=== PATIENT | male | born 1935 | race Two or more races ===

== ENCOUNTER 2020-05-21 21:19 | Inpatient (IN) | payer OTHER, MEDICAID ==
[~2020-05-21] VITALS: Ht 170.2 cm; Wt 63.9 kg
[2020-05-21 21:20] VITALS: BP 128/84
--- NOTE | 2020-05-21 21:20 | NUR ---
ED Nurse Note: pt BIBA from home per EMS report pt had a mechanical fall without loss of conciousness. Pt has hematoma on forehead. Pt is hard of hearing. Pt denies dizziness, blurry vision, n/v/d. AAOx2, breathing even and unlabored. Vital signs stable.
[2020-05-21] MEDS ORDERED: Bacitracin Oint UD TOPIC ONE (21:45)
[2020-05-21] MEDS ORDERED: Acetaminophen 500mg (ES) tab ORAL ONE (21:45)
--- NOTE | 2020-05-21 21:51 | NUR ---
ED Nurse Note: blood collected and sent to lab
--- NOTE | 2020-05-21 22:02 | NUR ---
ED Nurse Note: pt went down to CT via gurney in stable condition accompanied by CT staff.
[2020-05-21 22:15] VITALS: BP 112/69
--- NOTE | 2020-05-21 22:17 | NUR ---
ED Nurse Note: pt back from CT in stable condition.
--- NOTE | 2020-05-21 22:28 | Diagnostic Imaging Report ---
EXAM: CT Head Without Intravenous Contrast CLINICAL HISTORY: TRAUMA TECHNIQUE: Axial computed tomography images of the head/brain without intravenous contrast. CTDI is 53.4 mGy and DLP is 940.3 mGy-cm. One or more of the following dose reduction techniques were used: automated exposure control, adjustment of the mA and/or kV according to patient size, use of iterative reconstruction technique. COMPARISON: No relevant prior studies available. FINDINGS: Brain: No hemorrhage, edema or evidence of mass-effect. 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 Ventricles: Unremarkable. No ventriculomegaly. Bones/joints: Unremarkable. No acute fracture. Soft tissues: Left frontal scalp hematoma/contusion (7: 6). Sinuses: Unremarkable as visualized. Mastoid air cells: No mastoid effusion. IMPRESSION: 1. No acute intracranial traumatic process. 2. No acute calvarial fractures. 3. Left frontal scalp hematoma/contusion. 4. Mild encephalomalacia identified in the left basal ganglia suggestive of a prior infarct/insult.
[2020-05-21 22:30] LABS: INR 1.1 (0.9-1.1)
--- NOTE | 2020-05-21 22:34 | Diagnostic Imaging Report ---
INDICATION: Trauma COMPARISON: Unavailable. Findings/impression: Limited portable upright view of the chest demonstrates airspace consolidation within the left mid lung ( arrow). 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 No pleural effusions or clinically significant pneumothorax. No displaced fractures. Bilateral shoulder degenerative changes.
[2020-05-21 22:35] LABS: ANION GAP 8 mmol/L (5-15); BLOOD UREA NITROGEN 44 mg/dL (7-18); CARBON DIOXIDE 25 MMOL/L (21-32); CHLORIDE 103 MMOL/L (98-107); CREATININE 2.2 MG/DL (0.55-1.30); POTASSIUM 4.6 MMOL/L (3.5-5.1); SODIUM 136 MMOL/L (136-145)
--- NOTE | 2020-05-21 22:41 | NUR ---
ED Nurse Note: urine sent to lab
[2020-05-21 22:43] LABS: HEMATOCRIT 32.7 % (42.0-52.0); HEMOGLOBIN 11.5 G/DL (14.2-18.0); MEAN CORPUSCULAR VOLUME 92 FL (80-99); PLATELET COUNT 168 K/UL (150-450); RED BLOOD COUNT 3.57 M/UL (4.70-6.10); RED CELL DISTRIBUTION WIDTH 16.2 % (11.6-14.8); WHITE BLOOD COUNT 4.2 K/UL (4.8-10.8)
--- NOTE | 2020-05-21 22:46 | Emergency Room Report ---
History of Present Illness General Chief Complaint: Head Injury Source: Patient, EMS (Geoffrey Clement MD) Present Illness HPI Patient brought to the emergency department post mechanical fall. The patient has hematoma and abrasion to the left forehead. He is unable to answer whether he lost consciousness. It is reported that this was a mechanical fall although the circumstances around this event are unclear. Patient not answer questions asked most of the time. He does agree at times that he has pain in his forehead. He does agree that he does have a rash. According to paramedics they were told that he has psoriasis. The patient claims he is run out of medication for the rash. His history came from concerned people who know the patient. Apparently he lives by himself. (Geoffrey Clement MD) Allergies: Coded Allergies: No Known Allergies (Unverified , 05/21/20) COVID-19 Screening Contact w/high risk pt: No Experienced COVID-19 symptoms?: No COVID-19 Testing performed LNA: No (Geoffrey Clement MD) Patient History Limited by: medical condition Past Medical History: see triage record Social History Narrative lives by himself Reviewed Nursing Documentation: PMH: Agreed; PSxH: Agreed (Geoffrey Clement MD) Nursing Documentation-PMH Past Medical History: No History, Except For History Of Psychiatric Problem: Yes - dementia (Geoffrey Clement MD) Review of Systems All Other Systems: limited (Geoffrey Clement MD) Physical Exam Vital Signs Date Time Temp Pulse Resp B/P (MAP) Pulse Ox O2 Delivery O2 Flow Rate FiO2 05/21/20 21:20 98.2 88 17 130/80 (97) 98 Room Air Sp02 EP Interpretation: reviewed, normal General Appearance: well appearing, no apparent distress, GCS 15 Head: normocephalic, other - hematoma abrasion L forehead Eyes: bilateral eye normal inspection, bilateral eye PERRL, bilateral eye EOMI ENT: moist mucus membranes Neck: full range of motion, supple Respiratory: chest non-tender, lungs clear, normal breath sounds Cardiovascular #1: regular rate, rhythm, no edema Cardiovascular #2: 2+ radial (R) Gastrointestinal: normal inspection, normal bowel sounds, non tender, no mass, non-distended Musculoskeletal: back normal, normal range of motion Neurologic: alert, motor strength/tone normal, oriented - X1, sensory intact, cerebellar normal, speech normal Psychiatric: mood/affect normal - not answering most questions Skin: warm/dry, abrasion - L forehead, other - maculopapular rash yolk and upper extremities (Geoffrey Clement MD) Medical Decision Making Diagnostic Impression: Primary Impression: Altered level of consciousness Additional Impressions: Head injury Qualified Codes: S09.90XA - Unspecified injury of head, initial encounter Encephalopathy Renal insufficiency Pneumonia Qualified Codes: J18.9 - Pneumonia, unspecified organism Pneumonia due to COVID-19 virus Abnormal EKG Maculopapular rash ER Course Patient presents post head injury with inability to answer most questions. Differential includes concussion, abrasion, brain bleed, electrolyte imbalance, underlying developmental delay or psychological disability amongst others. Evaluation with EKG, CT of the head, chest x-ray and labs. Patient placed on a bus driver/monitor for the possibility of syncope. IV hydration begun. Complex patient as he is unable to give history. Patient administered tetanus. Local wound care also begun. CT head with's scalp hematoma. Encephalomalacia no lesion. CXR with L infiltrate. Antibiotics ordered. 2249 EKG right bundle branch block with the T wave inversions V2 through V4. Labs with renal insufficiency. Because of the possible infiltrate on the left chest x-ray blood cultures and antibiotics begun. The patient has an oxygen saturation of 100% and there is no leukocytosis. Covid test returns positive. Rocephin and azithromycin begun. Dexamethasone not given as patient saturation is 100%. The delirium may be related to COVID-19. Patient mentation unchanged. Mostly cooperative. Patient admitted to the hospital. Laboratory Tests Test 05/21/20 21:51 05/21/20 22:37 White Blood Count 4.2 K/UL (4.8-10.8) L Red Blood Count 3.57 M/UL (4.70-6.10) L Hemoglobin 11.5 G/DL (14.2-18.0) L Hematocrit 32.7 % (42.0-52.0) L Mean Corpuscular Volume 92 FL (80-99) Mean Corpuscular Hemoglobin 32.2 PG (27.0-31.0) H Mean Corpuscular Hemoglobin Concent 35.2 G/DL (32.0-36.0) Red Cell Distribution Width 16.2 % (11.6-14.8) H Platelet Count 168 K/UL (150-450) Mean Platelet Volume 10.5 FL (6.5-10.1) H Neutrophils (%) (Auto) % (45.0-75.0) Lymphocytes (%) (Auto) % (20.0-45.0) Monocytes (%) (Auto) % (1.0-10.0) Eosinophils (%) (Auto) % (0.0-3.0) Basophils (%) (Auto) % (0.0-2.0) Differential Total Cells Counted 100 Neutrophils % (Manual) 54 % (45-75) Lymphocytes % (Manual) 29 % (20-45) Monocytes % (Manual) 10 % (1-10) Eosinophils % (Manual) 4 % (0-3) H Basophils % (Manual) 1 % (0-2) Myelocytes % 1 % (0-0) H Band Neutrophils 1 % (0-8) Platelet Estimate Adequate Platelet Morphology Normal Erythrocyte Sedimentation Rate 87 MM/HR (0-20) H Prothrombin Time 12.5 SEC (9.30-11.50) H Prothrombin Time INR 1.1 (0.9-1.1) Activated Partial Thromboplast Time 33 SEC (23-33) Sodium Level 136 MMOL/L (136-145) Potassium Level 4.6 MMOL/L (3.5-5.1) Chloride Level 103 MMOL/L (98-107) Carbon Dioxide Level 25 MMOL/L (21-32) Anion Gap 8 mmol/L (5-15) Blood Urea Nitrogen 44 mg/dL (7-18) H Creatinine 2.2 MG/DL (0.55-1.30) H Estimated Glomerular Filtration Rate 28.8 mL/min (>60) Glucose Level 121 MG/DL (74-106) H Calcium Level 8.0 MG/DL (8.5-10.1) L Magnesium Level 1.7 MG/DL (1.8-2.4) L Total Bilirubin 0.5 MG/DL (0.2-1.0) Aspartate Amino Transferase (AST) 37 U/L (15-37) Alanine Aminotransferase (ALT) 29 U/L (12-78) Alkaline Phosphatase 69 U/L (46-116) Total Creatine Kinase 205 U/L (26-308) Troponin I 0.021 ng/mL (0.000-0.056) C-Reactive Protein, Quantitative 8.4 mg/dL (0.00-0.90) H Total Protein 7.3 G/DL (6.4-8.2) Albumin 3.2 G/DL (3.4-5.0) L Globulin 4.1 g/dL Albumin/Globulin Ratio 0.8 (1.0-2.7) L Thyroid Stimulating Hormone (TSH) 0.939 uiU/mL (0.358-3.740) Urine Color Pale yellow Urine Appearance Clear Urine pH 5 (4.5-8.0) Urine Specific [place] 1.015 (1.005-1.035) Urine Protein 3+ (NEGATIVE) H Urine Glucose (UA) Negative (NEGATIVE) Urine Ketones Negative (NEGATIVE) Urine Blood Negative (NEGATIVE) Urine Nitrite Negative (NEGATIVE) Urine Bilirubin Negative (NEGATIVE) Urine Urobilinogen Normal MG/DL (0.0-1.0) Urine Leukocyte Esterase Negative (NEGATIVE) Urine RBC 0-2 /HPF (0 - 0) H Urine WBC 0-2 /HPF (0 - 0) Urine Squamous Epithelial Cells None /LPF (NONE/OCC) Urine Bacteria Few /HPF (NONE) Urine Granular Casts 0-2 /LPF (NONE) H Urine White Blood Cell Casts 0-2 /LPF (NONE) H Urine Opiates Screen Negative (NEGATIVE) Urine Barbiturates Screen Negative (NEGATIVE) Phencyclidine (PCP) Screen Negative (NEGATIVE) Urine Amphetamines Screen Negative (NEGATIVE) Urine Benzodiazepines Screen Negative (NEGATIVE) Urine Cocaine Screen Negative (NEGATIVE) Urine Marijuana (THC) Screen Negative (NEGATIVE) Microbiology Date/Time Source Procedure Growth Status 05/21/20 22:50 Nasopharynx SARS-CoV-2 RdRp Gene Assay - Final Complete (Geoffrey Clement MD) ER Course This patient was seen by his doctors. Initially he presents with altered mental status and head injury. CT head was negative. Chest x-ray showed a left retrocardiac infiltrate. His EKG was abnormal. Troponin was intermediate. A Covid test was sent and that was positive. Patient was given antibiotics. I gave him aspirin. Oxygenation is 100%. I contacted Dr. Waldrop for admission. (Stas Lion MD) EKG Diagnostic Results Rate: normal Rhythm: NSR ST Segments: other - ST inversions V2-4, RBBB (Geoffrey Clement MD) Rhythm Strip Diag. Results Rhythm: NSR, no PVC's, no ectopy (Geoffrey Clement MD) Chest X-Ray Diagnostic Results Chest X-Ray Diagnostic Results : Chest X-Ray Ordered: Yes # of Views/Limited/Complete: 1 View Indication: Other EP Interpretation: Yes Interpretation: no effusion, no pneumothorax, other - L infiltrate Impression: Other (Geoffrey Clement MD) CT/MRI/US Diagnostic Results CT/MRI/US Diagnostic Results : Imaging Test Ordered: head Impression hematoma forehead, encephalomalacia (Geoffrey Clement MD) Last Vital Signs Date Time Temp Pulse Resp B/P (MAP) Pulse Ox O2 Delivery O2 Flow Rate FiO2 05/22/20 00:14 98.2 76 18 89/67 100 Room Air Status: improved (Geoffrey Clement MD) Status: improved (Stas Lion MD) Disposition: ADMITTED INPATIENT Condition: Serious Scripts No Active Prescriptions or Reported Meds Referrals: NOT CHOSEN IPA/,REFERRING (PCP) Geoffrey Clement MD May 21, 2020 22:46 Stas Lion MD May 22, 2020 00:35
[2020-05-21 22:47] LABS: ALANINE AMINOTRANSFERASE 29 U/L (12-78); ALBUMIN 3.2 G/DL (3.4-5.0); ALBUMIN/GLOBULIN RATIO 0.8 (1.0-2.7); ALKALINE PHOSPHATASE 69 U/L (46-116); ASPARTATE AMINO TRANSFERASE 37 U/L (15-37); BILIRUBIN,TOTAL 0.5 MG/DL (0.2-1.0); CREATINE KINASE 205 U/L (26-308)
--- NOTE | 2020-05-21 22:52 | NUR ---
ED Nurse Note: COVID swab sent to lab
[2020-05-21 22:57] LABS: APPEARANCE,URINE CLEAR; BILIRUBIN, URINE NEGATIVE (NEGATIVE); COLOR,URINE PALE YELLOW; GLUCOSE, URINE (UA) NEGATIVE (NEGATIVE); KETONES,URINE NEGATIVE (NEGATIVE); LEUKOCYTE ESTERASE ,URINE NEGATIVE (NEGATIVE); NITRITE,URINE NEGATIVE (NEGATIVE); PH,URINE 5 (4.5-8.0); PROTEIN,URINE 3+ (NEGATIVE); UROBILINOGEN,URINE NORMAL MG/DL (0.0-1.0)
[2020-05-21] MEDS ORDERED: cefTRIAXone 1 GM in NS 55 ML IVPB ONE (23:00)
[2020-05-21] MEDS ORDERED: Azithromycin 500 MG in NS 275 ML IV ONE (23:00)
[2020-05-21] MEDS ORDERED: Aspirin Baby 81mg ORAL ONE (23:30)
--- NOTE | 2020-05-21 23:46 | NUR ---
ED Nurse Note: pt placed in Rm 07. Pt's SBP 88, EDMD aware.
[2020-05-22] VITALS (22 sets, daily range): BP systolic 89–142; BP diastolic 46–71
--- NOTE | 2020-05-22 02:05 | NUR ---
ED Nurse Note: pt laying in bed with eyes closed, opens eyes when touched. Pt is AA, SBP now 90s.
--- NOTE | 2020-05-22 03:23 | NUR ---
ED Nurse Note: pt awake able to verbalize needs, able to void in urinal independently. Warm blankets provided. SBP 90s-100s, on RA sating 100%.
--- NOTE | 2020-05-22 03:27 | NUR ---
Samaria harris in EDM - 05/22/20 at 0327 by OSKAR ED Nurse Note: veterinary technician assistant at bedside performing KUB
--- NOTE | 2020-05-22 04:00 | NUR ---
ED Nurse Note: Report given to MARTHA Herzog in tele.
--- NOTE | 2020-05-22 04:15 | NUR ---
TRANSFER TO FLOOR: Patient transferred to tele via gurney accompanied by temporary staff accountant, per EDMD ok to transfer. Report given to MARTHA Herzog. Belongings and admission packet given to tele staff.
--- NOTE | 2020-05-22 04:49 | NUR ---
NURSE NOTES: Patient received from Zahida THOMAS. Patient in stable condition. A&O x 1-2. No c/o pain and no s/s of distress. Patient is a poor historian, unable to take history from patient. No contact numbers for family. Primary MD contacted for Admission orders, awaiting callback. Patient saturating well on room air. Vital signs WNL upon arrival. satellite project site monitor and gown placed to patient. IV site patent and intact on Left fA 18 and right AC 20G running NS @ NS @100mls.hr. Bed in lowest position and locked. Call light and bedside table within reach. Will continue plan of care.
--- NOTE | 2020-05-22 04:49 | NUR ---
NURSE NOTES: Noted patient admitted wt Left forehead abrasion, covered with optifoam. Addendum: 05/22/20 at 0741 by Rosenda Melchor RN Wrong user
--- NOTE | 2020-05-22 06:58 | NUR ---
NURSE NOTES: Patient found kneeling by the bed bleeding on the lips by AM charge nurse. Patient confused at baseline A&O x2 Neuro assessment done and attended by nurses on the floor. Bed alarm was on, bed in lowest position and locked. Patient wearing yellow gown and socks. No change in mental status. Injuries were noted on the lip, right elbow. delivery room supervisor and MD notified and added Dr. Ramirez for consult for Head CT order. INFANT NANNY fall was called for patient. Patient stable at this moment. Vital signs WNL. Vital signs Q15 started. Will continue to monitor.
--- NOTE | 2020-05-22 06:58 | NUR ---
NURSE HAND-OFF REPORT: Important Events on Shift:[Admission, Patient fell] Patient Status: [Stable] Diet: [NPO] Pending Orders: [] Pending Results/Labs:[] Pending MD notification:[] Latest Vital Signs: Temperature 98.9 , Pulse 83 , B/P 108 /62 , Respiratory Rate 18 , O2 SAT 100 , Room Air, O2 Flow Rate . Vital Sign Comment: [] EKG Rhythm: Sinus Rhythm Rhythm change?: MD Notified?: - MD Response: Latest Stewart Fall Score: 85 Fall Risk: High Risk Safety Measures: Call light Within Reach, Bed Alarm Zone 1, Side Rails Side Rails x2, Bed position Low and Locked. Fall Precautions: Yellow Socks Yellow Gown Door Sign Patient Fall Education Report given to [Cecily RN].
--- NOTE | 2020-05-22 07:10 | NUR ---
NURSE NOTES: The patient was seen sitting on the right side of the bed with a towel over upper lip due to bleeding after being seen on the floor and the bed alarm was going off. The patient reported pain to his left side of forehead, the doctor was alerted and an order for CT of the head with no contrast was ordered. The patient is Portuguese speaking and was responding appropriately being alert to self and location but was hard of hearing. The patients upper lip had stopped bleeding at the time. The patient was wearing a yellow gown with the bed in the lowest position, the bed alarm was set to zone 1, the side rails were up x2 and the call light was within reach. Upon assessment the patient also had an abrasion to the right elbow and was not bleeding. His vital signs were all within normal limits. The patient then asked if he could be assisted to the commode and was assisted by two nurses. He was then cleaned, his gown and linen were changed as well. He was then assisted back in bed in semifowlers position with no acute signs of distress. Neuro checks were started per protocol.
--- NOTE | 2020-05-22 10:31 | NUR ---
NURSE NOTES: Called CT for stat order. Supervisor [employer] said, "Patient is COVID and we have some patients in the ER we have to do first". When asked for ETA ear mold laboratory technician said " we will be right there".
--- NOTE | 2020-05-22 12:07 | Diagnostic Imaging Report ---
EXAM: US Retroperitoneal Complete, Renal CLINICAL HISTORY: RENAL-A TECHNIQUE: Real-time complete ultrasound of the retroperitoneum with image documentation. COMPARISON: None FINDINGS: Right kidney: Right kidney measures 10.7 cm in length. No hydronephrosis or stone. Left kidney: Left kidney measures 11.0 cm in length. No hydronephrosis or stone. Bladder: Bladder is distended but otherwise grossly unremarkable. IMPRESSION: No hydronephrosis or stone.
--- NOTE | 2020-05-22 12:18 | Diagnostic Imaging Report ---
EXAM: CT Head Without Intravenous Contrast CLINICAL HISTORY: FALL TECHNIQUE: Axial computed tomography images of the head/brain without intravenous contrast. CTDI is 53.4 mGy and DLP is 1072.2 mGy-cm. One or more of the following dose reduction techniques were used: automated exposure control, adjustment of the mA and/or kV according to patient size, use of iterative reconstruction technique. COMPARISON: CT head on 05/21/2020 FINDINGS: Brain: No acute infarct or hemorrhage identified. No extra-axial fluid collection. No mass effect or midline shift. Stable areas of hypoattenuation in the supratentorial white matter likely represent chronic small vessel ischemic changes. Stable punctate calcification along the left frontal lobe. Ventricles and sulci: Prominence of the ventricles and sulci is likely secondary to cerebral volume loss. Bones: Age-indeterminate fractures of the nasal bone partially visualized. Subcutaneous tissues: Left frontal soft tissue swelling. Sinuses: Mild mucosal thickening in the ethmoid air cells. Mastoid air cells: Normal. Orbits: Grossly unremarkable. Other: Atherosclerotic calcifications in the intracranial vasculature. IMPRESSION: 1. No acute intracranial abnormality. 2. Left frontal soft tissue swelling. Age-indeterminate nasal bone fractures partially visualized. 3. Stable mild chronic small vessel ischemic changes and cerebral volume loss.
[2020-05-22 12:25] LABS: BASOPHILS % (AUTO) 0.8 % (0.0-2.0); EOSINOPHILS % (AUTO) 0.1 % (0.0-3.0); HEMATOCRIT 32.8 % (42.0-52.0); HEMOGLOBIN 11.2 G/DL (14.2-18.0); LYMPHOCYTES % (AUTO) 22.7 % (20.0-45.0); MEAN CORPUSCULAR VOLUME 94 FL (80-99); MONOCYTES % (AUTO) 17.6 % (1.0-10.0); NEUTROPHILS % (AUTO) 58.8 % (45.0-75.0); PLATELET COUNT 139 K/UL (150-450); RED BLOOD COUNT 3.51 M/UL (4.70-6.10); WHITE BLOOD COUNT 4.6 K/UL (4.8-10.8)
--- NOTE | 2020-05-22 12:28 | NUR ---
NURSE NOTES: Patient reports a phone number of [phone]. Patient informed of incomplete number but cannot remember full number. Patient wants RN to inform his daughter Kana of him being admitted. Patient is hard of hearing. Unable to make a phone call to relatives. Patient does not provide any other phone numbers.
--- NOTE | 2020-05-22 12:49 | NUR ---
NURSE NOTES: Bilateral soft wrist Restraint order placed by Dr. Huynh for patients safety. The patients restraint interventions have been initiated per protocol.
[2020-05-22 12:51] LABS: ALANINE AMINOTRANSFERASE 28 U/L (12-78); ALBUMIN/GLOBULIN RATIO 0.7 (1.0-2.7); ALKALINE PHOSPHATASE 57 U/L (46-116); ANION GAP 11 mmol/L (5-15); ASPARTATE AMINO TRANSFERASE 40 U/L (15-37); BILIRUBIN,TOTAL 0.4 MG/DL (0.2-1.0); BLOOD UREA NITROGEN 31 mg/dL (7-18); CALCIUM 7.3 MG/DL (8.5-10.1); CARBON DIOXIDE 21 MMOL/L (21-32); CHLORIDE 109 MMOL/L (98-107); CHOLESTEROL 114 MG/DL (< 200); CREATININE 1.5 MG/DL (0.55-1.30); FERRITIN 358 NG/ML (8-388); GAMMA GLUTAMYL TRANSPEPTIDASE 42 U/L (5-85); HDL CHOLESTEROL 35 MG/DL (40-60); PHOSPHORUS 3.1 MG/DL (2.5-4.9); POTASSIUM 4.5 MMOL/L (3.5-5.1); SODIUM 141 MMOL/L (136-145); TRIGLYCERIDES 87 MG/DL (30-150)
--- NOTE | 2020-05-22 13:16 | Consultation ---
Consult Note Consult Note I am asked to evaluate the patient at the request of Dr. Barraza for renal failure and fluid and electrolyte management Patient brought to the emergency department post mechanical fall. The patient has hematoma and abrasion to the left forehead. He is unable to answer whether he lost consciousness. It is reported that this was a mechanical fall although the circumstances around this event are unclear. Patient not answer questions asked most of the time. He does agree at times that he has pain in his forehead. He does agree that he does have a rash. According to paramedics they were told that he has psoriasis. The patient claims he is run out of medication for the rash. His history came from concerned people who know the patient. Apparently he lives by himself. Allergies: No Known Allergies (Unverified , 05/21/20) COVID-19 Screening Contact w/high risk pt: No Experienced COVID-19 symptoms?: No COVID-19 Testing performed PIPE LAYER HELPER: No Limited by: medical condition Past Medical History: see triage record Social History Narrative lives by himself Past Medical History: No History, Except For History Of Psychiatric Problem: Yes - dementia Vital Signs Date Time Temp Pulse Resp B/P (MAP) Pulse Ox O2 Delivery O2 Flow Rate FiO2 05/21/20 21:20 98.2 88 17 130/80 (97) 98 Room Air PHYSICAL EXAMINATION: VITAL SIGNS: Show blood pressure 140/67, pulse 76, respirations 18, temperature 98.3. HEAD AND NECK: Showed no JVD. LUNGS: Clear. CARDIOVASCULAR: Shows regular S1 and S2 with no gallop or murmur. ABDOMEN: Soft. EXTREMITIES: No pitting edema. LABORATORY DATA: Labs show white count of 4.3, hemoglobin 11.2, hematocrit 32.8, and platelets 139. Sodium 141, potassium 4.5, BUN of 31, creatinine 1.5, glucose of 91. Initial BUN was 44 and creatinine of 2.2. First troponin is negative. Urine tox is negative. INR is 1.1. EKG showed sinus rhythm with complete right bundle-branch block and lateral T-wave inversion. . Assessment/Plan Impression: Acute renal failure Possible underlying chronic kidney disease Dehydration Electrolyte imbalance Toxic metabolic encephalopathy Pneumonia due to COVID-19 virus Mild anemia Plan: Slow hydrate Antibiotics, avoid nephrotoxic's Monitor renal parameters electrolytes Keep the blood pressure blood sugar in check Patient full code Jerome Delaney MD 12, 2020 13:16
[2020-05-22 13:45] LABS: % IRON SATURATION 7 % (15-50); IRON 16 ug/dL (50-175); TOTAL IRON BINDING CAPACITY 235 ug/dL (250-450)
--- NOTE | 2020-05-22 14:19 | NUR ---
NURSE NOTES: Sheree called the unit and provided the daugher's number . Daughter (Kana) contacted and informed of situation and fall today.
[2020-05-22] MEDS: D5 1/2NS 1,000 ML IV SCH (14:24)
--- NOTE | 2020-05-22 15:21 | NUR ---
CASE MANAGEMENT:REVIEW BIBA FROM HOME CC: S/P MECHANICAL FALL W/HEAD INJURY SI:COVID PNA. ENCEPHALOPATHY 98.2 94 18 89/67 100% ON RA BUN+44 CR+2.2 MAG-1.7 IS: TYLENOL PO 1L NS BOLUS BACITRACIN BENNIE CT HEAD CXR : TO TELEMETRY DCP: FROM HOME
--- NOTE | 2020-05-22 15:43 | Cardiac Electrophysiology PN ---
Subjective Subjective [id number] Objective Last 24 Hour Vital Signs Date Time Temp Pulse Resp B/P (MAP) Pulse Ox O2 Delivery O2 Flow Rate FiO2 05/22/20 13:58 98.6 100 05/22/20 12:58 98.0 100 05/22/20 12:00 76 05/22/20 12:00 99.0 83 19 140/67 (91) 97 05/22/20 11:58 96.9 100 05/22/20 10:58 97.8 100 05/22/20 09:58 97.2 100 05/22/20 09:00 Room Air 05/22/20 08:58 98.0 100 05/22/20 08:28 98.0 100 05/22/20 08:00 65 05/22/20 08:00 96.6 61 18 120/62 (81) 100 05/22/20 07:58 98.0 100 05/22/20 07:43 97.6 100 05/22/20 07:28 98.2 100 05/22/20 07:13 98.0 100 05/22/20 07:10 Room Air 05/22/20 06:58 98.3 100 05/22/20 04:49 Room Air 05/22/20 04:15 98.9 83 18 108/62 100 Room Air 05/22/20 03:13 98.2 73 18 110/71 100 Room Air 05/22/20 02:36 98.2 72 18 96/66 100 Room Air 05/22/20 02:05 98.2 76 18 98/68 100 Room Air 05/22/20 00:14 98.2 76 18 89/67 100 Room Air 05/21/20 22:25 98.2 05/21/20 22:15 98.3 71 18 112/69 100 Room Air 05/21/20 21:20 98.2 94 18 128/84 100 Room Air 05/21/20 21:20 98.2 88 17 130/80 (97) 98 Room Air Intake and Output 05/21/20 05/22/20 19:00 07:00 Intake Total 1655 ml Balance 1655 ml Intake IV Total 1655 ml # Voids 2 Laboratory Tests Test 05/21/20 21:51 05/21/20 22:37 05/22/20 12:05 White Blood Count 4.2 K/UL (4.8-10.8) L 4.6 K/UL (4.8-10.8) L Red Blood Count 3.57 M/UL (4.70-6.10) L 3.51 M/UL (4.70-6.10) L Hemoglobin 11.5 G/DL (14.2-18.0) L 11.2 G/DL (14.2-18.0) L Hematocrit 32.7 % (42.0-52.0) L 32.8 % (42.0-52.0) L Mean Corpuscular Volume 92 FL (80-99) 94 FL (80-99) Mean Corpuscular Hemoglobin 32.2 PG (27.0-31.0) H 32.0 PG (27.0-31.0) H Mean Corpuscular Hemoglobin Concent 35.2 G/DL (32.0-36.0) 34.2 G/DL (32.0-36.0) Red Cell Distribution Width 16.2 % (11.6-14.8) H 16.0 % (11.6-14.8) H Platelet Count 168 K/UL (150-450) 139 K/UL (150-450) L Mean Platelet Volume 10.5 FL (6.5-10.1) H 9.9 FL (6.5-10.1) Neutrophils (%) (Auto) % (45.0-75.0) 58.8 % (45.0-75.0) Lymphocytes (%) (Auto) % (20.0-45.0) 22.7 % (20.0-45.0) Monocytes (%) (Auto) % (1.0-10.0) 17.6 % (1.0-10.0) H Eosinophils (%) (Auto) % (0.0-3.0) 0.1 % (0.0-3.0) Basophils (%) (Auto) % (0.0-2.0) 0.8 % (0.0-2.0) Differential Total Cells Counted 100 Neutrophils % (Manual) 54 % (45-75) Lymphocytes % (Manual) 29 % (20-45) Monocytes % (Manual) 10 % (1-10) Eosinophils % (Manual) 4 % (0-3) H Basophils % (Manual) 1 % (0-2) Myelocytes % 1 % (0-0) H Band Neutrophils 1 % (0-8) Platelet Estimate Adequate Platelet Morphology Normal Erythrocyte Sedimentation Rate 87 MM/HR (0-20) H Prothrombin Time 12.5 SEC (9.30-11.50) H Prothromb Time International Ratio 1.1 (0.9-1.1) Activated Partial Thromboplast Time 33 SEC (23-33) Sodium Level 136 MMOL/L (136-145) 141 MMOL/L (136-145) Potassium Level 4.6 MMOL/L (3.5-5.1) 4.5 MMOL/L (3.5-5.1) Chloride Level 103 MMOL/L (98-107) 109 MMOL/L (98-107) H Carbon Dioxide Level 25 MMOL/L (21-32) 21 MMOL/L (21-32) Anion Gap 8 mmol/L (5-15) 11 mmol/L (5-15) Blood Urea Nitrogen 44 mg/dL (7-18) H 31 mg/dL (7-18) H Creatinine 2.2 MG/DL (0.55-1.30) H 1.5 MG/DL (0.55-1.30) H Estimat Glomerular Filtration Rate 28.8 mL/min (>60) 44.8 mL/min (>60) Glucose Level 121 MG/DL (74-106) H 91 MG/DL (74-106) Calcium Level 8.0 MG/DL (8.5-10.1) L 7.3 MG/DL (8.5-10.1) L Magnesium Level 1.7 MG/DL (1.8-2.4) L 1.7 MG/DL (1.8-2.4) L Total Bilirubin 0.5 MG/DL (0.2-1.0) 0.4 MG/DL (0.2-1.0) Aspartate Amino Transf (AST/SGOT) 37 U/L (15-37) 40 U/L (15-37) H Alanine Aminotransferase (ALT/SGPT) 29 U/L (12-78) 28 U/L (12-78) Alkaline Phosphatase 69 U/L (46-116) 57 U/L (46-116) Total Creatine Kinase 205 U/L (26-308) Troponin I 0.021 ng/mL (0.000-0.056) C-Reactive Protein, Quantitative 8.4 mg/dL (0.00-0.90) H 8.7 mg/dL (0.00-0.90) H Total Protein 7.3 G/DL (6.4-8.2) 7.2 G/DL (6.4-8.2) Albumin 3.2 G/DL (3.4-5.0) L 3.0 G/DL (3.4-5.0) L Globulin 4.1 g/dL 4.2 g/dL Albumin/Globulin Ratio 0.8 (1.0-2.7) L 0.7 (1.0-2.7) L Thyroid Stimulating Hormone (TSH) 0.939 uiU/mL (0.358-3.740) Urine Color Pale yellow Urine Appearance Clear Urine pH 5 (4.5-8.0) Urine Specific [place] 1.015 (1.005-1.035) Urine Protein 3+ (NEGATIVE) H Urine Glucose (UA) Negative (NEGATIVE) Urine Ketones Negative (NEGATIVE) Urine Blood Negative (NEGATIVE) Urine Nitrite Negative (NEGATIVE) Urine Bilirubin Negative (NEGATIVE) Urine Urobilinogen Normal MG/DL (0.0-1.0) Urine Leukocyte Esterase Negative (NEGATIVE) Urine RBC 0-2 /HPF (0 - 0) H Urine WBC 0-2 /HPF (0 - 0) Urine Squamous Epithelial Cells None /LPF (NONE/OCC) Urine Bacteria Few /HPF (NONE) Urine Granular Casts 0-2 /LPF (NONE) H Urine White Blood Cell Casts 0-2 /LPF (NONE) H Urine Opiates Screen Negative (NEGATIVE) Urine Barbiturates Screen Negative (NEGATIVE) Phencyclidine (PCP) Screen Negative (NEGATIVE) Urine Amphetamines Screen Negative (NEGATIVE) Urine Benzodiazepines Screen Negative (NEGATIVE) Urine Cocaine Screen Negative (NEGATIVE) Urine Marijuana (THC) Screen Negative (NEGATIVE) Hemoglobin A1c 6.8 % (4.3-6.0) H Uric Acid 4.7 MG/DL (2.6-7.2) Phosphorus Level 3.1 MG/DL (2.5-4.9) Iron Level 16 ug/dL (50-175) L Total Iron Binding Capacity 235 ug/dL (250-450) L Percent Iron Saturation 7 % (15-50) L Unsaturated Iron Binding 219 ug/dL (112-346) Ferritin 358 NG/ML (8-388) Gamma Glutamyl Transpeptidase 42 U/L (5-85) Pro-B-Type Natriuretic Peptide 3761 pg/mL (0-125) H Triglycerides Level 87 MG/DL (30-150) Cholesterol Level 114 MG/DL (< 200) LDL Cholesterol 63 mg/dL (<100) HDL Cholesterol 35 MG/DL (40-60) L Cholesterol/HDL Ratio 3.3 (3.3-4.4) Vitamin B12 Level > 2000 PG/ML (193-986) H Folate 17.8 NG/ML (8.6-58.9) Microbiology Date/Time Source Procedure Growth Status 05/21/20 22:50 Nasopharynx SARS-CoV-2 RdRp Gene Assay - Final Complete Rick Basilio MD May 22, 2020 15:43
[2020-05-22] MEDS ORDERED: Varibar Thin Liquid powder 148gm MC PRN (15:45)
[2020-05-22] MEDS ORDERED: Varibar Nectar 240ml MC PRN (15:45)
[2020-05-22] MEDS ORDERED: Varibar Pudding 230ml MC PRN (15:45)
[2020-05-22] MEDS ORDERED: Varibar Honey 250ml MC PRN (15:45)
--- NOTE | 2020-05-22 17:14 | NUR ---
PT Note PT filiberto completed, treatment initiated. Patient has muscle weakness with c/o chills, limiting his mobility and activity tolerance. Patient needs physical therapy to increase his muscle strength and balance to improve his functional mobility and gait. Addendum: 05/22/20 at 1715 by ASHLEY MCFADDEN PT Amended: Links added.
--- NOTE | 2020-05-22 19:00 | Consultation ---
DATE OF CONSULTATION: 05/22/2020 CARDIOLOGY CONSULTATION CONSULTING PHYSICIAN: Rick Basilio MD REFERRING PHYSICIAN: Yvette Waldrop MD REASON FOR CONSULTATION: Syncope. Patient also had abnormal electrocardiogram with lateral T-wave inversion and right bundle-branch block. HISTORY OF PRESENT ILLNESS: Patient is an 84-year-old gentleman who presented to the emergency room after a mechanical fall resulting in hematoma and abrasion of the left forehead. Patient is not sure whether he lost consciousness or not. Patient underwent a CT of the brain that showed no evidence of intracranial bleed. The EKG however showed sinus rhythm with complete right bundle-branch block and inferolateral ischemia. At the time of my evaluation, patient is NPO awaiting swallow evaluation. Denies any chest pain. REVIEW OF SYSTEMS: Negative other than what is mentioned in the history of present illness. PAST MEDICAL HISTORY: As mentioned above. FAMILY HISTORY: Noncontributory. SOCIAL HISTORY: He lives at home. Does not smoke or drink alcohol. PHYSICAL EXAMINATION: VITAL SIGNS: Show blood pressure 140/67, pulse 76, respirations 18, temperature 98.3. HEAD AND NECK: Showed no JVD. LUNGS: Clear. CARDIOVASCULAR: Shows regular S1 and S2 with no gallop or murmur. ABDOMEN: Soft. EXTREMITIES: No pitting edema. LABORATORY DATA: Labs show white count of 4.3, hemoglobin 11.2, hematocrit 32.8, and platelets 139. Sodium 141, potassium 4.5, BUN of 31, creatinine 1.5, glucose of 91. Initial BUN was 44 and creatinine of 2.2. First troponin is negative. Urine tox is negative. INR is 1.1. EKG showed sinus rhythm with complete right bundle-branch block and lateral T-wave inversion. ASSESSMENT AND PLAN: 1. Syncope. Etiology is not clear at this time. The first troponin is negative. We will completely rule out [facility] protocol. We will get an echocardiogram and carotid duplex and check orthostatic vital signs. He might have been dehydrated in view of BUN and creatinine that is improving. 2. Complete right bundle-branch block and lateral T-wave inversion. We will completely rule out [facility] protocol. 3. Dysphagia. Swallow evaluation is pending. Thank very much for allowing me to participate in the care of this patient. Please do not hesitate to contact me for any questions regarding my evaluation. Rick Basilio M.D. DR: GUILLE JOB#: [id number] CC:
--- NOTE | 2020-05-22 19:28 | NUR ---
NURSE HAND-OFF REPORT: Important Events on Shift:[Post Fall prior to shift, sodium random Urine] Patient Status: [Stable, aaox2] Diet: [NPO] Pending Orders: [N/A] Pending Results/Labs:[N/A] Pending MD notification:[N/A] Latest Vital Signs: Temperature 98.6 , Pulse 108 , B/P 142 /71 , Respiratory Rate 20 , O2 SAT 94 , Room Air, O2 Flow Rate . Vital Sign Comment: [] EKG Rhythm: ST with BBB Rhythm change?: N MD Notified?: - MD Response: Latest Stewart Fall Score: 85 Fall Risk: High Risk Safety Measures: Call light Within Reach, Bed Alarm Zone 2, Side Rails Side Rails x2, Bed position Low and Locked. Fall Precautions: Yellow Socks Yellow Gown Patient Fall Education Report given to [MARTHA Delcid].
--- NOTE | 2020-05-22 19:30 | NUR ---
NURSE NOTES: RECEIVED REPORT FROM KARTHIKEYANRN/ PT IN BED ALERT/ORIENTED X2. BILATERAL SOFT WRIST RESTRAINT APPLIED. NO SKIN BREAK DOWN NOTED, BILATERAL PULSES PALPABLE. RIGHT AC INFUSING D5 1/2NS AT 75CC/HR. BED IN LOW POSITION & LOCKED. SIDE RAILS UP X3. CALL LIGHT WITH IN REACH. BED ALARM ON.
[2020-05-22] MEDS: Pantoprazole Inj IVP SCH (20:59)
--- NOTE | 2020-05-22 22:00 | Consultation ---
DATE OF CONSULTATION: 05/22/2020 PULMONARY CONSULTATION HISTORY OF PRESENT ILLNESS: This is an 84-year-old male, who apparently had a mechanical fall. The patient reports he has got shortness of breath. He was feeling better in the emergency room and admitted to the hospital. The patient reports a history of underlying dementia and no other history is available at this point in time. The patient was noted to be saturating normally on room air and a x-ray of chest was also obtained, which showed evidence of previous sternotomy and CABG, otherwise there was no significant pathology noted. The patient admitted to the hospital for evaluation. He has been seen by Cardiology and Nephrology. The patient was also tested for COVID-19 and his rapid antigen came back positive. Currently, the patient as discussed above saturating well on room air. PAST HISTORY: Dementia. REVIEW OF SYSTEMS: Unreliable. PAST SURGICAL HISTORY: Not known. CODE STATUS: Full. SOCIAL HISTORY: Not known. PHYSICAL EXAMINATION: GENERAL: Reveals an 84-year-old male. VITAL SIGNS: Blood pressure is 130/60, heart rate 104, respirations 20, he is afebrile, O2 saturation 100% on room air. HEENT: Unremarkable. CHEST: Exam shows clear breath sounds bilaterally. ABDOMEN: Soft. EXTREMITIES: There is no edema nonfocal. X-ray chest discussed above. IMPRESSION: 1. Pneumonia. 2. Anemia. 3. Renal insufficiency. 4. Elevated inflammatory markers with high CRP. 5. Hypokalemia. 6. Mild protein-calorie malnutrition. DISCUSSION: Admit to the hospital. Agree with current medications and care. The patient will benefit from hydration as he appears to be dehydrated. Currently, he is asymptomatic from a pulmonary standpoint. Therefore, we will hold off on any specific therapy for COVID such as steroids, or remdesivir. We will follow carefully. Wound care to be instituted. We will follow up here. Ector Howe M.D. DR: DANIELA JOB#: [id number] CC:
--- NOTE | 2020-05-22 22:30 | History and Physical Report ---
DATE OF ADMISSION: 05/21/2020 HISTORY OF PRESENT ILLNESS: The patient basically come in status post mechanical fall. The patient had a hematoma and abrasion to the forehead. The patient was not able to give details of the history of the fall. He does complain of some headache. Denies nausea, vomiting, or diarrhea. Denies shortness of breath. Denies cough. PAST MEDICAL HISTORY: Organic brain syndrome. PAST SURGICAL HISTORY: None. ALLERGIES: No known allergies. MEDICATIONS: . FAMILY HISTORY: Noncontributory. SOCIAL HISTORY: Denies history of smoking. Denies alcohol or illicit drugs. REVIEW OF SYSTEMS: HEENT: He does have headache. RESPIRATORY: Denies shortness of breath. Denies cough. CARDIOVASCULAR: Denies chest pain. . CENTRAL NERVOUS SYSTEM: Denies change in speech pattern. Agitated. PHYSICAL EXAMINATION: VITAL SIGNS: Temperature is 98, pulse is 75, blood pressure 138/64. HEENT: PERRLA. NECK: Supple. No lymphadenopathy. CHEST: Clear to auscultation. CARDIOVASCULAR: Regular rate and rhythm. No murmurs or extra sounds. GASTROINTESTINAL: Soft, nontender, and nondistended. No organomegaly. EXTREMITIES: No edema. He is able to move his extremities. Has generalized weakness. Reflexes on both sides. LABORATORY DATA: WBC of 4.3, hemoglobin of 11.5, platelets 168,000. Sodium 136, potassium 4.6, glucose of 121. The patient is admitted for COVID-positive pneumonia as well as acute renal failure. BUN of 44, creatinine of 2.2. PLAN: The patient is dehydrated, is going to need IV fluids. The patient is also agitated, impulsive. I have consulted Dr. Huynh as well as Dr. Delaney, Dr. Ector Howe, Dr. Mahin Leyva, Dr. Ramirez, and Dr. Basilio for the altered mental status as well as for the treatment of the renal failure and dehydration as well as for treatment of COVID-positive pneumonia. Antibiotics per Dr. Mahin Leyva. We will follow the patient closely. Yvette Waldrop M.D. DR: TOY JOB#: [id number] CC:
[2020-05-23] VITALS (12 sets, daily range): BP systolic 110–142; BP diastolic 34–91
[2020-05-23] MEDS: D5 1/2NS 1,000 ML IV SCH ×2 (02:28→15:48)
--- NOTE | 2020-05-23 06:00 | NUR ---
NURSE NOTES: DR. SANDOVAL MADE AWARE ON A.FIB WITH RVR WAITING CALL BACK.
--- NOTE | 2020-05-23 07:19 | NUR ---
NURSE NOTES: Received report from Leia Lopez RN. Patient sleeping, on room air, respirations at 16 breaths per minuted, bed in lowest position, call light within reach, wheels locked, bilateral soft wrist restraints in place, side rails up x 4, in no apparent distress, Afib with RVR left on voicemail of Dr. Rick Basilio by Leia Lopez RN, Magnesium=1.7 Dr. Jerome Delaney.
--- NOTE | 2020-05-23 07:47 | NUR ---
NURSE HAND-OFF REPORT: Important Events on Shift:[PT HAD EPISODE OF A.FIB WITH RVR DR. SANDOVAL MADE AWARE] Patient Status: [STABLE] Diet: [NPO] Pending Orders: [] Pending Results/Labs:[] Pending MD notification:[] Latest Vital Signs: Temperature 98.2 , Pulse 103 , B/P 111 /60 , Respiratory Rate 20 , O2 SAT 95 , Room Air, O2 Flow Rate . Vital Sign Comment: [] EKG Rhythm: A.FIB WITH BBB Rhythm change?: Y Notified?: Y -DR. LORI MONSIVAIS Response: Latest Stewart Fall Score: 85 Fall Risk: High Risk Safety Measures: Call light Within Reach, Bed Alarm Zone 2, Side Rails Side Rails x2, Bed position Low and Locked. Fall Precautions: Yellow Socks Yellow Gown Patient Fall Education Report given to [MARTHA GUILLEN].
[2020-05-23] MEDS: Pantoprazole Inj IVP SCH ×2 (08:31→22:00)
--- NOTE | 2020-05-23 08:54 | Consultation ---
History of Present Illness General Date patient seen: May 23, 2020 Time patient seen: 08:30 Chief Complaint: Head Injury Referring physician: Dr. Waldrop Reason for Consultation: Fall Present Illness HPI This is an 84-year-old male, who apparently had a mechanical fall prior to admission, he was found by his neighbors. He is primarily [place] speaking and communicating in [place]. He is a poor historian. He is slighlty confused according to the gabonese speaking RN. He is on Covid isolation in restraints. Upon work up CXR showed evidence of previous sternotomy and CABG, otherwise unremarkable. Upon further imaging CT Head on 05/21 was obtained and revealed No acute intracranial traumatic process. No acute calvarial fractures. Left frontal scalp hematoma/contusion. 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 We do not know the nature of the fall and if he lost consciousness prior or after. We were conssulted for fall. He is currently seen in covid isolation room, on wrist restraints. Allergies: Coded Allergies: No Known Allergies (Unverified , 05/21/20) Medication History No Active Prescriptions or Reported Meds Medications Narrative Reviewed Patient History Limited by: language barrier, medical condition History Provided By: Medical Record Healthcare decision maker Resuscitation status Advanced Directive on File Review of Systems Constitutional: Reports: see HPI Eye: Reports: no symptoms ENT: Reports: other ROS Narrative limited unable to assess Physical Exam General Appearance: alert, agitated Lines, tubes and drains: peripheral HEENT: normocephalic, other Neck: non-tender Respiratory/Chest: lungs clear, no respiratory distress, no accessory muscle use Cardiovascular/Chest: normal peripheral pulses Abdomen: normal bowel sounds Extremities: other Skin Exam: warm/dry Neurologic: alert, other Musculoskeletal: other Physical Exam Narrative He is on restraints, moving all extremities, unable to assess gait, no speech difficulty. Complete neuro exam limited no focal deficits. Has dry blood on lips and a bruise on forehead Last 24 Hour Vital Signs Date Time Temp Pulse Resp B/P (MAP) Pulse Ox O2 Delivery O2 Flow Rate FiO2 05/23/20 05:38 98.2 95 05/23/20 04:00 103 05/23/20 04:00 98.2 96 20 110/60 (77) 94 05/23/20 01:38 98.8 95 05/23/20 00:00 96 05/23/20 00:00 98.8 98 20 114/59 (77) 95 05/22/20 21:38 98.0 95 05/22/20 21:00 Room Air 05/22/20 20:00 94 05/22/20 20:00 98.5 88 20 125/60 (81) 96 05/22/20 17:58 98.6 94 05/22/20 16:00 98.0 75 20 138/65 (89) 100 05/22/20 16:00 108 05/22/20 13:58 98.6 100 05/22/20 12:58 98.0 100 05/22/20 12:00 76 05/22/20 12:00 99.0 83 19 140/67 (91) 97 05/22/20 11:58 96.9 100 05/22/20 10:58 97.8 100 05/22/20 09:58 97.2 100 05/22/20 09:00 Room Air 05/22/20 08:58 98.0 100 Intake and Output 05/22/20 05/23/20 19:00 07:00 Intake Total 300 ml Output Total 1000 ml Balance 300 ml -1000 ml Intake IV Total 300 ml Output Urine Total 1000 ml # Voids 2 Laboratory Tests Test 05/22/20 12:05 05/22/20 16:20 White Blood Count 4.6 K/UL (4.8-10.8) L Red Blood Count 3.51 M/UL (4.70-6.10) L Hemoglobin 11.2 G/DL (14.2-18.0) L Hematocrit 32.8 % (42.0-52.0) L Mean Corpuscular Volume 94 FL (80-99) Mean Corpuscular Hemoglobin 32.0 PG (27.0-31.0) H Mean Corpuscular Hemoglobin Concent 34.2 G/DL (32.0-36.0) Red Cell Distribution Width 16.0 % (11.6-14.8) H Platelet Count 139 K/UL (150-450) L Mean Platelet Volume 9.9 FL (6.5-10.1) Neutrophils (%) (Auto) 58.8 % (45.0-75.0) Lymphocytes (%) (Auto) 22.7 % (20.0-45.0) Monocytes (%) (Auto) 17.6 % (1.0-10.0) H Eosinophils (%) (Auto) 0.1 % (0.0-3.0) Basophils (%) (Auto) 0.8 % (0.0-2.0) Sodium Level 141 MMOL/L (136-145) Potassium Level 4.5 MMOL/L (3.5-5.1) Chloride Level 109 MMOL/L (98-107) H Carbon Dioxide Level 21 MMOL/L (21-32) Anion Gap 11 mmol/L (5-15) Blood Urea Nitrogen 31 mg/dL (7-18) H Creatinine 1.5 MG/DL (0.55-1.30) H Estimat Glomerular Filtration Rate 44.8 mL/min (>60) Glucose Level 91 MG/DL (74-106) Hemoglobin A1c 6.8 % (4.3-6.0) H Uric Acid 4.7 MG/DL (2.6-7.2) Calcium Level 7.3 MG/DL (8.5-10.1) L Phosphorus Level 3.1 MG/DL (2.5-4.9) Magnesium Level 1.7 MG/DL (1.8-2.4) L Iron Level 16 ug/dL (50-175) L Total Iron Binding Capacity 235 ug/dL (250-450) L Percent Iron Saturation 7 % (15-50) L Unsaturated Iron Binding 219 ug/dL (112-346) Ferritin 358 NG/ML (8-388) Total Bilirubin 0.4 MG/DL (0.2-1.0) Gamma Glutamyl Transpeptidase 42 U/L (5-85) Aspartate Amino Transf (AST/SGOT) 40 U/L (15-37) H Alanine Aminotransferase (ALT/SGPT) 28 U/L (12-78) Alkaline Phosphatase 57 U/L (46-116) C-Reactive Protein, Quantitative 8.7 mg/dL (0.00-0.90) H Pro-B-Type Natriuretic Peptide 3761 pg/mL (0-125) H Total Protein 7.2 G/DL (6.4-8.2) Albumin 3.0 G/DL (3.4-5.0) L Globulin 4.2 g/dL Albumin/Globulin Ratio 0.7 (1.0-2.7) L Triglycerides Level 87 MG/DL (30-150) Cholesterol Level 114 MG/DL (< 200) LDL Cholesterol 63 mg/dL (<100) HDL Cholesterol 35 MG/DL (40-60) L Cholesterol/HDL Ratio 3.3 (3.3-4.4) Vitamin B12 Level > 2000 PG/ML (193-986) H Folate 17.8 NG/ML (8.6-58.9) Urine Random Sodium 124 mmol/L (20-110) H Height (Feet): 5 Height (Inches): 7.00 Weight (Pounds): 159 Medications Current Medications Medications (Trade) Dose Ordered Sig/Celia Route PRN Reason Start Time Stop Time Status Last Admin Dose Admin Acetaminophen (Tylenol) 650 mg Q4HR PRN ORAL TEMP>100.5 05/22/20 00:45 Barium Sulfate (Varibar Honey) 250 ml NOW PRN MC RAD 05/22/20 15:45 05/25/20 15:39 Barium Sulfate (Varibar [place]) 240 ml NOW PRN MC RAD 05/22/20 15:45 05/25/20 15:39 Barium Sulfate (Varibar Pudding) 230 ml NOW PRN MC RAD 05/22/20 15:45 05/25/20 15:39 Barium Sulfate (Varibar Thin Liquid powder) 148 gm NOW PRN MC RAD 05/22/20 15:45 05/25/20 15:39 Dextrose/Sodium Chloride 1,000 ml @ 75 mls/hr [id number] IV 05/22/20 13:30 06/21/20 13:29 05/23/20 02:28 Haloperidol Lactate (Haldol) 5 mg Q6H PRN IM Agitation 05/22/20 13:15 07/06/20 13:14 Pantoprazole (Protonix) 40 mg EVERY 12 HOURS IVP 05/22/20 21:00 06/21/20 20:59 05/23/20 08:31 Assessment/Plan Status Narrative 1. Falls --> unknown etiology --> CT Head completed once prior to admission and second CT head done yesterday after patient fell in the room attempting to get up oob per RN --> S/p nasal fracture second: CT findings revealed Left frontal soft tissue swelling. Age-indeterminate nasal bone fractures partially visualized.Stable mild chronic small vessel ischemic changes and cerebral volume loss. --> Recommend MRI Brain once he is stable and out of covid isolation. --> obtain more information from family regarding fall. 2. Encephalopathy --> No focal findings on limited neuro exam, i.e cva 3. Covid 19 Disease --> on isolation on oxygen not hypoxic --> continue supportive treatment 4. Atrial Fibrillation --> cards on board Thank You for allowing us to participate in the care of the patient. The time of the note phil not necessarily reflect the time the patient was seen and evaluated Sonam Redman NP May 23, 2020 08:54
[2020-05-23 09:44] LABS: BASOPHILS % (AUTO) 0.3 % (0.0-2.0); EOSINOPHILS % (AUTO) 0.1 % (0.0-3.0); HEMATOCRIT 32.6 % (42.0-52.0); HEMOGLOBIN 11.3 G/DL (14.2-18.0); LYMPHOCYTES % (AUTO) 20.3 % (20.0-45.0); MEAN CORPUSCULAR VOLUME 93 FL (80-99); MONOCYTES % (AUTO) 18.7 % (1.0-10.0); NEUTROPHILS % (AUTO) 60.6 % (45.0-75.0); PLATELET COUNT 131 K/UL (150-450); RED BLOOD COUNT 3.52 M/UL (4.70-6.10); RED CELL DISTRIBUTION WIDTH 15.1 % (11.6-14.8); WHITE BLOOD COUNT 5.4 K/UL (4.8-10.8)
[2020-05-23 09:57] LABS: ALBUMIN 2.8 G/DL (3.4-5.0); ALBUMIN/GLOBULIN RATIO 0.8 (1.0-2.7); BILIRUBIN,TOTAL 0.5 MG/DL (0.2-1.0); CALCIUM 7.4 MG/DL (8.5-10.1); CREATININE 1.4 MG/DL (0.55-1.30); PHOSPHORUS 2.9 MG/DL (2.5-4.9); POTASSIUM 3.9 MMOL/L (3.5-5.1)
--- NOTE | 2020-05-23 14:53 | NUR ---
CASE MANAGEMENT:REVIEW 05/23/20 SI: COVID PNA. ENCEPHALOPATHY 96.6 HR 58 THEN 117 20 142/91 95% ON RA H/H-11.3/32.6 BUN+21 CR+1.4 CA-7.4 MAG-1.5 TROPONIN(+)0.266 IS: IV MAG SULFATE Q1HRS X4 BAGS IV PROTONIX Q12 IVF@75/HR : TELEMETRY STATUS DCP: FROM HOME PLAN: 2DECHO PT EVAL
--- NOTE | 2020-05-23 15:08 | Pulmonology Progress Note ---
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 Constitutional: Reports: no symptoms HEENT: Repors: no symptoms Respiratory: Reports: no symptoms Cardiovascular: Reports: no symptoms Gastrointestinal/Abdominal: Reports: no symptoms Allergies: Coded Allergies: No Known Allergies (Unverified , 05/21/20) Objective Last 24 Hour Vital Signs Date Time Temp Pulse Resp B/P (MAP) Pulse Ox O2 Delivery O2 Flow Rate FiO2 05/23/20 12:00 106 05/23/20 09:38 98.3 95 05/23/20 09:00 Room Air 05/23/20 08:00 117 05/23/20 08:00 96.6 58 20 142/91 (108) 95 05/23/20 05:38 98.2 95 05/23/20 04:00 103 05/23/20 04:00 98.2 96 20 110/60 (77) 94 05/23/20 01:38 98.8 95 05/23/20 00:00 96 05/23/20 00:00 98.8 98 20 114/59 (77) 95 05/22/20 21:38 98.0 95 05/22/20 21:00 Room Air 05/22/20 20:00 94 05/22/20 20:00 98.5 88 20 125/60 (81) 96 05/22/20 17:58 98.6 94 05/22/20 16:00 98.0 75 20 138/65 (89) 100 05/22/20 16:00 108 Intake and Output 05/22/20 05/23/20 19:00 07:00 Intake Total 300 ml Output Total 1000 ml Balance 300 ml -1000 ml Intake IV Total 300 ml Output Urine Total 1000 ml # Voids 2 Objective 05/23/2020 Frisian speaking pt, A&O x2, saturating well on RA General Appearance: WD/WN, no acute distress HEENT: normocephalic, atraumatic Respiratory: chest wall non-tender, lungs clear Cardiovascular: normal rate, regular rhythm Abdomen: other - obese Extremities: no edema Skin: other - 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 Musculoskeletal: other - left hip tenderness to palpation, no contusion, no crepitus noted Microbiology Date/Time Source Procedure Growth Status 05/21/20 22:50 Nasopharynx SARS-CoV-2 RdRp Gene Assay - Final Complete Laboratory Tests 05/22/20 16:20: Urine Random Sodium 124H 05/23/20 08:05: White Blood Count 5.4, Red Blood Count 3.52L, Hemoglobin 11.3L, Hematocrit 32.6L , Mean Corpuscular Volume 93, Mean Corpuscular Hemoglobin 32.1H, Mean Co rpuscular Hemoglobin Concent 34.6, Red Cell Distribution Width 15.1H, Platelet Count 131L, Mean Platelet Volume 10.2H, Neutrophils (%) (Auto) 60.6, Lymphocytes (%) (Auto) 20.3, Monocytes (%) (Auto) 18.7H, Eosinophils (%) (Auto) 0.1, Basophils (%) (Auto) 0.3, Sodium Level 142, Potassium Level 3.9, Chloride Level 107, Carbon Dioxide Level 21, Anion Gap 14, Blood Urea Nitrogen 21H, Creatinine 1.4H, Estimat Glomerular Filtration Rate 48.5, Glucose Level 119H, Uric Acid 5.2, Calcium Level 7.4L, Phosphorus Level 2.9, Magnesium Level 1.5L, Total Bilirubin 0.5, Aspartate Amino Transf (AST/SGOT) 50H, Alanine Aminotransferase (ALT/SGPT) 30, Alkaline Phosphatase 53, Troponin I 0.266H, C-Reactive Protein, Quantitative 16.0H, Pro-B-Type Natriuretic Peptide [Pending], Total Protein 6.2L , Albumin 2.8L, Globulin 3.4, Albumin/Globulin Ratio 0.8L Current Medications Medications (Trade) Dose Ordered Sig/Celia Route PRN Reason Start Time Stop Time Status Last Admin Dose Admin Acetaminophen (Tylenol) 650 mg Q4HR PRN ORAL TEMP>100.5 05/22/20 00:45 Barium Sulfate (Varibar Honey) 250 ml NOW PRN MC RAD 05/22/20 15:45 05/25/20 15:39 Barium Sulfate (Varibar [place]) 240 ml NOW PRN MC RAD 05/22/20 15:45 05/25/20 15:39 Barium Sulfate (Varibar Pudding) 230 ml NOW PRN MC RAD 05/22/20 15:45 05/25/20 15:39 Barium Sulfate (Varibar Thin Liquid powder) 148 gm NOW PRN MC RAD 05/22/20 15:45 05/25/20 15:39 Dextrose/Sodium Chloride 1,000 ml @ 75 mls/hr [id number] IV 05/22/20 13:30 06/21/20 13:29 05/23/20 02:28 Haloperidol Lactate (Haldol) 5 mg Q6H PRN IM Agitation 05/22/20 13:15 07/06/20 13:14 Magnesium Sulfate 100 ml @ 100 mls/hr Q1H IVPB 05/23/20 15:00 05/23/20 18:59 05/23/20 14:32 Pantoprazole (Protonix) 40 mg EVERY 12 HOURS IVP 05/22/20 21:00 06/21/20 20:59 05/23/20 08:31 Assessment/Plan Assessment/Plan 1. Pneumonia. 2. Anemia. 3. Renal insufficiency. - Hydration 4. Elevated inflammatory markers with high CRP. 5. Hypokalemia. 6. Mild protein-calorie malnutrition. 7. COVID-19 - hold off on any specific therapy for COVID such as steroids, or remdesivir given his normoxemic status 8. Wound care instituted 9. Left hip pain s/p fall - Tenderness to palpation and limited range of motion s/p fall x3 without signs of contusion or crepitus - L hip XR ordered We will follow up carefully The care for this patient was discussed with my supervising physician Time spent for this case was approximately 31 minutes The patient was seen and examined at bedside and all new and available data was reviewed in the patients chart. I agree with the above findings, impression, and plan. (Patient was seen earlier today. Signature timestamp does not reflect patient encounter time) Otoniel Campbell MD May 23, 2020 15:08 Ector Howe MD May 23, 2020 17:03
--- NOTE | 2020-05-23 15:24 | Cardiac Electrophysiology PN ---
Assessment/Plan Assessment/Plan 1. Syncope. Etiology is not clear at this time. The first troponin is negative but second one mildly elevated that could be due to renal failure ECho is pending. He might have been dehydrated in view of BUN and creatinine that is improving. 2. Atrial fib with RVR. Not eating and no NGT. Swallow eval is pending. Start Lopressor 5 mg iv q 6 hrs and Eliquis 2.5 bid 3. Complete right bundle-branch block and lateral T-wave inversion. 4. Covid PNA 5. Dysphagia. Swallow evaluation is pending. 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 Subjective Subjective In atrial fib with RVR 130s in Covid isolation Objective Last 24 Hour Vital Signs Date Time Temp Pulse Resp B/P (MAP) Pulse Ox O2 Delivery O2 Flow Rate FiO2 05/23/20 12:00 106 05/23/20 09:38 98.3 95 05/23/20 09:00 Room Air 05/23/20 08:00 117 05/23/20 08:00 96.6 58 20 142/91 (108) 95 05/23/20 05:38 98.2 95 05/23/20 04:00 103 05/23/20 04:00 98.2 96 20 110/60 (77) 94 05/23/20 01:38 98.8 95 05/23/20 00:00 96 05/23/20 00:00 98.8 98 20 114/59 (77) 95 05/22/20 21:38 98.0 95 05/22/20 21:00 Room Air 05/22/20 20:00 94 05/22/20 20:00 98.5 88 20 125/60 (81) 96 05/22/20 17:58 98.6 94 05/22/20 16:00 98.0 75 20 138/65 (89) 100 05/22/20 16:00 108 Intake and Output 05/22/20 05/23/20 19:00 07:00 Intake Total 300 ml Output Total 1000 ml Balance 300 ml -1000 ml Intake IV Total 300 ml Output Urine Total 1000 ml # Voids 2 Laboratory Tests Test 05/22/20 16:20 05/23/20 08:05 Urine Random Sodium 124 mmol/L (20-110) H White Blood Count 5.4 K/UL (4.8-10.8) Red Blood Count 3.52 M/UL (4.70-6.10) L Hemoglobin 11.3 G/DL (14.2-18.0) L Hematocrit 32.6 % (42.0-52.0) L Mean Corpuscular Volume 93 FL (80-99) Mean Corpuscular Hemoglobin 32.1 PG (27.0-31.0) H Mean Corpuscular Hemoglobin Concent 34.6 G/DL (32.0-36.0) Red Cell Distribution Width 15.1 % (11.6-14.8) H Platelet Count 131 K/UL (150-450) L Mean Platelet Volume 10.2 FL (6.5-10.1) H Neutrophils (%) (Auto) 60.6 % (45.0-75.0) Lymphocytes (%) (Auto) 20.3 % (20.0-45.0) Monocytes (%) (Auto) 18.7 % (1.0-10.0) H Eosinophils (%) (Auto) 0.1 % (0.0-3.0) Basophils (%) (Auto) 0.3 % (0.0-2.0) Sodium Level 142 MMOL/L (136-145) Potassium Level 3.9 MMOL/L (3.5-5.1) Chloride Level 107 MMOL/L (98-107) Carbon Dioxide Level 21 MMOL/L (21-32) Anion Gap 14 mmol/L (5-15) Blood Urea Nitrogen 21 mg/dL (7-18) H Creatinine 1.4 MG/DL (0.55-1.30) H Estimat Glomerular Filtration Rate 48.5 mL/min (>60) Glucose Level 119 MG/DL (74-106) H Uric Acid 5.2 MG/DL (2.6-7.2) Calcium Level 7.4 MG/DL (8.5-10.1) L Phosphorus Level 2.9 MG/DL (2.5-4.9) Magnesium Level 1.5 MG/DL (1.8-2.4) L Total Bilirubin 0.5 MG/DL (0.2-1.0) Aspartate Amino Transf (AST/SGOT) 50 U/L (15-37) H Alanine Aminotransferase (ALT/SGPT) 30 U/L (12-78) Alkaline Phosphatase 53 U/L (46-116) Troponin I 0.266 ng/mL (0.000-0.056) C-Reactive Protein, Quantitative 16.0 mg/dL (0.00-0.90) H Pro-B-Type Natriuretic Peptide Pending Total Protein 6.2 G/DL (6.4-8.2) L Albumin 2.8 G/DL (3.4-5.0) L Globulin 3.4 g/dL Albumin/Globulin Ratio 0.8 (1.0-2.7) L Microbiology Date/Time Source Procedure Growth Status 05/21/20 22:50 Nasopharynx SARS-CoV-2 RdRp Gene Assay - Final Complete Objective HEAD AND NECK: No JVD. LUNGS: Clear. CARDIOVASCULAR: Shows regular S1 and S2 with no gallop or murmur. ABDOMEN: Soft. EXTREMITIES: No pitting edema. Rick Basilio MD May 23, 2020 15:23
[2020-05-23] MEDS: Metoprolol Tartrate 5 MG in D5W 55 ML IVPB SCH (15:54)
[2020-05-23] MEDS: Eliquis 5mg tablet ORAL SCH (17:16)
--- NOTE | 2020-05-23 18:17 | Nephrology Progress Note ---
Assessment/Plan Problem List: (1) Renal failure (ARF), acute on chronic (2) Dehydration (3) Pneumonia due to COVID-19 virus Assessment Acute renal failure Possible underlying chronic kidney disease Dehydration Electrolyte imbalance Toxic metabolic encephalopathy Pneumonia due to COVID-19 virus Mild anemia Plan Slow hydrate Magnesium sulfate IV supplement today Antibiotics, avoid nephrotoxic's Monitor renal parameters electrolytes Keep the blood pressure blood sugar in check Patient full code Subjective ROS Limited/Unobtainable: Yes Objective Objective Last 24 Hour Vital Signs Date Time Temp Pulse Resp B/P (MAP) Pulse Ox O2 Delivery O2 Flow Rate FiO2 05/23/20 16:00 98.2 124 20 120/62 (81) 96 05/23/20 15:54 143 133/67 05/23/20 12:00 97.9 118 22 118/62 (80) 94 05/23/20 12:00 106 05/23/20 09:38 98.3 95 05/23/20 09:00 Room Air 05/23/20 08:00 117 05/23/20 08:00 96.6 58 20 142/91 (108) 95 05/23/20 05:38 98.2 95 05/23/20 04:00 103 05/23/20 04:00 98.2 96 20 110/60 (77) 94 05/23/20 01:38 98.8 95 05/23/20 00:00 96 05/23/20 00:00 98.8 98 20 114/59 (77) 95 05/22/20 21:38 98.0 95 05/22/20 21:00 Room Air 05/22/20 20:00 94 05/22/20 20:00 98.5 88 20 125/60 (81) 96 Intake and Output 05/22/20 05/23/20 19:00 07:00 Intake Total 300 ml Output Total 1000 ml Balance 300 ml -1000 ml Intake IV Total 300 ml Output Urine Total 1000 ml # Voids 2 Current Medications Medications (Trade) Dose Ordered Sig/Celia Route PRN Reason Start Time Stop Time Status Last Admin Dose Admin Acetaminophen (Tylenol) 650 mg Q4HR PRN ORAL TEMP>100.5 05/22/20 00:45 Apixaban (Eliquis) 5 mg BID ORAL 05/23/20 18:00 08/21/20 17:59 05/23/20 17:16 Barium Sulfate (Varibar Honey) 250 ml NOW PRN MC RAD 05/22/20 15:45 05/25/20 15:39 Barium Sulfate (Varibar [place]) 240 ml NOW PRN MC RAD 05/22/20 15:45 05/25/20 15:39 Barium Sulfate (Varibar Pudding) 230 ml NOW PRN MC RAD 05/22/20 15:45 05/25/20 15:39 Barium Sulfate (Varibar Thin Liquid powder) 148 gm NOW PRN MC RAD 05/22/20 15:45 05/25/20 15:39 Dextrose/Sodium Chloride 1,000 ml @ 75 mls/hr [id number] IV 05/22/20 13:30 06/21/20 13:29 05/23/20 15:48 Haloperidol Lactate (Haldol) 5 mg Q6H PRN IM Agitation 05/22/20 13:15 07/06/20 13:14 Magnesium Sulfate 100 ml @ 100 mls/hr Q1H IVPB 05/23/20 15:00 05/23/20 18:59 05/23/20 17:16 Metoprolol Tartrate 5 mg/ Dextrose 60 ml @ 130 mls/hr Q6HR IVPB 05/23/20 15:40 06/22/20 15:39 05/23/20 15:54 Pantoprazole (Protonix) 40 mg EVERY 12 HOURS IVP 05/22/20 21:00 06/21/20 20:59 05/23/20 08:31 Laboratory Tests 05/23/20 08:05: White Blood Count 5.4, Red Blood Count 3.52L, Hemoglobin 11.3L, Hematocrit 32.6L , Mean Corpuscular Volume 93, Mean Corpuscular Hemoglobin 32.1H, Mean Corpuscular Hemoglobin Concent 34.6, Red Cell Distribution Width 15.1H, Platelet Count 131L, Mean Platelet Volume 10.2H, Neutrophils (%) (Auto) 60.6, Lymphocytes (%) (Auto) 20.3, Monocytes (%) (Auto) 18.7H, Eosinophils (%) (Auto) 0.1, Basophils (%) (Auto) 0.3, Sodium Level 142, Potassium Level 3.9, Chloride Level 107, Carbon Dioxide Level 21, Anion Gap 14, Blood Urea Nitrogen 21H, Creatinine 1.4H, Estimat Glomerular Filtration Rate 48.5, Glucose Level 119H, Uric Acid 5.2, Calcium Level 7.4L, Phosphorus Level 2.9, Magnesium Level 1.5L, Total Bilirubin 0.5, Aspartate Amino Transf (AST/SGOT) 50H, Alanine Aminotransferase (ALT/SGPT) 30, Alkaline Phosphatase 53, Troponin I 0.266H, C-Reactive Protein, Quantitative 16.0H, Pro-B-Type Natriuretic Peptide [Pending], Total Protein 6.2L , Albumin 2.8L, Globulin 3.4, Albumin/Globulin Ratio 0.8L Height (Feet): 5 Height (Inches): 7.00 Weight (Pounds): 159 Jerome Delaney MD May 23, 2020 18:17
--- NOTE | 2020-05-23 19:15 | NUR ---
NURSE NOTES: Report received from MARTHA Ortez. Patient is awake on bed, restless and very resistant to care. Bilateral soft wrist restraints are on, assessment will be done every 2 hours. On NPO and on room air. IV site is on right AC g-20 running D5 1/2 NS @ 75 cc/hour that is patent and intact. Safety measures are in place, bed in lowest and locked position, side rails up x 2, call light button and bedside table within reach, will continue plan of care.
--- NOTE | 2020-05-23 19:59 | NUR ---
NURSE HAND-OFF REPORT: Important Events on Shift: Patient is on restraints and managed to get out of restraints twice. Heart rate went to 153, Dr. Rick Basilio ordered metoprolol IV. Magnesium replacement IV. Patient has gone from alert and orientX0 to alert to name, place. Patient Status: Patient is disoriented. Diet: NPO Pending Orders: EKG 05/24/20 0400 Pending Results/Labs:05/24/20 labs, CBC, CMP, CRP, Mg., Phos. Pending MD notification: N/A Latest Vital Signs: Temperature 97.5 , Pulse 109 , B/P 123 /69 , Respiratory Rate 20 , O2 SAT 95 , Room Air, O2 Flow Rate . Vital Sign Comment: Pulse increased to 153, Dr. Rick Bsailio notified, ordered metoprolol IV. EKG Rhythm: A.FIB WITH BBB Rhythm change?: N Notified?: Y -DR. LORI MONSIVAIS Response: Ordered metoprolol IV Latest Stewart Fall Score: 85 Fall Risk: High Risk Safety Measures: Call light Within Reach, Bed Alarm Zone 2, Side Rails Side Rails x2, Bed position Low and Locked. Fall Precautions: Yellow Socks Yellow Gown Patient Fall Education Report given to Paloma Cooper RN.
--- NOTE | 2020-05-23 22:12 | General Progress Note ---
Subjective ROS Limited/Unobtainable: Yes Allergies: Coded Allergies: No Known Allergies (Unverified , 05/21/20) Objective Last 24 Hour Vital Signs Date Time Temp Pulse Resp B/P (MAP) Pulse Ox O2 Delivery O2 Flow Rate FiO2 05/23/20 17:00 97.5 95 05/23/20 16:00 109 05/23/20 16:00 98.2 124 20 120/62 (81) 96 05/23/20 15:54 143 133/67 05/23/20 13:00 96.8 94 05/23/20 12:00 97.9 118 22 118/62 (80) 94 05/23/20 12:00 106 05/23/20 09:38 98.3 95 05/23/20 09:00 Room Air 05/23/20 08:00 117 05/23/20 08:00 96.6 58 20 142/91 (108) 95 05/23/20 05:38 98.2 95 05/23/20 04:00 103 05/23/20 04:00 98.2 96 20 110/60 (77) 94 05/23/20 01:38 98.8 95 05/23/20 00:00 96 05/23/20 00:00 98.8 98 20 114/59 (77) 95 Intake and Output 05/22/20 05/23/20 19:00 07:00 Intake Total 300 ml 75 ml Output Total 1000 ml Balance 300 ml -925 ml Intake IV Total 300 ml 75 ml Output Urine Total 1000 ml # Voids 2 Laboratory Tests 05/23/20 08:05: White Blood Count 5.4, Red Blood Count 3.52L, Hemoglobin 11.3L, Hematocrit 32.6L , Mean Corpuscular Volume 93, Mean Corpuscular Hemoglobin 32.1H, Mean Corpuscular Hemoglobin Concent 34.6, Red Cell Distribution Width 15.1H, Platelet Count 131L, Mean Platelet Volume 10.2H, Neutrophils (%) (Auto) 60.6, Lymphocytes (%) (Auto) 20.3, Monocytes (%) (Auto) 18.7H, Eosinophils (%) (Auto) 0.1, Basophils (%) (Auto) 0.3, Sodium Level 142, Potassium Level 3.9, Chloride Level 107, Carbon Dioxide Level 21, Anion Gap 14, Blood Urea Nitrogen 21H, Creatinine 1.4H, Estimat Glomerular Filtration Rate 48.5, Glucose Level 119H, Uric Acid 5.2, Calcium Level 7.4L, Phosphorus Level 2.9, Magnesium Level 1.5L, Total Bilirubin 0.5, Aspartate Amino Transf (AST/SGOT) 50H, Alanine Aminotransferase (ALT/SGPT) 30, Alkaline Phosphatase 53, Troponin I 0.266H, C-Reactive Protein, Quantitative 16.0H, Pro-B-Type Natriuretic Peptide 5085.0H, Total Protein 6.2L, Albumin 2.8L, Globulin 3.4, Albumin/Globulin Ratio 0.8L Height (Feet): 5 Height (Inches): 7.00 Weight (Pounds): 159 Assessment/Plan Problem List: (1) Renal insufficiency ICD Codes: N28.9 - Disorder of kidney and ureter, unspecified SNOMED: 109903118, 837594349 (2) Encephalopathy ICD Codes: G93.40 - Encephalopathy, unspecified SNOMED: 00575569, 084318659 (3) Head injury ICD Codes: S09.90XA - Unspecified injury of head, initial encounter SNOMED: 09339514, 215906209 Qualifiers: Qualified Codes: S09.90XA - Unspecified injury of head, initial encounter (4) Pneumonia ICD Codes: J18.9 - Pneumonia, unspecified organism SNOMED: 786393040 Qualifiers: Qualified Codes: J18.9 - Pneumonia, unspecified organism (5) Abnormal EKG ICD Codes: R94.31 - Abnormal electrocardiogram [ECG] [EKG]; J12.89 - Other viral pneumonia SNOMED: 727422115 (6) Altered level of consciousness ICD Codes: R40.4 - Transient alteration of awareness SNOMED: 5182259 (7) Dehydration ICD Codes: E86.0 - Dehydration SNOMED: 03084907 (8) Pneumonia due to COVID-19 virus ICD Codes: U07.1 - COVID-19; J12.89 - Other viral pneumonia SNOMED: 944928409944755065 (9) Renal failure (ARF), acute on chronic ICD Codes: N17.9 - Acute kidney failure, unspecified; N18.9 - Chronic kidney disease, unspecified SNOMED: 581924928 Status: progressing Assessment/Plan: s/p trauma dehydration covid positive pna prn supportive rx ams afebrile Yvette Waldrop MD May 23, 2020 22:12
[2020-05-24] VITALS (7 sets, daily range): BP systolic 119–138; BP diastolic 70–82
[2020-05-24] MEDS: Metoprolol Tartrate 5 MG in D5W 55 ML IVPB SCH ×2 (00:03→05:32)
[2020-05-24] MEDS: D5 1/2NS 1,000 ML IV SCH ×2 (05:24→18:20)
--- NOTE | 2020-05-24 07:15 | NUR ---
NURSE NOTES: Received patient report from MARTHA Dow. Patient is in bed at this time, awake and restless.Bilateral soft wrist restraints are on, assessment will be done every 2 hours. On NPO and on room air. IV site is on right AC g-20 running D5 1/2 NS @ 75 cc/hour that is patent and intact. Safety measures are in place, bed in lowest and locked position, side rails up x 2, call light button and bedside table within reach, will continue plan of care.
--- NOTE | 2020-05-24 07:27 | NUR ---
NURSE HAND-OFF REPORT: Important Events on Shift: Patient has been resting well the whole shift, no SOB nor chest pain reported. Patient Status: Patient is asleep in stable condition. Plan of care endorsed. Diet: NPO Pending Orders: Xray of the left hip Pending Results/Labs:AM lab result Pending MD notification:none Latest Vital Signs: Temperature 98.6 , Pulse 100 , B/P 115 /67 , Respiratory Rate 18 , O2 SAT 93 , Room Air, O2 Flow Rate . Vital Sign Comment: stable EKG Rhythm: Atrial Fibrillation Rhythm change?: N MD Notified?: Guera GAMBLE MD Response: Latest Stewart Fall Score: 70 Fall Risk: High Risk Safety Measures: Call light Within Reach, Bed Alarm Zone 2, Side Rails Side Rails x2, Bed position Low and Locked. Fall Precautions: Yellow Socks Yellow Gown Door Sign Patient Fall Education Report given to MARTHA Alonso.
[2020-05-24 08:35] LABS: BASOPHILS % (AUTO) 0.8 % (0.0-2.0); HEMOGLOBIN 13.2 G/DL (14.2-18.0); LYMPHOCYTES % (AUTO) 13.4 % (20.0-45.0); MEAN CORPUSCULAR VOLUME 93 FL (80-99); NEUTROPHILS % (AUTO) 67.8 % (45.0-75.0); PLATELET COUNT 133 K/UL (150-450); RED BLOOD COUNT 4.09 M/UL (4.70-6.10); RED CELL DISTRIBUTION WIDTH 14.5 % (11.6-14.8); WHITE BLOOD COUNT 6.2 K/UL (4.8-10.8)
[2020-05-24] MEDS: Eliquis 5mg tablet ORAL SCH (08:40)
[2020-05-24] MEDS: Pantoprazole Inj IVP SCH ×2 (08:40→20:21)
[2020-05-24 08:54] LABS: ALBUMIN 2.8 G/DL (3.4-5.0); ALBUMIN/GLOBULIN RATIO 0.6 (1.0-2.7); BILIRUBIN,TOTAL 0.7 MG/DL (0.2-1.0); CREATININE 1.6 MG/DL (0.55-1.30); PHOSPHORUS 1.7 MG/DL (2.5-4.9); POTASSIUM 3.6 MMOL/L (3.5-5.1)
--- NOTE | 2020-05-24 09:07 | NUR ---
Social Work This Sw received a consult to locate family, no contacts presented upon admission. This SW observed patient who is currently confused, has restraints and positive for Covid. Patient is from home, while currently requires total care, non-ambulatory with P.T. This SW contacted missing persons who explain there have not been any reports filed. Pending possible family to call in with nursing (nursing to request contact numbers, as able). Pending progress; patient appears to require SNF placement at discharge.
[2020-05-24] MEDS: D5W IVPB SCH ×2 (12:00→18:20)
[2020-05-24] MEDS: METOPROLOL TARTRATE IVPB SCH ×2 (12:00→18:20)
--- NOTE | 2020-05-24 12:19 | Cardiac Electrophysiology PN ---
Assessment/Plan Assessment/Plan 1. Syncope. Etiology is not clear at this time. The first troponin is negative but second one mildly elevated that could be due to renal failure ECho EF 60%. He might have been dehydrated in view of BUN and creatinine that is improving. 2. Atrial fib with RVR. Not eating and no NGT. Swallow eval is pending. Increase Lopressor to 7.5 mg iv q 6 hrs and Eliquis 2.5 bid 3. Troponin elevation. Levels are low and coming down. Already on Lopressor 4. Complete right bundle-branch block and lateral T-wave inversion. 5. Covid PNA 6. Dysphagia. Swallow evaluation is pending. YASMIN RN Subjective Subjective In atrial fib with RVR up to 150s in Covid isolation despite Lopressor 5 mg iv q 6 hrs Objective Last 24 Hour Vital Signs Date Time Temp Pulse Resp B/P (MAP) Pulse Ox O2 Delivery O2 Flow Rate FiO2 05/24/20 09:00 Room Air 05/24/20 08:00 104 05/24/20 08:00 100.2 93 18 125/77 (93) 93 05/24/20 05:32 100 115/67 05/24/20 04:00 98.6 86 18 119/75 (90) 93 05/24/20 04:00 100 05/24/20 00:03 130 115/67 05/24/20 00:00 99 05/24/20 00:00 98.5 98 18 126/82 (97) 93 05/23/20 21:00 Room Air 05/23/20 20:00 98.6 122 23 115/67 (83) 97 05/23/20 20:00 130 05/23/20 17:00 97.5 95 05/23/20 16:00 109 05/23/20 16:00 98.2 124 20 120/62 (81) 96 05/23/20 15:54 143 133/67 05/23/20 13:00 96.8 94 Intake and Output 05/23/20 05/24/20 19:00 07:00 Intake Total 1016.25 ml Output Total 550 ml Balance 466.25 ml Intake IV Total 1016.25 ml Output Urine Total 550 ml # Voids 2 Laboratory Tests Test 05/24/20 07:43 White Blood Count 6.2 K/UL (4.8-10.8) Red Blood Count 4.09 M/UL (4.70-6.10) L Hemoglobin 13.2 G/DL (14.2-18.0) L Hematocrit 38.0 % (42.0-52.0) L Mean Corpuscular Volume 93 FL (80-99) Mean Corpuscular Hemoglobin 32.1 PG (27.0-31.0) H Mean Corpuscular Hemoglobin Concent 34.7 G/DL (32.0-36.0) Red Cell Distribution Width 14.5 % (11.6-14.8) Platelet Count 133 K/UL (150-450) L Mean Platelet Volume 9.5 FL (6.5-10.1) Neutrophils (%) (Auto) 67.8 % (45.0-75.0) Lymphocytes (%) (Auto) 13.4 % (20.0-45.0) L Monocytes (%) (Auto) 18.0 % (1.0-10.0) H Eosinophils (%) (Auto) 0.0 % (0.0-3.0) Basophils (%) (Auto) 0.8 % (0.0-2.0) Sodium Level 137 MMOL/L (136-145) Potassium Level 3.6 MMOL/L (3.5-5.1) Chloride Level 104 MMOL/L (98-107) Carbon Dioxide Level 24 MMOL/L (21-32) Anion Gap 9 mmol/L (5-15) Blood Urea Nitrogen 17 mg/dL (7-18) Creatinine 1.6 MG/DL (0.55-1.30) H Estimat Glomerular Filtration Rate 41.6 mL/min (>60) Glucose Level 180 MG/DL (74-106) H Calcium Level 8.0 MG/DL (8.5-10.1) L Phosphorus Level 1.7 MG/DL (2.5-4.9) L Magnesium Level 2.4 MG/DL (1.8-2.4) Total Bilirubin 0.7 MG/DL (0.2-1.0) Aspartate Amino Transf (AST/SGOT) 67 U/L (15-37) H Alanine Aminotransferase (ALT/SGPT) 32 U/L (12-78) Alkaline Phosphatase 59 U/L (46-116) Troponin I 0.144 ng/mL (0.000-0.056) C-Reactive Protein, Quantitative 37.7 mg/dL (0.00-0.90) H Total Protein 7.5 G/DL (6.4-8.2) Albumin 2.8 G/DL (3.4-5.0) L Globulin 4.7 g/dL Albumin/Globulin Ratio 0.6 (1.0-2.7) L Microbiology Date/Time Source Procedure Growth Status 05/21/20 22:50 Nasopharynx SARS-CoV-2 RdRp Gene Assay - Final Complete Objective HEAD AND NECK: No JVD. LUNGS: Clear. CARDIOVASCULAR: Shows regular S1 and S2 with no gallop or murmur. ABDOMEN: Soft. EXTREMITIES: No pitting edema. Rick Basilio MD May 24, 2020 12:19
--- NOTE | 2020-05-24 13:18 | General Progress Note ---
Subjective Date patient seen: May 24, 2020 Time patient seen: 13:17 ROS Limited/Unobtainable: Yes Allergies: Coded Allergies: No Known Allergies (Unverified , 05/21/20) Subjective pt remains unchanged cassy THOMAS Objective Last 24 Hour Vital Signs Date Time Temp Pulse Resp B/P (MAP) Pulse Ox O2 Delivery O2 Flow Rate FiO2 05/24/20 12:00 100.0 83 20 120/74 (89) 98 05/24/20 12:00 83 120/74 05/24/20 09:00 Room Air 05/24/20 08:00 104 05/24/20 08:00 100.2 93 18 125/77 (93) 93 05/24/20 05:32 100 115/67 05/24/20 04:00 98.6 86 18 119/75 (90) 93 05/24/20 04:00 100 05/24/20 00:03 130 115/67 05/24/20 00:00 99 05/24/20 00:00 98.5 98 18 126/82 (97) 93 05/23/20 21:00 Room Air 05/23/20 20:00 98.6 122 23 115/67 (83) 97 05/23/20 20:00 130 05/23/20 17:00 97.5 95 05/23/20 16:00 109 05/23/20 16:00 98.2 124 20 120/62 (81) 96 05/23/20 15:54 143 133/67 Intake and Output 05/23/20 05/24/20 19:00 07:00 Intake Total 1016.25 ml Output Total 550 ml Balance 466.25 ml Intake IV Total 1016.25 ml Output Urine Total 550 ml # Voids 2 Laboratory Tests 05/24/20 07:43: White Blood Count 6.2, Red Blood Count 4.09L, Hemoglobin 13.2L, Hematocrit 38.0L , Mean Corpuscular Volume 93, Mean Corpuscular Hemoglobin 32.1H, Mean Corpuscular Hemoglobin Concent 34.7, Red Cell Distribution Width 14.5, Platelet Count 133L, Mean Platelet Volume 9.5, Neutrophils (%) (Auto) 67.8, Lymphocytes (%) (Auto) 13.4L, Monocytes (%) (Auto) 18.0H, Eosinophils (%) (Auto) 0.0, Basophils (%) (Auto) 0.8, Sodium Level 137, Potassium Level 3.6, Chloride Level 104, Carbon Dioxide Level 24, Anion Gap 9, Blood Urea Nitrogen 17, Creatinine 1.6H, Estimat Glomerular Filtration Rate 41.6, Glucose Level 180H, Calcium Level 8.0L, Phosphorus Level 1.7L, Magnesium Level 2.4, Total Bilirubin 0.7, Aspartate Amino Transf (AST/SGOT) 67H, Alanine Aminotransferase (ALT/SGPT) 32, Alkaline Phosphatase 59, Troponin I 0.144H, C-Reactive Protein, Quantitative 37.7H, Total Protein 7.5, Albumin 2.8L, Globulin 4.7, Albumin/Globulin Ratio 0.6L Height (Feet): 5 Height (Inches): 7.00 Weight (Pounds): 159 Objective Physical Exam unable to assess pateint he is not cooperative and on restraints. Assessment/Plan Status: progressing Assessment/Plan: 1. Falls --> unknown etiology --> CT Head completed once prior to admission and second CT head done yesterday after patient fell in the room attempting to get up oob per RN --> S/p nasal fracture second: CT findings revealed Left frontal soft tissue swelling. Age-indeterminate nasal bone fractures partially visualized.Stable mild chronic small vessel ischemic changes and cerebral volume loss. --> Recommend MRI Brain once he is stable and out of covid isolation. --> obtain more information from family regarding fall. 2. Encephalopathy --> No focal findings on limited neuro exam, i.e cva 3. Covid 19 Disease --> on isolation on oxygen not hypoxic --> continue supportive treatment 4. Atrial Fibrillation --> cards on board Thank You for allowing us to participate in the care of the patient. The time of the note phil not necessarily reflect the time the patient was seen and evaluated Sonam Redman NP May 24, 2020 13:18
--- NOTE | 2020-05-24 13:39 | Diagnostic Imaging Report ---
Indication: Left hip pain Technique: 2 views of the left hip Comparison: none Findings: There is degenerative proliferative change and a slight degree of joint space narrowing of the left hip joint. No acute fracture. No dislocations. There are also degenerative proliferative changes of the anterior iliac spines No definite acute bony trauma Note, however, that in elderly osteoporotic patients, nondisplaced hip and pelvic fractures can easily be occult. Consider cross-sectional imaging for further evaluation if there is high clinical suspicion Impression: Degenerative changes
--- NOTE | 2020-05-24 13:42 | Pulmonology Progress Note ---
Subjective ROS Limited/Unobtainable: Yes Interval Events: no change d/w RN Constitutional: Reports: no symptoms HEENT: Repors: no symptoms Respiratory: Reports: no symptoms Cardiovascular: Reports: no symptoms Gastrointestinal/Abdominal: Reports: no symptoms Allergies: Coded Allergies: No Known Allergies (Unverified , 05/21/20) Objective Last 24 Hour Vital Signs Date Time Temp Pulse Resp B/P (MAP) Pulse Ox O2 Delivery O2 Flow Rate FiO2 05/24/20 12:00 100.0 83 20 120/74 (89) 98 05/24/20 12:00 83 120/74 05/24/20 09:00 Room Air 05/24/20 08:00 104 05/24/20 08:00 100.2 93 18 125/77 (93) 93 05/24/20 05:32 100 115/67 05/24/20 04:00 98.6 86 18 119/75 (90) 93 05/24/20 04:00 100 05/24/20 00:03 130 115/67 05/24/20 00:00 99 05/24/20 00:00 98.5 98 18 126/82 (97) 93 05/23/20 21:00 Room Air 05/23/20 20:00 98.6 122 23 115/67 (83) 97 05/23/20 20:00 130 05/23/20 17:00 97.5 95 05/23/20 16:00 109 05/23/20 16:00 98.2 124 20 120/62 (81) 96 05/23/20 15:54 143 133/67 Intake and Output 05/23/20 05/24/20 19:00 07:00 Intake Total 1016.25 ml Output Total 550 ml Balance 466.25 ml Intake IV Total 1016.25 ml Output Urine Total 550 ml # Voids 2 Objective 05/24/2020 currently on 2 lpm NC saturating well 05/23/2020 Kiswahili speaking pt, A&O x2, saturating well on RA General Appearance: WD/WN, no acute distress HEENT: normocephalic, atraumatic Respiratory: chest wall non-tender, lungs clear Cardiovascular: normal rate, regular rhythm Abdomen: other - obese Extremities: no edema Skin: other - 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 Musculoskeletal: other - left hip tenderness to palpation, no contusion, no crepitus noted Microbiology Date/Time Source Procedure Growth Status 05/21/20 22:50 Nasopharynx SARS-CoV-2 RdRp Gene Assay - Final Complete Laboratory Tests 05/24/20 07:43: White Blood Count 6.2, Red Blood Count 4.09L, Hemoglobin 13.2L, Hematocrit 38.0L , Mean Corpuscular Volume 93, Mean Corpuscular Hemoglobin 32.1H, Mean Corpuscular Hemoglobin Concent 34.7, Red Cell Distribution Width 14.5, Platelet Count 133L, Mean Platelet Volume 9.5, Neutrophils (%) (Auto) 67.8, Lymphocytes (%) (Auto) 13.4L, Monocytes (%) (Auto) 18.0H, Eosinophils (%) (Auto) 0.0, Basophils (%) (Auto) 0.8, Sodium Level 137, Potassium Level 3.6, Chloride Level 104, Carbon Dioxide Level 24, Anion Gap 9, Blood Urea Nitrogen 17, Creatinine 1.6H, Estimat Glomerular Filtration Rate 41.6, Glucose Level 180H, Calcium Level 8.0L, Phosphorus Level 1.7L, Magnesium Level 2.4, Total Bilirubin 0.7, Aspartate Amino Transf (AST/SGOT) 67H, Alanine Aminotransferase (ALT/SGPT) 32, Alkaline Phosphatase 59, Troponin I 0.144H, C-Reactive Protein, Quantitative 37.7H, Total Protein 7.5, Albumin 2.8L, Globulin 4.7, Albumin/Globulin Ratio 0.6L Current Medications Medications (Trade) Dose Ordered Sig/Celia Route PRN Reason Start Time Stop Time Status Last Admin Dose Admin Acetaminophen (Tylenol) 650 mg Q4HR PRN ORAL TEMP>100.5 05/22/20 00:45 Apixaban (Eliquis) 5 mg BID ORAL 05/23/20 18:00 08/21/20 17:59 05/24/20 08:40 Barium Sulfate (Varibar Honey) 250 ml NOW PRN MC RAD 05/22/20 15:45 05/25/20 15:39 Barium Sulfate (Varibar [place]) 240 ml NOW PRN MC RAD 05/22/20 15:45 05/25/20 15:39 Barium Sulfate (Varibar Pudding) 230 ml NOW PRN MC RAD 05/22/20 15:45 05/25/20 15:39 Barium Sulfate (Varibar Thin Liquid powder) 148 gm NOW PRN MC RAD 05/22/20 15:45 05/25/20 15:39 Dextrose/Sodium Chloride 1,000 ml @ 75 mls/hr [id number] IV 05/22/20 13:30 06/21/20 13:29 05/24/20 05:24 Haloperidol Lactate (Haldol) 5 mg Q6H PRN IM Agitation 05/22/20 13:15 07/06/20 13:14 Metoprolol Tartrate 7.5 mg/ Dextrose 62.5 ml @ 130 mls/hr Q6HR IVPB 05/24/20 12:00 06/23/20 11:59 05/24/20 12:00 Pantoprazole (Protonix) 40 mg EVERY 12 HOURS IVP 05/22/20 21:00 06/21/20 20:59 05/24/20 08:40 Assessment/Plan Assessment/Plan 1. Pneumonia. 2. Anemia. 3. Renal insufficiency. - Hydration 4. Elevated inflammatory markers with high CRP. 5. Hypokalemia. 6. Mild protein-calorie malnutrition. 7. COVID-19 - hold off on any specific therapy for COVID such as steroids, or remdesivir given his normoxemic status 8. Wound care instituted 9. Left hip pain s/p fall - Tenderness to palpation and limited range of motion s/p fall x3 without signs of contusion or crepitus - L hip XRay - no fractures noted 10. s/p fall We will follow up carefully The care for this patient was discussed with my supervising physician Time spent for this case was approximately 31 minutes The patient was seen and examined at bedside and all new and available data was reviewed in the patients chart. I agree with the above findings, impression, and plan. (Patient was seen earlier today. Signature timestamp does not reflect patient encounter time) Otoniel Campbell MD May 24, 2020 13:42 Ector Howe MD May 24, 2020 16:46
--- NOTE | 2020-05-24 15:10 | NUR ---
CASE MANAGEMENT:REVIEW 05/24/20 SI: COVID PNA. ENCEPHALOPATHY 100.2 104 18 125/77 93% ON RA TROPONIN(+)0.144 IS: ELIQUIS PO BID IV METOPROLOL Q6HRS IV PROTONIX Q12 IVF@75/HR : TELEMETRY STATUS DCP: FROM HOME
--- NOTE | 2020-05-24 15:20 | NUR ---
Social Work [facility] caregiver, Alon ([phone]) contacted nursing to see how patient is doing. This SW contacted the caregiver, who explains patient lives alone, was not confused and was ambulatory with cane or walker. Patient was going to the store and was very active prior to his recent fall. Patient's [facility] caregiver comes to the home to assist as needed 2-3 hours per day. Caregiver explains patient is hard of hearing, but was not confused prior. Patient has four steps to get into his home. Patient has a daughter, Rita ([phone]) who is the primary decision maker. This SW left a message with daughter (awaiting call back at this time). Caregiver explains his sister recently and has been grieving this. Psychiatry to follow.
--- NOTE | 2020-05-24 17:14 | Nephrology Progress Note ---
Assessment/Plan Problem List: (1) Renal failure (ARF), acute on chronic (2) Dehydration (3) Pneumonia due to COVID-19 virus Assessment Acute renal failure Possible underlying chronic kidney disease Dehydration Electrolyte imbalance Toxic metabolic encephalopathy Pneumonia due to COVID-19 virus Mild anemia Plan May 24: Labs reviewed. Serum creatinine 1.6. Phosphorus low, IV K-Phos ordered. Continue to monitor renal parameters. Continue per current management. Slow hydrate Magnesium sulfate IV supplement today Antibiotics, avoid nephrotoxic's Monitor renal parameters electrolytes Keep the blood pressure blood sugar in check Patient full code Subjective ROS Limited/Unobtainable: No Constitutional: Reports: malaise Objective Objective Last 24 Hour Vital Signs Date Time Temp Pulse Resp B/P (MAP) Pulse Ox O2 Delivery O2 Flow Rate FiO2 05/24/20 16:00 107 05/24/20 16:00 100.1 91 20 122/73 (89) 93 05/24/20 12:00 100.0 83 20 120/74 (89) 98 05/24/20 12:00 97 05/24/20 12:00 83 120/74 05/24/20 09:00 Room Air 05/24/20 08:00 104 05/24/20 08:00 100.2 93 18 125/77 (93) 93 05/24/20 05:32 100 115/67 05/24/20 04:00 98.6 86 18 119/75 (90) 93 05/24/20 04:00 100 05/24/20 00:03 130 115/67 05/24/20 00:00 99 05/24/20 00:00 98.5 98 18 126/82 (97) 93 05/23/20 21:00 Room Air 05/23/20 20:00 98.6 122 23 115/67 (83) 97 05/23/20 20:00 130 Intake and Output 05/23/20 05/24/20 19:00 07:00 Intake Total 1016.25 ml Output Total 550 ml Balance 466.25 ml Intake IV Total 1016.25 ml Output Urine Total 550 ml # Voids 2 Current Medications Medications (Trade) Dose Ordered Sig/Celia Route PRN Reason Start Time Stop Time Status Last Admin Dose Admin Acetaminophen (Tylenol) 650 mg Q4HR PRN ORAL TEMP>100.5 05/22/20 00:45 Apixaban (Eliquis) 2.5 mg BID ORAL 05/24/20 18:00 08/22/20 17:59 Barium Sulfate (Varibar Honey) 250 ml NOW PRN MC RAD 05/22/20 15:45 05/25/20 15:39 Barium Sulfate (Varibar [place]) 240 ml NOW PRN MC RAD 05/22/20 15:45 05/25/20 15:39 Barium Sulfate (Varibar Pudding) 230 ml NOW PRN MC RAD 05/22/20 15:45 05/25/20 15:39 Barium Sulfate (Varibar Thin Liquid powder) 148 gm NOW PRN MC RAD 05/22/20 15:45 05/25/20 15:39 Dextrose/Sodium Chloride 1,000 ml @ 75 mls/hr [id number] IV 05/22/20 13:30 06/21/20 13:29 05/24/20 05:24 Haloperidol Lactate (Haldol) 5 mg Q6H PRN IM Agitation 05/22/20 13:15 07/06/20 13:14 Metoprolol Tartrate 7.5 mg/ Dextrose 62.5 ml @ 130 mls/hr Q6HR IVPB 05/24/20 12:00 06/23/20 11:59 05/24/20 12:00 Pantoprazole (Protonix) 40 mg EVERY 12 HOURS IVP 05/22/20 21:00 06/21/20 20:59 05/24/20 08:40 Laboratory Tests 05/24/20 07:43: White Blood Count 6.2, Red Blood Count 4.09L, Hemoglobin 13.2L, Hematocrit 38.0L , Mean Corpuscular Volume 93, Mean Corpuscular Hemoglobin 32.1H, Mean Corpuscular Hemoglobin Concent 34.7, Red Cell Distribution Width 14.5, Platelet Count 133L, Mean Platelet Volume 9.5, Neutrophils (%) (Auto) 67.8, Lymphocytes (%) (Auto) 13.4L, Monocytes (%) (Auto) 18.0H, Eosinophils (%) (Auto) 0.0, Basophils (%) (Auto) 0.8, Sodium Level 137, Potassium Level 3.6, Chloride Level 104, Carbon Dioxide Level 24, Anion Gap 9, Blood Urea Nitrogen 17, Creatinine 1.6H, Estimat Glomerular Filtration Rate 41.6, Glucose Level 180H, Calcium Level 8.0L, Phosphorus Level 1.7L, Magnesium Level 2.4, Total Bilirubin 0.7, Aspartate Amino Transf (AST/SGOT) 67H, Alanine Aminotransferase (ALT/SGPT) 32, Alkaline Phosphatase 59, Troponin I 0.144H, C-Reactive Protein, Quantitative 37.7H, Total Protein 7.5, Albumin 2.8L, Globulin 4.7, Albumin/Globulin Ratio 0.6L Height (Feet): 5 Height (Inches): 7.00 Weight (Pounds): 159 General Appearance: no apparent distress Cardiovascular: tachycardia Respiratory/Chest: decreased breath sounds Abdomen: distended Jerome Delaney MD May 24, 2020 17:14
[2020-05-24] MEDS: Eliquis 2.5mg tablet ORAL SCH (18:20)
--- NOTE | 2020-05-24 19:05 | NUR ---
NURSE HAND-OFF REPORT: Important Events on Shift:NA Patient Status: Stable, risk for fall Diet: NPO Pending Orders: Na Pending Results/Labs:NA Pending MD notification:NA Latest Vital Signs: Temperature 100.1 , Pulse 107 , B/P 122 /73 , Respiratory Rate 20 , O2 SAT 93 , Room Air, O2 Flow Rate . Vital Sign Comment: Stable EKG Rhythm: Afib/Aflutter Rhythm change?: N MD Notified?: Guera SANDOVAL MD Response: Latest Stewart Fall Score: 70 Fall Risk: High Risk Safety Measures: Call light Within Reach, Bed Alarm Zone 2, Side Rails Side Rails x2, Bed position Low and Locked. Fall Precautions: Yellow Socks Yellow Gown Door Sign Patient Fall Education Report given to MARTHA Pelletier.
--- NOTE | 2020-05-24 19:25 | NUR ---
NURSE NOTES: Patient received from MARTHA Mon. Patient seen asleep and resting in bed with bilateral soft wrist restraints for safety. Skin, sensation, and ROM wnl. On room air, saturating well. IV site on RAC#20g, running D5 1/2 NS at 75ml/hr. IV site flushed and asymptomatic. Noted to have abrasions on forehead, upper lip, and right elbow. Not in acute distress. Call light placed within reach. Bed in lowest position, brakes engaged and bed alarm on. Bed rails raised x3. Will continue to monitor.
--- NOTE | 2020-05-24 19:55 | NUR ---
Speech pathology Note (Bedside Dysphagia Evaluation) Brief Note: Mr. Yanez is an 84 year old male s.p mechanical fall admitted on 05/21/2020. The CT head was negative acute intracranial bleed, CXR is negative for acute findings, positive for sternotomy and CABG, COVID 19 rapid was positive. He admitted for COVID isolation. Remarkable (current labs): Creatine 1.6 from 2.2, Findings: Mr Yanez is alert but impulsive. He asked for water. His speech is clear and voice is intact. Given him apple sauce and 120cc water via straw, he tolerated without s.s of aspiration. Interpretation: 1. Functional swallow Plan: 1. Pureed and thin liquid Fawn Jiang
--- NOTE | 2020-05-24 19:57 | Psychiatric Progress Note ---
Psychiatry Progress Note Psychiatry Progress Note Medications Current Medications Medications (Trade) Dose Ordered Sig/Celia Route PRN Reason Start Time Stop Time Status Last Admin Dose Admin Acetaminophen (Tylenol) 650 mg Q4HR PRN ORAL TEMP>100.5 05/22/20 00:45 Apixaban (Eliquis) 2.5 mg BID ORAL 05/24/20 18:00 08/22/20 17:59 05/24/20 18:20 Barium Sulfate (Varibar Honey) 250 ml NOW PRN MC RAD 05/22/20 15:45 05/25/20 15:39 Barium Sulfate (Varibar [place]) 240 ml NOW PRN MC RAD 05/22/20 15:45 05/25/20 15:39 Barium Sulfate (Varibar Pudding) 230 ml NOW PRN MC RAD 05/22/20 15:45 05/25/20 15:39 Barium Sulfate (Varibar Thin Liquid powder) 148 gm NOW PRN MC RAD 05/22/20 15:45 05/25/20 15:39 Dextrose/Sodium Chloride 1,000 ml @ 75 mls/hr [id number] IV 05/22/20 13:30 06/21/20 13:29 05/24/20 18:20 Haloperidol Lactate (Haldol) 5 mg Q6H PRN IM Agitation 05/22/20 13:15 07/06/20 13:14 Metoprolol Tartrate 7.5 mg/ Dextrose 62.5 ml @ 130 mls/hr Q6HR IVPB 05/24/20 12:00 06/23/20 11:59 05/24/20 18:20 Pantoprazole (Protonix) 40 mg EVERY 12 HOURS IVP 05/22/20 21:00 06/21/20 20:59 05/24/20 08:40 Potassium Phosphate 20 mm/ Sodium Chloride 281.6667 ml @ 46.944 m... ONCE IV 05/24/20 20:00 05/25/20 02:00 Neurological/Psychiatric: Reports: anxiety Allergies: Coded Allergies: No Known Allergies (Unverified , 05/21/20) Objective Data Height (Feet): 5 Height (Inches): 7.00 Weight (Pounds): 159 General Appearance: no apparent distress, confused, agitated Additional Comments: waxing and waning consciousness. Mood is anxious. Affect is blunted, congruent with mood. Thought process is concrete. Thought content, no suicidal or homicidal ideation. Cognition is impaired. Insight and judgment impaired. Assessment/Plan Status: progressing Assessment/Plan: ASSESSMENT: [place] I Acute metabolic encephalopathy. Dementia. [place] II Deferred. [place] III Renal insufficiency and head injury. [place] IV Low. [place] V 20. PLAN: 1. We will start the patient on Haldol IM p.r.n. 2. Restraints. 3. Discussed with the nurse. Francheska Huynh MD May 24, 2020 19:57
[2020-05-24] MEDS ORDERED: Potassium Phosphate 20 MM in NS 275 ML IV SCH (20:00)
--- NOTE | 2020-05-24 20:07 | NUR ---
NURSE NOTES: Patient noted to be in rapid aifb, HR 180s-190s. Dr. saenz aware. Awaiting new orders. Strips in chart.
--- NOTE | 2020-05-24 20:59 | General Progress Note ---
Subjective ROS Limited/Unobtainable: Yes Allergies: Coded Allergies: No Known Allergies (Unverified , 05/21/20) Objective Last 24 Hour Vital Signs Date Time Temp Pulse Resp B/P (MAP) Pulse Ox O2 Delivery O2 Flow Rate FiO2 05/24/20 18:20 107 122/73 05/24/20 16:00 107 05/24/20 16:00 100.1 91 20 122/73 (89) 93 05/24/20 12:00 100.0 83 20 120/74 (89) 98 05/24/20 12:00 97 05/24/20 12:00 83 120/74 05/24/20 09:00 Room Air 05/24/20 08:00 104 05/24/20 08:00 100.2 93 18 125/77 (93) 93 05/24/20 05:32 100 115/67 05/24/20 04:00 98.6 86 18 119/75 (90) 93 05/24/20 04:00 100 05/24/20 00:03 130 115/67 05/24/20 00:00 99 05/24/20 00:00 98.5 98 18 126/82 (97) 93 05/23/20 21:00 Room Air Intake and Output 05/23/20 05/24/20 19:00 07:00 Intake Total 1016.25 ml Output Total 550 ml Balance 466.25 ml Intake IV Total 1016.25 ml Output Urine Total 550 ml # Voids 2 Laboratory Tests 05/24/20 07:43: White Blood Count 6.2, Red Blood Count 4.09L, Hemoglobin 13.2L, Hematocrit 38.0L , Mean Corpuscular Volume 93, Mean Corpuscular Hemoglobin 32.1H, Mean Corpuscular Hemoglobin Concent 34.7, Red Cell Distribution Width 14.5, Platelet Count 133L, Mean Platelet Volume 9.5, Neutrophils (%) (Auto) 67.8, Lymphocytes (%) (Auto) 13.4L, Monocytes (%) (Auto) 18.0H, Eosinophils (%) (Auto) 0.0, Basophils (%) (Auto) 0.8, Sodium Level 137, Potassium Level 3.6, Chloride Level 104, Carbon Dioxide Level 24, Anion Gap 9, Blood Urea Nitrogen 17, Creatinine 1.6H, Estimat Glomerular Filtration Rate 41.6, Glucose Level 180H, Calcium Level 8.0L, Phosphorus Level 1.7L, Magnesium Level 2.4, Total Bilirubin 0.7, Aspartate Amino Transf (AST/SGOT) 67H, Alanine Aminotransferase (ALT/SGPT) 32, Alkaline Phosphatase 59, Troponin I 0.144H, C-Reactive Protein, Quantitative 37.7H, Total Protein 7.5, Albumin 2.8L, Globulin 4.7, Albumin/Globulin Ratio 0.6L Height (Feet): 5 Height (Inches): 7.00 Weight (Pounds): 159 Assessment/Plan Problem List: (1) Renal insufficiency ICD Codes: N28.9 - Disorder of kidney and ureter, unspecified SNOMED: 099893312, 323471357 (2) Encephalopathy ICD Codes: G93.40 - Encephalopathy, unspecified SNOMED: 53124893, 696458054 (3) Head injury ICD Codes: S09.90XA - Unspecified injury of head, initial encounter SNOMED: 25959789, 917228621 Qualifiers: Qualified Codes: S09.90XA - Unspecified injury of head, initial encounter (4) Pneumonia ICD Codes: J18.9 - Pneumonia, unspecified organism SNOMED: 173222084 Qualifiers: Qualified Codes: J18.9 - Pneumonia, unspecified organism (5) Abnormal EKG ICD Codes: R94.31 - Abnormal electrocardiogram [ECG] [EKG]; J12.89 - Other v iral pneumonia SNOMED: 330922442 (6) Altered level of consciousness ICD Codes: R40.4 - Transient alteration of awareness SNOMED: 3847133 (7) Dehydration ICD Codes: E86.0 - Dehydration SNOMED: 21124902 (8) Pneumonia due to COVID-19 virus ICD Codes: U07.1 - COVID-19; J12.89 - Other viral pneumonia SNOMED: 329939420271925253 (9) Renal failure (ARF), acute on chronic ICD Codes: N17.9 - Acute kidney failure, unspecified; N18.9 - Chronic kidney disease, unspecified SNOMED: 715434120 Status: progressing Assessment/Plan: s/p trauma covid positive pna confused reviewed chart and labs Yvette Waldrop MD May 24, 2020 20:59
--- NOTE | 2020-05-24 21:31 | NUR ---
NURSE NOTES: Patient in rapid afib again. 190s - 200s. Dr. saenz aware. Ordered for patient to be transferred to ICU. New IV site on left FA #22g, running potassium phosphate at a prescribed rate. Still on bilateral soft wrist restraints for safety. Bed alarm on. Bed rails raised x3. Call light placed within reach. Will continue to monitor.
--- NOTE | 2020-05-24 22:04 | NUR ---
NURSE NOTES: Sent stat ECG strip to Dr. Basilio. aware that pt still awaiting bed in ICU. Called and followed up with welding equipment repairer supervisor, said bed is being prepared.
--- NOTE | 2020-05-24 23:00 | NUR ---
NURSE NOTES: reveived from telemetry due to afib with rvr, in no acute distress, on ra with o2 sat 92%, placed on [id number], vehicle monitor technician shows afib with hr 120's to 140's/min bp 122/72, confused and agitated at this time, tries to get out of bed and pulling iv tubings, on soft wrist restraints, condom cath applied, with generalized skin dry skin rashes, abrasion to forehead, upper lip, right elbow,high fall risk,all precautions observed
--- NOTE | 2020-05-24 23:05 | NUR ---
TRANSFER TO FLOOR: Patient transferred to ICU, per Praful.
[2020-05-24] MEDS ORDERED: dilTIAZem HCl 125mg/25ml Inj IVPB ONE (23:20)
[2020-05-24] MEDS: dilTIAZem Premix 125mg/125ml 125 ML IVPB SCH (23:40)
--- NOTE | 2020-05-24 23:40 | NUR ---
NURSE NOTES: started on cardizem drip at 10mg/hr
--- NOTE | 2020-05-24 23:41 | NUR ---
NURSE NOTES: temp 101.2, tylenol 650mg po given with a sip of water,tolerated well
--- NOTE | 2020-05-24 23:45 | Consultation ---
DATE OF CONSULTATION: 05/24/2020 CONSULTING PHYSICIAN: Francheska Huynh MD HISTORY OF PRESENT ILLNESS: This is an 84-year-old male with a history of dementia and history of schizophrenia who has been admitted to the hospital due to altered mental status. The patient is having some agitation and is confused. He is status post mechanical fall and has hematoma and abrasion on his forehead. The patient was placed on restraints as to pull out lines. PAST PSYCHIATRIC HISTORY: Significant for dementia and agitation. PAST MEDICAL HISTORY: As above. ALLERGIES: No known drug allergies. SUBSTANCE ABUSE HISTORY: No known history of illicit drug use or alcohol. MENTAL STATUS EXAMINATION: The patient is having waxing and waning consciousness. Mood is anxious. Affect is blunted, congruent with mood. Thought process is concrete. Thought content, no suicidal or homicidal ideation. Cognition is impaired. Insight and judgment impaired. ASSESSMENT: [place] I Acute metabolic encephalopathy. Dementia. [place] II Deferred. [place] III Renal insufficiency and head injury. [place] IV Low. [place] V 20. PLAN: 1. We will start the patient on Haldol IM p.r.n. 2. Restraints. 3. Discussed with the nurse. Francheska Huynh M.D. DR: BUD JOB#: [id number] CC:
[2020-05-25] VITALS (47 sets, daily range): BP systolic 76–155; BP diastolic 48–97
[2020-05-25] MEDS: D5W IVPB SCH ×2
[2020-05-25] MEDS: METOPROLOL TARTRATE IVPB SCH ×2
--- NOTE | 2020-05-25 00:30 | NUR ---
NURSE NOTES: temp cely to 100.6 at this time
--- NOTE | 2020-05-25 02:00 | NUR ---
NURSE NOTES: environmental monitoring specialist remain afib with bbb, now controlled rate less than 100
--- NOTE | 2020-05-25 04:00 | NUR ---
NURSE NOTES: in no respiratory distress, o2 sat 94-96% on [id number], with occ nonproductive coughing
[2020-05-25 04:57] LABS: BASOPHILS % (AUTO) 0.4 % (0.0-2.0); HEMOGLOBIN 11.1 G/DL (14.2-18.0); LYMPHOCYTES % (AUTO) 9.3 % (20.0-45.0); MEAN CORPUSCULAR VOLUME 93 FL (80-99); NEUTROPHILS % (AUTO) 78.3 % (45.0-75.0); PLATELET COUNT 111 K/UL (150-450); RED BLOOD COUNT 3.43 M/UL (4.70-6.10); RED CELL DISTRIBUTION WIDTH 14.2 % (11.6-14.8); WHITE BLOOD COUNT 7.5 K/UL (4.8-10.8)
[2020-05-25 05:56] LABS: ALBUMIN 2.3 G/DL (3.4-5.0); ALBUMIN/GLOBULIN RATIO 0.6 (1.0-2.7); BILIRUBIN,TOTAL 0.7 MG/DL (0.2-1.0); CALCIUM 7.3 MG/DL (8.5-10.1); CREATININE 1.7 MG/DL (0.55-1.30); PHOSPHORUS 4.5 MG/DL (2.5-4.9); POTASSIUM 3.8 MMOL/L (3.5-5.1)
--- NOTE | 2020-05-25 06:36 | NUR ---
NURSE NOTES: no urine output all noc with the condom catheter, paulino cath #16 inserted with 450ml marcel urine
--- NOTE | 2020-05-25 07:55 | NUR ---
NURSE HAND-OFF REPORT: sabina morel Latest Vital Signs: Temperature 99.9 , Pulse 79 , B/P 106 /66 , Respiratory Rate 20 , O2 SAT 94 , Nasal Cannula, O2 Flow Rate 2.0 . Vital Sign Comment: EKG Rhythm: Atrial Fibrillation Rhythm change?: N MD Notified?: Y samuel saenz MD Response: Latest Stewart Fall Score: 70 Fall Risk: High Risk Safety Measures: Call light Within Reach, Bed Alarm Zone 2, Side Rails Side Rails x2, Bed position Low and Locked. Fall Precautions: Yellow Socks Yellow Gown Door Sign Patient Fall Education Report given to .
[2020-05-25] MEDS: D5 1/2NS 1,000 ML IV SCH ×2 (08:00→21:08)
[2020-05-25] MEDS: Eliquis 2.5mg tablet ORAL SCH ×2 (09:00→19:30)
[2020-05-25] MEDS: Pantoprazole Inj IVP SCH ×2 (09:00→20:04)
--- NOTE | 2020-05-25 09:00 | NUR ---
AWAKE/CONFUSED CONT,CARDIZEM DRIP @10MG/HR A/FIB, [id number]
--- NOTE | 2020-05-25 10:11 | NUR ---
PT,SEEN BY PRISCILLA BUCIO NO NEW ORDERS
--- NOTE | 2020-05-25 10:55 | Nephrology Progress Note ---
Assessment/Plan Problem List: (1) Renal failure (ARF), acute on chronic (2) Dehydration (3) Pneumonia due to COVID-19 virus Assessment Acute renal failure Possible underlying chronic kidney disease Dehydration Electrolyte imbalance Toxic metabolic encephalopathy Pneumonia due to COVID-19 virus Mild anemia Plan May 25: Patient now in ICU on Cardizem drip. Serum creatinine 1.7. Rest of the electrolytes within normal limit. Continue per cardiology. Continue to monitor renal parameters and electrolytes. May 24: Labs reviewed. Serum creatinine 1.6. Phosphorus low, IV K-Phos ordered. Continue to monitor renal parameters. Continue per current management. Slow hydrate Magnesium sulfate IV supplement today Antibiotics, avoid nephrotoxic's Monitor renal parameters electrolytes Keep the blood pressure blood sugar in check Patient full code Subjective ROS Limited/Unobtainable: No Constitutional: Reports: malaise, weakness Objective Objective Last 24 Hour Vital Signs Date Time Temp Pulse Resp B/P (MAP) Pulse Ox O2 Delivery O2 Flow Rate FiO2 05/25/20 10:30 91 121/65 (83) 87 05/25/20 10:00 88 24 114/61 (78) 94 05/25/20 09:30 91 16 118/61 (80) 94 05/25/20 09:00 88 22 131/70 (90) 93 05/25/20 08:30 99 24 137/69 (91) 93 05/25/20 08:00 Nasal Cannula 2.0 05/25/20 08:00 91 22 106/66 (79) 92 05/25/20 08:00 80 05/25/20 07:30 98 25 116/85 (95) 94 05/25/20 07:00 79 20 106/66 (79) 94 05/25/20 06:30 75 20 111/58 (75) 94 05/25/20 06:00 85 20 94/60 (71) 94 05/25/20 05:30 88 20 97/57 (70) 94 05/25/20 05:00 80 20 91/54 (66) 95 05/25/20 04:30 99 20 98/54 (69) 95 05/25/20 04:03 Nasal Cannula 2.0 05/25/20 04:02 90 05/25/20 04:00 99.9 99 20 91/48 (62) 96 05/25/20 03:30 103 22 86/57 (67) 94 05/25/20 03:00 85 20 83/53 (63) 96 05/25/20 02:30 100 20 91/50 (64) 96 05/25/20 02:00 88 20 84/50 (61) 95 05/25/20 01:30 95 18 86/54 (65) 96 05/25/20 01:00 115 18 92/57 (69) 96 05/25/20 00:30 100.6 100 20 98/50 (66) 96 05/25/20 00:00 100 111/61 05/25/20 00:00 127 20 111/61 (78) 98 05/24/20 23:15 145 05/24/20 23:15 Nasal Cannula 2.0 05/24/20 23:10 101.2 145 22 122/72 (89) 92 05/24/20 21:00 Room Air 05/24/20 20:00 99.7 115 20 138/70 (92) 94 05/24/20 20:00 96 05/24/20 18:20 107 122/73 05/24/20 16:00 107 05/24/20 16:00 100.1 91 20 122/73 (89) 93 05/24/20 12:00 100.0 83 20 120/74 (89) 98 05/24/20 12:00 97 05/24/20 12:00 83 120/74 Intake and Output 05/24/20 05/25/20 19:00 07:00 Intake Total 707.76 ml Output Total 530 ml Balance 177.76 ml Intake IV Total 707.76 ml Output Urine Total 530 ml # Voids 2 # Bowel Movements 1 Current Medications Medications (Trade) Dose Ordered Sig/Celia Route PRN Reason Start Time Stop Time Status Last Admin Dose Admin Apixaban (Eliquis) 2.5 mg BID ORAL 05/24/20 18:00 08/22/20 17:59 05/25/20 09:00 Barium Sulfate (Varibar Honey) 250 ml NOW PRN MC RAD 05/22/20 15:45 05/25/20 15:39 Barium Sulfate (Varibar [place]) 240 ml NOW PRN MC RAD 05/22/20 15:45 05/25/20 15:39 Barium Sulfate (Varibar Pudding) 230 ml NOW PRN MC RAD 05/22/20 15:45 05/25/20 15:39 Barium Sulfate (Varibar Thin Liquid powder) 148 gm NOW PRN MC RAD 05/22/20 15:45 05/25/20 15:39 Dextrose/Sodium Chloride 1,000 ml @ 75 mls/hr [id number] IV 05/22/20 13:30 06/21/20 13:29 05/25/20 08:00 Diltiazem HCl 125 ml @ 10 mls/hr Q24H IVPB 05/24/20 23:00 05/25/20 22:59 05/24/20 23:40 Haloperidol Lactate (Haldol) 5 mg Q6H PRN IM Agitation 05/22/20 13:15 07/06/20 13:14 Metoprolol Tartrate 7.5 mg/ Dextrose 62.5 ml @ 130 mls/hr Q6HR IVPB 05/25/20 12:00 06/24/20 11:59 Pantoprazole (Protonix) 40 mg EVERY 12 HOURS IVP 05/22/20 21:00 06/21/20 20:59 05/25/20 09:00 Laboratory Tests 05/25/20 04:07: White Blood Count 7.5, Red Blood Count 3.43L, Hemoglobin 11.1L, Hematocrit 32.0L , Mean Corpuscular Volume 93, Mean Corpuscular Hemoglobin 32.4H, Mean Corpuscular Hemoglobin Concent 34.7, Red Cell Distribution Width 14.2, Platelet Count 111L, Mean Platelet Volume 10.8H, Neutrophils (%) (Auto) 78.3H, Lymphocytes (%) (Auto) 9.3L, Monocytes (%) (Auto) 12.0H, Eosinophils (%) (Auto) 0.0, Basophils (%) (Auto) 0.4, Sodium Level 140, Potassium Level 3.8, Chloride Level 106, Carbon Dioxide Level 21, Anion Gap 13, Blood Urea Nitrogen 20H, Creatinine 1.7H, Estimat Glomerular Filtration Rate 38.8, Glucose Level 137H, Calcium Level 7.3L, Phosphorus Level 4.5, Magnesium Level 1.8, Total Bilirubin 0.7, Aspartate Amino Transf (AST/SGOT) 66H, Alanine Aminotransferase (ALT/SGPT) 33, Alkaline Phosphatase 52, C-Reactive Protein, Quantitative 21.2H, Total Protein 6.2L, Albumin 2.3L, Globulin 3.9, Albumin/Globulin Ratio 0.6L Height (Feet): 5 Height (Inches): 7.00 Weight (Pounds): 159 General Appearance: no apparent distress, lethargic Cardiovascular: tachycardia, arrhythmia Respiratory/Chest: decreased breath sounds Abdomen: distended Jerome Delaney MD May 25, 2020 10:55
[2020-05-25] MEDS: Haloperidol 5mg/ml Inj IM PRN ×2 (11:31→21:07)
[2020-05-25] MEDS: dilTIAZem Premix 125mg/125ml 125 ML IVPB SCH (11:31)
--- NOTE | 2020-05-25 11:44 | Neurology Progress Note ---
Interim History Interim History ROS Limited/Unobtainable: Yes Objective Physical Exam Last Vital Signs Date Time Temp Pulse Resp B/P (MAP) Pulse Ox O2 Delivery O2 Flow Rate FiO2 05/25/20 11:00 125 34 96/55 (69) 89 05/25/20 08:00 Nasal Cannula 2.0 05/25/20 04:00 99.9 Laboratory Tests Test 05/25/20 04:07 White Blood Count 7.5 K/UL (4.8-10.8) Red Blood Count 3.43 M/UL (4.70-6.10) L Hemoglobin 11.1 G/DL (14.2-18.0) L Hematocrit 32.0 % (42.0-52.0) L Mean Corpuscular Volume 93 FL (80-99) Mean Corpuscular Hemoglobin 32.4 PG (27.0-31.0) H Mean Corpuscular Hemoglobin Concent 34.7 G/DL (32.0-36.0) Red Cell Distribution Width 14.2 % (11.6-14.8) Platelet Count 111 K/UL (150-450) L Mean Platelet Volume 10.8 FL (6.5-10.1) H Neutrophils (%) (Auto) 78.3 % (45.0-75.0) H Lymphocytes (%) (Auto) 9.3 % (20.0-45.0) L Monocytes (%) (Auto) 12.0 % (1.0-10.0) H Eosinophils (%) (Auto) 0.0 % (0.0-3.0) Basophils (%) (Auto) 0.4 % (0.0-2.0) Sodium Level 140 MMOL/L (136-145) Potassium Level 3.8 MMOL/L (3.5-5.1) Chloride Level 106 MMOL/L (98-107) Carbon Dioxide Level 21 MMOL/L (21-32) Anion Gap 13 mmol/L (5-15) Blood Urea Nitrogen 20 mg/dL (7-18) H Creatinine 1.7 MG/DL (0.55-1.30) H Estimat Glomerular Filtration Rate 38.8 mL/min (>60) Glucose Level 137 MG/DL (74-106) H Calcium Level 7.3 MG/DL (8.5-10.1) L Phosphorus Level 4.5 MG/DL (2.5-4.9) Magnesium Level 1.8 MG/DL (1.8-2.4) Total Bilirubin 0.7 MG/DL (0.2-1.0) Aspartate Amino Transf (AST/SGOT) 66 U/L (15-37) H Alanine Aminotransferase (ALT/SGPT) 33 U/L (12-78) Alkaline Phosphatase 52 U/L (46-116) C-Reactive Protein, Quantitative 21.2 mg/dL (0.00-0.90) H Total Protein 6.2 G/DL (6.4-8.2) L Albumin 2.3 G/DL (3.4-5.0) L Globulin 3.9 g/dL Albumin/Globulin Ratio 0.6 (1.0-2.7) L Neurologic Exam Objective Physical Exam 05/24: unable to assess pateint he is not cooperative and on restraints. 05/25: pt is now in ICU remains on restraints and PRN Haldol, d/w RN Impression/Recommendations Status: progressing Diagnostic Impression 1. Falls --> unknown etiology --> CT Head completed once prior to admission and second CT head done yesterday after patient fell in the room attempting to get up oob per RN --> S/p nasal fracture second: CT findings revealed Left frontal soft tissue swelling. Age-indeterminate nasal bone fractures partially visualized.Stable mild chronic small vessel ischemic changes and cerebral volume loss. --> Recommend MRI Brain once he is stable and out of covid isolation. --> obtain more information from family regarding fall- will contact social group worker to assist in contacting family --> Pt has had 3 falls inpatient according to nurses. 2. Encephalopathy --> No focal findings on limited neuro exam, i.e cva 3. Covid 19 Disease --> on isolation on oxygen not hypoxic --> continue supportive treatment 4. Atrial Fibrillation --> with RVR, on Cardizem gtt now in icu, cards on board Thank You for allowing us to participate in the care of the patient. The time of the note phil not necessarily reflect the time the patient was seen and evaluated Sonam Redman NP May 25, 2020 11:44
[2020-05-25] MEDS ORDERED: METOPROLOL TARTRATE IVPB SCH (12:00)
[2020-05-25] MEDS ORDERED: D5W IVPB SCH (12:00)
--- NOTE | 2020-05-25 12:00 | NUR ---
NEUROPSYCHOLOGY DIRECTOR NOTE Pt's daughter Kana returned the call. Kana is monolingual Portuguese. Pt's son-in-law, Juan Hernadez assisted w/ interpretation. Pt resides alone, receives IHSS service, denies hx of substance abuse and mental illness. Xtalhait reports pt did not have any issue other than hearing impairment. PT's daughter, Kana resides in [place], one son resides in [place]. The rest of his children are residing in [place]. PT does not have AD/POA. Nitait is willing to make decision on behalf of pt. Kana (daughter/primary contact/monolingual Portuguese): [phone] Other emergency contact: Aggie Hernadez (granddaughter) [phone]
--- NOTE | 2020-05-25 12:08 | NUR ---
1130 AGITATED TRY TO GET OUT OF BED ON PMAELA,RESTRAINT MEDICATED ORDERED EFFECTED/ASLEEP
--- NOTE | 2020-05-25 12:09 | Pulmonology Progress Note ---
Subjective ROS Limited/Unobtainable: Yes Interval Events: now in ICU on Cardizem drip Constitutional: Reports: no symptoms HEENT: Repors: no symptoms Respiratory: Reports: no symptoms Cardiovascular: Reports: no symptoms Gastrointestinal/Abdominal: Reports: no symptoms Allergies: Coded Allergies: No Known Allergies (Unverified , 05/21/20) Objective Last 24 Hour Vital Signs Date Time Temp Pulse Resp B/P (MAP) Pulse Ox O2 Delivery O2 Flow Rate FiO2 05/25/20 12:00 98.8 98 19 76/49 (58) 91 05/25/20 12:00 90 05/25/20 12:00 Nasal Cannula 2.0 05/25/20 11:30 96 25 110/52 (71) 91 05/25/20 11:00 125 34 96/55 (69) 89 05/25/20 10:30 91 121/65 (83) 87 05/25/20 10:00 88 24 114/61 (78) 94 05/25/20 09:30 91 16 118/61 (80) 94 05/25/20 09:00 88 22 131/70 (90) 93 05/25/20 08:30 99 24 137/69 (91) 93 05/25/20 08:00 Nasal Cannula 2.0 05/25/20 08:00 91 22 106/66 (79) 92 05/25/20 08:00 80 05/25/20 07:30 98 25 116/85 (95) 94 05/25/20 07:00 79 20 106/66 (79) 94 05/25/20 06:30 75 20 111/58 (75) 94 05/25/20 06:00 85 20 94/60 (71) 94 05/25/20 05:30 88 20 97/57 (70) 94 05/25/20 05:00 80 20 91/54 (66) 95 05/25/20 04:30 99 20 98/54 (69) 95 05/25/20 04:03 Nasal Cannula 2.0 05/25/20 04:02 90 05/25/20 04:00 99.9 99 20 91/48 (62) 96 05/25/20 03:30 103 22 86/57 (67) 94 05/25/20 03:00 85 20 83/53 (63) 96 12/15/20 02:30 100 20 91/50 (64) 96 05/25/20 02:00 88 20 84/50 (61) 95 05/25/20 01:30 95 18 86/54 (65) 96 05/25/20 01:00 115 18 92/57 (69) 96 05/25/20 00:30 100.6 100 20 98/50 (66) 96 05/25/20 00:00 100 111/61 05/25/20 00:00 127 20 111/61 (78) 98 05/24/20 23:15 145 05/24/20 23:15 Nasal Cannula 2.0 05/24/20 23:10 101.2 145 22 122/72 (89) 92 05/24/20 21:00 Room Air 05/24/20 20:00 99.7 115 20 138/70 (92) 94 05/24/20 20:00 96 05/24/20 18:20 107 122/73 05/24/20 16:00 107 05/24/20 16:00 100.1 91 20 122/73 (89) 93 Intake and Output 05/24/20 05/25/20 19:00 07:00 Intake Total 707.76 ml Output Total 530 ml Balance 177.76 ml Intake IV Total 707.76 ml Output Urine Total 530 ml # Voids 2 # Bowel Movements 1 General Appearance: WD/WN, no acute distress HEENT: normocephalic, atraumatic Respiratory: chest wall non-tender, lungs clear Cardiovascular: normal rate, regular rhythm Abdomen: other - obese Extremities: no edema Skin: other - 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 Musculoskeletal: other - left hip tenderness to palpation, no contusion, no crepitus noted Laboratory Tests 05/25/20 04:07: White Blood Count 7.5, Red Blood Count 3.43L, Hemoglobin 11.1L, Hematocrit 32.0L , Mean Corpuscular Volume 93, Mean Corpuscular Hemoglobin 32.4H, Mean Corpuscular Hemoglobin Concent 34.7, Red Cell Distribution Width 14.2, Platelet Count 111L, Mean Platelet Volume 10.8H, Neutrophils (%) (Auto) 78.3H, Lymphocytes (%) (Auto) 9.3L, Monocytes (%) (Auto) 12.0H, Eosinophils (%) (Auto) 0.0, Basophils (%) (Auto) 0.4, Sodium Level 140, Potassium Level 3.8, Chloride Level 106, Carbon Dioxide Level 21, Anion Gap 13, Blood Urea Nitrogen 20H, Creatinine 1.7H, Estimat Glomerular Filtration Rate 38.8, Glucose Level 137H, Calcium Level 7.3L, Phosphorus Level 4.5, Magnesium Level 1.8, Total Bilirubin 0.7, Aspartate Amino Transf (AST/SGOT) 66H, Alanine Aminotransferase (ALT/SGPT) 33, Alkaline Phosphatase 52, C-Reactive Protein, Quantitative 21.2H, Total Protein 6.2L, Albumin 2.3L, Globulin 3.9, Albumin/Globulin Ratio 0.6L Current Medications Medications (Trade) Dose Ordered Sig/Celia Route PRN Reason Start Time Stop Time Status Last Admin Dose Admin Apixaban (Eliquis) 2.5 mg BID ORAL 05/24/20 18:00 08/22/20 17:59 05/25/20 09:00 Barium Sulfate (Varibar Honey) 250 ml NOW PRN MC RAD 05/22/20 15:45 05/25/20 15:39 Barium Sulfate (Varibar [place]) 240 ml NOW PRN MC RAD 05/22/20 15:45 05/25/20 15:39 Barium Sulfate (Varibar Pudding) 230 ml NOW PRN MC RAD 05/22/20 15:45 05/25/20 15:39 Barium Sulfate (Varibar Thin Liquid powder) 148 gm NOW PRN MC RAD 05/22/20 15:45 05/25/20 15:39 Dextrose/Sodium Chloride 1,000 ml @ 75 mls/hr [id number] IV 05/22/20 13:30 06/21/20 13:29 05/25/20 08:00 Diltiazem HCl 125 ml @ 10 mls/hr Q24H IVPB 05/24/20 23:00 05/25/20 22:59 05/25/20 11:31 Haloperidol Lactate (Haldol) 5 mg Q6H PRN IM Agitation 05/22/20 13:15 07/06/20 13:14 05/25/20 11:31 Metoprolol Tartrate 7.5 mg/ Dextrose 62.5 ml @ 130 mls/hr Q6HR IVPB 05/25/20 12:00 06/24/20 11:59 Pantoprazole (Protonix) 40 mg EVERY 12 HOURS IVP 05/22/20 21:00 06/21/20 20:59 05/25/20 09:00 Assessment/Plan Assessment/Plan 1. Pneumonia. 2. Anemia. 3. Renal insufficiency. - Hydration 4. Elevated inflammatory markers with high CRP. 5. Hypokalemia. 6. Mild protein-calorie malnutrition. 7. COVID-19 - hold off on any specific therapy for COVID such as steroids, or remdesivir given his normoxemic status 8. Wound care instituted 9. Left hip pain s/p fall - Tenderness to palpation and limited range of motion s/p fall x3 without signs of contusion or crepitus - L hip XRay - no fractures noted 10. s/p fall 11. Afib; on Cardizem gtt Ector Boudreaux MD, MD May 25, 2020 12:09
--- NOTE | 2020-05-25 12:26 | NUR ---
RADIOLOGY DEPT., CHEST X-RAY DONE.-P.DYE
--- NOTE | 2020-05-25 13:04 | NUR ---
RD ASSESSMENT & RECOMMENDATIONS SEE CARE ACTIVITY FOR COMPLETE ASSESSMENT DAILY ESTIMATED NEEDS: Needs based on cardiac, pulmonary 63kg 25-30 kcals/kg 6586-5081 total kcals 1-1.5 g protein/kg 63-95 g total protein 25-30 mL/kg 3413-0684 total fluid mLs NUTRITION DIAGNOSIS: Swallowing difficulty r/t respiratory status anc clinical status as evidenced by s/p RV SERVICER eval recs for puree texture, currently NPO, ICU status w/ Covid ++ PNA, on NC. CURRENT DIET: NPO PO DIET RECOMMENDATIONS: LOW NA DIET as appropriate/ texture per RV SERVICER ADDITIONAL RECOMMENDATIONS: 1) Maintain calibrated bed scale wts 2) Maintain D5 while NPO 3) Monitor for ability to feed, or initiate diet Add Ensure Enlive w/ trays TID 4) Check lytes daily while NPO
--- NOTE | 2020-05-25 13:18 | NUR ---
1300 cont,claire maria hr1oo/ pt aslep
--- NOTE | 2020-05-25 13:38 | Diagnostic Imaging Report ---
Indication: Reason For Exam: INFECT Technique: One view of the chest Comparison: 05/21/2020 Findings: There is now considerable consolidation of the right upper lobe, occupying most of it. This is new or increased since the prior exam. There is also increased consolidation in the left midlung. The pleural spaces remain clear. The heart size is normal. Median sternotomy sutures are again demonstrated Impression: Markedly increased infiltrate on the left and new or markedly increased infiltrate in the right upper lobe, since exam of 4 days prior
--- NOTE | 2020-05-25 15:00 | Consultation ---
DATE OF CONSULTATION: 05/25/2020 INFECTIOUS DISEASE CONSULTATION CONSULTING PHYSICIAN: Mahin Leyva MD PRIMARY ATTENDING PHYSICIAN: Yvette Waldrop MD REASON FOR CONSULTATION: COVID-19 disease. HISTORY OF PRESENT ILLNESS: This is an 84-year-old male admitted on 05/21/2020 from home after a syncopal episode. He had a fall and a forehead laceration. He was found to have acute renal failure and dehydration, developing fever from last night. COVID test was positive. The patient during the course of hospitalization developed atrial fibrillation and rapid ventricular rate. He was transferred to ICU and is getting Cardizem drip. PAST MEDICAL HISTORY: Likely dementia and coronary artery disease, status post CABG. MEDICATIONS: apixaban, Protonix, haloperidol. SOCIAL HISTORY: According to the chart, he is single and lives at home. REVIEW OF SYSTEMS: Unobtainable. The patient is confused, on restraints. PHYSICAL EXAMINATION: VITAL SIGNS: Pulse 99, blood pressure 137/69. T-max is 101.2. GENERAL APPEARANCE: He seems to have normal weight. HEAD AND NECK: Getting oxygen by nasal cannula. He has forehead laceration. HEART: Tachycardic. LUNGS: Clear. ABDOMEN: Soft. EXTREMITIES: No edema. LABORATORY AND DIAGNOSTIC DATA: WBC 7.5, hemoglobin 11.1, hematocrit 32, platelet 111,000. Sodium 140, potassium 3.8, chloride 106, bicarb 21, BUN 20, creatinine 1.7. Creatinine at the time of admission was 2.2. Troponin elevated, the peak was 0.266. Urine toxicology was negative. UA was also negative. Chest x-ray showed left middle lung infiltrate. CT scan of the head showed left frontal scalp hematoma, mild encephalomalacia of left basal ganglia suggestive of prior infarct. Renal ultrasound was negative. Hip x-ray showed osteoporosis. IMPRESSION: COVID-19 pneumonia. The patient has acute renal failure, dehydration, atrial fibrillation with rapid ventricular rate, right bundle-branch block, history of coronary artery disease with bypass, and dementia. RECOMMENDATION: Continue supportive care, repeat chest x-ray, and follow up clinical course. At the end of my exam, I thank Dr. Waldrop for involving me in the care of this patient. Mahin Leyva M.D. DR: BETTIE JOB#: [id number] CC: MIGUEL ÁNGEL
--- NOTE | 2020-05-25 16:12 | NUR ---
CASE MANAGEMENT:REVIEW SI;COVID PNA. ENCEPHALOPATHY. A-FIB. 101.2 145 34 76/49 87% 2L NC BUN 20 CR 1.7 BG 137 AST 66 CRP 21.2 ALB 2.3 IS;DILTIAZEM GTT IV PROTONIX IV Q12 ELIQUIS PO BID HALDOL IM Q6 PRN ICU STATUS DCP;FROM HOME
--- NOTE | 2020-05-25 16:50 | NUR ---
PT,SEEN BY MARE BUCIO NO NEW ORDERS PT CALM/ASLEEP CONT,CARDIZEMDRIP 210mg/hr.99
--- NOTE | 2020-05-25 19:30 | NUR ---
NURSE NOTES: Received patient from MARTHA Davis. Patient is observed resting in bed and remains alert but confused and disoriented. Pt noted to be speaking excessively, speech is garbled and without order. [place] medical director occupational health services utilized ([employer] #[id number]), speech characteristic of word salad. Pt unable to follow commands and noted to be very anxious, resistive to care and combative. FLACC score of 0 noted upon assessment. Pt is currently on 4L NC with an O2 saturation of 92% at this time. Pt continues to pull off NC, with NC pt noted to saturate at 96% Bilateral lower lobe breath sounds noted to be diminished upon auscultation with rhonchi noted in bilateral upper lobes. Pt noted to be AFib on tele monitor with a HR of 123, BP remains stable at this time. R AC 18g and two L FA 18g IV Catheters noted which remain asymptomatic, intact and patent. D5 1/2 NS is infusing at 75mL/hr as ordered. Cardizem is currently infusing at 10mg/hr, will titrate per order as indicated. Active bowel sounds noted in all four quadrants; abdomen remains round and nontender. Pt remains NPO per order, except for medications. Attempted to perform swallow assessment at bedside to ensure pt safety to administer Warfarin as ordered. Pt refuses to open mouth and spits at staff. Mera catheter noted which continues to drain urine by gravity. Urine noted to be dark marcel, cloudy and foul smelling. Diagnostics reviewed at bedside. Skin remains intact with scaly, patchy skin noted over entirety of body. Bilateral soft wrist restraints remain in place for pt safety. Pt noted to be attempting to pull medical devices despite pt education. CMS remains intact. Will continue to assess pt for removal criteria. Fall, Aspiration and Skin precautions observed. Pt repositioned for comfort and safety. Pt remains resting in bed; Bed remains in the lowest position with the safety wheels engaged, call light within reach, side rails up x3 and bed alarm activated. Will continue plan of care. Will continue to monitor.
--- NOTE | 2020-05-25 19:38 | Cardiac Electrophysiology PN ---
Assessment/Plan Assessment/Plan 1. Syncope. Etiology is not clear at this time. The first troponin is negative but second one mildly elevated that could be due to renal failure ECho EF 60%. He might have been dehydrated in view of BUN and creatinine that is improving. 2. Atrial fib with RVR. Not eating and no NGT. Swallow eval is pending. Increase Lopressor to 10 mg iv q 6 hrs and Eliquis 2.5 bid Taper off CArdizem drip. Add Dig 0.5 iv now and 0.25 po daily 3. Troponin elevation. Levels are low and coming down. Already on Lopressor 4. Complete right bundle-branch block and lateral T-wave inversion. 5. Covid PNA on 3 liter NC 6. Dysphagia. Swallow evaluation is pending. YASMIN RN Subjective Subjective Transferred to ICU for atrial fib with RVR up to 150s in Covid isolation on Cardizem drip at 10 mg/hr/ BP running low Objective Last 24 Hour Vital Signs Date Time Temp Pulse Resp B/P (MAP) Pulse Ox O2 Delivery O2 Flow Rate FiO2 05/25/20 19:00 124 24 122/84 (97) 89 05/25/20 18:30 141 24 141/81 (101) 89 05/25/20 18:00 110 17 101/50 (67) 89 05/25/20 17:30 115 26 155/79 (104) 89 05/25/20 17:00 98 19 141/60 (87) 89 05/25/20 16:30 99 22 128/60 (82) 87 05/25/20 16:00 99.0 103 24 129/97 (108) 89 05/25/20 16:00 114 05/25/20 16:00 Nasal Cannula 2.0 05/25/20 15:30 109 23 111/57 (75) 90 05/25/20 15:00 111 21 119/57 (77) 90 05/25/20 14:30 90 21 111/57 (75) 90 05/25/20 14:00 100 20 99/64 (76) 92 05/25/20 13:30 97 22 115/61 (79) 92 05/25/20 13:00 99 17 95/51 (66) 92 05/25/20 12:30 100 18 96/50 (65) 90 05/25/20 12:00 98.8 98 19 76/49 (58) 91 05/25/20 12:00 90 05/25/20 12:00 106 79/47 05/25/20 12:00 Nasal Cannula 2.0 05/25/20 11:30 96 25 110/52 (71) 91 05/25/20 11:00 125 34 96/55 (69) 89 05/25/20 10:30 91 121/65 (83) 87 05/25/20 10:00 88 24 114/61 (78) 94 05/25/20 09:30 91 16 118/61 (80) 94 05/25/20 09:00 88 22 131/70 (90) 93 05/25/20 08:30 99 24 137/69 (91) 93 05/25/20 08:00 Nasal Cannula 2.0 05/25/20 08:00 91 22 106/66 (79) 92 05/25/20 08:00 80 05/25/20 07:30 98 25 116/85 (95) 94 05/25/20 07:00 79 20 106/66 (79) 94 05/25/20 06:30 75 20 111/58 (75) 94 05/25/20 06:00 85 20 94/60 (71) 94 05/25/20 05:30 88 20 97/57 (70) 94 05/25/20 05:00 80 20 91/54 (66) 95 05/25/20 04:30 99 20 98/54 (69) 95 05/25/20 04:03 Nasal Cannula 2.0 05/25/20 04:02 90 05/25/20 04:00 99.9 99 20 91/48 (62) 96 05/25/20 03:30 103 22 86/57 (67) 94 05/25/20 03:00 85 20 83/53 (63) 96 05/25/20 02:30 100 20 91/50 (64) 96 05/25/20 02:00 88 20 84/50 (61) 95 05/25/20 01:30 95 18 86/54 (65) 96 05/25/20 01:00 115 18 92/57 (69) 96 05/25/20 00:30 100.6 100 20 98/50 (66) 96 05/25/20 00:00 100 111/61 05/25/20 00:00 127 20 111/61 (78) 98 05/24/20 23:15 145 05/24/20 23:15 Nasal Cannula 2.0 05/24/20 23:10 101.2 145 22 122/72 (89) 92 05/24/20 21:00 Room Air 05/24/20 20:00 99.7 115 20 138/70 (92) 94 05/24/20 20:00 96 Intake and Output 05/24/20 05/25/20 19:00 07:00 Intake Total 707.76 ml Output Total 530 ml Balance 177.76 ml Intake IV Total 707.76 ml Output Urine Total 530 ml # Voids 2 # Bowel Movements 1 Laboratory Tests Test 05/25/20 04:07 White Blood Count 7.5 K/UL (4.8-10.8) Red Blood Count 3.43 M/UL (4.70-6.10) L Hemoglobin 11.1 G/DL (14.2-18.0) L Hematocrit 32.0 % (42.0-52.0) L Mean Corpuscular Volume 93 FL (80-99) Mean Corpuscular Hemoglobin 32.4 PG (27.0-31.0) H Mean Corpuscular Hemoglobin Concent 34.7 G/DL (32.0-36.0) Red Cell Distribution Width 14.2 % (11.6-14.8) Platelet Count 111 K/UL (150-450) L Mean Platelet Volume 10.8 FL (6.5-10.1) H Neutrophils (%) (Auto) 78.3 % (45.0-75.0) H Lymphocytes (%) (Auto) 9.3 % (20.0-45.0) L Monocytes (%) (Auto) 12.0 % (1.0-10.0) H Eosinophils (%) (Auto) 0.0 % (0.0-3.0) Basophils (%) (Auto) 0.4 % (0.0-2.0) Sodium Level 140 MMOL/L (136-145) Potassium Level 3.8 MMOL/L (3.5-5.1) Chloride Level 106 MMOL/L (98-107) Carbon Dioxide Level 21 MMOL/L (21-32) Anion Gap 13 mmol/L (5-15) Blood Urea Nitrogen 20 mg/dL (7-18) H Creatinine 1.7 MG/DL (0.55-1.30) H Estimat Glomerular Filtration Rate 38.8 mL/min (>60) Glucose Level 137 MG/DL (74-106) H Calcium Level 7.3 MG/DL (8.5-10.1) L Phosphorus Level 4.5 MG/DL (2.5-4.9) Magnesium Level 1.8 MG/DL (1.8-2.4) Total Bilirubin 0.7 MG/DL (0.2-1.0) Aspartate Amino Transf (AST/SGOT) 66 U/L (15-37) H Alanine Aminotransferase (ALT/SGPT) 33 U/L (12-78) Alkaline Phosphatase 52 U/L (46-116) C-Reactive Protein, Quantitative 21.2 mg/dL (0.00-0.90) H Total Protein 6.2 G/DL (6.4-8.2) L Albumin 2.3 G/DL (3.4-5.0) L Globulin 3.9 g/dL Albumin/Globulin Ratio 0.6 (1.0-2.7) L Objective HEAD AND NECK: No JVD. LUNGS: Clear. CARDIOVASCULAR: Shows regular S1 and S2 with no gallop or murmur. ABDOMEN: Soft. EXTREMITIES: No pitting edema. Rick Basilio MD May 25, 2020 19:38
[2020-05-25] MEDS ORDERED: Digoxin 0.5mg/2ml Inj IVP SCH (19:45)
--- NOTE | 2020-05-25 21:00 | NUR ---
NURSE NOTES: Pt provided with a bed bath and linen change. Pt refusing oral care. Pt continues to tolerate NC well and remains free from s/sx of acute respiratory distress. Physical status remains consistent with previous assessment. Pt remains disoriented and combative, continues to pull medical devices despite restraints. Will continue to provide education and reorient patient. PRN Haldol given as ordered with no adverse effects noted at this time. Will continue to closely monitor. Fall, Aspiration and Skin precautions observed. Pt remains resting in bed; Bed remains in the lowest position with the safety wheels engaged, call light within reach, side rails up x3 and bed alarm activated. Will continue plan of care. Will continue to monitor.
[2020-05-25] MEDS: Metoprolol Tartrate 10 MG in D5W 55 ML IVPB SCH (21:06)
--- NOTE | 2020-05-25 21:15 | General Progress Note ---
Subjective ROS Limited/Unobtainable: Yes Allergies: Coded Allergies: No Known Allergies (Unverified , 05/21/20) Objective Last 24 Hour Vital Signs Date Time Temp Pulse Resp B/P (MAP) Pulse Ox O2 Delivery O2 Flow Rate FiO2 05/25/20 21:06 129 122/84 05/25/20 20:05 129 05/25/20 19:00 124 24 122/84 (97) 89 05/25/20 18:30 141 24 141/81 (101) 89 05/25/20 18:00 110 17 101/50 (67) 89 05/25/20 17:30 115 26 155/79 (104) 89 05/25/20 17:00 98 19 141/60 (87) 89 05/25/20 16:30 99 22 128/60 (82) 87 05/25/20 16:00 99.0 103 24 129/97 (108) 89 05/25/20 16:00 114 05/25/20 16:00 Nasal Cannula 2.0 05/25/20 15:30 109 23 111/57 (75) 90 05/25/20 15:00 111 21 119/57 (77) 90 05/25/20 14:30 90 21 111/57 (75) 90 05/25/20 14:00 100 20 99/64 (76) 92 05/25/20 13:30 97 22 115/61 (79) 92 05/25/20 13:00 99 17 95/51 (66) 92 05/25/20 12:30 100 18 96/50 (65) 90 05/25/20 12:00 98.8 98 19 76/49 (58) 91 05/25/20 12:00 90 05/25/20 12:00 106 79/47 05/25/20 12:00 Nasal Cannula 2.0 05/25/20 11:30 96 25 110/52 (71) 91 05/25/20 11:00 125 34 96/55 (69) 89 05/25/20 10:30 91 121/65 (83) 87 05/25/20 10:00 88 24 114/61 (78) 94 05/25/20 09:30 91 16 118/61 (80) 94 05/25/20 09:00 88 22 131/70 (90) 93 05/25/20 08:30 99 24 137/69 (91) 93 05/25/20 08:00 Nasal Cannula 2.0 05/25/20 08:00 91 22 106/66 (79) 92 05/25/20 08:00 80 05/25/20 07:30 98 25 116/85 (95) 94 05/25/20 07:00 79 20 106/66 (79) 94 05/25/20 06:30 75 20 111/58 (75) 94 05/25/20 06:00 85 20 94/60 (71) 94 05/25/20 05:30 88 20 97/57 (70) 94 05/25/20 05:00 80 20 91/54 (66) 95 05/25/20 04:30 99 20 98/54 (69) 95 05/25/20 04:03 Nasal Cannula 2.0 05/25/20 04:02 90 05/25/20 04:00 99.9 99 20 91/48 (62) 96 05/25/20 03:30 103 22 86/57 (67) 94 05/25/20 03:00 85 20 83/53 (63) 96 05/25/20 02:30 100 20 91/50 (64) 96 05/25/20 02:00 88 20 84/50 (61) 95 05/25/20 01:30 95 18 86/54 (65) 96 05/25/20 01:00 115 18 92/57 (69) 96 05/25/20 00:30 100.6 100 20 98/50 (66) 96 05/25/20 00:00 100 111/61 05/25/20 00:00 127 20 111/61 (78) 98 05/24/20 23:15 145 05/24/20 23:15 Nasal Cannula 2.0 05/24/20 23:10 101.2 145 22 122/72 (89) 92 Intake and Output 05/24/20 05/25/20 19:00 07:00 Intake Total 707.76 ml Output Total 530 ml Balance 177.76 ml Intake IV Total 707.76 ml Output Urine Total 530 ml # Voids 2 # Bowel Movements 1 Laboratory Tests 05/25/20 04:07: White Blood Count 7.5, Red Blood Count 3.43L, Hemoglobin 11.1L, Hematocrit 32.0L , Mean Corpuscular Volume 93, Mean Corpuscular Hemoglobin 32.4H, Mean Corpuscular Hemoglobin Concent 34.7, Red Cell Distribution Width 14.2, Platelet Count 111L, Mean Platelet Volume 10.8H, Neutrophils (%) (Auto) 78.3H, Lymphocytes (%) (Auto) 9.3L, Monocytes (%) (Auto) 12.0H, Eosinophils (%) (Auto) 0.0, Basophils (%) (Auto) 0.4, Sodium Level 140, Potassium Level 3.8, Chloride Level 106, Carbon Dioxide Level 21, Anion Gap 13, Blood Urea Nitrogen 20H, Creatinine 1.7H, Estimat Glomerular Filtration Rate 38.8, Glucose Level 137H, Calcium Level 7.3L, Phosphorus Level 4.5, Magnesium Level 1.8, Total Bilirubin 0.7, Aspartate Amino Transf (AST/SGOT) 66H, Alanine Aminotransferase (ALT/SGPT) 33, Alkaline Phosphatase 52, C-Reactive Protein, Quantitative 21.2H, Total Protein 6.2L, Albumin 2.3L, Globulin 3.9, Albumin/Globulin Ratio 0.6L Height (Feet): 5 Height (Inches): 7.00 Weight (Pounds): 159 Assessment/Plan Problem List: (1) Renal insufficiency ICD Codes: N28.9 - Disorder of kidney and ureter, unspecified SNOMED: 364819235, 372199195 (2) Encephalopathy ICD Codes: G93.40 - Encephalopathy, unspecified SNOMED: 07554822, 765264062 (3) Head injury ICD Codes: S09.90XA - Unspecified injury of head, initial encounter SNOMED: 87445045, 161185709 Qualifiers: Qualified Codes: S09.90XA - Unspecified injury of head, initial encounter (4) Pneumonia ICD Codes: J18.9 - Pneumonia, unspecified organism SNOMED: 000469469 Qualifiers: Qualified Codes: J18.9 - Pneumonia, unspecified organism (5) Abnormal EKG ICD Codes: R94.31 - Abnormal electrocardiogram [ECG] [EKG]; J12.89 - Other viral pneumonia SNOMED: 178014296 (6) Altered level of consciousness ICD Codes: R40.4 - Transient alteration of awareness SNOMED: 8320160 (7) Dehydration ICD Codes: E86.0 - Dehydration SNOMED: 04381987 (8) Pneumonia due to COVID-19 virus ICD Codes: U07.1 - COVID-19; J12.89 - Other viral pneumonia SNOMED: 607988540612606749 (9) Renal failure (ARF), acute on chronic ICD Codes: N17.9 - Acute kidney failure, unspecified; N18.9 - Chronic kidney disease, unspecified SNOMED: 047100088 Status: progressing Assessment/Plan: s/p trauma covid positive pna s/p a fib w rvr on cardizam Yvette Silva MD May 25, 2020 21:15
[2020-05-25] MEDS: dilTIAZem HCL 125 MG in NS 100 ML IVPB SCH (22:12)
--- NOTE | 2020-05-25 23:00 | NUR ---
NURSE NOTES: Bedside assessment performed, assessed pt for pain with a FLACC score of 0 noted. Respiratory status remains stable at this time. Cardizem noted to be therapeutic and continues to infuse at 10mg/hr, HR remains <100. Pt noted to be agitated, restless and attempting to get out of bed and pull medical devices. Speech is still unintelligible. Pt continues to remain free from s/sx of adverse effects from PRN Haldol administration, but PRN noted to not be effective. Pt remains clean and dry. Pt repositioned for safety and comfort. Fall, Aspiration and Skin precautions observed. Pt remains resting in bed; Bed remains in the lowest position with the safety wheels engaged, call light within reach, side rails up x3 and bed alarm activated. Will continue plan of care. Will continue to monitor.
--- NOTE | 2020-05-25 23:17 | Psychiatric Progress Note ---
Psychiatry Progress Note Psychiatry Progress Note Subjective no changes episodes agitation Medications Current Medications Medications (Trade) Dose Ordered Sig/Celia Route PRN Reason Start Time Stop Time Status Last Admin Dose Admin Apixaban (Eliquis) 2.5 mg BID ORAL 05/24/20 18:00 08/22/20 17:59 05/25/20 09:00 Dextrose/Sodium Chloride 1,000 ml @ 75 mls/hr [id number] IV 05/22/20 13:30 06/21/20 13:29 05/25/20 21:08 Digoxin (Lanoxin) 0.25 mg DAILY IVP 05/26/20 09:00 08/24/20 08:59 Diltiazem HCl 125 mg/Sodium Chloride 125 ml @ 10 mls/hr Q24H IVPB 05/25/20 22:00 05/26/20 21:59 05/25/20 22:12 Haloperidol Lactate (Haldol) 5 mg Q6H PRN IM Agitation 05/22/20 13:15 07/06/20 13:14 05/25/20 21:07 Metoprolol Tartrate 10 mg/ Dextrose 65 ml @ 130 mls/hr Q6HR IVPB 05/25/20 21:00 06/24/20 20:59 05/25/20 21:06 Pantoprazole (Protonix) 40 mg EVERY 12 HOURS IVP 05/22/20 21:00 06/21/20 20:59 05/25/20 20:04 Neurological/Psychiatric: Reports: anxiety Allergies: Coded Allergies: No Known Allergies (Unverified , 05/21/20) Objective Data Height (Feet): 5 Height (Inches): 7.00 Weight (Pounds): 159 General Appearance: no apparent distress, confused, agitated Additional Comments: waxing and waning consciousness. Mood is anxious. Affect is blunted, congruent with mood. Thought process is concrete. Thought content, no suicidal or homicidal ideation. Cognition is impaired. Insight and judgment impaired. Assessment/Plan [place] I: ASSESSMENT: White[place] I Acute metabolic encephalopathy. Dementia. [place] II Deferred. [place] III Renal insufficiency and head injury. [place] IV Low. [place] V 20. PLAN: 1. We will start the patient on Haldol IM p.r.n. 2. Restraints. 3. Discussed with the nurse. Status: progressing Status Narrative ASSESSMENT: [place] I Acute metabolic encephalopathy. Dementia. [place] II Deferred. [place] III Renal insufficiency and head injury. White[place] IV Low. [place] V 20. PLAN: 1. We will start the patient on Haldol IM p.r.n. 2. Restraints. 3. Discussed with the nurse. Assessment/Plan: ASSESSMENT: White[place] I Acute metabolic encephalopathy. Dementia. White[place] II Deferred. [place] III Renal insufficiency and head injury. White[place] IV Low. [place] V 20. PLAN: 1. We will start the patient on Haldol IM p.r.n. 2. Restraints. 3. Discussed with the nurse. Francheska Huynh MD May 25, 2020 23:17
[2020-05-26] VITALS (47 sets, daily range): BP systolic 79–138; BP diastolic 46–91
--- NOTE | 2020-05-26 01:00 | NUR ---
NURSE NOTES: Bedside assessment performed, assessed pt for pain with a FLACC score of 0 noted. Respiratory status remains stable at this time. Cardizem noted to be therapeutic and continues to infuse at 10mg/hr, HR remains <100. Pt noted to be agitated, restless and attempting to get out of bed and pull medical devices. Speech is still unintelligible. Pt has not slept yet. Pt continues to remain free from s/sx of adverse effects from PRN Haldol administration, but PRN still noted to not be effective. Pt remains clean and dry. Pt repositioned for safety and comfort. Fall, Aspiration and Skin precautions observed. Pt remains resting in bed; Bed remains in the lowest position with the safety wheels engaged, call light within reach, side rails up x3 and bed alarm activated. Will continue plan of care. Will continue to monitor.
--- NOTE | 2020-05-26 03:00 | NUR ---
NURSE NOTES: Bedside assessment performed, assessed pt for pain with a FLACC score of 0 noted. Respiratory status remains stable at this time. Cardizem noted to be therapeutic and continues to infuse at 10mg/hr, HR remains <100. Pt noted to be agitated, restless and attempting to get out of bed and pull medical devices. Pt screaming and speech is still unintelligible. Attempted to use [facility] services again to no avail. Pt unable to communicate and still unable to follow commands. Pt remains disoriented and confused. Pt remains clean and dry. Pt repositioned for safety and comfort. Fall, Aspiration and Skin precautions observed. Pt remains resting in bed; Bed remains in the lowest position with the safety wheels engaged, call light within reach, side rails up x3 and bed alarm activated. Will continue plan of care. Will continue to monitor.
--- NOTE | 2020-05-26 05:00 | NUR ---
NURSE NOTES: Bedside assessment performed, assessed pt for pain with a FLACC score of 0 noted. Respiratory status remains stable at this time. Cardizem noted to be therapeutic and continues to infuse at 10mg/hr, HR remains <100. Pt noted to be agitated, restless and attempting to get out of bed and pull medical devices. Pt intermittently screaming and speech remains unintelligible. Pt remains disoriented, combative and confused. Pt remains clean and dry. Pt repositioned for safety and comfort. Fall, Aspiration and Skin precautions observed. Pt remains resting in bed; Bed remains in the lowest position with the safety wheels engaged, call light within reach, side rails up x3 and bed alarm activated. Will continue plan of care. Will continue to monitor.
[2020-05-26] MEDS: Metoprolol Tartrate 10 MG in D5W 55 ML IVPB SCH ×4 (05:22→23:16)
[2020-05-26 05:56] LABS: HEMATOCRIT 31.6 % (42.0-52.0); HEMOGLOBIN 10.8 G/DL (14.2-18.0); MEAN CORPUSCULAR VOLUME 94 FL (80-99); PLATELET COUNT 133 K/UL (150-450); RED BLOOD COUNT 3.35 M/UL (4.70-6.10); RED CELL DISTRIBUTION WIDTH 14.9 % (11.6-14.8); WHITE BLOOD COUNT 16.2 K/UL (4.8-10.8)
[2020-05-26 06:32] LABS: ALBUMIN 2.5 G/DL (3.4-5.0); ALBUMIN/GLOBULIN RATIO 0.6 (1.0-2.7); BILIRUBIN,TOTAL 0.9 MG/DL (0.2-1.0); CALCIUM 7.7 MG/DL (8.5-10.1); CREATININE 1.9 MG/DL (0.55-1.30); PHOSPHORUS 2.1 MG/DL (2.5-4.9); POTASSIUM 3.8 MMOL/L (3.5-5.1)
--- NOTE | 2020-05-26 07:16 | NUR ---
NURSE HAND-OFF REPORT: Latest Vital Signs: Temperature 99.0 , Pulse 76 , B/P 109 /91 , Respiratory Rate 16 , O2 SAT 92 , Room Air, O2 Flow Rate 4.0 . Vital Sign Comment: EKG Rhythm: Atrial Fibrillation Rhythm change?: N Notified?: N Response: Latest Stewart Fall Score: 85 Fall Risk: High Risk Safety Measures: Call light Within Reach, Bed Alarm Zone 2, Side Rails Side Rails x2, Bed position Low and Locked. Fall Precautions: Yellow Socks Yellow Gown Door Sign Patient Fall Education Report given to MARTHA Emerson .
--- NOTE | 2020-05-26 07:17 | NUR ---
NURSE NOTES: Pt and repot received from MARTHA Pitt. Pt is observed in bed, restless, kicking his legs, confused, not following commands. Pt is mostly [place]ian Speaking. Pt is on 4L NC, O2sat 93%. Paulino catheter in place, draining urine with gravity to urometer. PIV R AC 18g, R FA 20g, and L FA 18g. Running D5 1/2NS @ 75mL/hr. Cardizem drip held d/t HR dropping to the 40's. HR currently between 70-80 on equipment monitor phototypesetting. Pt received and maintained on BL soft wrist restraints d/t pt pulling at IV tubing and paulino. Bed locked and in lowest position. Call light within reach. Will resume plan of care.
[2020-05-26] MEDS: Eliquis 2.5mg tablet ORAL SCH ×2 (08:33→17:06)
[2020-05-26] MEDS: Haloperidol 5mg/ml Inj IM PRN (08:33)
[2020-05-26] MEDS: Pantoprazole Inj IVP SCH ×2 (08:33→20:06)
[2020-05-26] MEDS: Digoxin 0.5mg/2ml Inj IVP SCH (08:34)
--- NOTE | 2020-05-26 08:36 | NUR ---
NURSE NOTES: Haldol 5mg IM given in the Rt deltoid for agitation and psychosis. Will continue to monitor.
--- NOTE | 2020-05-26 10:00 | NUR ---
NURSE NOTES: Pt remains agitated, no effect of Haldol. 4L NC, O2sat 87-97%. Pt remains on 2 point wrist restraints for trying to pull out tubing. Will continue to monitor.
[2020-05-26] MEDS: D5 1/2NS 1,000 ML IV SCH ×2 (11:00→23:44)
--- NOTE | 2020-05-26 11:00 | Infectious Diseases Prog Note ---
Assessment/Plan Assessment/Plan IMPRESSION: COVID-19 pneumonia. Acute renal failure, Dehydration, Atrial fibrillation with rapid ventricular rate, Right bundle-branch block, History of coronary artery disease with bypass, Dementia. RECOMMENDATION: Start on Dexamethasone & Rocephin Subjective ROS Limited/Unobtainable: Yes Neurologic: Reports: confusion, other - on restraint Allergies: Coded Allergies: No Known Allergies (Unverified , 05/21/20) Objective Last 24 Hour Vital Signs Date Time Temp Pulse Resp B/P (MAP) Pulse Ox O2 Delivery O2 Flow Rate FiO2 05/26/20 10:30 103 22 136/57 (83) 91 05/26/20 10:00 109 29 138/82 (100) 91 05/26/20 09:30 105 26 129/65 (86) 93 05/26/20 09:00 86 21 116/73 (87) 94 05/26/20 08:34 88 05/26/20 08:30 87 23 114/60 (78) 92 05/26/20 08:00 98.3 83 23 111/57 (75) 96 05/26/20 08:00 Nasal Cannula 4.0 Nasal Cannula 4.0 Room Air 4.0 05/26/20 08:00 83 05/26/20 07:30 82 16 108/66 (80) 94 05/26/20 07:00 76 16 109/91 (97) 92 05/26/20 06:45 63 16 129/52 (77) 92 05/26/20 06:30 87 21 118/62 (80) 92 05/26/20 06:00 89 25 138/64 (88) 95 05/26/20 05:30 84 26 118/91 (100) 94 05/26/20 05:22 88 112/66 05/26/20 05:00 88 25 112/66 (81) 93 05/26/20 04:30 89 26 127/61 (83) 92 05/26/20 04:00 99.0 97 22 135/64 (87) 93 05/26/20 04:00 Nasal Cannula 4.0 Nasal Cannula 4.0 Room Air 4.0 05/26/20 03:30 94 22 124/85 (98) 89 05/26/20 03:06 92 05/26/20 03:00 88 23 108/46 (66) 90 05/26/20 02:00 91 22 123/61 (81) 91 05/26/20 01:30 92 23 136/68 (90) 93 05/26/20 01:00 91 24 123/69 (87) 94 05/26/20 00:30 95 21 118/56 (76) 91 05/26/20 00:00 Nasal Cannula 4.0 Nasal Cannula 4.0 Room Air 4.0 05/26/20 00:00 98.8 85 24 131/74 (93) 90 05/25/20 23:30 85 25 119/71 (87) 90 05/25/20 23:06 93 05/25/20 23:00 87 25 121/56 (77) 92 05/25/20 22:12 86 118/56 05/25/20 22:00 88 25 118/56 (76) 89 05/25/20 21:30 88 25 125/62 (83) 90 05/25/20 21:06 129 122/84 05/25/20 21:00 105 27 132/63 (86) 91 05/25/20 20:30 107 25 139/80 (99) 90 05/25/20 20:05 129 05/25/20 20:00 99.1 118 27 139/79 (99) 89 05/25/20 20:00 Nasal Cannula 4.0 Nasal Cannula 4.0 Room Air 4.0 05/25/20 19:30 122 27 121/82 (95) 87 05/25/20 19:02 146 05/25/20 19:00 124 24 122/84 (97) 89 05/25/20 18:30 141 24 141/81 (101) 89 05/25/20 18:00 110 17 101/50 (67) 89 05/25/20 17:30 115 26 155/79 (104) 89 05/25/20 17:00 98 19 141/60 (87) 89 05/25/20 16:30 99 22 128/60 (82) 87 05/25/20 16:00 99.0 103 24 129/97 (108) 89 05/25/20 16:00 114 05/25/20 16:00 Nasal Cannula 2.0 05/25/20 15:30 109 23 111/57 (75) 90 05/25/20 15:00 111 21 119/57 (77) 90 05/25/20 14:30 90 21 111/57 (75) 90 05/25/20 14:00 100 20 99/64 (76) 92 05/25/20 13:30 97 22 115/61 (79) 92 05/25/20 13:00 99 17 95/51 (66) 92 05/25/20 12:30 100 18 96/50 (65) 90 05/25/20 12:00 98.8 98 19 76/49 (58) 91 05/25/20 12:00 90 05/25/20 12:00 106 79/47 05/25/20 12:00 Nasal Cannula 2.0 05/25/20 11:30 96 25 110/52 (71) 91 05/25/20 11:00 125 34 96/55 (69) 89 Height (Feet): 5 Height (Inches): 7.00 Weight (Pounds): 159 HEENT: mucous membranes moist Respiratory/Chest: other - oxygen by nasal cannula Cardiovascular: tachycardia Abdomen: soft, non tender Extremities: no edema Neurologic/Psychiatric: disoriented Laboratory Tests Test 05/26/20 04:22 White Blood Count 16.2 K/UL (4.8-10.8) #H Red Blood Count 3.35 M/UL (4.70-6.10) L Hemoglobin 10.8 G/DL (14.2-18.0) L Hematocrit 31.6 % (42.0-52.0) L Mean Corpuscular Volume 94 FL (80-99) Mean Corpuscular Hemoglobin 32.3 PG (27.0-31.0) H Mean Corpuscular Hemoglobin Concent 34.2 G/DL (32.0-36.0) Red Cell Distribution Width 14.9 % (11.6-14.8) H Platelet Count 133 K/UL (150-450) L Mean Platelet Volume 10.5 FL (6.5-10.1) H Neutrophils (%) (Auto) % (45.0-75.0) Lymphocytes (%) (Auto) % (20.0-45.0) Monocytes (%) (Auto) % (1.0-10.0) Eosinophils (%) (Auto) % (0.0-3.0) Basophils (%) (Auto) % (0.0-2.0) Differential Total Cells Counted 100 Neutrophils % (Manual) 92 % (45-75) H Lymphocytes % (Manual) 4 % (20-45) L Monocytes % (Manual) 4 % (1-10) Eosinophils % (Manual) 0 % (0-3) Basophils % (Manual) 0 % (0-2) Band Neutrophils 0 % (0-8) Platelet Estimate Decreased L Platelet Morphology Normal Anisocytosis 1+ Sodium Level 142 MMOL/L (136-145) Potassium Level 3.8 MMOL/L (3.5-5.1) Chloride Level 108 MMOL/L (98-107) H Carbon Dioxide Level 20 MMOL/L (21-32) L Anion Gap 14 mmol/L (5-15) Blood Urea Nitrogen 25 mg/dL (7-18) H Creatinine 1.9 MG/DL (0.55-1.30) H Estimat Glomerular Filtration Rate 34.1 mL/min (>60) Glucose Level 144 MG/DL (74-106) H Uric Acid 6.0 MG/DL (2.6-7.2) Calcium Level 7.7 MG/DL (8.5-10.1) L Phosphorus Level 2.1 MG/DL (2.5-4.9) L Magnesium Level 1.7 MG/DL (1.8-2.4) L Total Bilirubin 0.9 MG/DL (0.2-1.0) Aspartate Amino Transf (AST/SGOT) 110 U/L (15-37) H Alanine Aminotransferase (ALT/SGPT) 42 U/L (12-78) Alkaline Phosphatase 56 U/L (46-116) C-Reactive Protein, Quantitative 29.2 mg/dL (0.00-0.90) H Pro-B-Type Natriuretic Peptide Pending Total Protein 6.9 G/DL (6.4-8.2) Albumin 2.5 G/DL (3.4-5.0) L Globulin 4.4 g/dL Albumin/Globulin Ratio 0.6 (1.0-2.7) L Current Medications Medications (Trade) Dose Ordered Sig/Celia Route PRN Reason Start Time Stop Time Status Last Admin Dose Admin Apixaban (Eliquis) 2.5 mg BID ORAL 05/24/20 18:00 08/22/20 17:59 05/26/20 08:33 Dextrose/Sodium Chloride 1,000 ml @ 75 mls/hr [id number] IV 05/22/20 13:30 06/21/20 13:29 05/25/20 21:08 Digoxin (Lanoxin) 0.25 mg DAILY IVP 05/26/20 09:00 08/24/20 08:59 05/26/20 08:34 Diltiazem HCl 125 mg/Sodium Chloride 125 ml @ 10 mls/hr Q24H IVPB 05/25/20 22:00 05/26/20 21:59 05/25/20 22:12 Haloperidol Lactate (Haldol) 5 mg Q6H PRN IM Agitation 05/22/20 13:15 07/06/20 13:14 05/26/20 08:33 Magnesium Sulfate 100 ml @ 100 mls/hr Q1H IVPB 05/26/20 10:30 05/26/20 14:29 Metoprolol Tartrate 10 mg/ Dextrose 65 ml @ 130 mls/hr Q6HR IVPB 05/25/20 21:00 06/24/20 20:59 05/26/20 05:22 Pantoprazole (Protonix) 40 mg EVERY 12 HOURS IVP 05/22/20 21:00 06/21/20 20:59 05/26/20 08:33 Phosphorus (Phospha 250 Neutral) 250 mg THREE TIMES A DAY ORAL 05/26/20 12:00 06/25/20 11:59 Mahin Leyva MD May 26, 2020 11:00
--- NOTE | 2020-05-26 11:05 | Pulmonology Progress Note ---
Subjective ROS Limited/Unobtainable: Yes Interval Events: now in ICU on Cardizem drip Constitutional: Reports: no symptoms HEENT: Repors: no symptoms Respiratory: Reports: no symptoms Cardiovascular: Reports: no symptoms Gastrointestinal/Abdominal: Reports: no symptoms Allergies: Coded Allergies: No Known Allergies (Unverified , 05/21/20) Objective Last 24 Hour Vital Signs Date Time Temp Pulse Resp B/P (MAP) Pulse Ox O2 Delivery O2 Flow Rate FiO2 05/26/20 10:30 103 22 136/57 (83) 91 05/26/20 10:00 109 29 138/82 (100) 91 05/26/20 09:30 105 26 129/65 (86) 93 05/26/20 09:00 86 21 116/73 (87) 94 05/26/20 08:34 88 05/26/20 08:30 87 23 114/60 (78) 92 05/26/20 08:00 98.3 83 23 111/57 (75) 96 05/26/20 08:00 Nasal Cannula 4.0 Nasal Cannula 4.0 Room Air 4.0 05/26/20 08:00 83 05/26/20 07:30 82 16 108/66 (80) 94 05/26/20 07:00 76 16 109/91 (97) 92 05/26/20 06:45 63 16 129/52 (77) 92 05/26/20 06:30 87 21 118/62 (80) 92 05/26/20 06:00 89 25 138/64 (88) 95 05/26/20 05:30 84 26 118/91 (100) 94 05/26/20 05:22 88 112/66 05/26/20 05:00 88 25 112/66 (81) 93 05/26/20 04:30 89 26 127/61 (83) 92 05/26/20 04:00 99.0 97 22 135/64 (87) 93 05/26/20 04:00 Nasal Cannula 4.0 Nasal Cannula 4.0 Room Air 4.0 05/26/20 03:30 94 22 124/85 (98) 89 05/26/20 03:06 92 05/26/20 03:00 88 23 108/46 (66) 90 05/26/20 02:00 91 22 123/61 (81) 91 05/26/20 01:30 92 23 136/68 (90) 93 05/26/20 01:00 91 24 123/69 (87) 94 05/26/20 00:30 95 21 118/56 (76) 91 05/26/20 00:00 Nasal Cannula 4.0 Nasal Cannula 4.0 Room Air 4.0 05/26/20 00:00 98.8 85 24 131/74 (93) 90 05/25/20 23:30 85 25 119/71 (87) 90 05/25/20 23:06 93 05/25/20 23:00 87 25 121/56 (77) 92 05/25/20 22:12 86 118/56 05/25/20 22:00 88 25 118/56 (76) 89 05/25/20 21:30 88 25 125/62 (83) 90 05/25/20 21:06 129 122/84 05/25/20 21:00 105 27 132/63 (86) 91 05/25/20 20:30 107 25 139/80 (99) 90 05/25/20 20:05 129 05/25/20 20:00 99.1 118 27 139/79 (99) 89 05/25/20 20:00 Nasal Cannula 4.0 Nasal Cannula 4.0 Room Air 4.0 05/25/20 19:30 122 27 121/82 (95) 87 05/25/20 19:02 146 05/25/20 19:00 124 24 122/84 (97) 89 05/25/20 18:30 141 24 141/81 (101) 89 05/25/20 18:00 110 17 101/50 (67) 89 05/25/20 17:30 115 26 155/79 (104) 89 05/25/20 17:00 98 19 141/60 (87) 89 05/25/20 16:30 99 22 128/60 (82) 87 05/25/20 16:00 99.0 103 24 129/97 (108) 89 05/25/20 16:00 114 05/25/20 16:00 Nasal Cannula 2.0 05/25/20 15:30 109 23 111/57 (75) 90 05/25/20 15:00 111 21 119/57 (77) 90 05/25/20 14:30 90 21 111/57 (75) 90 05/25/20 14:00 100 20 99/64 (76) 92 05/25/20 13:30 97 22 115/61 (79) 92 05/25/20 13:00 99 17 95/51 (66) 92 05/25/20 12:30 100 18 96/50 (65) 90 05/25/20 12:00 98.8 98 19 76/49 (58) 91 05/25/20 12:00 90 05/25/20 12:00 106 79/47 05/25/20 12:00 Nasal Cannula 2.0 05/25/20 11:30 96 25 110/52 (71) 91 Intake and Output 05/25/20 05/26/20 19:00 07:00 Intake Total 1115 ml 1071.875 ml Output Total 680 ml 685 ml Balance 435 ml 386.875 ml Intake IV Total 1115 ml 1071.875 ml Output Urine Total 680 ml 685 ml General Appearance: WD/WN, no acute distress HEENT: normocephalic, atraumatic Respiratory: chest wall non-tender, lungs clear Cardiovascular: normal rate, regular rhythm Abdomen: other - obese Extremities: no edema Skin: other - 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 Musculoskeletal: other - left hip tenderness to palpation, no contusion, no crepitus noted Laboratory Tests 05/26/20 04:22: White Blood Count 16.2#H, Red Blood Count 3.35L, Hemoglobin 10.8L, Hematocrit 31.6L, Mean Corpuscular Volume 94, Mean Corpuscular Hemoglobin 32.3H, Mean Corpuscular Hemoglobin Concent 34.2, Red Cell Distribution Width 14.9H, Platelet Count 133L, Mean Platelet Volume 10.5H, Neutrophils (%) (Auto) , Lymphocytes (%) (Auto) , Monocytes (%) (Auto) , Eosinophils (%) (Auto) , Basophils (%) (Auto) , Differential Total Cells Counted 100, Neutrophils % (Manual) 92H, Lymphocytes % (Manual) 4L, Monocytes % (Manual) 4, Eosinophils % (Manual) 0, Basophils % (Manual) 0, Band Neutrophils 0, Platelet Estimate DecreasedL, Platelet Morphology Normal, Anisocytosis 1+, Sodium Level 142, Potassium Level 3.8, Chloride Level 108H, Carbon Dioxide Level 20L, Anion Gap 14, Blood Urea Nitrogen 25H, Creatinine 1.9H, Estimat Glomerular Filtration Rate 34.1, Glucose Level 144H, Uric Acid 6.0, Calcium Level 7.7L, Phosphorus Level 2.1L, Magnesium Level 1.7L, Total Bilirubin 0.9, Aspartate Amino Transf (AST/SGOT) 110H, Alanine Aminotransferase (ALT/SGPT) 42, Alkaline Phosphatase 56, C-Reactive Protein, Quantitative 29.2H, Pro-B-Type Natriuretic Peptide [Pending], Total Protein 6.9, Albumin 2.5L, Globulin 4.4, Albumin/Globulin Ratio 0.6L Current Medications Medications (Trade) Dose Ordered Sig/Celia Route PRN Reason Start Time Stop Time Status Last Admin Dose Admin Apixaban (Eliquis) 2.5 mg BID ORAL 05/24/20 18:00 08/22/20 17:59 05/26/20 08:33 Ceftriaxone Sodium 1 gm/ Dextrose 55 ml @ 110 mls/hr Q24H IVPB 05/26/20 12:00 06/02/20 11:59 Dexamethasone Sodium Phosphate (Decadron 10mg/ ml Inj) 6 mg DAILY IV 05/26/20 11:00 06/04/20 09:01 Dextrose/Sodium Chloride 1,000 ml @ 75 mls/hr [id number] IV 05/22/20 13:30 06/21/20 13:29 05/26/20 11:00 Digoxin (Lanoxin) 0.25 mg DAILY IVP 05/26/20 09:00 08/24/20 08:59 05/26/20 08:34 Diltiazem HCl 125 mg/Sodium Chloride 125 ml @ 10 mls/hr Q24H IVPB 05/25/20 22:00 05/26/20 21:59 05/25/20 22:12 Haloperidol Lactate (Haldol) 5 mg Q6H PRN IM Agitation 05/22/20 13:15 07/06/20 13:14 05/26/20 08:33 Magnesium Sulfate 100 ml @ 100 mls/hr Q1H IVPB 05/26/20 10:30 05/26/20 14:29 05/26/20 10:59 Metoprolol Tartrate 10 mg/ Dextrose 65 ml @ 130 mls/hr Q6HR IVPB 05/25/20 21:00 06/24/20 20:59 05/26/20 05:22 Pantoprazole (Protonix) 40 mg EVERY 12 HOURS IVP 05/22/20 21:00 06/21/20 20:59 05/26/20 08:33 Phosphorus (Phospha 250 Neutral) 250 mg THREE TIMES A DAY ORAL 05/26/20 12:00 06/25/20 11:59 Assessment/Plan Assessment/Plan 1. Pneumonia. 2. Anemia. 3. Renal insufficiency. - Hydration 4. Elevated inflammatory markers with high CRP. 5. Hypokalemia. 6. Mild protein-calorie malnutrition. 7. COVID-19 - hold off on any specific therapy for COVID such as steroids, or remdesivir given his normoxemic status 8. Wound care instituted 9. Left hip pain s/p fall - Tenderness to palpation and limited range of motion s/p fall x3 without signs of contusion or crepitus - L hip XRay - no fractures noted 10. s/p fall 11. Afib; on Cardizem gtt Ector Boudreaux MD, MD May 26, 2020 11:05
--- NOTE | 2020-05-26 11:20 | NUR ---
NURSE NOTES: Dr Basilio at bedside assessing pt. Updated him on pt's current condition. No new orders given at this time
--- NOTE | 2020-05-26 11:43 | NUR ---
CASE MANAGEMENT:REVIEW 05/26/20 SI: COVID PNA. ENCEPHALOPATHY 98.3 118 27 122/67 91% ON 4L/NC WBC+16.2 PLT-133 BUN+25 CR+1.9 IS: IV ROCEPHIN Q24 IV DECADRON Q24 IV MAG SULFATE Q1HRS X4 IV DIGOXIN QD CARDIZEM GTT IV METOPROLOL Q6HRS : TELEMETRY STATUS DCP: FROM HOME
[2020-05-26] MEDS: dexAMETHasone 10mg/ml Inj IV SCH (11:58)
[2020-05-26] MEDS: cefTRIAXone 1 GM in D5W 55 ML IVPB SCH (11:59)
[2020-05-26] MEDS: Phospha 250 Neutral tab ORAL SCH ×2 (12:00→17:07)
--- NOTE | 2020-05-26 12:32 | Cardiac Electrophysiology PN ---
Assessment/Plan Assessment/Plan 1. Syncope. Etiology is not clear at this time. The first troponin is negative but second one mildly elevated that could be due to renal failure ECho EF 60%. He might have been dehydrated in view of BUN and creatinine that is improving. 2. Atrial fib with RVR. Not eating and no NGT. Swallow eval is pending. On Lopressor 10 mg iv q 6 hrs and Eliquis 2.5 bid Taper off Cardizem drip. GOt Dig 0.5 iv now and on 0.25 po daily Check Dig level in am 3. Troponin elevation. Levels are low and coming down. Already on Lopressor 4. Complete right bundle-branch block and lateral T-wave inversion. 5. Covid PNA on 3 liter NC 6. Dysphagia. Swallow evaluation is pending. YASMIN RN Subjective Subjective In ICU for atrial fib with RVR up to 150s in Covid isolation on Cardizem drip at 10 mg/hr and Lopressor 10 mg iv q 6 hr. On 4 liter NC Objective Last 24 Hour Vital Signs Date Time Temp Pulse Resp B/P (MAP) Pulse Ox O2 Delivery O2 Flow Rate FiO2 05/26/20 12:00 Nasal Cannula 4.0 Nasal Cannula 4.0 Nasal Cannula 4.0 05/26/20 12:00 98.9 82 25 119/63 (81) 87 05/26/20 11:30 106 26 107/59 (75) 88 05/26/20 11:24 118 122/67 05/26/20 11:00 111 27 122/67 (85) 89 05/26/20 10:30 103 22 136/57 (83) 91 05/26/20 10:00 109 29 138/82 (100) 91 05/26/20 09:30 105 26 129/65 (86) 93 05/26/20 09:00 86 21 116/73 (87) 94 05/26/20 08:34 88 05/26/20 08:30 87 23 114/60 (78) 92 05/26/20 08:00 98.3 83 23 111/57 (75) 96 05/26/20 08:00 Nasal Cannula 4.0 Nasal Cannula 4.0 Room Air 4.0 05/26/20 08:00 83 05/26/20 07:30 82 16 108/66 (80) 94 05/26/20 07:00 76 16 109/91 (97) 92 05/26/20 06:45 63 16 129/52 (77) 92 05/26/20 06:30 87 21 118/62 (80) 92 05/26/20 06:00 89 25 138/64 (88) 95 05/26/20 05:30 84 26 118/91 (100) 94 05/26/20 05:22 88 112/66 05/26/20 05:00 88 25 112/66 (81) 93 05/26/20 04:30 89 26 127/61 (83) 92 05/26/20 04:00 99.0 97 22 135/64 (87) 93 05/26/20 04:00 Nasal Cannula 4.0 Nasal Cannula 4.0 Room Air 4.0 05/26/20 03:30 94 22 124/85 (98) 89 05/26/20 03:06 92 05/26/20 03:00 88 23 108/46 (66) 90 05/26/20 02:00 91 22 123/61 (81) 91 05/26/20 01:30 92 23 136/68 (90) 93 05/26/20 01:00 91 24 123/69 (87) 94 05/26/20 00:30 95 21 118/56 (76) 91 05/26/20 00:00 Nasal Cannula 4.0 Nasal Cannula 4.0 Room Air 4.0 05/26/20 00:00 98.8 85 24 131/74 (93) 90 05/25/20 23:30 85 25 119/71 (87) 90 05/25/20 23:06 93 05/25/20 23:00 87 25 121/56 (77) 92 05/25/20 22:12 86 118/56 05/25/20 22:00 88 25 118/56 (76) 89 05/25/20 21:30 88 25 125/62 (83) 90 05/25/20 21:06 129 122/84 05/25/20 21:00 105 27 132/63 (86) 91 05/25/20 20:30 107 25 139/80 (99) 90 05/25/20 20:05 129 05/25/20 20:00 99.1 118 27 139/79 (99) 89 05/25/20 20:00 Nasal Cannula 4.0 Nasal Cannula 4.0 Room Air 4.0 12/15/20 19:30 122 27 121/82 (95) 87 05/25/20 19:02 146 05/25/20 19:00 124 24 122/84 (97) 89 05/25/20 18:30 141 24 141/81 (101) 89 05/25/20 18:00 110 17 101/50 (67) 89 05/25/20 17:30 115 26 155/79 (104) 89 05/25/20 17:00 98 19 141/60 (87) 89 05/25/20 16:30 99 22 128/60 (82) 87 05/25/20 16:00 99.0 103 24 129/97 (108) 89 05/25/20 16:00 114 05/25/20 16:00 Nasal Cannula 2.0 05/25/20 15:30 109 23 111/57 (75) 90 05/25/20 15:00 111 21 119/57 (77) 90 05/25/20 14:30 90 21 111/57 (75) 90 05/25/20 14:00 100 20 99/64 (76) 92 05/25/20 13:30 97 22 115/61 (79) 92 05/25/20 13:00 99 17 95/51 (66) 92 05/25/20 12:30 100 18 96/50 (65) 90 Intake and Output 05/25/20 05/26/20 19:00 07:00 Intake Total 1115 ml 1071.875 ml Output Total 680 ml 685 ml Balance 435 ml 386.875 ml Intake IV Total 1115 ml 1071.875 ml Output Urine Total 680 ml 685 ml Laboratory Tests Test 05/26/20 04:22 White Blood Count 16.2 K/UL (4.8-10.8) #H Red Blood Count 3.35 M/UL (4.70-6.10) L Hemoglobin 10.8 G/DL (14.2-18.0) L Hematocrit 31.6 % (42.0-52.0) L Mean Corpuscular Volume 94 FL (80-99) Mean Corpuscular Hemoglobin 32.3 PG (27.0-31.0) H Mean Corpuscular Hemoglobin Concent 34.2 G/DL (32.0-36.0) Red Cell Distribution Width 14.9 % (11.6-14.8) H Platelet Count 133 K/UL (150-450) L Mean Platelet Volume 10.5 FL (6.5-10.1) H Neutrophils (%) (Auto) % (45.0-75.0) Lymphocytes (%) (Auto) % (20.0-45.0) Monocytes (%) (Auto) % (1.0-10.0) Eosinophils (%) (Auto) % (0.0-3.0) Basophils (%) (Auto) % (0.0-2.0) Differential Total Cells Counted 100 Neutrophils % (Manual) 92 % (45-75) H Lymphocytes % (Manual) 4 % (20-45) L Monocytes % (Manual) 4 % (1-10) Eosinophils % (Manual) 0 % (0-3) Basophils % (Manual) 0 % (0-2) Band Neutrophils 0 % (0-8) Platelet Estimate Decreased L Platelet Morphology Normal Anisocytosis 1+ Sodium Level 142 MMOL/L (136-145) Potassium Level 3.8 MMOL/L (3.5-5.1) Chloride Level 108 MMOL/L (98-107) H Carbon Dioxide Level 20 MMOL/L (21-32) L Anion Gap 14 mmol/L (5-15) Blood Urea Nitrogen 25 mg/dL (7-18) H Creatinine 1.9 MG/DL (0.55-1.30) H Estimat Glomerular Filtration Rate 34.1 mL/min (>60) Glucose Level 144 MG/DL (74-106) H Uric Acid 6.0 MG/DL (2.6-7.2) Calcium Level 7.7 MG/DL (8.5-10.1) L Phosphorus Level 2.1 MG/DL (2.5-4.9) L Magnesium Level 1.7 MG/DL (1.8-2.4) L Total Bilirubin 0.9 MG/DL (0.2-1.0) Aspartate Amino Transf (AST/SGOT) 110 U/L (15-37) H Alanine Aminotransferase (ALT/SGPT) 42 U/L (12-78) Alkaline Phosphatase 56 U/L (46-116) C-Reactive Protein, Quantitative 29.2 mg/dL (0.00-0.90) H Pro-B-Type Natriuretic Peptide Pending Total Protein 6.9 G/DL (6.4-8.2) Albumin 2.5 G/DL (3.4-5.0) L Globulin 4.4 g/dL Albumin/Globulin Ratio 0.6 (1.0-2.7) L Objective HEAD AND NECK: No JVD. LUNGS: Clear. CARDIOVASCULAR: Shows regular S1 and S2 with no gallop or murmur. ABDOMEN: Soft. EXTREMITIES: No pitting edema. Rick Basilio MD May 26, 2020 12:32
--- NOTE | 2020-05-26 13:00 | NUR ---
NURSE NOTES: Pt turned and repositioned. Oral care done. Pt remains on 4L NC.
[2020-05-26] MEDS: dilTIAZem HCL 125 MG in NS 100 ML IVPB SCH (13:20)
[2020-05-26] MEDS ORDERED: DiphenhydrAMINE 50mg/ml Inj IVP PRN (14:45)
--- NOTE | 2020-05-26 15:00 | NUR ---
NURSE NOTES: Pt turned and repositioned for comfort. Pt is visibly more calm after receiving Seroquel, as ordered. $L NC. O2sat 97%
--- NOTE | 2020-05-26 15:57 | Nephrology Progress Note ---
Assessment/Plan Problem List: (1) Renal failure (ARF), acute on chronic (2) Dehydration (3) Pneumonia due to COVID-19 virus Assessment Acute renal failure Possible underlying chronic kidney disease Dehydration Electrolyte imbalance Toxic metabolic encephalopathy Pneumonia due to COVID-19 virus Mild anemia Plan May 26: Borderline blood pressure. Serum creatinine higher at 1.9. Remains under the care of demurrage worker for rhythm management. Continue to monitor electrolytes and adjust abnormalities May 25: Patient now in ICU on Cardizem drip. Serum creatinine 1.7. Rest of the electrolytes within normal limit. Continue per cardiology. Continue to monitor renal parameters and electrolytes. May 24: Labs reviewed. Serum creatinine 1.6. Phosphorus low, IV K-Phos ordered. Continue to monitor renal parameters. Continue per current management. Slow hydrate Magnesium sulfate IV supplement today Antibiotics, avoid nephrotoxic's Monitor renal parameters electrolytes Keep the blood pressure blood sugar in check Patient full code Subjective ROS Limited/Unobtainable: No Constitutional: Reports: malaise, weakness Objective Objective Last 24 Hour Vital Signs Date Time Temp Pulse Resp B/P (MAP) Pulse Ox O2 Delivery O2 Flow Rate FiO2 05/26/20 15:30 63 18 91/47 (62) 96 05/26/20 15:00 66 17 90/49 (63) 98 05/26/20 14:30 70 20 89/46 (60) 93 05/26/20 14:00 68 22 99/59 (72) 87 05/26/20 13:30 79 18 120/54 (76) 87 05/26/20 13:20 85 130/74 05/26/20 13:00 77 25 130/74 (92) 85 05/26/20 12:30 78 22 106/59 (75) 85 05/26/20 12:00 76 05/26/20 12:00 Nasal Cannula 4.0 Nasal Cannula 4.0 Nasal Cannula 4.0 05/26/20 12:00 98.9 82 25 119/63 (81) 87 05/26/20 11:30 106 26 107/59 (75) 88 05/26/20 11:24 118 122/67 05/26/20 11:00 111 27 122/67 (85) 89 05/26/20 10:30 103 22 136/57 (83) 91 05/26/20 10:00 109 29 138/82 (100) 91 05/26/20 09:30 105 26 129/65 (86) 93 05/26/20 09:00 86 21 116/73 (87) 94 05/26/20 08:34 88 05/26/20 08:30 87 23 114/60 (78) 92 05/26/20 08:00 98.3 83 23 111/57 (75) 96 05/26/20 08:00 Nasal Cannula 4.0 Nasal Cannula 4.0 Room Air 4.0 05/26/20 08:00 83 05/26/20 07:30 82 16 108/66 (80) 94 05/26/20 07:00 76 16 109/91 (97) 92 05/26/20 06:45 63 16 129/52 (77) 92 05/26/20 06:30 87 21 118/62 (80) 92 05/26/20 06:00 89 25 138/64 (88) 95 05/26/20 05:30 84 26 118/91 (100) 94 05/26/20 05:22 88 112/66 05/26/20 05:00 88 25 112/66 (81) 93 05/26/20 04:30 89 26 127/61 (83) 92 05/26/20 04:00 99.0 97 22 135/64 (87) 93 05/26/20 04:00 Nasal Cannula 4.0 Nasal Cannula 4.0 Room Air 4.0 05/26/20 03:30 94 22 124/85 (98) 89 05/26/20 03:06 92 05/26/20 03:00 88 23 108/46 (66) 90 05/26/20 02:00 91 22 123/61 (81) 91 05/26/20 01:30 92 23 136/68 (90) 93 05/26/20 01:00 91 24 123/69 (87) 94 05/26/20 00:30 95 21 118/56 (76) 91 05/26/20 00:00 Nasal Cannula 4.0 Nasal Cannula 4.0 Room Air 4.0 05/26/20 00:00 98.8 85 24 131/74 (93) 90 05/25/20 23:30 85 25 119/71 (87) 90 05/25/20 23:06 93 05/25/20 23:00 87 25 121/56 (77) 92 05/25/20 22:12 86 118/56 05/25/20 22:00 88 25 118/56 (76) 89 05/25/20 21:30 88 25 125/62 (83) 90 05/25/20 21:06 129 122/84 05/25/20 21:00 105 27 132/63 (86) 91 05/25/20 20:30 107 25 139/80 (99) 90 05/25/20 20:05 129 05/25/20 20:00 99.1 118 27 139/79 (99) 89 05/25/20 20:00 Nasal Cannula 4.0 Nasal Cannula 4.0 Room Air 4.0 05/25/20 19:30 122 27 121/82 (95) 87 05/25/20 19:02 146 05/25/20 19:00 124 24 122/84 (97) 89 05/25/20 18:30 141 24 141/81 (101) 89 05/25/20 18:00 110 17 101/50 (67) 89 05/25/20 17:30 115 26 155/79 (104) 89 05/25/20 17:00 98 19 141/60 (87) 89 05/25/20 16:30 99 22 128/60 (82) 87 05/25/20 16:00 99.0 103 24 129/97 (108) 89 05/25/20 16:00 114 05/25/20 16:00 Nasal Cannula 2.0 Intake and Output 05/25/20 05/26/20 19:00 07:00 Intake Total 1115 ml 1071.875 ml Output Total 680 ml 685 ml Balance 435 ml 386.875 ml Intake IV Total 1115 ml 1071.875 ml Output Urine Total 680 ml 685 ml Laboratory Tests 05/26/20 04:22: White Blood Count 16.2#H, Red Blood Count 3.35L, Hemoglobin 10.8L, Hematocrit 31.6L, Mean Corpuscular Volume 94, Mean Corpuscular Hemoglobin 32.3H, Mean Corpuscular Hemoglobin Concent 34.2, Red Cell Distribution Width 14.9H, Platelet Count 133L, Mean Platelet Volume 10.5H, Neutrophils (%) (Auto) , Lymphocytes (%) (Auto) , Monocytes (%) (Auto) , Eosinophils (%) (Auto) , Basophils (%) (Auto) , Differential Total Cells Counted 100, Neutrophils % (Manual) 92H, Lymphocytes % (Manual) 4L, Monocytes % (Manual) 4, Eosinophils % (Manual) 0, Basophils % (Manual) 0, Band Neutrophils 0, Platelet Estimate DecreasedL, Platelet Morphology Normal, Anisocytosis 1+, Sodium Level 142, Potassium Level 3.8, Chloride Level 108H, Carbon Dioxide Level 20L, Anion Gap 14, Blood Urea Nitrogen 25H, Creatinine 1.9H, Estimat Glomerular Filtration Rate 34.1, Glucose Level 144H, Uric Acid 6.0, Calcium Level 7.7L, Phosphorus Level 2.1L, Magnesium Level 1.7L, Total Bilirubin 0.9, Aspartate Amino Transf (AST/SGOT) 110H, Alanine Aminotransferase (ALT/SGPT) 42, Alkaline Phosphatase 56, C-Reactive Protein, Quantitative 29.2H, Pro-B-Type Natriuretic Peptide [Pending], Total Protein 6.9, Albumin 2.5L, Globulin 4.4, Albumin/Globulin Ratio 0.6L Height (Feet): 5 Height (Inches): 7.00 Weight (Pounds): 159 General Appearance: no apparent distress EENT: other - On nasal cannula Cardiovascular: normal rate Respiratory/Chest: decreased breath sounds Abdomen: distended Jerome Delaney MD May 26, 2020 15:57
--- NOTE | 2020-05-26 16:45 | NUR ---
NURSE NOTES: Spoke to family member of pt. Updated him on pt's current condition and answered his questions.
--- NOTE | 2020-05-26 17:30 | NUR ---
NURSE NOTES: Pt fully cleaned and linens changed. Metoprolol IV held for low HR and B/P. Pt remains off of Cardizem at this time d/t low HR below 60.
--- NOTE | 2020-05-26 19:00 | NUR ---
NURSE NOTES: Received patient from MARTHA Emerson. Patient is observed resting in bed and remains alert but confused and disoriented. Pt remains unable to follow commands and is noted to be very anxious, resistive to care and combative. FLACC score of 0 noted upon assessment. Pt is currently on 4L NC with an O2 saturation of 99% at this time. Bilateral lower lobe breath sounds noted to be diminished upon auscultation with rhonchi noted in bilateral upper lobes. Pt noted to be AFib on tele monitor with a HR of 71, BP remains stable at this time. R AC 18g and two L FA 18g IV Catheters noted which remain asymptomatic, intact and patent. D5 1/2 NS is infusing at 75mL/hr as ordered. Active bowel sounds noted in all four quadrants; abdomen remains flat, soft and nontender. Pt remains NPO per order, except for medications. Mera catheter noted which continues to drain urine by gravity. Urine noted to be dark marcel, cloudy and foul smelling. Diagnostics reviewed at bedside. Skin remains intact with scaly, patchy skin noted over entirety of body. Bilateral soft wrist restraints remain in place for pt safety. Pt noted to be attempting to pull medical devices despite pt education. CMS remains intact. Will continue to assess pt for removal criteria. Fall, Aspiration and Skin precautions observed. Pt repositioned for comfort and safety. Pt remains resting in bed; Bed remains in the lowest position with the safety wheels engaged, call light within reach, side rails up x3 and bed alarm activated. Will continue plan of care. Will continue to monitor.
--- NOTE | 2020-05-26 19:28 | Psychiatric Progress Note ---
Psychiatry Progress Note Psychiatry Progress Note Subjective more agitation today confused Medications Current Medications Medications (Trade) Dose Ordered Sig/Celia Route PRN Reason Start Time Stop Time Status Last Admin Dose Admin Apixaban (Eliquis) 2.5 mg BID ORAL 05/24/20 18:00 08/22/20 17:59 05/26/20 17:06 Ceftriaxone Sodium 1 gm/ Dextrose 55 ml @ 110 mls/hr Q24H IVPB 05/26/20 12:00 06/02/20 11:59 05/26/20 11:59 Dexamethasone Sodium Phosphate (Decadron 10mg/ ml Inj) 6 mg DAILY IV 05/26/20 11:00 06/04/20 09:01 05/26/20 11:58 Dextrose/Sodium Chloride 1,000 ml @ 75 mls/hr [id number] IV 05/22/20 13:30 06/21/20 13:29 05/26/20 11:00 Digoxin (Lanoxin) 0.25 mg DAILY IVP 05/26/20 09:00 08/24/20 08:59 05/26/20 08:34 Diltiazem HCl 125 mg/Sodium Chloride 125 ml @ 10 mls/hr Q24H IVPB 05/25/20 22:00 05/26/20 21:59 05/26/20 13:20 Diphenhydramine HCl (Benadryl) 25 mg Q6H PRN IVP Itching 05/26/20 14:45 06/25/20 14:44 Haloperidol Lactate (Haldol) 5 mg Q6H PRN IM Agitation 05/22/20 13:15 07/06/20 13:14 05/26/20 08:33 Metoprolol Tartrate 10 mg/ Dextrose 65 ml @ 130 mls/hr Q6HR IVPB 05/25/20 21:00 06/24/20 20:59 05/26/20 11:24 Pantoprazole (Protonix) 40 mg EVERY 12 HOURS IVP 05/22/20 21:00 06/21/20 20:59 05/26/20 08:33 Phosphorus (Phospha 250 Neutral) 250 mg THREE TIMES A DAY ORAL 05/26/20 12:00 06/25/20 11:59 05/26/20 17:07 Quetiapine Fumarate (SEROqueL) 50 mg Q12HR ORAL 05/26/20 13:15 07/10/20 13:14 05/26/20 13:19 Neurological/Psychiatric: Reports: anxiety Allergies: Coded Allergies: No Known Allergies (Unverified , 05/21/20) Objective Data Height (Feet): 5 Height (Inches): 7.00 Weight (Pounds): 159 General Appearance: no apparent distress Additional Comments: waxing and waning consciousness. Mood is anxious. Affect is blunted, congruent with mood. Thought process is concrete. Thought content, no suicidal or homicidal ideation. Cognition is impaired. Insight and judgment impaired. Assessment/Plan [place] I: ASSESSMENT: [place] I Acute metabolic encephalopathy. Dementia. Astoria II Deferred. Astoria III Renal insufficiency and head injury. Astoria IV Low. Astoria V 20. PLAN: 1. We will start the patient on Haldol IM p.r.n. 2. Restraints. 3. Discussed with the nurse. Status: progressing Status Narrative ASSESSMENT: [place] I Acute metabolic encephalopathy. Dementia. Astoria II Deferred. Astoria III Renal insufficiency and head injury. Astoria IV Low. Astoria V 20. PLAN: 1. We will start the patient on Haldol IM p.r.n. 2. Restraints. 3. Discussed with the nurse. Assessment/Plan: ASSESSMENT: [place] I Acute metabolic encephalopathy. Dementia. Astoria II Deferred. Astoria III Renal insufficiency and head injury. Astoria IV Low. Ast[place] V 20. PLAN: 1. We will start the patient on Haldol IM p.r.n. 2. Restraints. 3. Discussed with the nurse. Francheska Huynh MD May 26, 2020 19:28
--- NOTE | 2020-05-26 21:00 | NUR ---
NURSE NOTES: Pt provided with a bed bath, oral care and linen change. Pt continues to tolerate NC well and remains free from s/sx of acute respiratory distress. Physical status remains consistent with previous assessment. Pt remains disoriented and continues to pull medical devices despite restraints. Will continue to provide education and reorient patient. Fall, Aspiration and Skin precautions observed. Pt remains resting in bed; Bed remains in the lowest position with the safety wheels engaged, call light within reach, side rails up x3 and bed alarm activated. Will continue plan of care. Will continue to monitor.
--- NOTE | 2020-05-26 21:33 | General Progress Note ---
Subjective ROS Limited/Unobtainable: Yes Allergies: Coded Allergies: No Known Allergies (Unverified , 05/21/20) Objective Last 24 Hour Vital Signs Date Time Temp Pulse Resp B/P (MAP) Pulse Ox O2 Delivery O2 Flow Rate FiO2 05/26/20 21:00 71 15 98/56 (70) 99 05/26/20 20:30 73 14 96/54 (68) 100 05/26/20 20:00 Nasal Cannula 4.0 Nasal Cannula 4.0 Room Air 4.0 05/26/20 20:00 98.4 71 15 103/50 (67) 97 05/26/20 19:30 74 14 97/54 (68) 100 05/26/20 19:00 71 16 96/54 (68) 97 05/26/20 18:30 79 18 105/46 (65) 97 05/26/20 18:00 56 17 91/50 (64) 96 05/26/20 17:30 59 19 79/53 (62) 97 05/26/20 17:07 58 87/57 05/26/20 17:00 58 19 87/57 (67) 97 05/26/20 16:30 58 17 94/50 (65) 95 05/26/20 16:00 Nasal Cannula 4.0 Nasal Cannula 4.0 Nasal Cannula 4.0 05/26/20 16:00 61 18 91/46 (61) 96 05/26/20 16:00 61 05/26/20 15:30 98.3 63 18 91/47 (62) 96 05/26/20 15:00 66 17 90/49 (63) 98 05/26/20 14:30 70 20 89/46 (60) 93 05/26/20 14:00 68 22 99/59 (72) 87 05/26/20 13:30 79 18 120/54 (76) 87 05/26/20 13:20 85 130/74 05/26/20 13:00 77 25 130/74 (92) 85 05/26/20 12:30 78 22 106/59 (75) 85 05/26/20 12:00 76 05/26/20 12:00 Nasal Cannula 4.0 Nasal Cannula 4.0 Nasal Cannula 4.0 05/26/20 12:00 98.9 82 25 119/63 (81) 87 05/26/20 11:30 106 26 107/59 (75) 88 05/26/20 11:24 118 122/67 05/26/20 11:00 111 27 122/67 (85) 89 05/26/20 10:30 103 22 136/57 (83) 91 05/26/20 10:00 109 29 138/82 (100) 91 05/26/20 09:30 105 26 129/65 (86) 93 05/26/20 09:00 86 21 116/73 (87) 94 05/26/20 08:34 88 05/26/20 08:30 87 23 114/60 (78) 92 05/26/20 08:00 98.3 83 23 111/57 (75) 96 05/26/20 08:00 Nasal Cannula 4.0 Nasal Cannula 4.0 Room Air 4.0 05/26/20 08:00 83 05/26/20 07:30 82 16 108/66 (80) 94 05/26/20 07:00 76 16 109/91 (97) 92 05/26/20 06:45 63 16 129/52 (77) 92 05/26/20 06:30 87 21 118/62 (80) 92 05/26/20 06:00 89 25 138/64 (88) 95 05/26/20 05:30 84 26 118/91 (100) 94 05/26/20 05:22 88 112/66 05/26/20 05:00 88 25 112/66 (81) 93 05/26/20 04:30 89 26 127/61 (83) 92 05/26/20 04:00 99.0 97 22 135/64 (87) 93 05/26/20 04:00 Nasal Cannula 4.0 Nasal Cannula 4.0 Room Air 4.0 05/26/20 03:30 94 22 124/85 (98) 89 05/26/20 03:06 92 05/26/20 03:00 88 23 108/46 (66) 90 05/26/20 02:00 91 22 123/61 (81) 91 05/26/20 01:30 92 23 136/68 (90) 93 05/26/20 01:00 91 24 123/69 (87) 94 05/26/20 00:30 95 21 118/56 (76) 91 05/26/20 00:00 Nasal Cannula 4.0 Nasal Cannula 4.0 Room Air 4.0 05/26/20 00:00 98.8 85 24 131/74 (93) 90 05/25/20 23:30 85 25 119/71 (87) 90 05/25/20 23:06 93 05/25/20 23:00 87 25 121/56 (77) 92 05/25/20 22:12 86 118/56 05/25/20 22:00 88 25 118/56 (76) 89 Intake and Output 05/25/20 05/26/20 19:00 07:00 Intake Total 1115 ml 1071.875 ml Output Total 680 ml 685 ml Balance 435 ml 386.875 ml Intake IV Total 1115 ml 1071.875 ml Output Urine Total 680 ml 685 ml Laboratory Tests 05/26/20 04:22: White Blood Count 16.2#H, Red Blood Count 3.35L, Hemoglobin 10.8L, Hematocrit 31.6L, Mean Corpuscular Volume 94, Mean Corpuscular Hemoglobin 32.3H, Mean Corpuscular Hemoglobin Concent 34.2, Red Cell Distribution Width 14.9H, Platelet Count 133L, Mean Platelet Volume 10.5H, Neutrophils (%) (Auto) , Lymphocytes (%) (Auto) , Monocytes (%) (Auto) , Eosinophils (%) (Auto) , Basophils (%) (Auto) , Differential Total Cells Counted 100, Neutrophils % (Manual) 92H, Lymphocytes % (Manual) 4L, Monocytes % (Manual) 4, Eosinophils % (Manual) 0, Basophils % (Manual) 0, Band Neutrophils 0, Platelet Estimate DecreasedL, Platelet Morphology Normal, Anisocytosis 1+, Sodium Level 142, Potassium Level 3.8, Chloride Level 108H, Carbon Dioxide Level 20L, Anion Gap 14, Blood Urea Nitrogen 25H, Creatinine 1.9H, Estimat Glomerular Filtration Rate 34.1, Glucose Level 144H, Uric Acid 6.0, Calcium Level 7.7L, Phosphorus Level 2.1L, Magnesium Level 1.7L, Total Bilirubin 0.9, Aspartate Amino Transf (AST/SGOT) 110H, Alanine Aminotransferase (ALT/SGPT) 42, Alkaline Phosphatase 56, C-Reactive Protein, Quantitative 29.2H, Pro-B-Type Natriuretic Peptide [Pending], Total Protein 6.9, Albumin 2.5L, Globulin 4.4, Albumin/Globulin Ratio 0.6L Height (Feet): 5 Height (Inches): 7.00 Weight (Pounds): 159 Assessment/Plan Problem List: (1) Renal insufficiency ICD Codes: N28.9 - Disorder of kidney and ureter, unspecified SNOMED: 082830592, 066853049 (2) Encephalopathy ICD Codes: G93.40 - Encephalopathy, unspecified SNOMED: 73671914, 661525440 (3) Head injury ICD Codes: S09.90XA - Unspecified injury of head, initial encounter SNOMED: 14707401, 986406001 Qualifiers: Qualified Codes: S09.90XA - Unspecified injury of head, initial encounter (4) Pneumonia ICD Codes: J18.9 - Pneumonia, unspecified organism SNOMED: 398644341 Qualifiers: Qualified Codes: J18.9 - Pneumonia, unspecified organism (5) Abnormal EKG ICD Codes: R94.31 - Abnormal electrocardiogram [ECG] [EKG]; J12.89 - Other markus l pneumonia SNOMED: 095863759 (6) Altered level of consciousness ICD Codes: R40.4 - Transient alteration of awareness SNOMED: 4453390 (7) Dehydration ICD Codes: E86.0 - Dehydration SNOMED: 56710133 (8) Pneumonia due to COVID-19 virus ICD Codes: U07.1 - COVID-19; J12.89 - Other viral pneumonia SNOMED: 675374441067031294 (9) Renal failure (ARF), acute on chronic ICD Codes: N17.9 - Acute kidney failure, unspecified; N18.9 - Chronic kidney disease, unspecified SNOMED: 429394540 Status: progressing, deteriorating Assessment/Plan: still on the drip calm afebrile covid positive pna s/p a fib w rvr on cardizam Yvette Silva MD May 26, 2020 21:32
--- NOTE | 2020-05-26 23:00 | NUR ---
NURSE NOTES: Bedside assessment performed, assessed pt for pain with a FLACC score of 0 noted. Respiratory status remains stable at this time. HR remains <100 and Cardizem remains on hold due to adverse effect of hypotension previously noted. Speech is still unintelligible. Pt remains resting in bed comfortably. Pt remains clean and dry. Pt repositioned for safety and comfort. Fall, Aspiration and Skin precautions observed. Pt remains resting in bed; Bed remains in the lowest position with the safety wheels engaged, call light within reach, side rails up x3 and bed alarm activated. Will continue plan of care. Will continue to monitor.
[2020-05-27] VITALS (24 sets, daily range): BP systolic 89–158; BP diastolic 40–74
--- NOTE | 2020-05-27 01:00 | NUR ---
NURSE NOTES: Pt noted to be sleeping at this time. Bedside assessment performed, assessed pt for pain with a FLACC score of 0 noted. Respiratory status remains stable at this time, pt remains on 4L NC without s/sx of respiratory distress. HR remains <100 and Cardizem remains on hold due to adverse effect of hypotension previously noted. Pt remains resting in bed comfortably. Pt remains clean and dry. Pt repositioned for safety and comfort. Fall, Aspiration and Skin precautions observed. Pt remains resting in bed; Bed remains in the lowest position with the safety wheels engaged, call light within reach, side rails up x3 and bed alarm activated. Will continue plan of care. Will continue to monitor.
--- NOTE | 2020-05-27 03:00 | NUR ---
NURSE NOTES: Morning lab samples drawn without incident and submitted to laboratory for analysis. Pt noted to be sleeping at this time. Bedside assessment performed, assessed pt for pain with a FLACC score of 0 noted. Respiratory status remains stable at this time, pt remains on 4L NC without s/sx of respiratory distress. HR remains <100 and Cardizem remains on hold due to adverse effect of hypotension previously noted. Pt remains resting in bed comfortably. Pt remains clean and dry. Pt repositioned for safety and comfort. Fall, Aspiration and Skin precautions observed. Pt remains resting in bed; Bed remains in the lowest position with the safety wheels engaged, call light within reach, side rails up x3 and bed alarm activated. Will continue plan of care. Will continue to monitor.
--- NOTE | 2020-05-27 05:00 | NUR ---
NURSE NOTES: Scheduled Metoprolol IVPB held r/t SBP of 90 noted and HR of 61. Pt noted to be sleeping comfortably at this time. Bedside assessment performed, assessed pt for pain with a FLACC score of 0 noted. Respiratory status remains consistent with previous physical assessment. HR remains <100 and Cardizem discontinued. Pt remains clean and dry. Pt repositioned for safety and comfort. Fall, Aspiration and Skin precautions observed. Pt remains resting in bed; Bed remains in the lowest position with the safety wheels engaged, call light within reach, side rails up x3 and bed alarm activated. Will continue plan of care. Will continue to monitor.
[2020-05-27] MEDS: Metoprolol Tartrate 10 MG in D5W 55 ML IVPB SCH ×2 (05:06→12:29)
[2020-05-27 05:25] LABS: HEMATOCRIT 28.1 % (42.0-52.0); HEMOGLOBIN 9.8 G/DL (14.2-18.0); MEAN CORPUSCULAR VOLUME 93 FL (80-99); PLATELET COUNT 120 K/UL (150-450); RED BLOOD COUNT 3.01 M/UL (4.70-6.10); RED CELL DISTRIBUTION WIDTH 14.4 % (11.6-14.8); WHITE BLOOD COUNT 8.4 K/UL (4.8-10.8)
[2020-05-27 05:55] LABS: PHOSPHORUS 3.5 MG/DL (2.5-4.9)
[2020-05-27 05:56] LABS: ALBUMIN 1.8 G/DL (3.4-5.0); ALBUMIN/GLOBULIN RATIO 0.4 (1.0-2.7); BILIRUBIN,TOTAL 0.5 MG/DL (0.2-1.0); CALCIUM 7.3 MG/DL (8.5-10.1); CREATININE 1.5 MG/DL (0.55-1.30); POTASSIUM 3.8 MMOL/L (3.5-5.1)
--- NOTE | 2020-05-27 07:23 | NUR ---
NURSE HAND-OFF REPORT: Latest Vital Signs: Temperature , Pulse 66 , B/P 110 /40 , Respiratory Rate 15 , O2 SAT 100 , Room Air, O2 Flow Rate 4.0 . Vital Sign Comment: EKG Rhythm: Atrial Fibrillation Rhythm change?: N Notified?: N Response: Latest Stewart Fall Score: 85 Fall Risk: High Risk Safety Measures: Call light Within Reach, Bed Alarm Zone 2, Side Rails Side Rails x3, Bed position Low and Locked. Fall Precautions: Yellow Socks Yellow Gown Door Sign Patient Fall Education Report given to MARTHA Marti.
--- NOTE | 2020-05-27 07:24 | NUR ---
NURSE NOTES: Pt received from MARTHA Pitt. Pt is asleep, opens eyes when called by name, unable to follow simple commands, attempts to pull out IV tubing when restraints are reapplied and removed, bilat pupils equal and round 3mm with sluggish rxn to light, gag reflex intact, withdraws to pain. Pt is SR to youth nutritional monitor with 2+ radial and dorsalis pedis pulses. No edema noted. Afebrile. cap refill less than 2 sec. Pt is on 4 L O2 via NC with spO2 94-98 %. Lung hopkins diminished upon auscultation. Pt is NPO except meds and ice chips. Abdomen is round, soft, and non-tender w/ active bowel sounds to all quadrants. F/C noted draining light marcel urine. Skin alterations noted. Pt has a RAC 18g, RFA 20 g, and a LW 18g IV running D5 1/2 NS at 75 cc/hr. Pt has BALLOON SANDER restraints. Skin to both wrists intact without redness. radial pulses palpable. Bed in lowest position, alarm on, side rails up x 2 and padded per seizure precaution, call light within reach. Will continue to monitor.
--- NOTE | 2020-05-27 07:49 | Infectious Diseases Prog Note ---
Assessment/Plan Assessment/Plan IMPRESSION: COVID-19 pneumonia. Acute renal failure, Dehydration, Atrial fibrillation with rapid ventricular rate, Right bundle-branch block, History of coronary artery disease with bypass, Dementia. RECOMMENDATION: Continue Dexamethasone & Rocephin Subjective ROS Limited/Unobtainable: Yes Neurologic: Reports: confusion, other - on restraint Allergies: Coded Allergies: No Known Allergies (Unverified , 05/21/20) Objective Last 24 Hour Vital Signs Date Time Temp Pulse Resp B/P (MAP) Pulse Ox O2 Delivery O2 Flow Rate FiO2 05/27/20 07:00 66 15 110/40 (63) 100 05/27/20 06:00 66 15 120/42 (68) 100 05/27/20 05:00 61 13 90/43 (59) 100 05/27/20 04:00 98.7 81 15 92/47 (62) 99 05/27/20 04:00 Nasal Cannula 4.0 Nasal Cannula 4.0 Room Air 4.0 05/27/20 03:41 90 05/27/20 03:00 71 14 91/50 (64) 98 05/27/20 02:00 84 21 89/48 (62) 98 05/27/20 01:00 90 21 102/58 (73) 98 05/27/20 00:00 98.8 96 19 92/47 (62) 95 05/27/20 00:00 Nasal Cannula 4.0 Nasal Cannula 4.0 Room Air 4.0 05/26/20 23:17 92 05/26/20 23:00 71 18 101/54 (70) 98 05/26/20 22:30 77 17 105/60 (75) 97 05/26/20 22:00 69 14 97/55 (69) 99 05/26/20 21:30 71 16 95/54 (68) 100 05/26/20 21:00 71 15 98/56 (70) 99 05/26/20 20:30 73 14 96/54 (68) 100 05/26/20 20:00 Nasal Cannula 4.0 Nasal Cannula 4.0 Room Air 4.0 05/26/20 20:00 98.4 71 15 103/50 (67) 97 05/26/20 19:30 73 05/26/20 19:30 74 14 97/54 (68) 100 05/26/20 19:00 71 16 96/54 (68) 97 05/26/20 18:30 79 18 105/46 (65) 97 05/26/20 18:00 56 17 91/50 (64) 96 05/26/20 17:30 59 19 79/53 (62) 97 05/26/20 17:07 58 87/57 05/26/20 17:00 58 19 87/57 (67) 97 05/26/20 16:30 58 17 94/50 (65) 95 05/26/20 16:00 Nasal Cannula 4.0 Nasal Cannula 4.0 Nasal Cannula 4.0 05/26/20 16:00 61 18 91/46 (61) 96 05/26/20 16:00 61 05/26/20 15:30 98.3 63 18 91/47 (62) 96 05/26/20 15:00 66 17 90/49 (63) 98 05/26/20 14:30 70 20 89/46 (60) 93 05/26/20 14:00 68 22 99/59 (72) 87 05/26/20 13:30 79 18 120/54 (76) 87 05/26/20 13:20 85 130/74 05/26/20 13:00 77 25 130/74 (92) 85 05/26/20 12:30 78 22 106/59 (75) 85 05/26/20 12:00 76 05/26/20 12:00 Nasal Cannula 4.0 Nasal Cannula 4.0 Nasal Cannula 4.0 05/26/20 12:00 98.9 82 25 119/63 (81) 87 05/26/20 11:30 106 26 107/59 (75) 88 05/26/20 11:24 118 122/67 05/26/20 11:00 111 27 122/67 (85) 89 05/26/20 10:30 103 22 136/57 (83) 91 05/26/20 10:00 109 29 138/82 (100) 91 05/26/20 09:30 105 26 129/65 (86) 93 05/26/20 09:00 86 21 116/73 (87) 94 05/26/20 08:34 88 05/26/20 08:30 87 23 114/60 (78) 92 05/26/20 08:00 98.3 83 23 111/57 (75) 96 05/26/20 08:00 Nasal Cannula 4.0 Nasal Cannula 4.0 Room Air 4.0 05/26/20 08:00 83 Height (Feet): 5 Height (Inches): 7.00 Weight (Pounds): 159 HEENT: mucous membranes moist Respiratory/Chest: other - oxygen by nasal cannula Abdomen: soft, non tender Extremities: no edema Neurologic/Psychiatric: other - sleeping Laboratory Tests Test 05/27/20 04:15 White Blood Count 8.4 K/UL (4.8-10.8) Red Blood Count 3.01 M/UL (4.70-6.10) L Hemoglobin 9.8 G/DL (14.2-18.0) L Hematocrit 28.1 % (42.0-52.0) L Mean Corpuscular Volume 93 FL (80-99) Mean Corpuscular Hemoglobin 32.5 PG (27.0-31.0) H Mean Corpuscular Hemoglobin Concent 34.8 G/DL (32.0-36.0) Red Cell Distribution Width 14.4 % (11.6-14.8) Platelet Count 120 K/UL (150-450) L Mean Platelet Volume 9.6 FL (6.5-10.1) Neutrophils (%) (Auto) % (45.0-75.0) Lymphocytes (%) (Auto) % (20.0-45.0) Monocytes (%) (Auto) % (1.0-10.0) Eosinophils (%) (Auto) % (0.0-3.0) Basophils (%) (Auto) % (0.0-2.0) Neutrophils % (Manual) Pending Lymphocytes % (Manual) Pending Platelet Estimate Pending Platelet Morphology Pending Sodium Level 139 MMOL/L (136-145) Potassium Level 3.8 MMOL/L (3.5-5.1) Chloride Level 109 MMOL/L (98-107) H Carbon Dioxide Level 21 MMOL/L (21-32) Anion Gap 9 mmol/L (5-15) Blood Urea Nitrogen 31 mg/dL (7-18) H Creatinine 1.5 MG/DL (0.55-1.30) H Estimat Glomerular Filtration Rate 44.8 mL/min (>60) Glucose Level 259 MG/DL (74-106) #H Calcium Level 7.3 MG/DL (8.5-10.1) L Phosphorus Level 3.5 MG/DL (2.5-4.9) Magnesium Level 2.8 MG/DL (1.8-2.4) H Total Bilirubin 0.5 MG/DL (0.2-1.0) Aspartate Amino Transf (AST/SGOT) 66 U/L (15-37) H Alanine Aminotransferase (ALT/SGPT) 34 U/L (12-78) Alkaline Phosphatase 56 U/L (46-116) Total Protein 6.0 G/DL (6.4-8.2) L Albumin 1.8 G/DL (3.4-5.0) L Globulin 4.2 g/dL Albumin/Globulin Ratio 0.4 (1.0-2.7) L Digoxin Level 1.6 NG/ML (0.5-2.0) Current Medications Medications (Trade) Dose Ordered Sig/Celia Route PRN Reason Start Time Stop Time Status Last Admin Dose Admin Apixaban (Eliquis) 2.5 mg BID ORAL 05/24/20 18:00 08/22/20 17:59 05/26/20 17:06 Ceftriaxone Sodium 1 gm/ Dextrose 55 ml @ 110 mls/hr Q24H IVPB 05/26/20 12:00 06/02/20 11:59 05/26/20 11:59 Dexamethasone Sodium Phosphate (Decadron 10mg/ ml Inj) 6 mg DAILY IV 05/26/20 11:00 06/04/20 09:01 05/26/20 11:58 Dextrose/Sodium Chloride 1,000 ml @ 75 mls/hr [id number] IV 05/22/20 13:30 06/21/20 13:29 05/26/20 23:44 Digoxin (Lanoxin) 0.25 mg DAILY IVP 05/26/20 09:00 08/24/20 08:59 05/26/20 08:34 Diphenhydramine HCl (Benadryl) 25 mg Q6H PRN IVP Itching 05/26/20 14:45 06/25/20 14:44 Haloperidol Lactate (Haldol) 5 mg Q6H PRN IM Agitation 05/22/20 13:15 07/06/20 13:14 05/26/20 08:33 Metoprolol Tartrate 10 mg/ Dextrose 65 ml @ 130 mls/hr Q6HR IVPB 05/25/20 21:00 06/24/20 20:59 05/26/20 11:24 Pantoprazole (Protonix) 40 mg EVERY 12 HOURS IVP 05/22/20 21:00 06/21/20 20:59 05/26/20 20:06 Phosphorus (Phospha 250 Neutral) 250 mg THREE TIMES A DAY ORAL 05/26/20 12:00 06/25/20 11:59 05/26/20 17:07 Quetiapine Fumarate (SEROqueL) 50 mg Q12HR ORAL 05/26/20 13:15 07/10/20 13:14 05/26/20 20:07 Mahin Leyva MD May 27, 2020 07:49
--- NOTE | 2020-05-27 08:00 | NUR ---
NURSE NOTES: Pt repositioned. Oral care provided.
--- NOTE | 2020-05-27 08:30 | NUR ---
NURSE NOTES: Pt seen by Dr Rajeev Leyva.
[2020-05-27] MEDS: Eliquis 2.5mg tablet ORAL SCH ×2 (08:32→17:04)
[2020-05-27] MEDS: Pantoprazole Inj IVP SCH ×2 (08:32→20:05)
[2020-05-27] MEDS: Phospha 250 Neutral tab ORAL SCH ×3 (08:33→17:04)
[2020-05-27] MEDS: dexAMETHasone 10mg/ml Inj IV SCH (08:33)
[2020-05-27] MEDS: Digoxin 0.5mg/2ml Inj IVP SCH (08:34)
--- NOTE | 2020-05-27 10:00 | NUR ---
NURSE NOTES: Pt repositioned. No distress noted.
--- NOTE | 2020-05-27 10:49 | NUR ---
NURSE NOTES: Pt seen by Dr Delaney.
[2020-05-27] MEDS: cefTRIAXone 1 GM in D5W 55 ML IVPB SCH (11:24)
--- NOTE | 2020-05-27 12:00 | NUR ---
NURSE NOTES: Pt repositioned. Remains Afebrile. Nod distress noted. Will continue to monitor.
[2020-05-27] MEDS: D5 1/2NS 1,000 ML IV SCH (12:32)
--- NOTE | 2020-05-27 12:57 | Pulmonology Progress Note ---
Subjective ROS Limited/Unobtainable: Yes Interval Events: Cardizem gtt dc Constitutional: Reports: no symptoms HEENT: Repors: no symptoms Respiratory: Reports: no symptoms Cardiovascular: Reports: no symptoms Gastrointestinal/Abdominal: Reports: no symptoms Allergies: Coded Allergies: No Known Allergies (Unverified , 05/21/20) Objective Last 24 Hour Vital Signs Date Time Temp Pulse Resp B/P (MAP) Pulse Ox O2 Delivery O2 Flow Rate FiO2 05/27/20 12:29 88 135/56 05/27/20 12:00 73 05/27/20 12:00 Nasal Cannula 4.0 05/27/20 12:00 97.8 74 17 135/56 (82) 96 05/27/20 11:00 71 15 133/53 (79) 97 05/27/20 10:00 71 15 127/50 (75) 97 05/27/20 09:00 70 15 158/52 (87) 94 05/27/20 08:34 66 05/27/20 08:00 Nasal Cannula 4.0 05/27/20 08:00 97.5 64 14 116/49 (71) 100 05/27/20 08:00 65 05/27/20 07:00 66 15 110/40 (63) 100 05/27/20 06:00 66 15 120/42 (68) 100 05/27/20 05:00 61 13 90/43 (59) 100 05/27/20 04:00 98.7 81 15 92/47 (62) 99 05/27/20 04:00 Nasal Cannula 4.0 Nasal Cannula 4.0 Room Air 4.0 05/27/20 03:41 90 05/27/20 03:00 71 14 91/50 (64) 98 05/27/20 02:00 84 21 89/48 (62) 98 05/27/20 01:00 90 21 102/58 (73) 98 05/27/20 00:00 98.8 96 19 92/47 (62) 95 05/27/20 00:00 Nasal Cannula 4.0 Nasal Cannula 4.0 Room Air 4.0 05/26/20 23:17 92 05/26/20 23:00 71 18 101/54 (70) 98 05/26/20 22:30 77 17 105/60 (75) 97 05/26/20 22:00 69 14 97/55 (69) 99 05/26/20 21:30 71 16 95/54 (68) 100 05/26/20 21:00 71 15 98/56 (70) 99 05/26/20 20:30 73 14 96/54 (68) 100 05/26/20 20:00 Nasal Cannula 4.0 Nasal Cannula 4.0 Room Air 4.0 05/26/20 20:00 98.4 71 15 103/50 (67) 97 05/26/20 19:30 73 05/26/20 19:30 74 14 97/54 (68) 100 05/26/20 19:00 71 16 96/54 (68) 97 05/26/20 18:30 79 18 105/46 (65) 97 05/26/20 18:00 56 17 91/50 (64) 96 05/26/20 17:30 59 19 79/53 (62) 97 05/26/20 17:07 58 87/57 05/26/20 17:00 58 19 87/57 (67) 97 05/26/20 16:30 58 17 94/50 (65) 95 05/26/20 16:00 Nasal Cannula 4.0 Nasal Cannula 4.0 Nasal Cannula 4.0 05/26/20 16:00 61 18 91/46 (61) 96 05/26/20 16:00 61 05/26/20 15:30 98.3 63 18 91/47 (62) 96 05/26/20 15:00 66 17 90/49 (63) 98 05/26/20 14:30 70 20 89/46 (60) 93 05/26/20 14:00 68 22 99/59 (72) 87 05/26/20 13:30 79 18 120/54 (76) 87 05/26/20 13:20 85 130/74 05/26/20 13:00 77 25 130/74 (92) 85 Intake and Output 05/26/20 05/27/20 19:00 07:00 Intake Total 1001.035 ml 823.75 ml Output Total 550 ml 385 ml Balance 451.035 ml 438.75 ml Intake IV Total 1001.035 ml 823.75 ml Output Urine Total 550 ml 385 ml General Appearance: WD/WN, no acute distress HEENT: normocephalic, atraumatic Respiratory: chest wall non-tender, lungs clear Cardiovascular: normal rate, regular rhythm Abdomen: other - obese Extremities: no edema Skin: other - 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 Musculoskeletal: other - left hip tenderness to palpation, no contusion, no crepitus noted Laboratory Tests 05/27/20 04:15: White Blood Count 8.4, Red Blood Count 3.01L, Hemoglobin 9.8L, Hematocrit 28.1L, Mean Corpuscular Volume 93, Mean Corpuscular Hemoglobin 32.5H, Mean Corpuscular Hemoglobin Concent 34.8, Red Cell Distribution Width 14.4, Platelet Count 120L, Mean Platelet Volume 9.6, Neutrophils (%) (Auto) , Lymphocytes (%) (Auto) , Monocytes (%) (Auto) , Eosinophils (%) (Auto) , Basophils (%) (Auto) , Differential Total Cells Counted 100, Neutrophils % (Manual) 86H, Lymphocytes % (Manual) 10L, Monocytes % (Manual) 4, Eosinophils % (Manual) 0, Basophils % (Manual) 0, Band Neutrophils 0, Platelet Estimate DecreasedL, Platelet Morphology Normal, Red Blood Cell Morphology Normal, Hypochromasia 1+, Sodium Level 139, Potassium Level 3.8, Chloride Level 109H, Carbon Dioxide Level 21, Anion Gap 9, Blood Urea Nitrogen 31H, Creatinine 1.5H, Estimat Glomerular Filtration Rate 44.8, Glucose Level 259#H, Calcium Level 7.3L, Phosphorus Level 3.5, Magnesium Level 2.8H, Total Bilirubin 0.5, Aspartate Amino Transf (AST/SGOT) 66H, Alanine Aminotransferase (ALT/SGPT) 34, Alkaline Phosphatase 56, Total Protein 6.0L, Albumin 1.8L, Globulin 4.2, Albumin/Globulin Ratio 0.4L, Digoxin Level 1.6 Current Medications Medications (Trade) Dose Ordered Sig/Celia Route PRN Reason Start Time Stop Time Status Last Admin Dose Admin Apixaban (Eliquis) 2.5 mg BID ORAL 05/24/20 18:00 08/22/20 17:59 05/27/20 08:32 Ceftriaxone Sodium 1 gm/ Dextrose 55 ml @ 110 mls/hr Q24H IVPB 05/26/20 12:00 06/02/20 11:59 05/27/20 11:24 Dexamethasone Sodium Phosphate (Decadron 10mg/ ml Inj) 6 mg DAILY IV 05/26/20 11:00 06/04/20 09:01 05/27/20 08:33 Dextrose/Sodium Chloride 1,000 ml @ 75 mls/hr [id number] IV 05/22/20 13:30 06/21/20 13:29 05/27/20 12:32 Digoxin (Lanoxin) 0.25 mg DAILY IVP 05/26/20 09:00 08/24/20 08:59 05/27/20 08:34 Diphenhydramine HCl (Benadryl) 25 mg Q6H PRN IVP Itching 05/26/20 14:45 06/25/20 14:44 Haloperidol Lactate (Haldol) 5 mg Q6H PRN IM Agitation 05/22/20 13:15 07/06/20 13:14 05/26/20 08:33 Metoprolol Tartrate 10 mg/ Dextrose 65 ml @ 130 mls/hr Q6HR IVPB 05/25/20 21:00 06/24/20 20:59 05/27/20 12:29 Pantoprazole (Protonix) 40 mg EVERY 12 HOURS IVP 05/22/20 21:00 06/21/20 20:59 05/27/20 08:32 Phosphorus (Phospha 250 Neutral) 250 mg THREE TIMES A DAY ORAL 05/26/20 12:00 06/25/20 11:59 05/27/20 12:31 Quetiapine Fumarate (SEROqueL) 50 mg Q12HR ORAL 05/26/20 13:15 07/10/20 13:14 05/27/20 08:32 Assessment/Plan Assessment/Plan 1. Pneumonia. 2. Anemia. 3. Renal insufficiency. - Hydration 4. Elevated inflammatory markers with high CRP. 5. Hypokalemia. 6. Mild protein-calorie malnutrition. 7. COVID-19 - hold off on any specific therapy for COVID such as remdesivir. Decadron appropriate given mild hypoxemia 8. Wound care instituted 9. Left hip pain s/p fall - Tenderness to palpation and limited range of motion s/p fall x3 without signs of contusion or crepitus - L hip XRay - no fractures noted 10. s/p fall 11. Afib; now off Cardizem gtt Now on 4L/min O2 Ector Boudreaux MDed MD May 27, 2020 12:57
--- NOTE | 2020-05-27 14:00 | NUR ---
NURSE NOTES: Pt seen by LAINA Redman. Repositioned. No distress noted.
--- NOTE | 2020-05-27 14:21 | Neurology Progress Note ---
Interim History Interim History ROS Limited/Unobtainable: Yes Review of Systems Neuro Review of Systems unable to assess Objective Physical Exam Last Vital Signs Date Time Temp Pulse Resp B/P (MAP) Pulse Ox O2 Delivery O2 Flow Rate FiO2 05/27/20 14:00 69 16 142/59 (86) 98 05/27/20 12:00 Nasal Cannula 4.0 05/27/20 12:00 97.8 Laboratory Tests Test 05/27/20 04:15 White Blood Count 8.4 K/UL (4.8-10.8) Red Blood Count 3.01 M/UL (4.70-6.10) L Hemoglobin 9.8 G/DL (14.2-18.0) L Hematocrit 28.1 % (42.0-52.0) L Mean Corpuscular Volume 93 FL (80-99) Mean Corpuscular Hemoglobin 32.5 PG (27.0-31.0) H Mean Corpuscular Hemoglobin Concent 34.8 G/DL (32.0-36.0) Red Cell Distribution Width 14.4 % (11.6-14.8) Platelet Count 120 K/UL (150-450) L Mean Platelet Volume 9.6 FL (6.5-10.1) Neutrophils (%) (Auto) % (45.0-75.0) Lymphocytes (%) (Auto) % (20.0-45.0) Monocytes (%) (Auto) % (1.0-10.0) Eosinophils (%) (Auto) % (0.0-3.0) Basophils (%) (Auto) % (0.0-2.0) Differential Total Cells Counted 100 Neutrophils % (Manual) 86 % (45-75) H Lymphocytes % (Manual) 10 % (20-45) L Monocytes % (Manual) 4 % (1-10) Eosinophils % (Manual) 0 % (0-3) Basophils % (Manual) 0 % (0-2) Band Neutrophils 0 % (0-8) Platelet Estimate Decreased L Platelet Morphology Normal Red Blood Cell Morphology Normal Hypochromasia 1+ Sodium Level 139 MMOL/L (136-145) Potassium Level 3.8 MMOL/L (3.5-5.1) Chloride Level 109 MMOL/L (98-107) H Carbon Dioxide Level 21 MMOL/L (21-32) Anion Gap 9 mmol/L (5-15) Blood Urea Nitrogen 31 mg/dL (7-18) H Creatinine 1.5 MG/DL (0.55-1.30) H Estimat Glomerular Filtration Rate 44.8 mL/min (>60) Glucose Level 259 MG/DL (74-106) #H Calcium Level 7.3 MG/DL (8.5-10.1) L Phosphorus Level 3.5 MG/DL (2.5-4.9) Magnesium Level 2.8 MG/DL (1.8-2.4) H Total Bilirubin 0.5 MG/DL (0.2-1.0) Aspartate Amino Transf (AST/SGOT) 66 U/L (15-37) H Alanine Aminotransferase (ALT/SGPT) 34 U/L (12-78) Alkaline Phosphatase 56 U/L (46-116) Total Protein 6.0 G/DL (6.4-8.2) L Albumin 1.8 G/DL (3.4-5.0) L Globulin 4.2 g/dL Albumin/Globulin Ratio 0.4 (1.0-2.7) L Digoxin Level 1.6 NG/ML (0.5-2.0) Neurologic Exam Objective Objective: Neuro exam unable to examine pt is sedated and not cooperative, PERRLA, Sedated, weak Impression/Recommendations Status: progressing, deteriorating Diagnostic Impression 1. Falls --> unknown etiology --> CT Head completed once prior to admission and second CT head done yesterday after patient fell in the room attempting to get up oob per RN --> S/p nasal fracture second: CT findings revealed Left frontal soft tissue swelling. Age-indeterminate nasal bone fractures partially visualized.Stable mild chronic small vessel ischemic changes and cerebral volume loss. --> Recommend MRI Brain once he is stable and out of covid isolation. --> obtain more information from family regarding fall- no contact --> Pt has had 3 falls inpatient according to nurses. None reported since then. 2. Encephalopathy --> No focal findings on limited neuro exam, i.e cva 3. Covid 19 Disease --> on isolation on oxygen not hypoxic --> continue supportive treatment 4. Atrial Fibrillation --> with RVR, on Cardizem gtt, cards on board Thank You for allowing us to participate in the care of the patient. The time of the note phil not necessarily reflect the time the patient was seen and evaluated Recommendations no new recommendations at this time. Sonam Redman NP May 27, 2020 14:21
[2020-05-27] MEDS ORDERED: Varibar Nectar 240ml MC PRN (14:45)
[2020-05-27] MEDS ORDERED: Varibar Pudding 230ml MC PRN (14:45)
[2020-05-27] MEDS ORDERED: Varibar Honey 250ml MC PRN (14:45)
[2020-05-27] MEDS ORDERED: Varibar Thin Liquid powder 148gm MC PRN (14:45)
--- NOTE | 2020-05-27 14:55 | Nephrology Progress Note ---
Assessment/Plan Problem List: (1) Renal failure (ARF), acute on chronic (2) Dehydration (3) Pneumonia due to COVID-19 virus Assessment Acute renal failure Possible underlying chronic kidney disease Dehydration Electrolyte imbalance Toxic metabolic encephalopathy Pneumonia due to COVID-19 virus Mild anemia Plan May 27: Serum creatinine down to 1.5. Heart rate normalized. Continue per consultants. Continue to monitor electrolytes and renal parameters. May 26: Borderline blood pressure. Serum creatinine higher at 1.9. Remains under the care of artist representative for rhythm management. Continue to monitor electrolytes and adjust abnormalities May 25: Patient now in ICU on Cardizem drip. Serum creatinine 1.7. Rest of the electrolytes within normal limit. Continue per cardiology. Continue to monitor renal parameters and electrolytes. May 24: Labs reviewed. Serum creatinine 1.6. Phosphorus low, IV K-Phos ordered. Continue to monitor renal parameters. Continue per current management. Slow hydrate Magnesium sulfate IV supplement today Antibiotics, avoid nephrotoxic's Monitor renal parameters electrolytes Keep the blood pressure blood sugar in check Patient full code Subjective ROS Limited/Unobtainable: No Objective Objective Last 24 Hour Vital Signs Date Time Temp Pulse Resp B/P (MAP) Pulse Ox O2 Delivery O2 Flow Rate FiO2 05/27/20 14:00 69 16 142/59 (86) 98 05/27/20 13:00 70 17 131/55 (80) 96 05/27/20 12:29 88 135/56 05/27/20 12:00 73 05/27/20 12:00 Nasal Cannula 4.0 05/27/20 12:00 97.8 74 17 135/56 (82) 96 05/27/20 11:00 71 15 133/53 (79) 97 05/27/20 10:00 71 15 127/50 (75) 97 05/27/20 09:00 70 15 158/52 (87) 94 05/27/20 08:34 66 05/27/20 08:00 Nasal Cannula 4.0 05/27/20 08:00 97.5 64 14 116/49 (71) 100 05/27/20 08:00 65 05/27/20 07:00 66 15 110/40 (63) 100 05/27/20 06:00 66 15 120/42 (68) 100 05/27/20 05:00 61 13 90/43 (59) 100 05/27/20 04:00 98.7 81 15 92/47 (62) 99 05/27/20 04:00 Nasal Cannula 4.0 Nasal Cannula 4.0 Room Air 4.0 05/27/20 03:41 90 05/27/20 03:00 71 14 91/50 (64) 98 05/27/20 02:00 84 21 89/48 (62) 98 05/27/20 01:00 90 21 102/58 (73) 98 05/27/20 00:00 98.8 96 19 92/47 (62) 95 05/27/20 00:00 Nasal Cannula 4.0 Nasal Cannula 4.0 Room Air 4.0 05/26/20 23:17 92 05/26/20 23:00 71 18 101/54 (70) 98 05/26/20 22:30 77 17 105/60 (75) 97 05/26/20 22:00 69 14 97/55 (69) 99 05/26/20 21:30 71 16 95/54 (68) 100 05/26/20 21:00 71 15 98/56 (70) 99 05/26/20 20:30 73 14 96/54 (68) 100 05/26/20 20:00 Nasal Cannula 4.0 Nasal Cannula 4.0 Room Air 4.0 05/26/20 20:00 98.4 71 15 103/50 (67) 97 05/26/20 19:30 73 05/26/20 19:30 74 14 97/54 (68) 100 05/26/20 19:00 71 16 96/54 (68) 97 05/26/20 18:30 79 18 105/46 (65) 97 05/26/20 18:00 56 17 91/50 (64) 96 05/26/20 17:30 59 19 79/53 (62) 97 05/26/20 17:07 58 87/57 05/26/20 17:00 58 19 87/57 (67) 97 05/26/20 16:30 58 17 94/50 (65) 95 05/26/20 16:00 Nasal Cannula 4.0 Nasal Cannula 4.0 Nasal Cannula 4.0 05/26/20 16:00 61 18 91/46 (61) 96 05/26/20 16:00 61 05/26/20 15:30 98.3 63 18 91/47 (62) 96 05/26/20 15:00 66 17 90/49 (63) 98 Intake and Output 05/26/20 05/27/20 19:00 07:00 Intake Total 1001.035 ml 823.75 ml Output Total 550 ml 385 ml Balance 451.035 ml 438.75 ml Intake IV Total 1001.035 ml 823.75 ml Output Urine Total 550 ml 385 ml Laboratory Tests 05/27/20 04:15: White Blood Count 8.4, Red Blood Count 3.01L, Hemoglobin 9.8L, Hematocrit 28.1L, Mean Corpuscular Volume 93, Mean Corpuscular Hemoglobin 32.5H, Mean Corpuscular Hemoglobin Concent 34.8, Red Cell Distribution Width 14.4, Platelet Count 120L, Mean Platelet Volume 9.6, Neutrophils (%) (Auto) , Lymphocytes (%) (Auto) , Monocytes (%) (Auto) , Eosinophils (%) (Auto) , Basophils (%) (Auto) , Differential Total Cells Counted 100, Neutrophils % (Manual) 86H, Lymphocytes % (Manual) 10L, Monocytes % (Manual) 4, Eosinophils % (Manual) 0, Basophils % (Manual) 0, Band Neutrophils 0, Platelet Estimate DecreasedL, Platelet Morphology Normal, Red Blood Cell Morphology Normal, Hypochromasia 1+, Sodium Level 139, Potassium Level 3.8, Chloride Level 109H, Carbon Dioxide Level 21, Anion Gap 9, Blood Urea Nitrogen 31H, Creatinine 1.5H, Estimat Glomerular Filtration Rate 44.8, Glucose Level 259#H, Calcium Level 7.3L, Phosphorus Level 3.5, Magnesium Level 2.8H, Total Bilirubin 0.5, Aspartate Amino Transf (AST/SGOT) 66H, Alanine Aminotransferase (ALT/SGPT) 34, Alkaline Phosphatase 56, Total Protein 6.0L, Albumin 1.8L, Globulin 4.2, Albumin/Globulin Ratio 0.4L, Digoxin Level 1.6 Height (Feet): 5 Height (Inches): 7.00 Weight (Pounds): 159 General Appearance: no apparent distress EENT: other - On nasal cannula Cardiovascular: normal rate Respiratory/Chest: decreased breath sounds Abdomen: distended Jerome Delaney MD May 27, 2020 14:55
--- NOTE | 2020-05-27 15:05 | NUR ---
CASE MANAGEMENT:REVIEW 05/27/20 SI: COVID PNA. ENCEPHALOPATHY 97.8 74 17 135/56 96% ON 4L/NC PLT-120 BUN+31 CR+1.5 IS: IV ROCEPHIN Q24 IV DECADRON Q24 IV DIGOXIN QD CARDIZEM GTT IV METOPROLOL Q6HRS : TELEMETRY STATUS DCP: FROM HOME PLAN: SWALLOW EVAL DOWNGRADE TO TELEMETRY
--- NOTE | 2020-05-27 15:57 | NUR ---
NURSE NOTES: Pt seen by Dr Basilio. Discussed transfer plan - per Dr. Basilio: pt not cleared from transferring out of ICU until further notice from Dr Basilio.
--- NOTE | 2020-05-27 16:22 | Cardiac Electrophysiology PN ---
Assessment/Plan Assessment/Plan 1. Syncope. Etiology is not clear at this time. The first troponin is negative but second one mildly elevated that could be due to renal failure ECho EF 60%. He might have been dehydrated in view of BUN and creatinine that is improving. 2. Atrial fib with RVR. Not eating and no NGT. Swallow eval is pending. Change Lopressor 10 mg iv q 6 hrs to metoprolol 100 bid and Eliquis 2.5 bid Taperd off Cardizem drip. Got Dig 0.5 iv now and change to 0.125 po daily Check Dig level in am 3. Troponin elevation. Levels are low and coming down. Already on Lopressor 4. Complete right bundle-branch block and lateral T-wave inversion. 5. Covid PNA on 3 liter NC 6. Dysphagia. Swallow evaluation is pending. YASMIN RN Subjective Subjective In ICU for atrial fib with RVR up to 150s in Covid isolation off Cardizem drip and on Lopressor 10 mg iv q 6 hr. On 4 liter NC. In SR Objective Last 24 Hour Vital Signs Date Time Temp Pulse Resp B/P (MAP) Pulse Ox O2 Delivery O2 Flow Rate FiO2 05/27/20 16:00 70 05/27/20 16:00 Nasal Cannula 4.0 05/27/20 16:00 98.2 72 17 134/66 (88) 95 05/27/20 16:00 72 19 134/66 (88) 96 05/27/20 15:00 70 16 137/57 (83) 98 05/27/20 14:00 69 16 142/59 (86) 98 05/27/20 13:00 70 17 131/55 (80) 96 05/27/20 12:29 88 135/56 05/27/20 12:00 73 05/27/20 12:00 Nasal Cannula 4.0 05/27/20 12:00 97.8 74 17 135/56 (82) 96 05/27/20 11:00 71 15 133/53 (79) 97 05/27/20 10:00 71 15 127/50 (75) 97 05/27/20 09:00 70 15 158/52 (87) 94 05/27/20 08:34 66 05/27/20 08:00 Nasal Cannula 4.0 05/27/20 08:00 97.5 64 14 116/49 (71) 100 05/27/20 08:00 65 05/27/20 07:00 66 15 110/40 (63) 100 05/27/20 06:00 66 15 120/42 (68) 100 05/27/20 05:00 61 13 90/43 (59) 100 05/27/20 04:00 98.7 81 15 92/47 (62) 99 05/27/20 04:00 Nasal Cannula 4.0 Nasal Cannula 4.0 Room Air 4.0 05/27/20 03:41 90 05/27/20 03:00 71 14 91/50 (64) 98 05/27/20 02:00 84 21 89/48 (62) 98 05/27/20 01:00 90 21 102/58 (73) 98 05/27/20 00:00 98.8 96 19 92/47 (62) 95 05/27/20 00:00 Nasal Cannula 4.0 Nasal Cannula 4.0 Room Air 4.0 05/26/20 23:17 92 05/26/20 23:00 71 18 101/54 (70) 98 05/26/20 22:30 77 17 105/60 (75) 97 05/26/20 22:00 69 14 97/55 (69) 99 05/26/20 21:30 71 16 95/54 (68) 100 05/26/20 21:00 71 15 98/56 (70) 99 05/26/20 20:30 73 14 96/54 (68) 100 05/26/20 20:00 Nasal Cannula 4.0 Nasal Cannula 4.0 Room Air 4.0 05/26/20 20:00 98.4 71 15 103/50 (67) 97 05/26/20 19:30 73 05/26/20 19:30 74 14 97/54 (68) 100 05/26/20 19:00 71 16 96/54 (68) 97 05/26/20 18:30 79 18 105/46 (65) 97 05/26/20 18:00 56 17 91/50 (64) 96 05/26/20 17:30 59 19 79/53 (62) 97 05/26/20 17:07 58 87/57 05/26/20 17:00 58 19 87/57 (67) 97 05/26/20 16:30 58 17 94/50 (65) 95 Intake and Output 12/16/20 12/17/20 19:00 07:00 Intake Total 1001.035 ml 823.75 ml Output Total 550 ml 385 ml Balance 451.035 ml 438.75 ml Intake IV Total 1001.035 ml 823.75 ml Output Urine Total 550 ml 385 ml Laboratory Tests Test 05/27/20 04:15 White Blood Count 8.4 K/UL (4.8-10.8) Red Blood Count 3.01 M/UL (4.70-6.10) L Hemoglobin 9.8 G/DL (14.2-18.0) L Hematocrit 28.1 % (42.0-52.0) L Mean Corpuscular Volume 93 FL (80-99) Mean Corpuscular Hemoglobin 32.5 PG (27.0-31.0) H Mean Corpuscular Hemoglobin Concent 34.8 G/DL (32.0-36.0) Red Cell Distribution Width 14.4 % (11.6-14.8) Platelet Count 120 K/UL (150-450) L Mean Platelet Volume 9.6 FL (6.5-10.1) Neutrophils (%) (Auto) % (45.0-75.0) Lymphocytes (%) (Auto) % (20.0-45.0) Monocytes (%) (Auto) % (1.0-10.0) Eosinophils (%) (Auto) % (0.0-3.0) Basophils (%) (Auto) % (0.0-2.0) Differential Total Cells Counted 100 Neutrophils % (Manual) 86 % (45-75) H Lymphocytes % (Manual) 10 % (20-45) L Monocytes % (Manual) 4 % (1-10) Eosinophils % (Manual) 0 % (0-3) Basophils % (Manual) 0 % (0-2) Band Neutrophils 0 % (0-8) Platelet Estimate Decreased L Platelet Morphology Normal Red Blood Cell Morphology Normal Hypochromasia 1+ Sodium Level 139 MMOL/L (136-145) Potassium Level 3.8 MMOL/L (3.5-5.1) Chloride Level 109 MMOL/L (98-107) H Carbon Dioxide Level 21 MMOL/L (21-32) Anion Gap 9 mmol/L (5-15) Blood Urea Nitrogen 31 mg/dL (7-18) H Creatinine 1.5 MG/DL (0.55-1.30) H Estimat Glomerular Filtration Rate 44.8 mL/min (>60) Glucose Level 259 MG/DL (74-106) #H Calcium Level 7.3 MG/DL (8.5-10.1) L Phosphorus Level 3.5 MG/DL (2.5-4.9) Magnesium Level 2.8 MG/DL (1.8-2.4) H Total Bilirubin 0.5 MG/DL (0.2-1.0) Aspartate Amino Transf (AST/SGOT) 66 U/L (15-37) H Alanine Aminotransferase (ALT/SGPT) 34 U/L (12-78) Alkaline Phosphatase 56 U/L (46-116) Total Protein 6.0 G/DL (6.4-8.2) L Albumin 1.8 G/DL (3.4-5.0) L Globulin 4.2 g/dL Albumin/Globulin Ratio 0.4 (1.0-2.7) L Digoxin Level 1.6 NG/ML (0.5-2.0) Objective HEAD AND NECK: No JVD. LUNGS: Clear. CARDIOVASCULAR: Shows regular S1 and S2 with no gallop or murmur. ABDOMEN: Soft. EXTREMITIES: No pitting edema. Rick Basilio MD May 27, 2020 16:22
--- NOTE | 2020-05-27 18:53 | NUR ---
NURSE HAND-OFF REPORT: Latest Vital Signs: Temperature 98.2 , Pulse 73 , B/P 146 /65 , Respiratory Rate 16 , O2 SAT 99 , Nasal Cannula, O2 Flow Rate 4.0 L . EKG Rhythm: Sinus Rhythm Rhythm change?: N MD Notified?: Pt seen by Dr Praful MONSIVAIS Response: n/a Latest Stewart Fall Score: 75 Fall Risk: High Risk Safety Measures: Call light Within Reach, Bed Alarm Zone 2, Side Rails Side Rails x3, Bed position Low and Locked. Fall Precautions: Yellow Socks Yellow Gown Door Sign Patient Fall Education Report given to MARTHA Pitt.
--- NOTE | 2020-05-27 19:00 | NUR ---
NURSE NOTES: Received patient from MARTHA Marti. Patient is observed resting in bed and remains alert but confused and disoriented. Pt now able to follow simple commands and remains calm. FLACC score of 0 noted upon assessment. Pt is currently on 4L NC with an O2 saturation of 99% at this time. Bilateral lower lobe breath sounds noted to be diminished upon auscultation with rhonchi noted in bilateral upper lobes. Pt noted to be SR on tele monitor with a HR of 73, BP remains stable at this time. R AC 18g and two L FA 18g IV Catheters noted which remain asymptomatic, intact and patent. D5 1/2 NS is infusing at 75mL/hr as ordered. Hyperactive bowel sounds noted in all four quadrants; abdomen remains flat, soft and nontender. Pt remains NPO per order, except for medications. Mera catheter noted which continues to drain urine by gravity. Urine noted to be dark marcel, cloudy and foul smelling. Diagnostics reviewed at bedside. Skin remains intact with scaly, patchy skin noted over entirety of body. Bilateral soft wrist restraints remain in place for pt safety. Pt noted to be attempting to pull medical devices despite pt education. CMS remains intact. Will continue to assess pt for removal criteria. orthotic assistant fluent in [place] and translated instead of utilizing [employer]. Fall, Aspiration and Skin precautions observed. Pt repositioned for comfort and safety. Pt remains resting in bed; Bed remains in the lowest position with the safety wheels engaged, call light within reach, side rails up x3 and bed alarm activated. Will continue plan of care. Will continue to monitor.
--- NOTE | 2020-05-27 19:30 | Psychiatric Progress Note ---
Psychiatry Progress Note Psychiatry Progress Note Subjective the pt is the same episodes o agitation Medications Current Medications Medications (Trade) Dose Ordered Sig/Celia Route PRN Reason Start Time Stop Time Status Last Admin Dose Admin Apixaban (Eliquis) 2.5 mg BID ORAL 05/24/20 18:00 08/22/20 17:59 05/27/20 17:04 Barium Sulfate (Varibar Honey) 250 ml NOW PRN RAD 05/27/20 14:45 05/30/20 14:34 Barium Sulfate (Varibar [place]) 240 ml NOW PRN RAD 05/27/20 14:45 05/30/20 14:34 Barium Sulfate (Varibar Pudding) 230 ml NOW PRN RAD 05/27/20 14:45 05/30/20 14:34 Barium Sulfate (Varibar Thin Liquid powder) 148 gm NOW PRN RAD 05/27/20 14:45 05/30/20 14:34 Ceftriaxone Sodium 1 gm/ Dextrose 55 ml @ 110 mls/hr Q24H IVPB 05/26/20 12:00 06/02/20 11:59 05/27/20 11:24 Dexamethasone Sodium Phosphate (Decadron 10mg/ ml Inj) 6 mg DAILY IV 05/26/20 11:00 06/04/20 09:01 05/27/20 08:33 Dextrose/Sodium Chloride 1,000 ml @ 75 mls/hr [id number] IV 05/22/20 13:30 06/21/20 13:29 05/27/20 12:32 Digoxin (Lanoxin) 0.125 mg DAILY ORAL 05/28/20 09:00 08/26/20 08:59 Diphenhydramine HCl (Benadryl) 25 mg Q6H PRN IVP Itching 05/26/20 14:45 06/25/20 14:44 Haloperidol Lactate (Haldol) 5 mg Q6H PRN IM Agitation 05/22/20 13:15 07/06/20 13:14 05/26/20 08:33 Metoprolol Tartrate (Lopressor) 100 mg EVERY 12 HOURS ORAL 05/27/20 21:00 08/25/20 20:59 Pantoprazole (Protonix) 40 mg EVERY 12 HOURS IVP 05/22/20 21:00 06/21/20 20:59 05/27/20 08:32 Phosphorus (Phospha 250 Neutral) 250 mg THREE TIMES A DAY ORAL 05/26/20 12:00 06/25/20 11:59 05/27/20 17:04 Quetiapine Fumarate (SEROqueL) 50 mg Q12HR ORAL 05/26/20 13:15 07/10/20 13:14 05/27/20 08:32 Neurological/Psychiatric: Reports: anxiety Allergies: Coded Allergies: No Known Allergies (Unverified , 05/21/20) Objective Data Height (Feet): 5 Height (Inches): 7.00 Weight (Pounds): 159 General Appearance: no apparent distress Additional Comments: waxing and waning consciousness. Mood is anxious. Affect is blunted, congruent with mood. Thought process is concrete. Thought content, no suicidal or homicidal ideation. Cognition is impaired. Insight and judgment impaired. Assessment/Plan Wister I: ASSESSMENT: Wister I Acute metabolic encephalopathy. Dementia. Wister II Deferred. Wister III Renal insufficiency and head injury. Wister IV Low. Wister V 20. PLAN: 1. We will start the patient on Haldol IM p.r.n. 2. Restraints. 3. Discussed with the nurse. Status: progressing, deteriorating Status Narrative ASSESSMENT: Wister I Acute metabolic encephalopathy. Dementia. Wister II Deferred. Wister III Renal insufficiency and head injury. Wister IV Low. Wister V 20. PLAN: 1. We will start the patient on Haldol IM p.r.n. 2. Restraints. 3. Discussed with the nurse. Assessment/Plan: ASSESSMENT: Wister I Acute metabolic encephalopathy. Dementia. Wister II Deferred. Wister III Renal insufficiency and head injury. Wister IV Low. Wister V 20. PLAN: 1. We will start the patient on Haldol IM p.r.n. 2. Restraints. 3. Discussed with the nurse. Francheska Huynh MD May 27, 2020 19:30
[2020-05-27] MEDS: Metoprolol Tartrate 100mg tab ORAL SCH (20:05)
--- NOTE | 2020-05-27 21:00 | NUR ---
NURSE NOTES: Pt provided with a bed bath, oral care and linen change. Skin moisturizer provided. Pt continues to tolerate NC well and remains free from s/sx of acute respiratory distress. Physical status remains consistent with previous assessment. Fall, Aspiration and Skin precautions observed. Pt remains resting in bed; Bed remains in the lowest position with the safety wheels engaged, call light within reach, side rails up x3 and bed alarm activated. Will continue plan of care. Will continue to monitor.
--- NOTE | 2020-05-27 21:23 | General Progress Note ---
Subjective ROS Limited/Unobtainable: Yes Allergies: Coded Allergies: No Known Allergies (Unverified , 05/21/20) Objective Last 24 Hour Vital Signs Date Time Temp Pulse Resp B/P (MAP) Pulse Ox O2 Delivery O2 Flow Rate FiO2 05/27/20 20:05 72 142/62 05/27/20 19:00 72 17 142/62 (88) 97 05/27/20 18:00 73 16 146/65 (92) 99 05/27/20 17:00 74 19 140/66 (90) 94 05/27/20 16:00 70 05/27/20 16:00 Nasal Cannula 4.0 05/27/20 16:00 98.2 72 17 134/66 (88) 95 05/27/20 16:00 72 19 134/66 (88) 96 05/27/20 15:00 70 16 137/57 (83) 98 05/27/20 14:00 69 16 142/59 (86) 98 05/27/20 13:00 70 17 131/55 (80) 96 05/27/20 12:29 88 135/56 05/27/20 12:00 73 05/27/20 12:00 Nasal Cannula 4.0 05/27/20 12:00 97.8 74 17 135/56 (82) 96 05/27/20 11:00 71 15 133/53 (79) 97 05/27/20 10:00 71 15 127/50 (75) 97 05/27/20 09:00 70 15 158/52 (87) 94 05/27/20 08:34 66 05/27/20 08:00 Nasal Cannula 4.0 05/27/20 08:00 97.5 64 14 116/49 (71) 100 05/27/20 08:00 65 05/27/20 07:00 66 15 110/40 (63) 100 05/27/20 06:00 66 15 120/42 (68) 100 05/27/20 05:00 61 13 90/43 (59) 100 05/27/20 04:00 98.7 81 15 92/47 (62) 99 05/27/20 04:00 Nasal Cannula 4.0 Nasal Cannula 4.0 Room Air 4.0 05/27/20 03:41 90 05/27/20 03:00 71 14 91/50 (64) 98 05/27/20 02:00 84 21 89/48 (62) 98 05/27/20 01:00 90 21 102/58 (73) 98 05/27/20 00:00 98.8 96 19 92/47 (62) 95 05/27/20 00:00 Nasal Cannula 4.0 Nasal Cannula 4.0 Room Air 4.0 05/26/20 23:17 92 05/26/20 23:00 71 18 101/54 (70) 98 05/26/20 22:30 77 17 105/60 (75) 97 05/26/20 22:00 69 14 97/55 (69) 99 05/26/20 21:30 71 16 95/54 (68) 100 Intake and Output 05/26/20 05/27/20 19:00 07:00 Intake Total 1001.035 ml 823.75 ml Output Total 550 ml 385 ml Balance 451.035 ml 438.75 ml Intake IV Total 1001.035 ml 823.75 ml Output Urine Total 550 ml 385 ml Laboratory Tests 05/27/20 04:15: White Blood Count 8.4, Red Blood Count 3.01L, Hemoglobin 9.8L, Hematocrit 28.1L, Mean Corpuscular Volume 93, Mean Corpuscular Hemoglobin 32.5H, Mean Corpuscular Hemoglobin Concent 34.8, Red Cell Distribution Width 14.4, Platelet Count 120L, Mean Platelet Volume 9.6, Neutrophils (%) (Auto) , Lymphocytes (%) (Auto) , Monocytes (%) (Auto) , Eosinophils (%) (Auto) , Basophils (%) (Auto) , Differential Total Cells Counted 100, Neutrophils % (Manual) 86H, Lymphocytes % (Manual) 10L, Monocytes % (Manual) 4, Eosinophils % (Manual) 0, Basophils % ( Manual) 0, Band Neutrophils 0, Platelet Estimate DecreasedL, Platelet Morphology Normal, Red Blood Cell Morphology Normal, Hypochromasia 1+, Sodium Level 139, Potassium Level 3.8, Chloride Level 109H, Carbon Dioxide Level 21, Anion Gap 9, Blood Urea Nitrogen 31H, Creatinine 1.5H, Estimat Glomerular Filtration Rate 44.8, Glucose Level 259#H, Calcium Level 7.3L, Phosphorus Level 3.5, Magnesium Level 2.8H, Total Bilirubin 0.5, Aspartate Amino Transf (AST/SGOT) 66H, Alanine Aminotransferase (ALT/SGPT) 34, Alkaline Phosphatase 56, Total Protein 6.0L, Albumin 1.8L, Globulin 4.2, Albumin/Globulin Ratio 0.4L, Digoxin Level 1.6 Height (Feet): 5 Height (Inches): 7.00 Weight (Pounds): 159 Assessment/Plan Problem List: (1) Renal insufficiency ICD Codes: N28.9 - Disorder of kidney and ureter, unspecified SNOMED: 036547288, 123658608 (2) Encephalopathy ICD Codes: G93.40 - Encephalopathy, unspecified SNOMED: 80906995, 562609066 (3) Head injury ICD Codes: S09.90XA - Unspecified injury of head, initial encounter SNOMED: 20327478, 739393831 Qualifiers: Qualified Codes: S09.90XA - Unspecified injury of head, initial encounter (4) Pneumonia ICD Codes: J18.9 - Pneumonia, unspecified organism SNOMED: 240350010 Qualifiers: Qualified Codes: J18.9 - Pneumonia, unspecified organism (5) Abnormal EKG ICD Codes: R94.31 - Abnormal electrocardiogram [ECG] [EKG]; J12.89 - Other viral pneumonia SNOMED: 376795761 (6) Altered level of consciousness ICD Codes: R40.4 - Transient alteration of awareness SNOMED: 9801666 (7) Dehydration ICD Codes: E86.0 - Dehydration SNOMED: 89449543 (8) Pneumonia due to COVID-19 virus ICD Codes: U07.1 - COVID-19; J12.89 - Other viral pneumonia SNOMED: [id number] (9) Renal failure (ARF), acute on chronic ICD Codes: N17.9 - Acute kidney failure, unspecified; N18.9 - Chronic kidney disease, unspecified SNOMED: 873067100 Status: progressing, deteriorating Assessment/Plan: bp and hr are improving afebrile reviewed chart and labs covid positive pna s/p a fib w rvr Yvette Waldrop MD May 27, 2020 21:23
[2020-05-27] MEDS ORDERED: Tubing IV Secondary IV ONE (22:19)
--- NOTE | 2020-05-27 23:00 | NUR ---
NURSE NOTES: Pt noted to be sleeping comfortably at this time. Bedside assessment performed, assessed pt for pain with a FLACC score of 0 noted. Respiratory status remains stable at this time. HR remains <100 and no adverse reactions noted from first administration of scheduled Lopressor. Pt remains clean and dry. Pt repositioned for safety and comfort. Fall, Aspiration and Skin precautions observed. Pt remains resting in bed; Bed remains in the lowest position with the safety wheels engaged, call light within reach, side rails up x3 and bed alarm activated. Will continue plan of care. Will continue to monitor. Addendum: 05/27/20 at 2309 by CASEY ROCHA RN Bilateral soft wrist restraints removed per order, pt remains calm and cooperative at this time.
[2020-05-28] VITALS (18 sets, daily range): BP systolic 149–173; BP diastolic 66–81
[2020-05-28] MEDS: D5 1/2NS 1,000 ML IV SCH ×2 (00:56→17:11)
--- NOTE | 2020-05-28 01:00 | NUR ---
NURSE NOTES: Pt noted to be disoriented and attempting to remove medical devices despite reorientation and patient education. Bilateral soft wrist restraints applied per order. CMS remains intact. Bedside assessment performed, assessed pt for pain with a FLACC score of 0 noted. Respiratory status remains stable at this time. HR remains <100 and BP remains stable. Pt remains resting in bed comfortably. Pt remains clean and dry. Pt repositioned for safety and comfort. Fall, Aspiration and Skin precautions observed. Pt remains resting in bed; Bed remains in the lowest position with the safety wheels engaged, call light within reach, side rails up x3 and bed alarm activated. Will continue plan of care. Will continue to monitor.
--- NOTE | 2020-05-28 03:00 | NUR ---
NURSE NOTES: Pt noted to be sleeping at this time. Bedside assessment performed, assessed pt for pain with a FLACC score of 0 noted. Physical status remains consistent with previous physical assessment. No adverse events at this time. Pt remains resting in bed comfortably. Pt remains clean and dry. Pt repositioned for safety and comfort. Fall, Aspiration and Skin precautions observed. Pt remains resting in bed; Bed remains in the lowest position with the safety wheels engaged, call light within reach, side rails up x3 and bed alarm activated. Will continue plan of care. Will continue to monitor.
--- NOTE | 2020-05-28 05:00 | NUR ---
NURSE NOTES: Pt noted to be sleeping at this time. Bedside assessment performed, assessed pt for pain with a FLACC score of 0 noted. No adverse events noted for duration of shift. Pt remains resting in bed comfortably. Pt remains clean and dry. Pt repositioned for safety and comfort. Fall, Aspiration and Skin precautions observed. Pt remains resting in bed; Bed remains in the lowest position with the safety wheels engaged, call light within reach, side rails up x3 and bed alarm activated. Will continue plan of care. Will continue to monitor.
[2020-05-28 05:41] LABS: HEMATOCRIT 28.8 % (42.0-52.0); HEMOGLOBIN 10.1 G/DL (14.2-18.0); MEAN CORPUSCULAR VOLUME 94 FL (80-99); PLATELET COUNT 132 K/UL (150-450); RED BLOOD COUNT 3.07 M/UL (4.70-6.10); RED CELL DISTRIBUTION WIDTH 14.5 % (11.6-14.8); WHITE BLOOD COUNT 8.8 K/UL (4.8-10.8)
[2020-05-28 06:02] LABS: ALBUMIN 1.8 G/DL (3.4-5.0); ALBUMIN/GLOBULIN RATIO 0.4 (1.0-2.7); BILIRUBIN,TOTAL 0.5 MG/DL (0.2-1.0); CALCIUM 7.4 MG/DL (8.5-10.1); CREATININE 1.3 MG/DL (0.55-1.30); PHOSPHORUS 3.5 MG/DL (2.5-4.9); POTASSIUM 3.8 MMOL/L (3.5-5.1)
--- NOTE | 2020-05-28 07:19 | NUR ---
NURSE HAND-OFF REPORT: Latest Vital Signs: Temperature 97.8 , Pulse 72 , B/P 159 /69 , Respiratory Rate 14 , O2 SAT 98 , Nasal Cannula, O2 Flow Rate 4.0 . Vital Sign Comment: EKG Rhythm: Sinus Rhythm Rhythm change?: N Notified?: Y -Dr Praful MONSIVAIS Response: No New Orders Received Latest Stewart Fall Score: 75 Fall Risk: High Risk Safety Measures: Call light Within Reach, Bed Alarm Zone 2, Side Rails Side Rails x3, Bed position Low and Locked. Fall Precautions: Yellow Socks Yellow Gown Door Sign Patient Fall Education Report given to MARTHA Woodruff.
--- NOTE | 2020-05-28 07:20 | NUR ---
NURSE NOTES: Report received from Sweetie Madsen RN.Pt asleep but easily awakers with verbal command noted no resp distress on 4 L NC no signs of pain or discomfort,SR on the monitor,Mera cath draining yellow urine,skin warm and dry,IV sites x3 RAC,RFA,LT W intact,,SR up x2 HOB elevated bed lock in lowest position,will continue with plans of care.
[2020-05-28] MEDS ORDERED: D5 1/2NS 1000ml IV ONE (08:29)
[2020-05-28] MEDS ORDERED: Tubing IV Secondary IV ONE (08:29)
[2020-05-28] MEDS ORDERED: NS 275ml ONE (08:29)
--- NOTE | 2020-05-28 09:18 | NUR ---
RD ASSESSMENT & RECOMMENDATIONS SEE CARE ACTIVITY FOR COMPLETE ASSESSMENT DAILY ESTIMATED NEEDS: Needs based on cardiac, pulmonary 63kg 25-30 kcals/kg [id number] total kcals 1-1.5 g protein/kg 63-95 g total protein 25-30 mL/kg 7334-4391 total fluid mLs NUTRITION DIAGNOSIS: Swallowing difficulty r/t respiratory status anc clinical status as evidenced by s/p [employer] eval, recs for puree texture, currently NPO, ICU status w/ Covid ++ PNA, on NC. (CURRENT DIET: NPO-> DEPARTMENT [employer] eval pending) PO DIET RECOMMENDATIONS--->>> LOW NA DIET as appropriate/ texture per DEPARTMENT ST[employer]OR [employer]ETER ENTERAL NUTRITION RECOMMENDATIONS: CONSULT RD IF NON ORAL FEEDS ARE PART OF POC ADDITIONAL RECOMMENDATIONS: 1) Maintain calibrated bed scale wts 2) Maintain D5 while NPO 3) Monitor for ability to feed, or initiate diet Add ensure enlive w/ trays TID 4) Check lytes daily while NPO 5) Rec accuchecks w/ niss with diet order
--- NOTE | 2020-05-28 09:39 | Pulmonology Progress Note ---
Subjective ROS Limited/Unobtainable: Yes Interval Events: Cardizem gtt dc Constitutional: Reports: no symptoms HEENT: Repors: no symptoms Respiratory: Reports: no symptoms Cardiovascular: Reports: no symptoms Gastrointestinal/Abdominal: Reports: no symptoms Allergies: Coded Allergies: No Known Allergies (Unverified , 05/21/20) Objective Last 24 Hour Vital Signs Date Time Temp Pulse Resp B/P (MAP) Pulse Ox O2 Delivery O2 Flow Rate FiO2 05/28/20 07:00 72 14 159/69 (99) 98 05/28/20 06:00 72 17 167/73 (104) 97 05/28/20 05:00 72 18 158/72 (100) 98 05/28/20 04:01 73 05/28/20 04:00 Nasal Cannula 4.0 Nasal Cannula 4.0 05/28/20 04:00 97.8 72 20 149/74 (99) 97 05/28/20 03:00 79 26 150/76 (100) 97 05/28/20 02:00 73 19 151/68 (95) 98 05/28/20 01:00 82 21 158/71 (100) 98 05/28/20 00:00 97.4 71 21 149/66 (93) 99 05/28/20 00:00 Nasal Cannula 4.0 Nasal Cannula 4.0 05/27/20 23:11 71 05/27/20 23:00 70 16 152/68 (96) 99 05/27/20 22:00 72 22 142/64 (90) 99 05/27/20 21:00 74 23 143/74 (97) 93 05/27/20 20:05 72 142/62 05/27/20 20:00 98.4 75 19 151/69 (96) 98 05/27/20 20:00 Nasal Cannula 4.0 Nasal Cannula 4.0 05/27/20 19:53 73 05/27/20 19:00 72 17 142/62 (88) 97 05/27/20 18:00 73 16 146/65 (92) 99 05/27/20 17:00 74 19 140/66 (90) 94 05/27/20 16:00 70 05/27/20 16:00 Nasal Cannula 4.0 05/27/20 16:00 98.2 72 17 134/66 (88) 95 05/27/20 16:00 72 19 134/66 (88) 96 05/27/20 15:00 70 16 137/57 (83) 98 05/27/20 14:00 69 16 142/59 (86) 98 05/27/20 13:00 70 17 131/55 (80) 96 05/27/20 12:29 88 135/56 05/27/20 12:00 73 05/27/20 12:00 Nasal Cannula 4.0 05/27/20 12:00 97.8 74 17 135/56 (82) 96 05/27/20 11:00 71 15 133/53 (79) 97 05/27/20 10:00 71 15 127/50 (75) 97 Intake and Output 05/27/20 05/28/20 18:59 06:59 Intake Total 1019.5 ml 973.75 ml Output Total 650 ml 510 ml Balance 369.5 ml 463.75 ml Intake IV Total 1019.5 ml 973.75 ml Output Urine Total 650 ml 510 ml General Appearance: WD/WN, no acute distress HEENT: normocephalic, atraumatic Respiratory: chest wall non-tender, lungs clear Cardiovascular: normal rate, regular rhythm Abdomen: other - obese Extremities: no edema Skin: other - 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 Musculoskeletal: other - left hip tenderness to palpation, no contusion, no crepitus noted Laboratory Tests 05/28/20 04:15: White Blood Count 8.8, Red Blood Count 3.07L, Hemoglobin 10.1L, Hematocrit 28.8L , Mean Corpuscular Volume 94, Mean Corpuscular Hemoglobin 32.8H, Mean Corpuscular Hemoglobin Concent 34.9, Red Cell Distribution Width 14.5, Platelet Count 132L, Mean Platelet Volume 9.5, Neutrophils (%) (Auto) , Lymphocytes (%) (Auto) , Monocytes (%) (Auto) , Eosinophils (%) (Auto) , Basophils (%) (Auto) , Differential Total Cells Counted 100, Neutrophils % (Manual) 87H, Lymphocytes % (Manual) 7L, Monocytes % (Manual) 6, Eosinophils % (Manual) 0, Basophils % (Manual) 0, Band Neutrophils 0, Platelet Estimate DecreasedL, Platelet Morphology Normal, Anisocytosis 1+, D-Dimer 3.01H, Sodium Level 141, Potassium Level 3.8, Chloride Level 109H, Carbon Dioxide Level 22, Anion Gap 11, Blood Urea Nitrogen 32H, Creatinine 1.3, Estimat Glomerular Filtration Rate 52.9, Glu cose Level 183H, Calcium Level 7.4L, Phosphorus Level 3.5, Magnesium Level 2.2, Total Bilirubin 0.5, Aspartate Amino Transf (AST/SGOT) 53H, Alanine Aminotransferase (ALT/SGPT) 31, Alkaline Phosphatase 68, Total Protein 5.9L, Albumin 1.8L, Globulin 4.1, Albumin/Globulin Ratio 0.4L, Digoxin Level 1.6 Current Medications Medications (Trade) Dose Ordered Sig/Celia Route PRN Reason Start Time Stop Time Status Last Admin Dose Admin Apixaban (Eliquis) 2.5 mg BID ORAL 05/24/20 18:00 08/22/20 17:59 05/27/20 17:04 Barium Sulfate (Varibar Honey) 250 ml NOW PRN RAD 05/27/20 14:45 05/30/20 14:34 Barium Sulfate (Varibar [place]) 240 ml NOW PRN RAD 05/27/20 14:45 05/30/20 14:34 Barium Sulfate (Varibar Pudding) 230 ml NOW PRN MC RAD 05/27/20 14:45 05/30/20 14:34 Barium Sulfate (Varibar Thin Liquid powder) 148 gm NOW PRN RAD 05/27/20 14:45 05/30/20 14:34 Ceftriaxone Sodium 1 gm/ Dextrose 55 ml @ 110 mls/hr Q24H IVPB 05/26/20 12:00 06/02/20 11:59 05/27/20 11:24 Dexamethasone Sodium Phosphate (Decadron 10mg/ ml Inj) 6 mg DAILY IV 05/26/20 11:00 06/04/20 09:01 05/27/20 08:33 Dextrose/Sodium Chloride 1,000 ml @ 75 mls/hr [id number] IV 05/22/20 13:30 06/21/20 13:29 05/28/20 00:56 Digoxin (Lanoxin) 0.125 mg DAILY ORAL 05/28/20 09:00 08/26/20 08:59 Diphenhydramine HCl (Benadryl) 25 mg Q6H PRN IVP Itching 05/26/20 14:45 06/25/20 14:44 Haloperidol Lactate (Haldol) 5 mg Q6H PRN IM Agitation 05/22/20 13:15 07/06/20 13:14 05/26/20 08:33 Metoprolol Tartrate (Lopressor) 100 mg EVERY 12 HOURS ORAL 05/27/20 21:00 08/25/20 20:59 05/27/20 20:05 Pantoprazole (Protonix) 40 mg EVERY 12 HOURS IVP 05/22/20 21:00 06/21/20 20:59 05/27/20 20:05 Phosphorus (Phospha 250 Neutral) 250 mg THREE TIMES A DAY ORAL 05/26/20 12:00 06/25/20 11:59 05/27/20 17:04 Quetiapine Fumarate (SEROqueL) 50 mg Q12HR ORAL 05/26/20 13:15 07/10/20 13:14 05/27/20 20:05 Assessment/Plan Assessment/Plan 1. Pneumonia. 2. Anemia. 3. Renal insufficiency. - Hydration 4. Elevated inflammatory markers with high CRP. 5. Hypokalemia. 6. Mild protein-calorie malnutrition. 7. COVID-19 - hold off on any specific therapy for COVID such as remdesivir. Decadron appropriate given mild hypoxemia 8. Wound care instituted 9. Left hip pain s/p fall - Tenderness to palpation and limited range of motion s/p fall x3 without signs of contusion or crepitus - L hip XRay - no fractures noted 10. s/p fall 11. Afib; now off Cardizem gtt Now on 4L/min O2 Transfer to [facility] Ector Boudreaux MD, MD May 28, 2020 09:39
[2020-05-28] MEDS: Pantoprazole Inj IVP SCH ×2 (10:14→22:42)
[2020-05-28] MEDS: Phospha 250 Neutral tab ORAL SCH ×3 (10:14→17:10)
[2020-05-28] MEDS: Digoxin 0.125mg tab ORAL SCH (10:14)
[2020-05-28] MEDS: Eliquis 2.5mg tablet ORAL SCH ×2 (10:16→17:11)
[2020-05-28] MEDS: Metoprolol Tartrate 100mg tab ORAL SCH ×2 (10:16→22:42)
[2020-05-28] MEDS: dexAMETHasone 10mg/ml Inj IV SCH (10:31)
--- NOTE | 2020-05-28 10:31 | NUR ---
RADIOLOGY DEPT., CHEST X-RAY DONE.-P.DYE
--- NOTE | 2020-05-28 10:43 | Diagnostic Imaging Report ---
Indication: Dyspnea Technique: One view of the chest Comparison: 05/25/2020 Findings: Less optimal inspiration currently. Bilateral peripheral infiltrates appear stable or perhaps slightly increased. Normal heart size Impression: Stable or perhaps slightly increased bilateral infiltrates
--- NOTE | 2020-05-28 11:00 | NUR ---
HAND-OFF: Report given to Debbie Davis RN.pt resting quietly in bed still with bilat wrist restraints in placed stable ,no resp distress presented.
--- NOTE | 2020-05-28 11:23 | Infectious Diseases Prog Note ---
Assessment/Plan Assessment/Plan IMPRESSION: COVID-19 pneumonia. Acute renal failure, Dehydration, Atrial fibrillation with rapid ventricular rate, Right bundle-branch block, History of coronary artery disease with bypass, Dementia. RECOMMENDATION: Continue Dexamethasone & Rocephin Subjective ROS Limited/Unobtainable: Yes Constitutional: Denies: fever Neurologic: Reports: confusion, other - on restraint Allergies: Coded Allergies: No Known Allergies (Unverified , 05/21/20) Objective Last 24 Hour Vital Signs Date Time Temp Pulse Resp B/P (MAP) Pulse Ox O2 Delivery O2 Flow Rate FiO2 05/28/20 11:00 67 14 154/80 (104) 98 05/28/20 10:16 72 167/75 05/28/20 10:14 72 05/28/20 10:00 73 15 161/81 (107) 98 05/28/20 09:00 72 21 149/71 (97) 97 05/28/20 08:00 98.8 73 17 167/78 (107) 98 05/28/20 08:00 Nasal Cannula 4.0 Nasal Cannula 4.0 05/28/20 08:00 79 05/28/20 08:00 Nasal Cannula 4.0 Nasal Cannula 4.0 05/28/20 07:00 72 14 159/69 (99) 98 05/28/20 06:00 72 17 167/73 (104) 97 05/28/20 05:00 72 18 158/72 (100) 98 05/28/20 04:01 73 05/28/20 04:00 Nasal Cannula 4.0 Nasal Cannula 4.0 05/28/20 04:00 97.8 72 20 149/74 (99) 97 05/28/20 03:00 79 26 150/76 (100) 97 05/28/20 02:00 73 19 151/68 (95) 98 05/28/20 01:00 82 21 158/71 (100) 98 05/28/20 00:00 97.4 71 21 149/66 (93) 99 05/28/20 00:00 Nasal Cannula 4.0 Nasal Cannula 4.0 05/27/20 23:11 71 05/27/20 23:00 70 16 152/68 (96) 99 05/27/20 22:00 72 22 142/64 (90) 99 05/27/20 21:00 74 23 143/74 (97) 93 05/27/20 20:05 72 142/62 05/27/20 20:00 98.4 75 19 151/69 (96) 98 05/27/20 20:00 Nasal Cannula 4.0 Nasal Cannula 4.0 05/27/20 19:53 73 05/27/20 19:00 72 17 142/62 (88) 97 05/27/20 18:00 73 16 146/65 (92) 99 05/27/20 17:00 74 19 140/66 (90) 94 05/27/20 16:00 70 05/27/20 16:00 Nasal Cannula 4.0 05/27/20 16:00 98.2 72 17 134/66 (88) 95 05/27/20 16:00 72 19 134/66 (88) 96 05/27/20 15:00 70 16 137/57 (83) 98 05/27/20 14:00 69 16 142/59 (86) 98 05/27/20 13:00 70 17 131/55 (80) 96 05/27/20 12:29 88 135/56 05/27/20 12:00 73 05/27/20 12:00 Nasal Cannula 4.0 05/27/20 12:00 97.8 74 17 135/56 (82) 96 Height (Feet): 5 Height (Inches): 7.00 Weight (Pounds): 159 HEENT: mucous membranes moist Respiratory/Chest: other - oxygen by nasal cannula Cardiovascular: normal rate Abdomen: soft, non tender Extremities: no edema Neurologic/Psychiatric: other - sleeping Laboratory Tests Test 05/28/20 04:15 White Blood Count 8.8 K/UL (4.8-10.8) Red Blood Count 3.07 M/UL (4.70-6.10) L Hemoglobin 10.1 G/DL (14.2-18.0) L Hematocrit 28.8 % (42.0-52.0) L Mean Corpuscular Volume 94 FL (80-99) Mean Corpuscular Hemoglobin 32.8 PG (27.0-31.0) H Mean Corpuscular Hemoglobin Concent 34.9 G/DL (32.0-36.0) Red Cell Distribution Width 14.5 % (11.6-14.8) Platelet Count 132 K/UL (150-450) L Mean Platelet Volume 9.5 FL (6.5-10.1) Neutrophils (%) (Auto) % (45.0-75.0) Lymphocytes (%) (Auto) % (20.0-45.0) Monocytes (%) (Auto) % (1.0-10.0) Eosinophils (%) (Auto) % (0.0-3.0) Basophils (%) (Auto) % (0.0-2.0) Differential Total Cells Counted 100 Neutrophils % (Manual) 87 % (45-75) H Lymphocytes % (Manual) 7 % (20-45) L Monocytes % (Manual) 6 % (1-10) Eosinophils % (Manual) 0 % (0-3) Basophils % (Manual) 0 % (0-2) Band Neutrophils 0 % (0-8) Platelet Estimate Decreased L Platelet Morphology Normal Anisocytosis 1+ D-Dimer 3.01 mg/L FEU (0.00-0.49) H Sodium Level 141 MMOL/L (136-145) Potassium Level 3.8 MMOL/L (3.5-5.1) Chloride Level 109 MMOL/L (98-107) H Carbon Dioxide Level 22 MMOL/L (21-32) Anion Gap 11 mmol/L (5-15) Blood Urea Nitrogen 32 mg/dL (7-18) H Creatinine 1.3 MG/DL (0.55-1.30) Estimat Glomerular Filtration Rate 52.9 mL/min (>60) Glucose Level 183 MG/DL (74-106) H Calcium Level 7.4 MG/DL (8.5-10.1) L Phosphorus Level 3.5 MG/DL (2.5-4.9) Magnesium Level 2.2 MG/DL (1.8-2.4) Total Bilirubin 0.5 MG/DL (0.2-1.0) Aspartate Amino Transf (AST/SGOT) 53 U/L (15-37) H Alanine Aminotransferase (ALT/SGPT) 31 U/L (12-78) Alkaline Phosphatase 68 U/L (46-116) Total Protein 5.9 G/DL (6.4-8.2) L Albumin 1.8 G/DL (3.4-5.0) L Globulin 4.1 g/dL Albumin/Globulin Ratio 0.4 (1.0-2.7) L Digoxin Level 1.6 NG/ML (0.5-2.0) Current Medications Medications (Trade) Dose Ordered Sig/Celia Route PRN Reason Start Time Stop Time Status Last Admin Dose Admin Apixaban (Eliquis) 2.5 mg BID ORAL 05/24/20 18:00 08/22/20 17:59 05/28/20 10:16 Barium Sulfate (Varibar Honey) 250 ml NOW PRN RAD 05/27/20 14:45 05/30/20 14:34 Barium Sulfate (Varibar [place]) 240 ml NOW PRN MC RAD 05/27/20 14:45 05/30/20 14:34 Barium Sulfate (Varibar Pudding) 230 ml NOW PRN RAD 05/27/20 14:45 05/30/20 14:34 Barium Sulfate (Varibar Thin Liquid powder) 148 gm NOW PRN RAD 05/27/20 14:45 05/30/20 14:34 Ceftriaxone Sodium 1 gm/ Dextrose 55 ml @ 110 mls/hr Q24H IVPB 05/26/20 12:00 06/02/20 11:59 05/27/20 11:24 Dexamethasone Sodium Phosphate (Decadron 10mg/ ml Inj) 6 mg DAILY IV 05/26/20 11:00 06/04/20 09:01 05/28/20 10:31 Dextrose/Sodium Chloride 1,000 ml @ 75 mls/hr [id number] IV 05/22/20 13:30 06/21/20 13:29 05/28/20 00:56 Digoxin (Lanoxin) 0.125 mg DAILY ORAL 05/28/20 09:00 08/26/20 08:59 05/28/20 10:14 Diphenhydramine HCl (Benadryl) 25 mg Q6H PRN IVP Itching 05/26/20 14:45 06/25/20 14:44 Haloperidol Lactate (Haldol) 5 mg Q6H PRN IM Agitation 05/22/20 13:15 07/06/20 13:14 05/26/20 08:33 Metoprolol Tartrate (Lopressor) 100 mg EVERY 12 HOURS ORAL 05/27/20 21:00 08/25/20 20:59 05/28/20 10:16 Pantoprazole (Protonix) 40 mg EVERY 12 HOURS IVP 12/12/20 21:00 06/21/20 20:59 05/28/20 10:14 Phosphorus (Phospha 250 Neutral) 250 mg THREE TIMES A DAY ORAL 05/26/20 12:00 06/25/20 11:59 05/28/20 10:14 Quetiapine Fumarate (SEROqueL) 50 mg Q12HR ORAL 05/26/20 13:15 07/10/20 13:14 05/28/20 10:15 Mahin Leyva MD May 28, 2020 11:23
[2020-05-28] MEDS: cefTRIAXone 1 GM in D5W 55 ML IVPB SCH (12:00)
--- NOTE | 2020-05-28 12:03 | Nephrology Progress Note ---
Assessment/Plan Problem List: (1) Renal failure (ARF), acute on chronic (2) Dehydration (3) Pneumonia due to COVID-19 virus Assessment Acute renal failure Possible underlying chronic kidney disease Dehydration Electrolyte imbalance Toxic metabolic encephalopathy Pneumonia due to COVID-19 virus Mild anemia Plan May 28: Renal parameters improved. Heart rate within normal limits. Continue per current treatment plan and consultants. May 27: Serum creatinine down to 1.5. Heart rate normalized. Continue per consultants. Continue to monitor electrolytes and renal parameters. May 26: Borderline blood pressure. Serum creatinine higher at 1.9. Remains under the care of ict customer support officer for rhythm management. Continue to monitor electrolytes and adjust abnormalities May 25: Patient now in ICU on Cardizem drip. Serum creatinine 1.7. Rest of the electrolytes within normal limit. Continue per cardiology. Continue to monitor renal parameters and electrolytes. May 24: Labs reviewed. Serum creatinine 1.6. Phosphorus low, IV K-Phos ordered. Continue to monitor renal parameters. Continue per current management. Slow hydrate Magnesium sulfate IV supplement today Antibiotics, avoid nephrotoxic's Monitor renal parameters electrolytes Keep the blood pressure blood sugar in check Patient full code Subjective ROS Limited/Unobtainable: No Constitutional: Reports: malaise Objective Objective Last 24 Hour Vital Signs Date Time Temp Pulse Resp B/P (MAP) Pulse Ox O2 Delivery O2 Flow Rate FiO2 05/28/20 11:00 67 14 154/80 (104) 98 05/28/20 10:16 72 167/75 05/28/20 10:14 72 05/28/20 10:00 73 15 161/81 (107) 98 05/28/20 09:00 72 21 149/71 (97) 97 05/28/20 08:00 98.8 73 17 167/78 (107) 98 05/28/20 08:00 Nasal Cannula 4.0 Nasal Cannula 4.0 05/28/20 08:00 79 05/28/20 08:00 Nasal Cannula 4.0 Nasal Cannula 4.0 05/28/20 07:00 72 14 159/69 (99) 98 05/28/20 06:00 72 17 167/73 (104) 97 05/28/20 05:00 72 18 158/72 (100) 98 05/28/20 04:01 73 05/28/20 04:00 Nasal Cannula 4.0 Nasal Cannula 4.0 05/28/20 04:00 97.8 72 20 149/74 (99) 97 05/28/20 03:00 79 26 150/76 (100) 97 05/28/20 02:00 73 19 151/68 (95) 98 05/28/20 01:00 82 21 158/71 (100) 98 05/28/20 00:00 97.4 71 21 149/66 (93) 99 05/28/20 00:00 Nasal Cannula 4.0 Nasal Cannula 4.0 05/27/20 23:11 71 05/27/20 23:00 70 16 152/68 (96) 99 05/27/20 22:00 72 22 142/64 (90) 99 05/27/20 21:00 74 23 143/74 (97) 93 05/27/20 20:05 72 142/62 05/27/20 20:00 98.4 75 19 151/69 (96) 98 05/27/20 20:00 Nasal Cannula 4.0 Nasal Cannula 4.0 05/27/20 19:53 73 05/27/20 19:00 72 17 142/62 (88) 97 05/27/20 18:00 73 16 146/65 (92) 99 05/27/20 17:00 74 19 140/66 (90) 94 05/27/20 16:00 70 05/27/20 16:00 Nasal Cannula 4.0 05/27/20 16:00 98.2 72 17 134/66 (88) 95 05/27/20 16:00 72 19 134/66 (88) 96 05/27/20 15:00 70 16 137/57 (83) 98 05/27/20 14:00 69 16 142/59 (86) 98 05/27/20 13:00 70 17 131/55 (80) 96 05/27/20 12:29 88 135/56 Intake and Output 05/27/20 05/28/20 19:00 07:00 Intake Total 1019.5 ml 973.75 ml Output Total 670 ml 510 ml Balance 349.5 ml 463.75 ml IV Total 1019.5 ml 973.75 ml Output Urine Total 670 ml 510 ml Laboratory Tests 05/28/20 04:15: White Blood Count 8.8, Red Blood Count 3.07L, Hemoglobin 10.1L, Hematocrit 28.8L , Mean Corpuscular Volume 94, Mean Corpuscular Hemoglobin 32.8H, Mean Corpuscular Hemoglobin Concent 34.9, Red Cell Distribution Width 14.5, Platelet Count 132L, Mean Platelet Volume 9.5, Neutrophils (%) (Auto) , Lymphocytes (%) (Auto) , Monocytes (%) (Auto) , Eosinophils (%) (Auto) , Basophils (%) (Auto) , Differential Total Cells Counted 100, Neutrophils % (Manual) 87H, Lymphocytes % (Manual) 7L, Monocytes % (Manual) 6, Eosinophils % (Manual) 0, Basophils % (Manual) 0, Band Neutrophils 0, Platelet Estimate DecreasedL, Platelet Morphology Normal, Anisocytosis 1+, D-Dimer 3.01H, Sodium Level 141, Potassium Level 3.8, Chloride Level 109H, Carbon Dioxide Level 22, Anion Gap 11, Blood Urea Nitrogen 32H, Creatinine 1.3, Estimat Glomerular Filtration Rate 52.9, Glucose Level 183H, Calcium Level 7.4L, Phosphorus Level 3.5, Magnesium Level 2.2, Total Bilirubin 0.5, Aspartate Amino Transf (AST/SGOT) 53H, Alanine Aminotransferase (ALT/SGPT) 31, Alkaline Phosphatase 68, Total Protein 5.9L, Albumin 1.8L, Globulin 4.1, Albumin/Globulin Ratio 0.4L, Digoxin Level 1.6 Height (Feet): 5 Height (Inches): 7.00 Weight (Pounds): 159 General Appearance: no apparent distress Cardiovascular: normal rate, arrhythmia Respiratory/Chest: decreased breath sounds Abdomen: soft Jerome Delaney MD May 28, 2020 12:03
--- NOTE | 2020-05-28 14:27 | Cardiac Electrophysiology PN ---
Assessment/Plan Assessment/Plan 1. Syncope. Etiology is not clear at this time. The first troponin is negative but second one mildly elevated that could be due to renal failure ECho EF 60%. He might have been dehydrated in view of BUN and creatinine that is improving. 2. Atrial fib with RVR. Not eating and no NGT. Swallow eval is pending. On metoprolol 100 bid and Eliquis 2.5 bid and Dig 0.125 po daily Check Dig 1.6 3. Troponin elevation. Levels are low and coming down. Already on Lopressor 4. Complete right bundle-branch block and lateral T-wave inversion. 5. Covid PNA on 3 liter NC 6. Dysphagia. Swallow evaluation is pending. YASMIN RN Subjective Subjective In ICU for atrial fib with RVR up to 150s in Covid isolation. Now off Cardizem drip and on Lopressor 100 bid and Dig 0.125 po daily. Dig level 1.6. Transfer top tele pending On 4 liter NC. In SR Objective Last 24 Hour Vital Signs Date Time Temp Pulse Resp B/P (MAP) Pulse Ox O2 Delivery O2 Flow Rate FiO2 05/28/20 13:00 68 15 168/73 (104) 98 05/28/20 12:00 97.6 72 15 173/79 (110) 98 05/28/20 12:00 Nasal Cannula 4.0 Nasal Cannula 4.0 05/28/20 12:00 69 05/28/20 11:00 67 14 154/80 (104) 98 05/28/20 10:16 72 167/75 05/28/20 10:14 72 05/28/20 10:00 73 15 161/81 (107) 98 05/28/20 09:00 72 21 149/71 (97) 97 05/28/20 08:00 98.8 73 17 167/78 (107) 98 05/28/20 08:00 Nasal Cannula 4.0 Nasal Cannula 4.0 05/28/20 08:00 79 05/28/20 08:00 Nasal Cannula 4.0 Nasal Cannula 4.0 05/28/20 07:00 72 14 159/69 (99) 98 05/28/20 06:00 72 17 167/73 (104) 97 05/28/20 05:00 72 18 158/72 (100) 98 05/28/20 04:01 73 05/28/20 04:00 Nasal Cannula 4.0 Nasal Cannula 4.0 05/28/20 04:00 97.8 72 20 149/74 (99) 97 05/28/20 03:00 79 26 150/76 (100) 97 05/28/20 02:00 73 19 151/68 (95) 98 05/28/20 01:00 82 21 158/71 (100) 98 05/28/20 00:00 97.4 71 21 149/66 (93) 99 05/28/20 00:00 Nasal Cannula 4.0 Nasal Cannula 4.0 05/27/20 23:11 71 05/27/20 23:00 70 16 152/68 (96) 99 05/27/20 22:00 72 22 142/64 (90) 99 05/27/20 21:00 74 23 143/74 (97) 93 05/27/20 20:05 72 142/62 05/27/20 20:00 98.4 75 19 151/69 (96) 98 05/27/20 20:00 Nasal Cannula 4.0 Nasal Cannula 4.0 05/27/20 19:53 73 05/27/20 19:00 72 17 142/62 (88) 97 05/27/20 18:00 73 16 146/65 (92) 99 05/27/20 17:00 74 19 140/66 (90) 94 05/27/20 16:00 70 05/27/20 16:00 Nasal Cannula 4.0 05/27/20 16:00 98.2 72 17 134/66 (88) 95 05/27/20 16:00 72 19 134/66 (88) 96 05/27/20 15:00 70 16 137/57 (83) 98 Intake and Output 05/27/20 05/28/20 19:00 07:00 Intake Total 1019.5 ml 973.75 ml Output Total 670 ml 510 ml Balance 349.5 ml 463.75 ml IV Total 1019.5 ml 973.75 ml Output Urine Total 670 ml 510 ml Laboratory Tests Test 05/28/20 04:15 White Blood Count 8.8 K/UL (4.8-10.8) Red Blood Count 3.07 M/UL (4.70-6.10) L Hemoglobin 10.1 G/DL (14.2-18.0) L Hematocrit 28.8 % (42.0-52.0) L Mean Corpuscular Volume 94 FL (80-99) Mean Corpuscular Hemoglobin 32.8 PG (27.0-31.0) H Mean Corpuscular Hemoglobin Concent 34.9 G/DL (32.0-36.0) Red Cell Distribution Width 14.5 % (11.6-14.8) Platelet Count 132 K/UL (150-450) L Mean Platelet Volume 9.5 FL (6.5-10.1) Neutrophils (%) (Auto) % (45.0-75.0) Lymphocytes (%) (Auto) % (20.0-45.0) Monocytes (%) (Auto) % (1.0-10.0) Eosinophils (%) (Auto) % (0.0-3.0) Basophils (%) (Auto) % (0.0-2.0) Differential Total Cells Counted 100 Neutrophils % (Manual) 87 % (45-75) H Lymphocytes % (Manual) 7 % (20-45) L Monocytes % (Manual) 6 % (1-10) Eosinophils % (Manual) 0 % (0-3) Basophils % (Manual) 0 % (0-2) Band Neutrophils 0 % (0-8) Platelet Estimate Decreased L Platelet Morphology Normal Anisocytosis 1+ D-Dimer 3.01 mg/L FEU (0.00-0.49) H Sodium Level 141 MMOL/L (136-145) Potassium Level 3.8 MMOL/L (3.5-5.1) Chloride Level 109 MMOL/L (98-107) H Carbon Dioxide Level 22 MMOL/L (21-32) Anion Gap 11 mmol/L (5-15) Blood Urea Nitrogen 32 mg/dL (7-18) H Creatinine 1.3 MG/DL (0.55-1.30) Estimat Glomerular Filtration Rate 52.9 mL/min (>60) Glucose Level 183 MG/DL (74-106) H Calcium Level 7.4 MG/DL (8.5-10.1) L Phosphorus Level 3.5 MG/DL (2.5-4.9) Magnesium Level 2.2 MG/DL (1.8-2.4) Total Bilirubin 0.5 MG/DL (0.2-1.0) Aspartate Amino Transf (AST/SGOT) 53 U/L (15-37) H Alanine Aminotransferase (ALT/SGPT) 31 U/L (12-78) Alkaline Phosphatase 68 U/L (46-116) Total Protein 5.9 G/DL (6.4-8.2) L Albumin 1.8 G/DL (3.4-5.0) L Globulin 4.1 g/dL Albumin/Globulin Ratio 0.4 (1.0-2.7) L Digoxin Level 1.6 NG/ML (0.5-2.0) Objective HEAD AND NECK: No JVD. LUNGS: Clear. CARDIOVASCULAR: Shows regular S1 and S2 with no gallop or murmur. ABDOMEN: Soft. EXTREMITIES: No pitting edema. Rick Basilio MD May 28, 2020 14:27
--- NOTE | 2020-05-28 14:29 | NUR ---
P.T Note: late entry 05/27/20 0830 Pt was transferred to ICU. DC P.T services. P.T will resume pending clearance and new MD order to restart P.T.
--- NOTE | 2020-05-28 14:52 | NUR ---
CASE MANAGEMENT:REVIEW 05/28/20 SI: COVID PNA. ENCEPHALOPATHY 97.6 72 15 173/79 98% ON 4L/NC H/H-10.1/28.8 PLT-132 BUN+32 IS: DIGOXIN PO QD LOPRESSOR PO Q12 IV ROCEPHIN Q24 IV DECADRON QQ ELIQUIS PO BID IV PROTONIX Q12 IVF@75/HR : TELEMETRY STATUS DCP: FROM HOME
--- NOTE | 2020-05-28 15:28 | NUR ---
1430 PT,SEEN BY TYE BUCIO BEDSIDE REPORT GIVEN NO NEW ORDERS
--- NOTE | 2020-05-28 15:30 | NUR ---
NURSE NOTES: Received Pt report from LELAND Lewis from ICU. Pt is stable, alert to only his own name. no s/s or complaint of distress at this time. Pt 4LPM NC no unlabored and even respirations. pt skin very dry, psorasis, flakey. Pt skin intact otherwise. paulino noted. RAC 18g SL, RFA 20g SL, L wrist 18g SL. IVs asymptomatic and intact. pt has B wrist restraints, pulse paltable, skin intact, <3 second cap refill and no edema. Pt high risk for fall, education provided, needs reeinforcement. pt bed low and locked, call light in reach and bed alarm on. pt instructed to utlize call light, verbalized understanding. Pt family notified of transfer and Pt belonings bedside including flip phone and $7, and clothing.
--- NOTE | 2020-05-28 15:31 | NUR ---
TRANSFER TO FLOOR: Patient transferred to [], per []. Report given to ERICKSON Martínez []. Belongings and medications given toERICKSON Martínez []. Family and or S/O informed of transfer. YES TO206/2
--- NOTE | 2020-05-28 18:05 | NUR ---
NURSE NOTES: IV on L wrist was leaking. Removed IV, catheter intact. No bleeding, covered with gauze and tape. Pt reports no pain at site.
--- NOTE | 2020-05-28 18:06 | NUR ---
NURSE HAND-OFF REPORT: Important Events on Shift: transfer from ICU to Patient Status: fc, stable Diet: npo Pending Orders: Pending Results/Labs: Pending MD notification: Latest Vital Signs: Temperature 98.4 , Pulse 73 , B/P 153 /73 , Respiratory Rate 16 , O2 SAT 93 , Nasal Cannula, O2 Flow Rate 4.0 . Vital Sign Comment: EKG Rhythm: Sinus Rhythm Rhythm change?: N MD Notified?: Guera Basilio MD Response: No New Orders Received Latest Stewart Fall Score: 75 Fall Risk: High Risk Safety Measures: Call light Within Reach, Bed Alarm Zone 2, Side Rails Side Rails x3, Bed position Low and Locked. Fall Precautions: Yellow Socks Yellow Gown Door Sign Patient Fall Education Report to be given. Addendum: 05/28/20 at 1954 by Milly Thacker RN RN Report given to MARTHA mohamud. Pt is stable.
--- NOTE | 2020-05-28 21:25 | General Progress Note ---
Subjective ROS Limited/Unobtainable: Yes Allergies: Coded Allergies: No Known Allergies (Unverified , 05/21/20) Objective Last 24 Hour Vital Signs Date Time Temp Pulse Resp B/P (MAP) Pulse Ox O2 Delivery O2 Flow Rate FiO2 05/28/20 17:30 73 16 153/73 (99) 93 05/28/20 16:00 98.4 78 16 173/73 (106) 95 05/28/20 16:00 67 05/28/20 14:00 67 14 150/72 (98) 98 05/28/20 13:00 68 15 168/73 (104) 98 05/28/20 12:00 97.6 72 15 173/79 (110) 98 05/28/20 12:00 Nasal Cannula 4.0 Nasal Cannula 4.0 05/28/20 12:00 69 05/28/20 11:00 67 14 154/80 (104) 98 05/28/20 10:16 72 167/75 05/28/20 10:14 72 05/28/20 10:00 73 15 161/81 (107) 98 05/28/20 09:00 72 21 149/71 (97) 97 05/28/20 08:00 98.8 73 17 167/78 (107) 98 05/28/20 08:00 Nasal Cannula 4.0 Nasal Cannula 4.0 05/28/20 08:00 79 05/28/20 08:00 Nasal Cannula 4.0 Nasal Cannula 4.0 05/28/20 07:00 72 14 159/69 (99) 98 05/28/20 06:00 72 17 167/73 (104) 97 05/28/20 05:00 72 18 158/72 (100) 98 05/28/20 04:01 73 05/28/20 04:00 Nasal Cannula 4.0 Nasal Cannula 4.0 05/28/20 04:00 97.8 72 20 149/74 (99) 97 05/28/20 03:00 79 26 150/76 (100) 97 05/28/20 02:00 73 19 151/68 (95) 98 05/28/20 01:00 82 21 158/71 (100) 98 05/28/20 00:00 97.4 71 21 149/66 (93) 99 05/28/20 00:00 Nasal Cannula 4.0 Nasal Cannula 4.0 05/27/20 23:11 71 05/27/20 23:00 70 16 152/68 (96) 99 05/27/20 22:00 72 22 142/64 (90) 99 Intake and Output 05/27/20 05/28/20 19:00 07:00 Intake Total 1019.5 ml 973.75 ml Output Total 670 ml 510 ml Balance 349.5 ml 463.75 ml IV Total 1019.5 ml 973.75 ml Output Urine Total 670 ml 510 ml Laboratory Tests 05/28/20 04:15: White Blood Count 8.8, Red Blood Count 3.07L, Hemoglobin 10.1L, Hematocrit 28.8L , Mean Corpuscular Volume 94, Mean Corpuscular Hemoglobin 32.8H, Mean Corpuscular Hemoglobin Concent 34.9, Red Cell Distribution Width 14.5, Platelet Count 132L, Mean Platelet Volume 9.5, Neutrophils (%) (Auto) , Lymphocytes (%) (Auto) , Monocytes (%) (Auto) , Eosinophils (%) (Auto) , Basophils (%) (Auto) , Differential Total Cells Counted 100, Neutrophils % (Manual) 87H, Lymphocytes % (Manual) 7L, Monocytes % (Manual) 6, Eosinophils % (Manual) 0, Basophils % (Manual) 0, Band Neutrophils 0, Platelet Estimate DecreasedL, Platelet Morphology Normal, Anisocytosis 1+, D-Dimer 3.01H, Sodium Level 141, Potassium Level 3.8, Chloride Level 109H, Carbon Dioxide Level 22, Anion Gap 11, Blood Urea Nitrogen 32H, Creatinine 1.3, Estimat Glomerular Filtration Rate 52.9, Glucose Level 183H, Calcium Level 7.4L, Phosphorus Level 3.5, Magnesium Level 2.2, Total Bilirubin 0.5, Aspartate Amino Transf (AST/SGOT) 53H, Alanine Aminotransferase (ALT/SGPT) 31, Alkaline Phosphatase 68, Total Protein 5.9L, Albumin 1.8L, Globulin 4.1, Albumin/Globulin Ratio 0.4L, Digoxin Level 1.6 Height (Feet): 5 Height (Inches): 7.00 Weight (Pounds): 159 Assessment/Plan Problem List: (1) Renal insufficiency ICD Codes: N28.9 - Disorder of kidney and ureter, unspecified SNOMED: 872213134, 468259949 (2) Encephalopathy ICD Codes: G93.40 - Encephalopathy, unspecified SNOMED: 43658109, 887698574 (3) Head injury ICD Codes: S09.90XA - Unspecified injury of head, initial encounter SNOMED: 20429956, 049074520 Qualifiers: Qualified Codes: S09.90XA - Unspecified injury of head, initial encounter (4) Pneumonia ICD Codes: J18.9 - Pneumonia, unspecified organism SNOMED: 133252135 Qualifiers: Qualified Codes: J18.9 - Pneumonia, unspecified organism (5) Abnormal EKG ICD Codes: R94.31 - Abnormal electrocardiogram [ECG] [EKG]; J12.89 - Other viral pneumonia SNOMED: 243495201 (6) Altered level of consciousness ICD Codes: R40.4 - Transient alteration of awareness SNOMED: 3810435 (7) Dehydration ICD Codes: E86.0 - Dehydration SNOMED: 26852639 (8) Pneumonia due to COVID-19 virus ICD Codes: U07.1 - COVID-19; J12.89 - Other viral pneumonia SNOMED: 721154933724695391 (9) Renal failure (ARF), acute on chronic ICD Codes: N17.9 - Acute kidney failure, unspecified; N18.9 - Chronic kidney disease, unspecified SNOMED: 681898159 Status: progressing, deteriorating Assessment/Plan: off drip off icu afebrile covid positive pna s/p a fib w rvr Yvette Waldrop MD May 28, 2020 21:25
--- NOTE | 2020-05-28 23:10 | Psychiatric Progress Note ---
Psychiatry Progress Note Psychiatry Progress Note Subjective the pt is the same episodes o agitation Medications Current Medications Medications (Trade) Dose Ordered Sig/Celia Route PRN Reason Start Time Stop Time Status Last Admin Dose Admin Apixaban (Eliquis) 2.5 mg BID ORAL 05/24/20 18:00 08/22/20 17:59 05/28/20 17:11 Barium Sulfate (Varibar Honey) 250 ml NOW PRN RAD 05/27/20 14:45 05/30/20 14:34 Barium Sulfate (Varibar [place]) 240 ml NOW PRN MC RAD 05/27/20 14:45 05/30/20 14:34 Barium Sulfate (Varibar Pudding) 230 ml NOW PRN MC RAD 05/27/20 14:45 05/30/20 14:34 Barium Sulfate (Varibar Thin Liquid powder) 148 gm NOW PRN RAD 05/27/20 14:45 05/30/20 14:34 Ceftriaxone Sodium 1 gm/ Dextrose 55 ml @ 110 mls/hr Q24H IVPB 05/26/20 12:00 06/02/20 11:59 05/28/20 12:00 Dexamethasone Sodium Phosphate (Decadron 10mg/ ml Inj) 6 mg DAILY IV 05/26/20 11:00 06/04/20 09:01 05/28/20 10:31 Dextrose/Sodium Chloride 1,000 ml @ 75 mls/hr [id number] IV 05/22/20 13:30 06/21/20 13:29 05/28/20 17:11 Digoxin (Lanoxin) 0.125 mg DAILY ORAL 05/28/20 09:00 08/26/20 08:59 05/28/20 10:14 Diphenhydramine HCl (Benadryl) 25 mg Q6H PRN IVP Itching 05/26/20 14:45 06/25/20 14:44 Haloperidol Lactate (Haldol) 5 mg Q6H PRN IM Agitation 05/22/20 13:15 07/06/20 13:14 05/26/20 08:33 Metoprolol Tartrate (Lopressor) 100 mg EVERY 12 HOURS ORAL 05/27/20 21:00 08/25/20 20:59 05/28/20 22:42 Pantoprazole (Protonix) 40 mg EVERY 12 HOURS IVP 05/22/20 21:00 06/21/20 20:59 05/28/20 22:42 Phosphorus (Phospha 250 Neutral) 250 mg THREE TIMES A DAY ORAL 05/26/20 12:00 06/25/20 11:59 05/28/20 17:10 Quetiapine Fumarate (SEROqueL) 50 mg Q12HR ORAL 05/26/20 13:15 07/10/20 13:14 05/28/20 22:42 Neurological/Psychiatric: Reports: anxiety, depressed Allergies: Coded Allergies: No Known Allergies (Unverified , 05/21/20) Objective Data Height (Feet): 5 Height (Inches): 7.00 Weight (Pounds): 159 General Appearance: no apparent distress Additional Comments: waxing and waning consciousness. Mood is anxious. Affect is blunted, congruent with mood. Thought process is concrete. Thought content, no suicidal or homicidal ideation. Cognition is impaired. Insight and judgment impaired. Assessment/Plan Maribel I: ASSESSMENT: Maribel I Acute metabolic encephalopathy. Dementia. Maribel II Deferred. Maribel III Renal insufficiency and head injury. Maribel IV Low. Maribel V 20. PLAN: 1. We will start the patient on Haldol IM p.r.n. 2. Restraints. 3. Discussed with the nurse. Status: progressing, deteriorating Status Narrative ASSESSMENT: Maribel I Acute metabolic encephalopathy. Dementia. Maribel II Deferred. Maribel III Renal insufficiency and head injury. Maribel IV Low. Maribel V 20. PLAN: 1. We will start the patient on Haldol IM p.r.n. 2. Restraints. 3. Discussed with the nurse. Assessment/Plan: ASSESSMENT: Maribel I Acute metabolic encephalopathy. Dementia. Maribel II Deferred. Maribel III Renal insufficiency and head injury. Maribel IV Low. Maribel V 20. PLAN: 1. We will start the patient on Haldol IM p.r.n. 2. Restraints. 3. Discussed with the nurse. Francheska Huynh MD May 28, 2020 23:10
[2020-05-29] VITALS: BP 148/65
[2020-05-29 04:00] VITALS: BP 154/68
[2020-05-29] MEDS: D5 1/2NS 1,000 ML IV SCH ×2 (05:30→17:54)
--- NOTE | 2020-05-29 07:30 | NUR ---
NURSE NOTES: Received report from Avril/RN, Patient is asleep, lying semi-sears's, resting comfortably. AAO x1-2. On 4L nasal canula, no acute distress/SOB noted at this time. IV on right FA and AC, D5 1/2 NS running @75cc/hr. NPO at this time. On soft bilateral wrist restraint for safety. Bed in lowest position and locked, side rails x3, Call light within reach. Encouraged to use call light when needed. Will continue plan of care.
[2020-05-29 08:00] VITALS: BP 159/95
[2020-05-29] MEDS: Phospha 250 Neutral tab ORAL SCH ×3 (10:18→17:52)
[2020-05-29] MEDS: Digoxin 0.125mg tab ORAL SCH (10:18)
[2020-05-29] MEDS: Metoprolol Tartrate 100mg tab ORAL SCH ×2 (10:19→21:28)
[2020-05-29] MEDS: dexAMETHasone 10mg/ml Inj IV SCH (10:19)
[2020-05-29] MEDS: Pantoprazole Inj IVP SCH ×2 (10:19→21:27)
[2020-05-29] MEDS: Eliquis 2.5mg tablet ORAL SCH ×2 (10:20→17:52)
[2020-05-29 12:00] VITALS: BP 150/67
[2020-05-29] MEDS: cefTRIAXone 1 GM in D5W 55 ML IVPB SCH (12:41)
--- NOTE | 2020-05-29 12:55 | Pulmonology Progress Note ---
Subjective ROS Limited/Unobtainable: Yes Interval Events: none major reported per nursing Constitutional: Denies: fever HEENT: Repors: no symptoms Respiratory: Reports: no symptoms Cardiovascular: Reports: no symptoms Gastrointestinal/Abdominal: Reports: no symptoms Allergies: Coded Allergies: No Known Allergies (Unverified , 05/21/20) Objective Last 24 Hour Vital Signs Date Time Temp Pulse Resp B/P (MAP) Pulse Ox O2 Delivery O2 Flow Rate FiO2 05/29/20 10:19 68 159/95 05/29/20 10:18 68 05/29/20 08:00 67 05/29/20 08:00 97.9 68 20 159/95 (116) 97 05/29/20 04:00 70 05/29/20 04:00 68 20 154/68 (96) 96 05/29/20 00:00 70 05/29/20 00:00 73 20 148/65 (92) 100 05/28/20 22:42 79 132/69 05/28/20 20:00 98.1 73 16 173/73 (106) 95 05/28/20 17:30 73 16 153/73 (99) 93 05/28/20 16:00 98.4 78 16 173/73 (106) 95 05/28/20 16:00 67 05/28/20 14:00 67 14 150/72 (98) 98 05/28/20 13:00 68 15 168/73 (104) 98 Intake and Output 05/28/20 05/29/20 19:00 07:00 Intake Total 640 ml Output Total 350 ml 25 ml Balance 290 ml -25 ml Intake Oral 60 ml IV Total 580 ml Output Urine Total 350 ml 25 ml Objective 05/29 saturating well on 4 lpm NC; agitated, A&O x1-2 05/24/2020 currently on 2 lpm NC saturating well 05/23/2020 Setswana speaking pt, A&O x2, saturating well on RA General Appearance: WD/WN, no acute distress HEENT: normocephalic, atraumatic Respiratory: chest wall non-tender, lungs clear Cardiovascular: normal rate, regular rhythm Abdomen: other - obese Extremities: no edema Skin: other - 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 Musculoskeletal: other - left hip tenderness to palpation, no contusion, no crepitus noted Current Medications Medications (Trade) Dose Ordered Sig/Celia Route PRN Reason Start Time Stop Time Status Last Admin Dose Admin Apixaban (Eliquis) 2.5 mg BID ORAL 05/24/20 18:00 08/22/20 17:59 05/29/20 10:20 Barium Sulfate (Varibar Honey) 250 ml NOW PRN RAD 05/27/20 14:45 05/30/20 14:34 Barium Sulfate (Varibar [place]) 240 ml NOW PRN RAD 05/27/20 14:45 05/30/20 14:34 Barium Sulfate (Varibar Pudding) 230 ml NOW PRN RAD 05/27/20 14:45 05/30/20 14:34 Barium Sulfate (Varibar Thin Liquid powder) 148 gm NOW PRN RAD 05/27/20 14:45 05/30/20 14:34 Ceftriaxone Sodium 1 gm/ Dextrose 55 ml @ 110 mls/hr Q24H IVPB 05/26/20 12:00 06/02/20 11:59 05/29/20 12:41 Dexamethasone Sodium Phosphate (Decadron 10mg/ ml Inj) 6 mg DAILY IV 05/26/20 11:00 06/04/20 09:01 05/29/20 10:19 Dextrose/Sodium Chloride 1,000 ml @ 75 mls/hr [id number] IV 05/22/20 13:30 06/21/20 13:29 05/29/20 05:30 Digoxin (Lanoxin) 0.125 mg DAILY ORAL 05/28/20 09:00 08/26/20 08:59 05/29/20 10:18 Diphenhydramine HCl (Benadryl) 25 mg Q6H PRN IVP Itching 05/26/20 14:45 06/25/20 14:44 Haloperidol Lactate (Haldol) 5 mg Q6H PRN IM Agitation 05/22/20 13:15 07/06/20 13:14 05/26/20 08:33 Metoprolol Tartrate (Lopressor) 100 mg EVERY 12 HOURS ORAL 05/27/20 21:00 08/25/20 20:59 05/29/20 10:19 Pantoprazole (Protonix) 40 mg EVERY 12 HOURS IVP 05/22/20 21:00 06/21/20 20:59 05/29/20 10:19 Phosphorus (Phospha 250 Neutral) 250 mg THREE TIMES A DAY ORAL 05/26/20 12:00 06/25/20 11:59 05/29/20 12:40 Quetiapine Fumarate (SEROqueL) 50 mg Q12HR ORAL 05/26/20 13:15 07/10/20 13:14 05/29/20 10:19 Assessment/Plan Assessment/Plan 1. Pneumonia. 2. Anemia. 3. Renal insufficiency. - Hydration 4. Elevated inflammatory markers with high CRP. 5. Hypokalemia. 6. Mild protein-calorie malnutrition. 7. COVID-19 - hold off on any specific therapy for COVID such as remdesivir. - On decadron given mild hypoxemia 8. Wound care instituted 9. Left hip pain s/p fall - Tenderness to palpation and limited range of motion of L hip s/p fall x3 without signs of contusion or crepitus - L hip XRay - no fractures noted 10. s/p fall 11. Afib; now off Cardizem gtt Now on 4L/min O2 Transfer to tele The care for this patient was discussed with my supervising physician Time spent for this case was approximately 31 minutes Otoniel Ramirez May 29, 2020 12:55 Ector Howe MD May 29, 2020 16:35
--- NOTE | 2020-05-29 13:16 | Nephrology Progress Note ---
Assessment/Plan Problem List: (1) Renal failure (ARF), acute on chronic (2) Dehydration (3) Pneumonia due to COVID-19 virus Assessment Acute renal failure Possible underlying chronic kidney disease Dehydration Electrolyte imbalance Toxic metabolic encephalopathy Pneumonia due to COVID-19 virus Mild anemia Plan May 29: No labs drawn today. Heart rate within normal range. Stable from renal standpoint of view. May 28: Renal parameters improved. Heart rate within normal limits. Continue per current treatment plan and consultants. May 27: Serum creatinine down to 1.5. Heart rate normalized. Continue per consultants. Continue to monitor electrolytes and renal parameters. May 26: Borderline blood pressure. Serum creatinine higher at 1.9. Remains under the care of bass mechanism maker for rhythm management. Continue to monitor electrolytes and adjust abnormalities May 25: Patient now in ICU on Cardizem drip. Serum creatinine 1.7. Rest of the electrolytes within normal limit. Continue per cardiology. Continue to monitor renal parameters and electrolytes. May 24: Labs reviewed. Serum creatinine 1.6. Phosphorus low, IV K-Phos ordered. Continue to monitor renal parameters. Continue per current management. Slow hydrate Magnesium sulfate IV supplement today Antibiotics, avoid nephrotoxic's Monitor renal parameters electrolytes Keep the blood pressure blood sugar in check Patient full code Subjective ROS Limited/Unobtainable: No Constitutional: Reports: malaise Objective Objective Last 24 Hour Vital Signs Date Time Temp Pulse Resp B/P (MAP) Pulse Ox O2 Delivery O2 Flow Rate FiO2 05/29/20 10:19 68 159/95 05/29/20 10:18 68 05/29/20 08:00 67 05/29/20 08:00 97.9 68 20 159/95 (116) 97 05/29/20 04:00 70 05/29/20 04:00 68 20 154/68 (96) 96 05/29/20 00:00 70 05/29/20 00:00 73 20 148/65 (92) 100 05/28/20 22:42 79 132/69 05/28/20 20:00 98.1 73 16 173/73 (106) 95 05/28/20 17:30 73 16 153/73 (99) 93 05/28/20 16:00 98.4 78 16 173/73 (106) 95 05/28/20 16:00 67 05/28/20 14:00 67 14 150/72 (98) 98 Intake and Output 05/28/20 05/29/20 19:00 07:00 Intake Total 640 ml Output Total 350 ml 25 ml Balance 290 ml -25 ml Intake Oral 60 ml IV Total 580 ml Output Urine Total 350 ml 25 ml Height (Feet): 5 Height (Inches): 7.00 Weight (Pounds): 159 Cardiovascular: normal rate Respiratory/Chest: decreased breath sounds Abdomen: soft Jerome Delaney MD May 29, 2020 13:16
[2020-05-29 16:00] VITALS: BP 176/70
--- NOTE | 2020-05-29 17:07 | Cardiac Electrophysiology PN ---
Assessment/Plan Assessment/Plan 1. Syncope. Etiology is not clear at this time. The first troponin is negative but second one mildly elevated that could be due to renal failure EF 60%. He might have been dehydrated 2. Atrial fib with RVR. Not eating and no NGT. Swallow eval is pending. On metoprolol 100 bid,Eliquis 2.5 bid and Dig 0.125 po daily Dig level 1.6 3. Troponin elevation. Levels are low and coming down. Already on Lopressor 4. Complete right bundle-branch block and lateral T-wave inversion. 5. Covid PNA on 3 liter NC 6. Dysphagia. YASMIN RN Subjective Subjective Transferred out of ICU in Covid isolation off Cardizem drip and on Lopressor 100 bid and Dig 0.125 po daily. Dig level 1.6. On 4 liter NC. In SR. In restraints due to falls Objective Last 24 Hour Vital Signs Date Time Temp Pulse Resp B/P (MAP) Pulse Ox O2 Delivery O2 Flow Rate FiO2 05/29/20 16:00 97.5 64 22 176/70 (105) 97 05/29/20 16:00 69 05/29/20 15:43 Nasal Cannula 4.0 Nasal Cannula 4.0 05/29/20 12:00 67 05/29/20 12:00 97.5 71 20 150/67 (94) 96 05/29/20 10:19 68 159/95 05/29/20 10:18 68 05/29/20 08:00 67 05/29/20 08:00 97.9 68 20 159/95 (116) 97 05/29/20 04:00 70 05/29/20 04:00 68 20 154/68 (96) 96 05/29/20 00:00 70 05/29/20 00:00 73 20 148/65 (92) 100 05/28/20 22:42 79 132/69 05/28/20 20:00 98.1 73 16 173/73 (106) 95 05/28/20 17:30 73 16 153/73 (99) 93 Intake and Output 05/28/20 05/29/20 19:00 07:00 Intake Total 640 ml Output Total 350 ml 25 ml Balance 290 ml -25 ml Intake Oral 60 ml IV Total 580 ml Output Urine Total 350 ml 25 ml Objective HEAD AND NECK: No JVD. LUNGS: Clear. CARDIOVASCULAR: Shows regular S1 and S2 with no gallop or murmur. ABDOMEN: Soft. EXTREMITIES: No pitting edema. Rick Basilio MD May 29, 2020 17:07
--- NOTE | 2020-05-29 18:45 | NUR ---
NURSE NOTES: Changed and repositioned, tolerated well. Will continue to monitor.
--- NOTE | 2020-05-29 19:23 | NUR ---
NURSE HAND-OFF REPORT: Important Events on Shift:[] n/a Patient Status: [] full code Diet: [] NPO Pending Orders: [] Pending Results/Labs:[] morning labs Pending MD notification:[] Latest Vital Signs: Temperature 97.5 , Pulse 64 , B/P 176 /70 , Respiratory Rate 22 , O2 SAT 97 , Nasal Cannula, O2 Flow Rate 4.0 . Vital Sign Comment: [] EKG Rhythm: SR w/BBB Rhythm change?: N MD Notified?: N -Dr Praful MONSIVAIS Response: No New Orders Received Latest Stewart Fall Score: 75 Fall Risk: High Risk Safety Measures: Call light Within Reach, Bed Alarm Zone 2, Side Rails Side Rails x3, Bed position Low and Locked. Fall Precautions: Yellow Socks Yellow Gown Door Sign Patient Fall Education Report given to Monicao RN[].
--- NOTE | 2020-05-29 19:30 | NUR ---
NURSE NOTES: Receive a report from MARTHA Hernandez.
[2020-05-29 20:00] VITALS: BP 112/74
--- NOTE | 2020-05-29 20:00 | NUR ---
NURSE NOTES: No respiratory distress noted. On O2 4L NC. On bilateral soft restraints. Skin intact. On NPO and IV hydration as ordered. Mera inserted state. On bed alarm. Bed is lowest. Call light within reach. Will continue to monitor.
--- NOTE | 2020-05-29 21:02 | General Progress Note ---
Subjective ROS Limited/Unobtainable: Yes Allergies: Coded Allergies: No Known Allergies (Unverified , 05/21/20) Objective Last 24 Hour Vital Signs Date Time Temp Pulse Resp B/P (MAP) Pulse Ox O2 Delivery O2 Flow Rate FiO2 05/29/20 16:00 97.5 64 22 176/70 (105) 97 05/29/20 16:00 69 05/29/20 15:43 Nasal Cannula 4.0 Nasal Cannula 4.0 05/29/20 12:00 67 05/29/20 12:00 97.5 71 20 150/67 (94) 96 05/29/20 10:19 68 159/95 05/29/20 10:18 68 05/29/20 08:00 67 05/29/20 08:00 97.9 68 20 159/95 (116) 97 05/29/20 04:00 70 05/29/20 04:00 68 20 154/68 (96) 96 05/29/20 00:00 70 05/29/20 00:00 73 20 148/65 (92) 100 05/28/20 22:42 79 132/69 Intake and Output 05/28/20 05/29/20 19:00 07:00 Intake Total 640 ml 75 ml Output Total 350 ml 25 ml Balance 290 ml 50 ml Intake Oral 60 ml IV Total 580 ml 75 ml Output Urine Total 350 ml 25 ml Height (Feet): 5 Height (Inches): 7.00 Weight (Pounds): 159 Assessment/Plan Problem List: (1) Renal insufficiency ICD Codes: N28.9 - Disorder of kidney and ureter, unspecified SNOMED: 810674611, 550424654 (2) Encephalopathy ICD Codes: G93.40 - Encephalopathy, unspecified SNOMED: 60361543, 551765288 (3) Head injury ICD Codes: S09.90XA - Unspecified injury of head, initial encounter SNOMED: 17750483, 081652301 Qualifiers: Qualified Codes: S09.90XA - Unspecified injury of head, initial encounter (4) Pneumonia ICD Codes: J18.9 - Pneumonia, unspecified organism SNOMED: 557474564 Qualifiers: Qualified Codes: J18.9 - Pneumonia, unspecified organism (5) Abnormal EKG ICD Codes: R94.31 - Abnormal electrocardiogram [ECG] [EKG]; J12.89 - Other viral pneumonia SNOMED: 035070122 (6) Altered level of consciousness ICD Codes: R40.4 - Transient alteration of awareness SNOMED: 9896267 (7) Dehydration ICD Codes: E86.0 - Dehydration SNOMED: 77371992 (8) Pneumonia due to COVID-19 virus ICD Codes: U07.1 - COVID-19; J12.89 - Other viral pneumonia SNOMED: 316063386454787616 (9) Renal failure (ARF), acute on chronic ICD Codes: N17.9 - Acute kidney failure, unspecified; N18.9 - Chronic kidney disease, unspecified SNOMED: 870991321 Status: progressing, deteriorating Assessment/Plan: resp insuff supportive rx no fever covid positive pna s/p a fib w rvr Yvette Waldrop MD May 29, 2020 21:02
[2020-05-30] VITALS: BP_SYST 109; BP_SYST 156; BP_DIAS 61; BP_DIAS 66
[2020-05-30 04:00] VITALS: BP 154/73
--- NOTE | 2020-05-30 07:15 | NUR ---
NURSE HAND-OFF REPORT: Important Events on Shift: No change of conditions. Patient Status: [stable] Diet: [npo except po medication] Pending Orders: [] Pending Results/Labs:[] Pending MD notification:[] Latest Vital Signs: Temperature 97.3 , Pulse 64 , B/P 154 /73 , Respiratory Rate 22 , O2 SAT 99 , Nasal Cannula, O2 Flow Rate 4.0 . Vital Sign Comment: [] EKG Rhythm: SR w/BBB Rhythm change?: N MD Notified?: N -Dr Praful MONSIVAIS Response: No New Orders Received Latest Stewart Fall Score: 85 Fall Risk: High Risk Safety Measures: Call light Within Reach, Bed Alarm Zone 2, Side Rails Side Rails x3, Bed position Low and Locked. Fall Precautions: Yellow Socks Yellow Gown Door Sign Patient Fall Education Report given to MARTHA Hernandez.
--- NOTE | 2020-05-30 07:20 | NUR ---
NURSE NOTES: Received report from Gho/RN, Patient is asleep, lying semi-sears's, resting comfortably. AAO x1-2. On 4L nasal canula, no acute distress/SOB noted at this time. IV on left FA , D5 1/2 NS running @75cc/hr. NPO at this time. On soft bilateral wrist restraint for safety. Bed in lowest position and locked, side rails x3, Call light within reach. Encouraged to use call light when needed. Will continue plan of care.
[2020-05-30 08:00] VITALS: BP 169/77
[2020-05-30] MEDS: D5 1/2NS 1,000 ML IV SCH ×2 (08:00→21:30)
[2020-05-30 08:14] LABS: BASOPHILS % (AUTO) 0.9 % (0.0-2.0); HEMATOCRIT 32.8 % (42.0-52.0); LYMPHOCYTES % (AUTO) 8.4 % (20.0-45.0); MEAN CORPUSCULAR VOLUME 96 FL (80-99); MONOCYTES % (AUTO) 7.9 % (1.0-10.0); NEUTROPHILS % (AUTO) 82.8 % (45.0-75.0); PLATELET COUNT 158 K/UL (150-450); RED CELL DISTRIBUTION WIDTH 15.1 % (11.6-14.8); WHITE BLOOD COUNT 9.5 K/UL (4.8-10.8)
[2020-05-30 09:16] LABS: ALANINE AMINOTRANSFERASE 37 U/L (12-78); ALBUMIN/GLOBULIN RATIO 0.4 (1.0-2.7); ALKALINE PHOSPHATASE 71 U/L (46-116); ANION GAP 13 mmol/L (5-15); ASPARTATE AMINO TRANSFERASE 54 U/L (15-37); BILIRUBIN,TOTAL 0.6 MG/DL (0.2-1.0); BLOOD UREA NITROGEN 26 mg/dL (7-18); CALCIUM 7.5 MG/DL (8.5-10.1); CARBON DIOXIDE 21 MMOL/L (21-32); CHLORIDE 103 MMOL/L (98-107); PHOSPHORUS 3.6 MG/DL (2.5-4.9); POTASSIUM 4.1 MMOL/L (3.5-5.1); SODIUM 137 MMOL/L (136-145)
[2020-05-30] MEDS: Pantoprazole Inj IVP SCH ×2 (09:51→20:44)
[2020-05-30] MEDS: dexAMETHasone 10mg/ml Inj IV SCH (09:51)
[2020-05-30] MEDS: Metoprolol Tartrate 100mg tab ORAL SCH ×2 (09:51→20:44)
[2020-05-30] MEDS: Eliquis 2.5mg tablet ORAL SCH (09:52)
[2020-05-30] MEDS: Digoxin 0.125mg tab ORAL SCH (09:52)
[2020-05-30 12:00] VITALS: BP 143/60
[2020-05-30] MEDS: cefTRIAXone 1 GM in D5W 55 ML IVPB SCH (12:08)
--- NOTE | 2020-05-30 13:15 | Infectious Diseases Prog Note ---
Assessment/Plan Assessment/Plan IMPRESSION: COVID-19 pneumonia. Acute renal failure, Dehydration, Atrial fibrillation with rapid ventricular rate, Right bundle-branch block, History of coronary artery disease with bypass, Dementia. RECOMMENDATION: Continue Dexamethasone Continue Rocephin X 1 day Case was D/W RN Subjective ROS Limited/Unobtainable: Yes Constitutional: Denies: fever Neurologic: Reports: confusion, other - on restraint Allergies: Coded Allergies: No Known Allergies (Unverified , 05/21/20) Objective Last 24 Hour Vital Signs Date Time Temp Pulse Resp B/P (MAP) Pulse Ox O2 Delivery O2 Flow Rate FiO2 05/30/20 09:52 73 05/30/20 09:51 73 169/77 05/30/20 08:00 62 05/30/20 08:00 97.7 73 20 169/77 (107) 94 05/30/20 04:00 97.3 64 22 154/73 (100) 99 05/30/20 04:00 60 05/30/20 00:00 60 05/30/20 00:00 97.3 67 22 156/66 (96) 97 05/29/20 21:28 66 112/74 05/29/20 20:00 65 05/29/20 20:00 97.7 66 22 112/74 (87) 92 05/29/20 16:00 97.5 64 22 176/70 (105) 97 05/29/20 16:00 69 05/29/20 15:43 Nasal Cannula 4.0 Nasal Cannula 4.0 Height (Feet): 5 Height (Inches): 7.00 Weight (Pounds): 159 HEENT: mucous membranes moist Respiratory/Chest: other - oxygen by nasal cannula 4 liters Cardiovascular: normal rate Abdomen: soft, non tender Extremities: no edema Neurologic/Psychiatric: other - sleeping Laboratory Tests Test 05/30/20 05:50 White Blood Count 9.5 K/UL (4.8-10.8) Red Blood Count 3.40 M/UL (4.70-6.10) L Hemoglobin 11.0 G/DL (14.2-18.0) L Hematocrit 32.8 % (42.0-52.0) L Mean Corpuscular Volume 96 FL (80-99) Mean Corpuscular Hemoglobin 32.3 PG (27.0-31.0) H Mean Corpuscular Hemoglobin Concent 33.5 G/DL (32.0-36.0) Red Cell Distribution Width 15.1 % (11.6-14.8) H Platelet Count 158 K/UL (150-450) Mean Platelet Volume 9.7 FL (6.5-10.1) Neutrophils (%) (Auto) 82.8 % (45.0-75.0) H Lymphocytes (%) (Auto) 8.4 % (20.0-45.0) L Monocytes (%) (Auto) 7.9 % (1.0-10.0) Eosinophils (%) (Auto) 0.0 % (0.0-3.0) Basophils (%) (Auto) 0.9 % (0.0-2.0) Sodium Level 137 MMOL/L (136-145) Potassium Level 4.1 MMOL/L (3.5-5.1) Chloride Level 103 MMOL/L (98-107) Carbon Dioxide Level 21 MMOL/L (21-32) Anion Gap 13 mmol/L (5-15) Blood Urea Nitrogen 26 mg/dL (7-18) H Creatinine 1.0 MG/DL (0.55-1.30) Estimat Glomerular Filtration Rate > 60 mL/min (>60) Glucose Level 134 MG/DL (74-106) H Calcium Level 7.5 MG/DL (8.5-10.1) L Phosphorus Level 3.6 MG/DL (2.5-4.9) Magnesium Level 1.5 MG/DL (1.8-2.4) L Total Bilirubin 0.6 MG/DL (0.2-1.0) Aspartate Amino Transf (AST/SGOT) 54 U/L (15-37) H Alanine Aminotransferase (ALT/SGPT) 37 U/L (12-78) Alkaline Phosphatase 71 U/L (46-116) C-Reactive Protein, Quantitative 8.2 mg/dL (0.00-0.90) H Total Protein 6.5 G/DL (6.4-8.2) Albumin 2.0 G/DL (3.4-5.0) L Globulin 4.5 g/dL Albumin/Globulin Ratio 0.4 (1.0-2.7) L Current Medications Medications (Trade) Dose Ordered Sig/Celia Route PRN Reason Start Time Stop Time Status Last Admin Dose Admin Apixaban (Eliquis) 5 mg BID ORAL 05/30/20 18:00 08/28/20 17:59 Barium Sulfate (Varibar Honey) 250 ml NOW PRN RAD 05/27/20 14:45 05/30/20 14:34 Barium Sulfate (Varibar [place]) 240 ml NOW PRN RAD 05/27/20 14:45 05/30/20 14:34 Barium Sulfate (Varibar Pudding) 230 ml NOW PRN RAD 05/27/20 14:45 05/30/20 14:34 Barium Sulfate (Varibar Thin Liquid powder) 148 gm NOW PRN RAD 05/27/20 14:45 05/30/20 14:34 Ceftriaxone Sodium 1 gm/ Dextrose 55 ml @ 110 mls/hr Q24H IVPB 05/26/20 12:00 06/02/20 11:59 05/30/20 12:08 Dexamethasone Sodium Phosphate (Decadron 10mg/ ml Inj) 6 mg DAILY IV 05/26/20 11:00 06/04/20 09:01 05/30/20 09:51 Dextrose/Sodium Chloride 1,000 ml @ 75 mls/hr [id number] IV 05/22/20 13:30 06/21/20 13:29 05/30/20 08:00 Digoxin (Lanoxin) 0.125 mg DAILY ORAL 05/28/20 09:00 08/26/20 08:59 05/30/20 09:52 Diphenhydramine HCl (Benadryl) 25 mg Q6H PRN IVP Itching 05/26/20 14:45 06/25/20 14:44 Haloperidol Lactate (Haldol) 5 mg Q6H PRN IM Agitation 05/22/20 13:15 07/06/20 13:14 05/26/20 08:33 Magnesium Sulfate 100 ml @ 100 mls/hr Q1H IVPB 05/30/20 10:00 05/30/20 13:59 05/30/20 12:07 Metoprolol Tartrate (Lopressor) 100 mg EVERY 12 HOURS ORAL 05/27/20 21:00 08/25/20 20:59 05/30/20 09:51 Pantoprazole (Protonix) 40 mg EVERY 12 HOURS IVP 05/22/20 21:00 06/21/20 20:59 05/30/20 09:51 Quetiapine Fumarate (SEROqueL) 50 mg Q12HR ORAL 05/26/20 13:15 07/10/20 13:14 05/30/20 09:51 Mahin Leyva MD May 30, 2020 13:15
--- NOTE | 2020-05-30 15:50 | Pulmonology Progress Note ---
Subjective ROS Limited/Unobtainable: Yes Interval Events: none major reported per nursing Constitutional: Denies: fever HEENT: Repors: no symptoms Respiratory: Reports: no symptoms Cardiovascular: Reports: no symptoms Gastrointestinal/Abdominal: Reports: no symptoms Allergies: Coded Allergies: No Known Allergies (Unverified , 05/21/20) Objective Last 24 Hour Vital Signs Date Time Temp Pulse Resp B/P (MAP) Pulse Ox O2 Delivery O2 Flow Rate FiO2 05/30/20 12:00 98.1 59 19 143/60 (87) 94 05/30/20 12:00 58 05/30/20 09:52 73 05/30/20 09:51 73 169/77 05/30/20 08:00 62 05/30/20 08:00 97.7 73 20 169/77 (107) 94 05/30/20 04:00 97.3 64 22 154/73 (100) 99 05/30/20 04:00 60 05/30/20 00:00 60 05/30/20 00:00 97.3 67 22 156/66 (96) 97 05/29/20 21:28 66 112/74 05/29/20 20:00 65 05/29/20 20:00 97.7 66 22 112/74 (87) 92 05/29/20 16:00 97.5 64 22 176/70 (105) 97 05/29/20 16:00 69 Intake and Output 05/29/20 05/30/20 19:00 07:00 Intake Total 880 ml 900 ml Output Total 500 ml Balance 880 ml 400 ml IV Total 880 ml 900 ml Output Urine Total 500 ml Objective 05/30 saturating well on 4 L NC; pt asleep 05/29 saturating well on 4 lpm NC; agitated, A&O x1-2 05/24/2020 currently on 2 lpm NC saturating well 05/23/2020 Arabic speaking pt, A&O x2, saturating well on RA General Appearance: WD/WN, no acute distress HEENT: normocephalic, atraumatic Respiratory: chest wall non-tender, lungs clear Cardiovascular: normal rate, regular rhythm Abdomen: other - obese Extremities: no edema Skin: other - 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 Musculoskeletal: other - left hip tenderness to palpation, no contusion, no crepitus noted Laboratory Tests 05/30/20 05:50: White Blood Count 9.5, Red Blood Count 3.40L, Hemoglobin 11.0L, Hematocrit 32.8L , Mean Corpuscular Volume 96, Mean Corpuscular Hemoglobin 32.3H, Mean Corpuscular Hemoglobin Concent 33.5, Red Cell Distribution Width 15.1H, Platelet Count 158, Mean Platelet Volume 9.7, Neutrophils (%) (Auto) 82.8H, Lymphocytes (%) (Auto) 8.4L, Monocytes (%) (Auto) 7.9, Eosinophils (%) (Auto) 0.0, Basophils (%) (Auto) 0.9, Sodium Level 137, Potassium Level 4.1, Chloride Level 103, Carbon Dioxide Level 21, Anion Gap 13, Blood Urea Nitrogen 26H, Creatinine 1.0, Estimat Glomerular Filtration Rate > 60, Glucose Level 134H, Calcium Level 7.5L, Phosphorus Level 3.6, Magnesium Level 1.5L, Total Bilirubin 0.6, Aspartate Amino Transf (AST/SGOT) 54H, Alanine Aminotransferase (ALT/SGPT) 37, Alkaline Phosphatase 71, C-Reactive Protein, Quantitative 8.2H, Total Protein 6.5, Albumin 2.0L, Globulin 4.5, Albumin/Globulin Ratio 0.4L Current Medications Medications (Trade) Dose Ordered Sig/Celia Route PRN Reason Start Time Stop Time Status Last Admin Dose Admin Apixaban (Eliquis) 5 mg BID ORAL 05/30/20 18:00 08/28/20 17:59 Ceftriaxone Sodium 1 gm/ Dextrose 55 ml @ 110 mls/hr Q24H IVPB 05/26/20 12:00 06/02/20 11:59 05/30/20 12:08 Dexamethasone Sodium Phosphate (Decadron 10mg/ ml Inj) 6 mg DAILY IV 05/26/20 11:00 06/04/20 09:01 05/30/20 09:51 Dextrose/Sodium Chloride 1,000 ml @ 75 mls/hr [id number] IV 05/22/20 13:30 06/21/20 13:29 05/30/20 08:00 Digoxin (Lanoxin) 0.125 mg DAILY ORAL 05/28/20 09:00 08/26/20 08:59 05/30/20 09:52 Diphenhydramine HCl (Benadryl) 25 mg Q6H PRN IVP Itching 05/26/20 14:45 06/25/20 14:44 Haloperidol Lactate (Haldol) 5 mg Q6H PRN IM Agitation 05/22/20 13:15 07/06/20 13:14 05/26/20 08:33 Metoprolol Tartrate (Lopressor) 100 mg EVERY 12 HOURS ORAL 05/27/20 21:00 08/25/20 20:59 05/30/20 09:51 Pantoprazole (Protonix) 40 mg EVERY 12 HOURS IVP 05/22/20 21:00 06/21/20 20:59 05/30/20 09:51 Quetiapine Fumarate (SEROqueL) 50 mg Q12HR ORAL 05/26/20 13:15 07/10/20 13:14 05/30/20 09:51 Assessment/Plan Assessment/Plan 1. Pneumonia. - on Rocephin per ID 2. Anemia. 3. Renal insufficiency. - Hydration 4. Elevated inflammatory markers with high CRP. 5. Hypokalemia.; resolved 6. Mild protein-calorie malnutrition. 7. COVID-19 - hold off on any specific therapy for COVID such as remdesivir. - On decadron given mild hypoxemia 8. Wound care instituted 9. Left hip pain s/p fall - L hip XRay - no fractures noted 10. s/p fall 11. Afib; now off Cardizem gtt Now on 4L/min O2 seen in tele The care for this patient was discussed with my supervising physician Time spent for this case was approximately 31 minutes Otoniel Ramirez May 30, 2020 15:50
[2020-05-30 16:00] VITALS: BP 149/70
--- NOTE | 2020-05-30 16:51 | Nephrology Progress Note ---
Assessment/Plan Problem List: (1) Renal failure (ARF), acute on chronic (2) Dehydration (3) Pneumonia due to COVID-19 virus Assessment Acute renal failure Possible underlying chronic kidney disease Dehydration Electrolyte imbalance Toxic metabolic encephalopathy Pneumonia due to COVID-19 virus Mild anemia Plan May 30: Labs reviewed. Low magnesium replaced. Continue per consultants. Remains stable from renal standpoint of view. May 29: No labs drawn today. Heart rate within normal range. Stable from renal standpoint of view. May 28: Renal parameters improved. Heart rate within normal limits. Continue per current treatment plan and consultants. May 27: Serum creatinine down to 1.5. Heart rate normalized. Continue per consultants. Continue to monitor electrolytes and renal parameters. May 26: Borderline blood pressure. Serum creatinine higher at 1.9. Remains under the care of axle and frame mechanic for rhythm management. Continue to monitor electrolytes and adjust abnormalities May 25: Patient now in ICU on Cardizem drip. Serum creatinine 1.7. Rest of the electrolytes within normal limit. Continue per cardiology. Continue to monitor renal parameters and electrolytes. May 24: Labs reviewed. Serum creatinine 1.6. Phosphorus low, IV K-Phos ordered. Continue to monitor renal parameters. Continue per current management. Slow hydrate Magnesium sulfate IV supplement today Antibiotics, avoid nephrotoxic's Monitor renal parameters electrolytes Keep the blood pressure blood sugar in check Patient full code Subjective ROS Limited/Unobtainable: No Objective Objective Last 24 Hour Vital Signs Date Time Temp Pulse Resp B/P (MAP) Pulse Ox O2 Delivery O2 Flow Rate FiO2 05/30/20 16:00 97.9 62 20 149/70 (96) 98 05/30/20 15:43 Nasal Cannula 4.0 Nasal Cannula 4.0 05/30/20 12:00 98.1 59 19 143/60 (87) 94 05/30/20 12:00 58 05/30/20 09:52 73 05/30/20 09:51 73 169/77 05/30/20 08:00 62 05/30/20 08:00 97.7 73 20 169/77 (107) 94 05/30/20 04:00 97.3 64 22 154/73 (100) 99 05/30/20 04:00 60 05/30/20 00:00 60 05/30/20 00:00 97.3 67 22 156/66 (96) 97 05/29/20 21:28 66 112/74 05/29/20 20:00 65 05/29/20 20:00 97.7 66 22 112/74 (87) 92 Intake and Output 05/29/20 05/30/20 19:00 07:00 Intake Total 880 ml 900 ml Output Total 500 ml Balance 880 ml 400 ml IV Total 880 ml 900 ml Output Urine Total 500 ml Current Medications Medications (Trade) Dose Ordered Sig/Celia Route PRN Reason Start Time Stop Time Status Last Admin Dose Admin Apixaban (Eliquis) 5 mg BID ORAL 05/30/20 18:00 08/28/20 17:59 Ceftriaxone Sodium 1 gm/ Dextrose 55 ml @ 110 mls/hr Q24H IVPB 05/26/20 12:00 06/02/20 11:59 05/30/20 12:08 Dexamethasone Sodium Phosphate (Decadron 10mg/ ml Inj) 6 mg DAILY IV 05/26/20 11:00 06/04/20 09:01 05/30/20 09:51 Dextrose/Sodium Chloride 1,000 ml @ 75 mls/hr [id number] IV 05/22/20 13:30 06/21/20 13:29 05/30/20 08:00 Digoxin (Lanoxin) 0.125 mg DAILY ORAL 05/28/20 09:00 08/26/20 08:59 05/30/20 09:52 Diphenhydramine HCl (Benadryl) 25 mg Q6H PRN IVP Itching 05/26/20 14:45 06/25/20 14:44 Haloperidol Lactate (Haldol) 5 mg Q6H PRN IM Agitation 05/22/20 13:15 07/06/20 13:14 05/26/20 08:33 Metoprolol Tartrate (Lopressor) 100 mg EVERY 12 HOURS ORAL 05/27/20 21:00 08/25/20 20:59 05/30/20 09:51 Pantoprazole (Protonix) 40 mg EVERY 12 HOURS IVP 05/22/20 21:00 06/21/20 20:59 05/30/20 09:51 Quetiapine Fumarate (SEROqueL) 50 mg Q12HR ORAL 05/26/20 13:15 07/10/20 13:14 05/30/20 09:51 Laboratory Tests 05/30/20 05:50: White Blood Count 9.5, Red Blood Count 3.40L, Hemoglobin 11.0L, Hematocrit 32.8L , Mean Corpuscular Volume 96, Mean Corpuscular Hemoglobin 32.3H, Mean Corpuscular Hemoglobin Concent 33.5, Red Cell Distribution Width 15.1H, Platelet Count 158, Mean Platelet Volume 9.7, Neutrophils (%) (Auto) 82.8H, Lymphocytes (%) (Auto) 8.4L, Monocytes (%) (Auto) 7.9, Eosinophils (%) (Auto) 0.0, Basophils (%) (Auto) 0.9, Sodium Level 137, Potassium Level 4.1, Chloride Level 103, Carbon Dioxide Level 21, Anion Gap 13, Blood Urea Nitrogen 26H, Creatinine 1.0, Estimat Glomerular Filtration Rate > 60, Glucose Level 134H, Calcium Level 7.5L, Phosphorus Level 3.6, Magnesium Level 1.5L, Total Bilirubin 0.6, Aspartate Amino Transf (AST/SGOT) 54H, Alanine Aminotransferase (ALT/SGPT) 37, Alkaline Phosphatase 71, C-Reactive Protein, Quantitative 8.2H, Total Protein 6.5, Albumin 2.0L, Globulin 4.5, Albumin/Globulin Ratio 0.4L Height (Feet): 5 Height (Inches): 7.00 Weight (Pounds): 159 General Appearance: no apparent distress, lethargic Cardiovascular: normal rate Respiratory/Chest: decreased breath sounds Abdomen: soft Jerome Delaney MD May 30, 2020 16:51
[2020-05-30] MEDS: Eliquis 5mg tablet ORAL SCH (17:40)
--- NOTE | 2020-05-30 19:32 | NUR ---
NURSE HAND-OFF REPORT: Important Events on Shift:N/A Patient Status: Stable Diet: NPO Pending Orders: N/A Pending Results/Labs:N/A Pending MD notification:N/A Latest Vital Signs: Temperature 97.9 , Pulse 58 , B/P 149 /70 , Respiratory Rate 20 , O2 SAT 98 , Nasal Cannula, O2 Flow Rate 4.0 . Vital Sign Comment: stable EKG Rhythm: SB w/BBB Rhythm change?: N MD Notified?: N -Dr Praful MONSIVAIS Response: No New Orders Received Latest Stewart Fall Score: 85 Fall Risk: High Risk Safety Measures: Call light Within Reach, Bed Alarm Zone 2, Side Rails Side Rails x3, Bed position Low and Locked. Fall Precautions: Yellow Socks Yellow Gown Door Sign Patient Fall Education Report given to Tj/RN.
--- NOTE | 2020-05-30 19:36 | NUR ---
NURSE NOTES: The patient is alert and oriented x2,noted with some level of anxiousness but a calm environment was provided.The patient is on 4L of oxygen via nasal canula well tolerated. IV on the left FA 22g is intact and asymptomatic running D5 1/2 NS running @75cc/hr.The patient remained NPO at this time.The patient is on a bilateral soft wrist restraint for safety. Bed in lowest position and locked, side rails x3, Call light within reach.Will continue to monitor as indicated..
[2020-05-30 20:00] VITALS: BP 165/74
--- NOTE | 2020-05-30 20:07 | General Progress Note ---
Subjective ROS Limited/Unobtainable: Yes Allergies: Coded Allergies: No Known Allergies (Unverified , 05/21/20) Objective Last 24 Hour Vital Signs Date Time Temp Pulse Resp B/P (MAP) Pulse Ox O2 Delivery O2 Flow Rate FiO2 05/30/20 16:00 58 05/30/20 16:00 97.9 62 20 149/70 (96) 98 05/30/20 15:43 Nasal Cannula 4.0 Nasal Cannula 4.0 05/30/20 12:00 98.1 59 19 143/60 (87) 94 05/30/20 12:00 58 05/30/20 09:52 73 05/30/20 09:51 73 169/77 05/30/20 08:00 62 05/30/20 08:00 97.7 73 20 169/77 (107) 94 05/30/20 04:00 97.3 64 22 154/73 (100) 99 05/30/20 04:00 60 05/30/20 00:00 60 05/30/20 00:00 97.3 67 22 156/66 (96) 97 05/29/20 21:28 66 112/74 Intake and Output 05/29/20 05/30/20 19:00 07:00 Intake Total 880 ml 900 ml Output Total 500 ml Balance 880 ml 400 ml IV Total 880 ml 900 ml Output Urine Total 500 ml Laboratory Tests 05/30/20 05:50: White Blood Count 9.5, Red Blood Count 3.40L, Hemoglobin 11.0L, Hematocrit 32.8L , Mean Corpuscular Volume 96, Mean Corpuscular Hemoglobin 32.3H, Mean Corpuscular Hemoglobin Concent 33.5, Red Cell Distribution Width 15.1H, Platelet Count 158, Mean Platelet Volume 9.7, Neutrophils (%) (Auto) 82.8H, Lymphocytes (%) (Auto) 8.4L, Monocytes (%) (Auto) 7.9, Eosinophils (%) (Auto) 0.0, Basophils (%) (Auto) 0.9, Sodium Level 137, Potassium Level 4.1, Chloride Level 103, Carbon Dioxide Level 21, Anion Gap 13, Blood Urea Nitrogen 26H, Creatinine 1.0, Estimat Glomerular Filtration Rate > 60, Glucose Level 134H, Calcium Level 7.5L, Phosphorus Level 3.6, Magnesium Level 1.5L, Total Bilirubin 0.6, Aspartate Amino Transf (AST/SGOT) 54H, Alanine Aminotransferase (ALT/SGPT) 37, Alkaline Ph osphatase 71, C-Reactive Protein, Quantitative 8.2H, Total Protein 6.5, Albumin 2.0L, Globulin 4.5, Albumin/Globulin Ratio 0.4L Height (Feet): 5 Height (Inches): 7.00 Weight (Pounds): 159 Assessment/Plan Problem List: (1) Renal insufficiency ICD Codes: N28.9 - Disorder of kidney and ureter, unspecified SNOMED: 129396867, 129344605 (2) Encephalopathy ICD Codes: G93.40 - Encephalopathy, unspecified SNOMED: 86012234, 059958359 (3) Head injury ICD Codes: S09.90XA - Unspecified injury of head, initial encounter SNOMED: 41970229, 758592005 Qualifiers: Qualified Codes: S09.90XA - Unspecified injury of head, initial encounter (4) Pneumonia ICD Codes: J18.9 - Pneumonia, unspecified organism SNOMED: 907992391 Qualifiers: Qualified Codes: J18.9 - Pneumonia, unspecified organism (5) Abnormal EKG ICD Codes: R94.31 - Abnormal electrocardiogram [ECG] [EKG]; J12.89 - Other viral pneumonia SNOMED: 256462192 (6) Altered level of consciousness ICD Codes: R40.4 - Transient alteration of awareness SNOMED: 9937520 (7) Dehydration ICD Codes: E86.0 - Dehydration SNOMED: 77522090 (8) Pneumonia due to COVID-19 virus ICD Codes: U07.1 - COVID-19; J12.89 - Other viral pneumonia SNOMED: 555597826214951376 (9) Renal failure (ARF), acute on chronic ICD Codes: N17.9 - Acute kidney failure, unspecified; N18.9 - Chronic kidney disease, unspecified SNOMED: 786875512 Status: progressing, deteriorating Assessment/Plan: afebrile dehydration weak hr is normalized covid positive pna s/p a fib w rvr Yvette Waldrop MD May 30, 2020 20:07
[2020-05-31] VITALS: BP 141/60
[2020-05-31 04:00] VITALS: BP 149/70
--- NOTE | 2020-05-31 07:10 | NUR ---
NURSE HAND-OFF REPORT: Important Events on Shift: Patient Status: Diet: Pending Orders: Pending Results/Labs: Pending MD notification: Latest Vital Signs: Temperature 97.2 , Pulse 57 , B/P 149 /70 , Respiratory Rate 19 , O2 SAT 95 , Nasal Cannula, O2 Flow Rate 4.0 . Vital Sign Comment: EKG Rhythm: SB w/BBB Rhythm change?: N MD Notified?: N -Dr Praful MONSIVAIS Response: No New Orders Received Latest Stewart Fall Score: 85 Fall Risk: High Risk Safety Measures: Call light Within Reach, Bed Alarm Zone 2, Side Rails Side Rails x3, Bed position Low and Locked. Fall Precautions: Yellow Socks Yellow Gown Door Sign Patient Fall Education Report given to .
--- NOTE | 2020-05-31 07:15 | NUR ---
NURSE NOTES: Received patient report from MARTHA Mehta. Pt is AO x2. No pain or discomfort noted at this time. Patient on 4L NC, no respiratory distress noted. Patient has IV on the left FA 22g is intact and asymptomatic running D5 1/2 NS running @75cc/hr. he patient is on a bilateral soft wrist restraint for safety. Bed in lowest position and locked, side rails x3, Call light within reach.
[2020-05-31 08:00] VITALS: BP 150/80
[2020-05-31] MEDS: Eliquis 5mg tablet ORAL SCH ×2 (09:06→17:30)
[2020-05-31] MEDS: dexAMETHasone 10mg/ml Inj IV SCH (09:06)
[2020-05-31] MEDS: Digoxin 0.125mg tab ORAL SCH (09:07)
[2020-05-31] MEDS: Pantoprazole Inj IVP SCH ×2 (09:07→22:22)
[2020-05-31] MEDS: Metoprolol Tartrate 100mg tab ORAL SCH ×2 (09:08→22:22)
--- NOTE | 2020-05-31 09:08 | NUR ---
CASE MANAGEMENT:REVIEW 05/31/20 SI: COVID PNA. ENCEPHALOPATHY. AFIB W/RVR 97.2 57 19 149/70 95% ON 4L/NC IS: ELIQUIS PO BID DIGOXIN PO QD LOPRESSOR PO Q12 IV ROCEPHIN Q24 IV DECADRON QQ IV PROTONIX Q12 IVF@75/HR : TELEMETRY STATUS DCP: FROM HOME PLAN: COVID ISOLATION OFF CARDIZEM GTT
--- NOTE | 2020-05-31 11:24 | Infectious Diseases Prog Note ---
Assessment/Plan Assessment/Plan IMPRESSION: COVID-19 pneumonia. Acute renal failure, Dehydration, Atrial fibrillation with rapid ventricular rate, Right bundle-branch block, History of coronary artery disease with bypass, Dementia. RECOMMENDATION: Continue Dexamethasone Discontinue Rocephin Case was D/W RN Subjective ROS Limited/Unobtainable: Yes Neurologic: Reports: confusion, other - on restraint Allergies: Coded Allergies: No Known Allergies (Unverified , 05/21/20) Objective Last 24 Hour Vital Signs Date Time Temp Pulse Resp B/P (MAP) Pulse Ox O2 Delivery O2 Flow Rate FiO2 05/31/20 09:08 68 123/76 05/31/20 09:07 68 05/31/20 08:00 63 05/31/20 08:00 98.0 71 18 150/80 (103) 94 05/31/20 04:00 57 05/31/20 04:00 97.2 57 19 149/70 (96) 95 05/31/20 00:00 55 05/31/20 00:00 97.3 57 19 141/60 (87) 97 05/30/20 20:44 63 165/74 05/30/20 20:00 64 05/30/20 20:00 97.5 63 20 165/74 (104) 97 05/30/20 16:00 58 05/30/20 16:00 97.9 62 20 149/70 (96) 98 05/30/20 15:43 Nasal Cannula 4.0 Nasal Cannula 4.0 05/30/20 12:00 98.1 59 19 143/60 (87) 94 05/30/20 12:00 58 Height (Feet): 5 Height (Inches): 7.00 Weight (Pounds): 159 General Appearance: no acute distress Respiratory/Chest: lungs clear, other - oxygen by nasal cannula Cardiovascular: normal rate Abdomen: soft, non tender Extremities: no edema Skin: other - facial bruses & scratches Neurologic/Psychiatric: other - sleeping Current Medications Medications (Trade) Dose Ordered Sig/Celia Route PRN Reason Start Time Stop Time Status Last Admin Dose Admin Apixaban (Eliquis) 5 mg BID ORAL 05/30/20 18:00 08/28/20 17:59 05/31/20 09:06 Ceftriaxone Sodium 1 gm/ Dextrose 55 ml @ 110 mls/hr Q24H IVPB 05/26/20 12:00 06/02/20 11:59 05/30/20 12:08 Dexamethasone Sodium Phosphate (Decadron 10mg/ ml Inj) 6 mg DAILY IV 05/26/20 11:00 06/04/20 09:01 05/31/20 09:06 Dextrose/Sodium Chloride 1,000 ml @ 75 mls/hr [id number] IV 05/22/20 13:30 06/21/20 13:29 05/30/20 21:30 Digoxin (Lanoxin) 0.125 mg DAILY ORAL 05/28/20 09:00 08/26/20 08:59 05/31/20 09:07 Diphenhydramine HCl (Benadryl) 25 mg Q6H PRN IVP Itching 05/26/20 14:45 06/25/20 14:44 Haloperidol Lactate (Haldol) 5 mg Q6H PRN IM Agitation 05/22/20 13:15 07/06/20 13:14 05/26/20 08:33 Metoprolol Tartrate (Lopressor) 100 mg EVERY 12 HOURS ORAL 05/27/20 21:00 08/25/20 20:59 05/31/20 09:08 Pantoprazole (Protonix) 40 mg EVERY 12 HOURS IVP 05/22/20 21:00 06/21/20 20:59 05/31/20 09:07 Quetiapine Fumarate (SEROqueL) 50 mg Q12HR ORAL 05/26/20 13:15 07/10/20 13:14 05/31/20 09:07 Mahin Leyva MD May 31, 2020 11:24
--- NOTE | 2020-05-31 11:27 | Cardiac Electrophysiology PN ---
Assessment/Plan Assessment/Plan 1. Syncope. Etiology is not clear at this time. EF 60%. He might have been dehydrated 2. Atrial fib with RVR. Not eating and no NGT. Swallow eval is pending. On metoprolol 100 bid,Eliquis 2.5 bid and Dig 0.125 po daily Dig level 1.6 3. Troponin elevation. Levels are low and coming down likely due to renal failure. On Lopressor 4. Complete right bundle-branch block and lateral T-wave inversion. 5. Covid PNA on 4 liter NC 6. Dysphagia. DW RN Subjective Subjective Out of ICU in Covid isolation on Lopressor 100 bid and Dig 0.125 po daily. Dig level 1.6. On 4 liter NC. In SR. In restraints due to falls. Objective Last 24 Hour Vital Signs Date Time Temp Pulse Resp B/P (MAP) Pulse Ox O2 Delivery O2 Flow Rate FiO2 05/31/20 09:08 68 123/76 05/31/20 09:07 68 05/31/20 08:00 63 05/31/20 08:00 98.0 71 18 150/80 (103) 94 05/31/20 04:00 57 05/31/20 04:00 97.2 57 19 149/70 (96) 95 05/31/20 00:00 55 05/31/20 00:00 97.3 57 19 141/60 (87) 97 05/30/20 20:44 63 165/74 05/30/20 20:00 64 05/30/20 20:00 97.5 63 20 165/74 (104) 97 05/30/20 16:00 58 05/30/20 16:00 97.9 62 20 149/70 (96) 98 05/30/20 15:43 Nasal Cannula 4.0 Nasal Cannula 4.0 05/30/20 12:00 98.1 59 19 143/60 (87) 94 05/30/20 12:00 58 Intake and Output 05/30/20 05/31/20 19:00 07:00 Intake Total 75 ml 675 ml Output Total 750 ml 600 ml Balance -675 ml 75 ml IV Total 75 ml 675 ml Output Urine Total 750 ml 600 ml Objective HEAD AND NECK: No JVD. LUNGS: Clear. CARDIOVASCULAR: Shows regular S1 and S2 with no gallop or murmur. ABDOMEN: Soft. EXTREMITIES: No pitting edema. Rick Basilio MD May 31, 2020 11:27
[2020-05-31] MEDS: D5 1/2NS 1,000 ML IV SCH (11:39)
--- NOTE | 2020-05-31 11:41 | General Progress Note ---
Subjective ROS Limited/Unobtainable: Yes Allergies: Coded Allergies: No Known Allergies (Unverified , 05/21/20) Objective Last 24 Hour Vital Signs Date Time Temp Pulse Resp B/P (MAP) Pulse Ox O2 Delivery O2 Flow Rate FiO2 05/31/20 09:08 68 123/76 05/31/20 09:07 68 05/31/20 08:00 63 05/31/20 08:00 98.0 71 18 150/80 (103) 94 05/31/20 04:00 57 05/31/20 04:00 97.2 57 19 149/70 (96) 95 05/31/20 00:00 55 05/31/20 00:00 97.3 57 19 141/60 (87) 97 05/30/20 20:44 63 165/74 05/30/20 20:00 64 05/30/20 20:00 97.5 63 20 165/74 (104) 97 05/30/20 16:00 58 05/30/20 16:00 97.9 62 20 149/70 (96) 98 05/30/20 15:43 Nasal Cannula 4.0 Nasal Cannula 4.0 05/30/20 12:00 98.1 59 19 143/60 (87) 94 05/30/20 12:00 58 Intake and Output 05/30/20 05/31/20 19:00 07:00 Intake Total 75 ml 675 ml Output Total 750 ml 600 ml Balance -675 ml 75 ml IV Total 75 ml 675 ml Output Urine Total 750 ml 600 ml Height (Feet): 5 Height (Inches): 7.00 Weight (Pounds): 159 Assessment/Plan Problem List: (1) Renal insufficiency ICD Codes: N28.9 - Disorder of kidney and ureter, unspecified SNOMED: 526066615, 262616043 (2) Encephalopathy ICD Codes: G93.40 - Encephalopathy, unspecified SNOMED: 49848027, 461802743 (3) Head injury ICD Codes: S09.90XA - Unspecified injury of head, initial encounter SNOMED: 20153967, 100173317 Qualifiers: Qualified Codes: S09.90XA - Unspecified injury of head, initial encounter (4) Pneumonia ICD Codes: J18.9 - Pneumonia, unspecified organism SNOMED: 898323278 Qualifiers: Qualified Codes: J18.9 - Pneumonia, unspecified organism (5) Abnormal EKG ICD Codes: R94.31 - Abnormal electrocardiogram [ECG] [EKG]; J12.89 - Other viral pneumonia SNOMED: 660988140 (6) Altered level of consciousness ICD Codes: R40.4 - Transient alteration of awareness SNOMED: 6295580 (7) Dehydration ICD Codes: E86.0 - Dehydration SNOMED: 04974358 (8) Pneumonia due to COVID-19 virus ICD Codes: U07.1 - COVID-19; J12.89 - Other viral pneumonia SNOMED: 743150490798733245 (9) Renal failure (ARF), acute on chronic ICD Codes: N17.9 - Acute kidney failure, unspecified; N18.9 - Chronic kidney disease, unspecified SNOMED: 928392385 Status: progressing, deteriorating Assessment/Plan: confused reviewed chart and labs covid positive pna s/p a fib w rvr Yvette Waldrop MD May 31, 2020 11:41
--- NOTE | 2020-05-31 11:41 | Neurology Progress Note ---
Interim History Interim History ROS Limited/Unobtainable: Yes Objective Physical Exam Last Vital Signs Date Time Temp Pulse Resp B/P (MAP) Pulse Ox O2 Delivery O2 Flow Rate FiO2 05/31/20 09:08 68 123/76 05/31/20 08:00 98.0 18 94 05/30/20 15:43 Nasal Cannula 4.0 Nasal Cannula 4.0 Neurologic Exam Objective Objective: Neuro exam unable to examine pt is sedated, intubated on vent getting 2d echo done at bedside. Impression/Recommendations Status: progressing, deteriorating Diagnostic Impression 1. Falls --> unknown etiology --> CT Head completed once prior to admission and second CT head done yesterday after patient fell in the room attempting to get up oob per RN --> S/p nasal fracture second: CT findings revealed Left frontal soft tissue swelling. Age-indeterminate nasal bone fractures partially visualized.Stable mild chronic small vessel ischemic changes and cerebral volume loss. --> Recommend MRI Brain once he is stable and out of covid isolation. --> family was contacted by nursing. --> Pt has had 3 falls inpatient according to nurses. None reported since then. 2. Encephalopathy --> No focal findings on limited neuro exam, i.e cva 3. Covid 19 Disease --> on isolation, went into resp failure intubated on vent --> continue supportive treatment 4. Atrial Fibrillation --> with RVR, cards on board 5. Resp Distress and Failure --> s/p Code Blue, Intubated on vent and on propofol Thank You for allowing us to participate in the care of the patient. The time of the note phil not necessarily reflect the time the patient was seen and evaluated Recommendations no new recommendations at this time. Sonam Redman NP May 31, 2020 11:41
[2020-05-31 12:00] VITALS: BP 142/72
--- NOTE | 2020-05-31 12:38 | Nephrology Progress Note ---
Assessment/Plan Problem List: (1) Renal failure (ARF), acute on chronic (2) Dehydration (3) Pneumonia due to COVID-19 virus Assessment Acute renal failure Possible underlying chronic kidney disease Dehydration Electrolyte imbalance Toxic metabolic encephalopathy Pneumonia due to COVID-19 virus Mild anemia Plan May 31. No labs drawn today. Most recent renal parameters and electrolytes stable. Will check lab tomorrow. Continue per consultants. May 30: Labs reviewed. Low magnesium replaced. Continue per consultants. Remains stable from renal standpoint of view. May 29: No labs drawn today. Heart rate within normal range. Stable from renal standpoint of view. May 28: Renal parameters improved. Heart rate within normal limits. Continue per current treatment plan and consultants. May 27: Serum creatinine down to 1.5. Heart rate normalized. Continue per consultants. Continue to monitor electrolytes and renal parameters. May 26: Borderline blood pressure. Serum creatinine higher at 1.9. Remains under the care of enchilada maker for rhythm management. Continue to monitor electrolytes and adjust abnormalities May 25: Patient now in ICU on Cardizem drip. Serum creatinine 1.7. Rest of the electrolytes within normal limit. Continue per cardiology. Continue to monitor renal parameters and electrolytes. May 24: Labs reviewed. Serum creatinine 1.6. Phosphorus low, IV K-Phos ordered. Continue to monitor renal parameters. Continue per current management. Slow hydrate Magnesium sulfate IV supplement today Antibiotics, avoid nephrotoxic's Monitor renal parameters electrolytes Keep the blood pressure blood sugar in check Patient full code Subjective ROS Limited/Unobtainable: Yes Objective Objective Last 24 Hour Vital Signs Date Time Temp Pulse Resp B/P (MAP) Pulse Ox O2 Delivery O2 Flow Rate FiO2 05/31/20 09:08 68 123/76 05/31/20 09:07 68 05/31/20 08:00 63 05/31/20 08:00 98.0 71 18 150/80 (103) 94 05/31/20 04:00 57 05/31/20 04:00 97.2 57 19 149/70 (96) 95 05/31/20 00:00 55 05/31/20 00:00 97.3 57 19 141/60 (87) 97 05/30/20 20:44 63 165/74 05/30/20 20:00 64 05/30/20 20:00 97.5 63 20 165/74 (104) 97 05/30/20 16:00 58 05/30/20 16:00 97.9 62 20 149/70 (96) 98 05/30/20 15:43 Nasal Cannula 4.0 Nasal Cannula 4.0 Intake and Output 05/30/20 05/31/20 19:00 07:00 Intake Total 75 ml 675 ml Output Total 750 ml 600 ml Balance -675 ml 75 ml IV Total 75 ml 675 ml Output Urine Total 750 ml 600 ml No chemistry panel drawn today Height (Feet): 5 Height (Inches): 7.00 Weight (Pounds): 159 General Appearance: no apparent distress Cardiovascular: normal rate Respiratory/Chest: decreased breath sounds Abdomen: distended Jerome Delaney MD May 31, 2020 12:38
[2020-05-31 16:00] VITALS: BP 146/78
--- NOTE | 2020-05-31 17:27 | Pulmonology Progress Note ---
Subjective ROS Limited/Unobtainable: Yes Interval Events: none major reported per nursing Constitutional: Denies: fever HEENT: Repors: no symptoms Respiratory: Reports: no symptoms Cardiovascular: Reports: no symptoms Gastrointestinal/Abdominal: Reports: no symptoms Allergies: Coded Allergies: No Known Allergies (Unverified , 05/21/20) Objective Last 24 Hour Vital Signs Date Time Temp Pulse Resp B/P (MAP) Pulse Ox O2 Delivery O2 Flow Rate FiO2 05/31/20 16:00 97.2 67 20 146/78 (100) 97 05/31/20 16:00 61 05/31/20 15:43 Nasal Cannula 4.0 Nasal Cannula 4.0 05/31/20 12:00 60 05/31/20 12:00 97.3 61 20 142/72 (95) 94 05/31/20 09:08 68 123/76 05/31/20 09:07 68 05/31/20 08:00 63 05/31/20 08:00 98.0 71 18 150/80 (103) 94 05/31/20 04:00 57 05/31/20 04:00 97.2 57 19 149/70 (96) 95 05/31/20 00:00 55 05/31/20 00:00 97.3 57 19 141/60 (87) 97 05/30/20 20:44 63 165/74 05/30/20 20:00 64 05/30/20 20:00 97.5 63 20 165/74 (104) 97 Intake and Output 05/30/20 05/31/20 19:00 07:00 Intake Total 75 ml 675 ml Output Total 750 ml 600 ml Balance -675 ml 75 ml IV Total 75 ml 675 ml Output Urine Total 750 ml 600 ml General Appearance: WD/WN, no acute distress HEENT: normocephalic, atraumatic Respiratory: chest wall non-tender, lungs clear Cardiovascular: normal rate, regular rhythm Abdomen: other - obese Extremities: no edema Skin: other - 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 Musculoskeletal: other - left hip tenderness to palpation, no contusion, no crepitus noted Current Medications Medications (Trade) Dose Ordered Sig/Celia Route PRN Reason Start Time Stop Time Status Last Admin Dose Admin Apixaban (Eliquis) 5 mg BID ORAL 05/30/20 18:00 08/28/20 17:59 05/31/20 09:06 Dexamethasone Sodium Phosphate (Decadron 10mg/ ml Inj) 6 mg DAILY IV 05/26/20 11:00 06/04/20 09:01 05/31/20 09:06 Dextrose/Sodium Chloride 1,000 ml @ 75 mls/hr [id number] IV 05/22/20 13:30 06/21/20 13:29 05/31/20 11:39 Digoxin (Lanoxin) 0.125 mg DAILY ORAL 05/28/20 09:00 08/26/20 08:59 05/31/20 09:07 Diphenhydramine HCl (Benadryl) 25 mg Q6H PRN IVP Itching 05/26/20 14:45 06/25/20 14:44 Haloperidol Lactate (Haldol) 5 mg Q6H PRN IM Agitation 05/22/20 13:15 07/06/20 13:14 05/26/20 08:33 Metoprolol Tartrate (Lopressor) 100 mg EVERY 12 HOURS ORAL 05/27/20 21:00 08/25/20 20:59 05/31/20 09:08 Pantoprazole (Protonix) 40 mg EVERY 12 HOURS IVP 05/22/20 21:00 06/21/20 20:59 05/31/20 09:07 Quetiapine Fumarate (SEROqueL) 50 mg Q12HR ORAL 05/26/20 13:15 07/10/20 13:14 05/31/20 09:07 Assessment/Plan Assessment/Plan 1. Pneumonia. 2. Anemia. 3. Renal insufficiency. - Hydration 4. Elevated inflammatory markers with high CRP. 5. Hypokalemia. 6. Mild protein-calorie malnutrition. 7. COVID-19 - hold off on any specific therapy for COVID such as remdesivir. Decadron appropriate given mild hypoxemia 8. Wound care instituted 9. Left hip pain s/p fall - Tenderness to palpation and limited range of motion s/p fall x3 without signs of contusion or crepitus - L hip XRay - no fractures noted 10. s/p fall 11. Afib; now off Cardizem gtt Now on 4L/min O2 seen on telemetry Ector Howe,Ector Dave MD May 31, 2020 17:27
--- NOTE | 2020-05-31 19:30 | NUR ---
NURSE HAND-OFF REPORT: Important Events on Shift:NA Patient Status: Stable Diet: NPO Pending Orders: NPO Pending Results/Labs: Pending notification:[] Latest Vital Signs: Temperature 97.2 , Pulse 61 , B/P 146 /78 , Respiratory Rate 20 , O2 SAT 97 , Nasal Cannula, O2 Flow Rate 4.0 . Vital Sign Comment: [] EKG Rhythm: SR w/BBB Rhythm change?: N MD Notified?: N -Dr Praful MONSIVAIS Response: No New Orders Received Latest Stewart Fall Score: 85 Fall Risk: High Risk Safety Measures: Call light Within Reach, Bed Alarm Zone 2, Side Rails Side Rails x3, Bed position Low and Locked. Fall Precautions: Yellow Socks Yellow Gown Door Sign Patient Fall Education Report given to []. Addendum: 05/31/20 at 1941 by Yaa Jo RN Report Give to MARTHA Membreno
--- NOTE | 2020-05-31 19:31 | NUR ---
NURSE NOTES: Got patient report from Gaivn THOMAS. Pt in stable condition. Pt is AO x2 confused. No s/s of pain or discomfort noted at this time. Pt is on 4L NC, sating 95% no respiratory distress noted. Pt has left FA 22g intact and asymptomatic w/ D5 1/2 NS running @75. Pt has bilateral soft wrist restraint for safety. Pt has 16 fr paulino patent and intact. Bed in lowest position and locked, side rails x3, Call light within reach. Continue to monitor.
[2020-05-31 20:00] VITALS: BP 139/75
--- NOTE | 2020-05-31 22:47 | Psychiatric Progress Note ---
Psychiatry Progress Note Psychiatry Progress Note Subjective the pt is the same episodes o agitation Medications Current Medications Medications (Trade) Dose Ordered Sig/Celia Route PRN Reason Start Time Stop Time Status Last Admin Dose Admin Apixaban (Eliquis) 5 mg BID ORAL 05/30/20 18:00 08/28/20 17:59 05/31/20 17:30 Dexamethasone Sodium Phosphate (Decadron 10mg/ ml Inj) 6 mg DAILY IV 05/26/20 11:00 06/04/20 09:01 05/31/20 09:06 Dextrose/Sodium Chloride 1,000 ml @ 75 mls/hr [id number] IV 05/22/20 13:30 06/21/20 13:29 05/31/20 11:39 Digoxin (Lanoxin) 0.125 mg DAILY ORAL 05/28/20 09:00 08/26/20 08:59 05/31/20 09:07 Diphenhydramine HCl (Benadryl) 25 mg Q6H PRN IVP Itching 05/26/20 14:45 06/25/20 14:44 Haloperidol Lactate (Haldol) 5 mg Q6H PRN IM Agitation 05/22/20 13:15 07/06/20 13:14 05/26/20 08:33 Metoprolol Tartrate (Lopressor) 100 mg EVERY 12 HOURS ORAL 05/27/20 21:00 08/25/20 20:59 05/31/20 22:22 Pantoprazole (Protonix) 40 mg EVERY 12 HOURS IVP 05/22/20 21:00 06/21/20 20:59 05/31/20 22:22 Quetiapine Fumarate (SEROqueL) 50 mg Q12HR ORAL 05/26/20 13:15 07/10/20 13:14 05/31/20 22:22 Neurological/Psychiatric: Reports: anxiety, depressed Allergies: Coded Allergies: No Known Allergies (Unverified , 05/21/20) Objective Data Height (Feet): 5 Height (Inches): 7.00 Weight (Pounds): 159 General Appearance: no apparent distress Additional Comments: waxing and waning consciousness. Mood is anxious. Affect is blunted, congruent with mood. Thought process is concrete. Thought content, no suicidal or homicidal ideation. Cognition is impaired. Insight and judgment impaired. Assessment/Plan Nebo I: ASSESSMENT: Nebo I Acute metabolic encephalopathy. Dementia. Nebo II Deferred. Nebo III Renal insufficiency and head injury. Nebo IV Low. Nebo V 20. PLAN: 1. We will start the patient on Haldol IM p.r.n. 2. Restraints. 3. Discussed with the nurse. Status: progressing, deteriorating Status Narrative ASSESSMENT: Nebo I Acute metabolic encephalopathy. Dementia. Nebo II Deferred. Nebo III Renal insufficiency and head injury. Nebo IV Low. Nebo V 20. PLAN: 1. We will start the patient on Haldol IM p.r.n. 2. Restraints. 3. Discussed with the nurse. Assessment/Plan: ASSESSMENT: Nebo I Acute metabolic encephalopathy. Dementia. Nebo II Deferred. Nebo III Renal insufficiency and head injury. Nebo IV Low. Nebo V 20. PLAN: 1. We will start the patient on Haldol IM p.r.n. 2. Restraints. 3. Discussed with the nurse. Francheska Huynh MD May 31, 2020 22:47
[2020-06-01] VITALS: BP 129/72
[2020-06-01] MEDS: D5 1/2NS 1,000 ML IV SCH ×2 (00:10→13:43)
[2020-06-01 04:00] VITALS: BP 115/54
--- NOTE | 2020-06-01 04:20 | NUR ---
NURSE NOTES: Notified by biomedical equipment tech Alex that pt converted to Afib. Pt in stable condition. VSS. No s/s of distress or discomfort noted. Pt resting in bed comfortably. Dr. Basilio notified.
--- NOTE | 2020-06-01 07:15 | NUR ---
NURSE HAND-OFF REPORT: Important Events on Shift:[] Patient Status: [STABLE] Diet: [PUREED] Pending Orders: [] Pending Results/Labs:[] Pending MD notification:[] Latest Vital Signs: Temperature 97.5 , Pulse 63 , B/P 115 /54 , Respiratory Rate 20 , O2 SAT 93 , Nasal Cannula, O2 Flow Rate 4.0 . Vital Sign Comment: [] EKG Rhythm: Atrial Fibrillation Rhythm change?: Y Notified?: Guera -Dr. Praful MONSIVAIS Response: No New Orders Received Latest Stewart Fall Score: 85 Fall Risk: High Risk Safety Measures: Call light Within Reach, Bed Alarm Zone 2, Side Rails Side Rails x3, Bed position Low and Locked. Fall Precautions: Yellow Socks Yellow Gown Door Sign Patient Fall Education Report given to [LUCERO RN].
--- NOTE | 2020-06-01 07:25 | NUR ---
NURSE NOTES: Received patient report from MARTHA Membreno. Pt is AO x1 in bed, asleep. Breathing is beka and unlabored with no signs of respiratory distress. No pain or discomfort noted at this time. Pt has left FA 22g intact and asymptomatic w/ D5 1/2 NS running @75. Pt has bilateral soft wrist restraint for safety. Bed in lowest position locked, with side rails x2 up. Call light within reach.
[2020-06-01 08:00] VITALS: BP 134/61
--- NOTE | 2020-06-01 09:05 | NUR ---
RD ASSESSMENT & RECOMMENDATIONS SEE CARE ACTIVITY FOR COMPLETE ASSESSMENT DAILY ESTIMATED NEEDS: Needs based on cardiac, pulmonary 63kg 25-30 kcals/kg 9389-4762 total kcals 1-1.5 g protein/kg 63-95 g total protein 25-30 mL/kg 3042-8635 total fluid mLs NUTRITION DIAGNOSIS: Swallowing difficulty r/t respiratory status anc clinical status as evidenced by s/p WHEAT INSPECTOR eval, recs for puree texture, currently NPO, ICU status w/ Covid ++ PNA, on NC. (CURRENT DIET: NPO-> WHEAT INSPECTOR eval pending) PO DIET RECOMMENDATIONS->> LOW NA DIET as appropriate/ texture per WHEAT INSPECTOR ENTERAL NUTRITION RECOMMENDATIONS: CONSULT RD IF NON ORAL FEEDS ARE PART OF POC ADDITIONAL RECOMMENDATIONS: 1) Maintain calibrated bed scale wts 2) Maintain D5 while NPO 3) Monitor for ability to feed, or initiate diet Add ensure enlive w/ trays TID 4) Check lytes daily while NPO 5) Rec accuchecks w/ niss with diet order
[2020-06-01] MEDS: Digoxin 0.125mg tab ORAL SCH (09:08)
[2020-06-01] MEDS: Metoprolol Tartrate 100mg tab ORAL SCH ×2 (09:08→21:03)
[2020-06-01] MEDS: Eliquis 5mg tablet ORAL SCH ×2 (09:08→17:25)
[2020-06-01] MEDS: dexAMETHasone 10mg/ml Inj IV SCH (09:09)
[2020-06-01] MEDS: Pantoprazole Inj IVP SCH ×2 (09:09→21:04)
--- NOTE | 2020-06-01 10:13 | Infectious Diseases Prog Note ---
Assessment/Plan Assessment/Plan IMPRESSION: COVID-19 pneumonia. Acute renal failure,improving Dehydration, Atrial fibrillation with rapid ventricular rate, Right bundle-branch block, History of coronary artery disease with bypass, Dementia. RECOMMENDATION: Continue Dexamethasone Subjective ROS Limited/Unobtainable: Yes Constitutional: Denies: fever Allergies: Coded Allergies: No Known Allergies (Unverified , 05/21/20) Objective Last 24 Hour Vital Signs Date Time Temp Pulse Resp B/P (MAP) Pulse Ox O2 Delivery O2 Flow Rate FiO2 06/01/20 09:32 94 Nasal Cannula 4.0 36 06/01/20 09:08 67 06/01/20 09:08 67 134/61 06/01/20 08:00 98.7 67 19 134/61 (85) 93 06/01/20 04:00 63 06/01/20 04:00 97.5 55 20 115/54 (74) 93 06/01/20 00:00 97.7 55 20 129/72 (91) 94 06/01/20 00:00 54 05/31/20 22:22 64 139/75 05/31/20 20:31 94 Nasal Cannula 4.0 36 05/31/20 20:00 97.7 64 20 139/75 (96) 94 05/31/20 20:00 66 05/31/20 16:00 97.2 67 20 146/78 (100) 97 05/31/20 16:00 61 05/31/20 15:43 Nasal Cannula 4.0 Nasal Cannula 4.0 05/31/20 12:00 60 05/31/20 12:00 97.3 61 20 142/72 (95) 94 Height (Feet): 5 Height (Inches): 7.00 Weight (Pounds): 159 General Appearance: no acute distress HEENT: mucous membranes moist Respiratory/Chest: other - oxygen by nasal cannula Cardiovascular: normal rate Abdomen: soft, non tender Extremities: no edema Skin: other - forhead bruise Neurologic/Psychiatric: other - sleeping Current Medications Medications (Trade) Dose Ordered Sig/Celia Route PRN Reason Start Time Stop Time Status Last Admin Dose Admin Apixaban (Eliquis) 5 mg BID ORAL 05/30/20 18:00 08/28/20 17:59 06/01/20 09:08 Dexamethasone Sodium Phosphate (Decadron 10mg/ ml Inj) 6 mg DAILY IV 05/26/20 11:00 06/04/20 09:01 06/01/20 09:09 Dextrose/Sodium Chloride 1,000 ml @ 75 mls/hr [id number] IV 05/22/20 13:30 06/21/20 13:29 06/01/20 00:10 Digoxin (Lanoxin) 0.125 mg DAILY ORAL 05/28/20 09:00 08/26/20 08:59 06/01/20 09:08 Diphenhydramine HCl (Benadryl) 25 mg Q6H PRN IVP Itching 05/26/20 14:45 06/25/20 14:44 Haloperidol Lactate (Haldol) 5 mg Q6H PRN IM Agitation 05/22/20 13:15 07/06/20 13:14 05/26/20 08:33 Metoprolol Tartrate (Lopressor) 100 mg EVERY 12 HOURS ORAL 05/27/20 21:00 08/25/20 20:59 06/01/20 09:08 Pantoprazole (Protonix) 40 mg EVERY 12 HOURS IVP 05/22/20 21:00 06/21/20 20:59 06/01/20 09:09 Quetiapine Fumarate (SEROqueL) 50 mg Q12HR ORAL 05/26/20 13:15 07/10/20 13:14 06/01/20 09:09 Mahin Leyva MD Jun 01, 2020 10:13
--- NOTE | 2020-06-01 11:05 | Cardiac Electrophysiology PN ---
Assessment/Plan Assessment/Plan 1. Syncope. Etiology is not clear at this time. EF 60%. He might have been dehydrated 2. Atrial fib with RVR. Not eating and no NGT. Swallow eval is pending. On metoprolol 100 bid, Eliquis 2.5 bid and Dig 0.125 po daily Dig level 1.6. Add Amiodarone 200 po daily 3. Troponin elevation. Levels are low and coming down likely due to renal failure. On Lopressor 4. Complete right bundle-branch block and lateral T-wave inversion. 5. Covid PNA on 2 liter NC 6. Dysphagia. DW RN Subjective Subjective Out of ICU in Covid isolation on Lopressor 100 bid and Dig 0.125 po daily. Dig level 1.6. On 4 liter NC. In SR. In restraints due to falls. Converted back to atrial fib at 4 AM with controlled rate. Objective Last 24 Hour Vital Signs Date Time Temp Pulse Resp B/P (MAP) Pulse Ox O2 Delivery O2 Flow Rate FiO2 06/01/20 09:32 94 Nasal Cannula 4.0 36 06/01/20 09:08 67 06/01/20 09:08 67 134/61 06/01/20 08:00 98.7 67 19 134/61 (85) 93 06/01/20 04:00 63 06/01/20 04:00 97.5 55 20 115/54 (74) 93 06/01/20 00:00 97.7 55 20 129/72 (91) 94 06/01/20 00:00 54 05/31/20 22:22 64 139/75 05/31/20 20:31 94 Nasal Cannula 4.0 36 05/31/20 20:00 97.7 64 20 139/75 (96) 94 05/31/20 20:00 66 05/31/20 16:00 97.2 67 20 146/78 (100) 97 05/31/20 16:00 61 05/31/20 15:43 Nasal Cannula 4.0 Nasal Cannula 4.0 05/31/20 12:00 60 05/31/20 12:00 97.3 61 20 142/72 (95) 94 Intake and Output 05/31/20 06/01/20 19:00 07:00 Output Total 500 ml 1000 ml Balance -500 ml -1000 ml Output Urine Total 500 ml 1000 ml Objective HEAD AND NECK: No JVD. LUNGS: Clear. CARDIOVASCULAR: Irregular S1 and S2 with no gallop or murmur. ABDOMEN: Soft. EXTREMITIES: No pitting edema. Rick Basilio MD Jun 01, 2020 11:05
[2020-06-01 12:00] VITALS: BP 132/81
--- NOTE | 2020-06-01 12:08 | NUR ---
CASE MANAGEMENT:REVIEW 06/01/20 SI: COVID PNA. ENCEPHALOPATHY. AFIB W/RVR 98.7 67 19 134/61 94% ON 4L/NC IS: START AMIODARONE 200MG PO QD ELIQUIS PO BID DIGOXIN PO QD LOPRESSOR PO Q12 IV DECADRON QQ IV PROTONIX Q12 IVF@75/HR : TELEMETRY STATUS DCP: FROM HOME PLAN: COVID ISOLATION
--- NOTE | 2020-06-01 13:05 | Pulmonology Progress Note ---
Subjective ROS Limited/Unobtainable: Yes Interval Events: none major reported per nursing Constitutional: Denies: fever HEENT: Repors: no symptoms Respiratory: Reports: no symptoms Cardiovascular: Reports: no symptoms Gastrointestinal/Abdominal: Reports: no symptoms Allergies: Coded Allergies: No Known Allergies (Unverified , 05/21/20) Objective Last 24 Hour Vital Signs Date Time Temp Pulse Resp B/P (MAP) Pulse Ox O2 Delivery O2 Flow Rate FiO2 06/01/20 09:32 94 Nasal Cannula 4.0 36 06/01/20 09:08 67 06/01/20 09:08 67 134/61 06/01/20 08:00 98.7 67 19 134/61 (85) 93 06/01/20 08:00 76 06/01/20 04:00 63 06/01/20 04:00 97.5 55 20 115/54 (74) 93 06/01/20 00:00 97.7 55 20 129/72 (91) 94 06/01/20 00:00 54 05/31/20 22:22 64 139/75 05/31/20 20:31 94 Nasal Cannula 4.0 36 05/31/20 20:00 97.7 64 20 139/75 (96) 94 05/31/20 20:00 66 05/31/20 16:00 97.2 67 20 146/78 (100) 97 05/31/20 16:00 61 05/31/20 15:43 Nasal Cannula 4.0 Nasal Cannula 4.0 Intake and Output 05/31/20 06/01/20 19:00 07:00 Output Total 500 ml 1000 ml Balance -500 ml -1000 ml Output Urine Total 500 ml 1000 ml Objective 06/01 now on 2L NC saturating well 05/30 saturating well on 4 L NC; pt asleep 05/29 saturating well on 4 lpm NC; agitated, A&O x1-2 05/24/2020 currently on 2 lpm NC saturating well 05/23/2020 German speaking pt, A&O x2, saturating well on RA General Appearance: WD/WN, no acute distress HEENT: normocephalic, atraumatic Respiratory: chest wall non-tender, lungs clear Cardiovascular: normal rate, regular rhythm Abdomen: other - obese Extremities: no edema Skin: other - 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 Musculoskeletal: other - left hip tenderness to palpation, no contusion, no crepitus noted Current Medications Medications (Trade) Dose Ordered Sig/Celia Route PRN Reason Start Time Stop Time Status Last Admin Dose Admin Amiodarone HCl (Cordarone) 200 mg DAILY ORAL 06/02/20 09:00 08/31/20 08:59 Apixaban (Eliquis) 5 mg BID ORAL 05/30/20 18:00 08/28/20 17:59 06/01/20 09:08 Dexamethasone Sodium Phosphate (Decadron 10mg/ ml Inj) 6 mg DAILY IV 05/26/20 11:00 06/04/20 09:01 06/01/20 09:09 Dextrose/Sodium Chloride 1,000 ml @ 75 mls/hr [id number] IV 05/22/20 13:30 06/21/20 13:29 06/01/20 00:10 Digoxin (Lanoxin) 0.125 mg DAILY ORAL 05/28/20 09:00 08/26/20 08:59 06/01/20 09:08 Diphenhydramine HCl (Benadryl) 25 mg Q6H PRN IVP Itching 05/26/20 14:45 06/25/20 14:44 Haloperidol Lactate (Haldol) 5 mg Q6H PRN IM Agitation 05/22/20 13:15 07/06/20 13:14 05/26/20 08:33 Metoprolol Tartrate (Lopressor) 100 mg EVERY 12 HOURS ORAL 05/27/20 21:00 08/25/20 20:59 06/01/20 09:08 Pantoprazole (Protonix) 40 mg EVERY 12 HOURS IVP 05/22/20 21:00 06/21/20 20:59 06/01/20 09:09 Quetiapine Fumarate (SEROqueL) 50 mg Q12HR ORAL 05/26/20 13:15 07/10/20 13:14 06/01/20 09:09 Assessment/Plan Assessment/Plan 1. Pneumonia. - on Rocephin per ID 2. Anemia. - improving 3. Renal insufficiency. - Hydration 4. Elevated inflammatory markers with high CRP. 5. Hypokalemia.; resolved 6. Mild protein-calorie malnutrition. - on regular diet 7. COVID-19 - hold off on any specific therapy for COVID such as remdesivir. - On decadron given mild hypoxemia 8. Wound care instituted 9. Left hip pain s/p fall - L hip XRay - no fractures noted 10. s/p fall 11. Afib; now off Cardizem gtt Now on 2L/min O2 seen in tele Dc planning home with O2 The care for this patient was discussed with my supervising physician Time spent for this case was approximately 31 minutes Otoniel Ramirez Jun 01, 2020 13:05 Ector Howe MD Jun 01, 2020 15:05
--- NOTE | 2020-06-01 14:16 | Nephrology Progress Note ---
Assessment/Plan Problem List: (1) Renal failure (ARF), acute on chronic (2) Dehydration (3) Pneumonia due to COVID-19 virus Assessment Acute renal failure Possible underlying chronic kidney disease Dehydration Electrolyte imbalance Toxic metabolic encephalopathy Pneumonia due to COVID-19 virus Mild anemia Plan June 01: No labs from today. Will check lab in a.m. Medication list reviewed. Blood pressure stable. Continue per consultants. May 31. No labs drawn today. Most recent renal parameters and electrolytes stable. Will check lab tomorrow. Continue per consultants. May 30: Labs reviewed. Low magnesium replaced. Continue per consultants. Remains stable from renal standpoint of view. May 29: No labs drawn today. Heart rate within normal range. Stable from renal standpoint of view. May 28: Renal parameters improved. Heart rate within normal limits. Continue per current treatment plan and consultants. May 27: Serum creatinine down to 1.5. Heart rate normalized. Continue per consultants. Continue to monitor electrolytes and renal parameters. May 26: Borderline blood pressure. Serum creatinine higher at 1.9. Remains under the care of meeting planner for rhythm management. Continue to monitor electrolytes and adjust abnormalities May 25: Patient now in ICU on Cardizem drip. Serum creatinine 1.7. Rest of the electrolytes within normal limit. Continue per cardiology. Continue to monitor renal parameters and electrolytes. May 24: Labs reviewed. Serum creatinine 1.6. Phosphorus low, IV K-Phos ordered. Continue to monitor renal parameters. Continue per current management. Slow hydrate Magnesium sulfate IV supplement today Antibiotics, avoid nephrotoxic's Monitor renal parameters electrolytes Keep the blood pressure blood sugar in check Patient full code Subjective ROS Limited/Unobtainable: Yes Objective Objective Last 24 Hour Vital Signs Date Time Temp Pulse Resp B/P (MAP) Pulse Ox O2 Delivery O2 Flow Rate FiO2 06/01/20 12:00 98.7 71 20 132/81 (98) 97 06/01/20 12:00 83 06/01/20 09:32 94 Nasal Cannula 4.0 36 06/01/20 09:08 67 06/01/20 09:08 67 134/61 06/01/20 08:00 98.7 67 19 134/61 (85) 93 06/01/20 08:00 76 06/01/20 04:00 63 06/01/20 04:00 97.5 55 20 115/54 (74) 93 06/01/20 00:00 97.7 55 20 129/72 (91) 94 06/01/20 00:00 54 05/31/20 22:22 64 139/75 05/31/20 20:31 94 Nasal Cannula 4.0 36 05/31/20 20:00 97.7 64 20 139/75 (96) 94 05/31/20 20:00 66 05/31/20 16:00 97.2 67 20 146/78 (100) 97 05/31/20 16:00 61 05/31/20 15:43 Nasal Cannula 4.0 Nasal Cannula 4.0 Intake and Output 05/31/20 06/01/20 19:00 07:00 Output Total 500 ml 1000 ml Balance -500 ml -1000 ml Output Urine Total 500 ml 1000 ml Height (Feet): 5 Height (Inches): 7.00 Weight (Pounds): 159 General Appearance: no apparent distress, lethargic Cardiovascular: normal rate Respiratory/Chest: decreased breath sounds Abdomen: soft Jerome Delaney MD Jun 01, 2020 14:16
[2020-06-01 16:00] VITALS: BP 136/71
--- NOTE | 2020-06-01 19:05 | NUR ---
NURSE HAND-OFF REPORT: Important Events on Shift NA Patient Status: stable Diet: Puree Pending Orders: NA Pending Results/Labs:NA Pending notification:NA Latest Vital Signs: Temperature 97.7 , Pulse 63 , B/P 136 /71 , Respiratory Rate 20 , O2 SAT 96 , Nasal Cannula, O2 Flow Rate 4.0 . Vital Sign Comment: Stable EKG Rhythm: SR w/ BBB Rhythm change?: N MD Notified?: Guera Basilio MD Response: No New Orders Received Latest Stewart Fall Score: 85 Fall Risk: High Risk Safety Measures: Call light Within Reach, Bed Alarm Zone 2, Side Rails Side Rails x3, Bed position Low and Locked. Fall Precautions: Yellow Socks Yellow Gown Door Sign Patient Fall Education Report given to MARTHA Martinez.
--- NOTE | 2020-06-01 19:20 | NUR ---
NURSE NOTES: Received report from MARTHA Alonso. Pt is awake, restless, oriented x 1 to name. Pt is not in respiratory distress. Tolerating 2L 02 with saturation 94%. Skin issues noted. Lab results reviewed. Vital signs are stable, SR on the night monitor. Peripheral IV in L forearm 22G is intact and patent and running D5 1/2 NS @ 75cc/hr. Restraints assessed, no skin issues around wrist restriants. Bed is locked and in lowest position, bed alarm on, call light is within reach. Will continue to monitor pt. Will continue with the plan of care.
[2020-06-01 20:00] VITALS: BP 141/78
--- NOTE | 2020-06-01 21:39 | General Progress Note ---
Subjective ROS Limited/Unobtainable: Yes Allergies: Coded Allergies: No Known Allergies (Unverified , 05/21/20) Objective Last 24 Hour Vital Signs Date Time Temp Pulse Resp B/P (MAP) Pulse Ox O2 Delivery O2 Flow Rate FiO2 06/01/20 21:03 68 141/78 06/01/20 20:00 59 06/01/20 16:00 97.7 86 20 136/71 (92) 96 06/01/20 16:00 63 06/01/20 15:43 Nasal Cannula 4.0 Nasal Cannula 4.0 06/01/20 12:00 98.7 71 20 132/81 (98) 97 06/01/20 12:00 83 06/01/20 09:32 94 Nasal Cannula 4.0 36 06/01/20 09:08 67 06/01/20 09:08 67 134/61 06/01/20 08:00 98.7 67 19 134/61 (85) 93 06/01/20 08:00 76 06/01/20 04:00 63 06/01/20 04:00 97.5 55 20 115/54 (74) 93 06/01/20 00:00 97.7 55 20 129/72 (91) 94 06/01/20 00:00 54 05/31/20 22:22 64 139/75 Intake and Output 05/31/20 06/01/20 18:59 06:59 Output Total 500 ml 1000 ml Balance -500 ml -1000 ml Output Urine Total 500 ml 1000 ml Height (Feet): 5 Height (Inches): 7.00 Weight (Pounds): 159 Assessment/Plan Problem List: (1) Renal insufficiency ICD Codes: N28.9 - Disorder of kidney and ureter, unspecified SNOMED: 624318353, 497186932 (2) Encephalopathy ICD Codes: G93.40 - Encephalopathy, unspecified SNOMED: 08132557, 804698983 (3) Head injury ICD Codes: S09.90XA - Unspecified injury of head, initial encounter SNOMED: 77988626, 715838439 Qualifiers: Qualified Codes: S09.90XA - Unspecified injury of head, initial encounter (4) Pneumonia ICD Codes: J18.9 - Pneumonia, unspecified organism SNOMED: 518742479 Qualifiers: Qualified Codes: J18.9 - Pneumonia, unspecified organism (5) Abnormal EKG ICD Codes: R94.31 - Abnormal electrocardiogram [ECG] [EKG]; J12.89 - Other viral pneumonia SNOMED: 629611927 (6) Altered level of consciousness ICD Codes: R40.4 - Transient alteration of awareness SNOMED: 5232315 (7) Dehydration ICD Codes: E86.0 - Dehydration SNOMED: 82041838 (8) Pneumonia due to COVID-19 virus ICD Codes: U07.1 - COVID-19; J12.89 - Other viral pneumonia SNOMED: 678846534090967397 (9) Renal failure (ARF), acute on chronic ICD Codes: N17.9 - Acute kidney failure, unspecified; N18.9 - Chronic kidney disease, unspecified SNOMED: 645862189 Status: progressing, deteriorating Assessment/Plan: malnutrtion not improving check labs covid positive pna s/p a fib w rvr Yvette Waldrop MD Jun 01, 2020 21:39
--- NOTE | 2020-06-01 21:55 | NUR ---
NURSE NOTES: Initial assessment done, labs reviewed. Pt is restless, and confused. Skin is dry and peeling. Not in distress. Sinus Rhythm on the monitor. Vital signs are stable. Tolerating 2L 02 via nasal cannula saturating 95%. Evening medications administered per order. Will continue to closely monitor pt. Will continue with the plan of care.
--- NOTE | 2020-06-01 23:03 | Psychiatric Progress Note ---
Psychiatry Progress Note Psychiatry Progress Note Subjective the pt is the same episodes o agitation Medications Current Medications Medications (Trade) Dose Ordered Sig/Celia Route PRN Reason Start Time Stop Time Status Last Admin Dose Admin Amiodarone HCl (Cordarone) 200 mg DAILY ORAL 06/02/20 09:00 08/31/20 08:59 Apixaban (Eliquis) 5 mg BID ORAL 05/30/20 18:00 08/28/20 17:59 06/01/20 17:25 Dexamethasone Sodium Phosphate (Decadron 10mg/ ml Inj) 6 mg DAILY IV 05/26/20 11:00 06/04/20 09:01 06/01/20 09:09 Dextrose/Sodium Chloride 1,000 ml @ 75 mls/hr [id number] IV 05/22/20 13:30 06/21/20 13:29 06/01/20 13:43 Digoxin (Lanoxin) 0.125 mg DAILY ORAL 05/28/20 09:00 08/26/20 08:59 06/01/20 09:08 Diphenhydramine HCl (Benadryl) 25 mg Q6H PRN IVP Itching 05/26/20 14:45 06/25/20 14:44 Haloperidol Lactate (Haldol) 5 mg Q6H PRN IM Agitation 05/22/20 13:15 07/06/20 13:14 05/26/20 08:33 Metoprolol Tartrate (Lopressor) 100 mg EVERY 12 HOURS ORAL 05/27/20 21:00 08/25/20 20:59 06/01/20 21:03 Pantoprazole (Protonix) 40 mg EVERY 12 HOURS IVP 05/22/20 21:00 06/21/20 20:59 06/01/20 21:04 Quetiapine Fumarate (SEROqueL) 50 mg Q12HR ORAL 05/26/20 13:15 07/10/20 13:14 06/01/20 21:03 Neurological/Psychiatric: Reports: anxiety, depressed Allergies: Coded Allergies: No Known Allergies (Unverified , 05/21/20) Objective Data Height (Feet): 5 Height (Inches): 7.00 Weight (Pounds): 159 General Appearance: no apparent distress, lethargic Additional Comments: waxing and waning consciousness. Mood is anxious. Affect is blunted, congruent with mood. Thought process is concrete. Thought content, no suicidal or homicidal ideation. Cognition is impaired. Insight and judgment impaired. Assessment/Plan Austell I: ASSESSMENT: Austell I Acute metabolic encephalopathy. Dementia. Austell II Deferred. Austell III Renal insufficiency and head injury. Austell IV Low. Austell V 20. PLAN: 1. We will start the patient on Haldol IM p.r.n. 2. Restraints. 3. Discussed with the nurse. Status: progressing, deteriorating Status Narrative ASSESSMENT: Austell I Acute metabolic encephalopathy. Dementia. Austell II Deferred. Austell III Renal insufficiency and head injury. Austell IV Low. Austell V 20. PLAN: 1. We will start the patient on Haldol IM p.r.n. 2. Restraints. 3. Discussed with the nurse. Assessment/Plan: ASSESSMENT: Austell I Acute metabolic encephalopathy. Dementia. Austell II Deferred. Austell III Renal insufficiency and head injury. Austell IV Low. Austell V 20. PLAN: 1. We will start the patient on Haldol IM p.r.n. 2. Restraints. 3. Discussed with the nurse. Francheska Huynh MD Jun 01, 2020 23:03
[2020-06-02] VITALS: BP 139/76
[2020-06-02] MEDS: D5 1/2NS 1,000 ML IV SCH ×2 (02:16→18:00)
--- NOTE | 2020-06-02 03:10 | NUR ---
NURSE NOTES: Pt given bed sponge bath, skin moisturizer applied, linen and gown changed. Pt tolerated well. Not in distress. Will continue to monitor pt. Will continue with the plan of care.
[2020-06-02 04:00] VITALS: BP 151/96
[2020-06-02 07:08] LABS: BASOPHILS % (AUTO) 0.7 % (0.0-2.0); HEMATOCRIT 39.7 % (42.0-52.0); HEMOGLOBIN 13.4 G/DL (14.2-18.0); LYMPHOCYTES % (AUTO) 7.7 % (20.0-45.0); MEAN CORPUSCULAR VOLUME 93 FL (80-99); MONOCYTES % (AUTO) 9.6 % (1.0-10.0); NEUTROPHILS % (AUTO) 81.9 % (45.0-75.0); PLATELET COUNT 221 K/UL (150-450); RED BLOOD COUNT 4.25 M/UL (4.70-6.10); RED CELL DISTRIBUTION WIDTH 14.7 % (11.6-14.8); WHITE BLOOD COUNT 13.9 K/UL (4.8-10.8)
--- NOTE | 2020-06-02 07:28 | NUR ---
NURSE NOTES: Received report from Michelle/RN, Observed Patient awake, lying semi-sears's, resting comfortably. AAO x1-2. On nasal canula, no acute distress/SOB noted at this time. Breathing even and unlabored. IV site patent and intact. On soft bilateral wrist restraint for safety. Bed in lowest position and locked, side rails x3, Call light within reach. Encouraged to use call light when needed. Will continue plan of care.
--- NOTE | 2020-06-02 07:34 | NUR ---
NURSE HAND-OFF REPORT: Important Events on Shift:None Patient Status: Full code Diet: Reg. Pureed moist Pending Orders: N Pending Results/Labs:N Pending MD notification:N Latest Vital Signs: Temperature 97.7 , Pulse 61 , B/P 151 /96 , Respiratory Rate 20 , O2 SAT 94 , Nasal Cannula, O2 Flow Rate 2.0 . Vital Sign Comment: stable EKG Rhythm: SR w/ BBB Rhythm change?: N MD Notified?: Guera Basilio MD Response: No New Orders Received Latest Stewart Fall Score: 85 Fall Risk: High Risk Safety Measures: Call light Within Reach, Bed Alarm Zone 2, Side Rails Side Rails x3, Bed position Low and Locked. Fall Precautions: Yellow Socks Yellow Gown Door Sign Patient Fall Education Report given to Prince Hernandez.
[2020-06-02 07:53] LABS: ALANINE AMINOTRANSFERASE 29 U/L (12-78); ALBUMIN 2.2 G/DL (3.4-5.0); ALBUMIN/GLOBULIN RATIO 0.5 (1.0-2.7); ALKALINE PHOSPHATASE 73 U/L (46-116); ANION GAP 6 mmol/L (5-15); ASPARTATE AMINO TRANSFERASE 31 U/L (15-37); BILIRUBIN,TOTAL 1.2 MG/DL (0.2-1.0); BLOOD UREA NITROGEN 26 mg/dL (7-18); CALCIUM 8.3 MG/DL (8.5-10.1); CARBON DIOXIDE 27 MMOL/L (21-32); CHLORIDE 103 MMOL/L (98-107); PHOSPHORUS 2.7 MG/DL (2.5-4.9); POTASSIUM 4.3 MMOL/L (3.5-5.1); SODIUM 136 MMOL/L (136-145)
[2020-06-02 08:00] VITALS: BP 141/73
[2020-06-02 08:03] LABS: BILIRUBIN,DIRECT 0.5 MG/DL (0.0-0.3)
--- NOTE | 2020-06-02 08:30 | NUR ---
CASE MANAGEMENT:REVIEW 06/02/20 SI: COVID PNA. ENCEPHALOPATHY. AFIB W/RVR 96.4 59 21 141/73 96% ON 4L WBC+13.9 BUN+26 MAG-1.5 IS: AMIODARONE 200MG PO QD ELIQUIS PO BID DIGOXIN PO QD LOPRESSOR PO Q12 IV DECADRON QQ IV PROTONIX Q12 IVF@75/HR : TELEMETRY STATUS DCP: FROM HOME PLAN: COVID ISOLATION WEAN OXYGEN
[2020-06-02] MEDS: Digoxin 0.125mg tab ORAL SCH (08:55)
[2020-06-02] MEDS: dexAMETHasone 10mg/ml Inj IV SCH (08:56)
[2020-06-02] MEDS: Pantoprazole Inj IVP SCH ×2 (08:57→21:44)
[2020-06-02] MEDS: Metoprolol Tartrate 100mg tab ORAL SCH ×2 (08:57→21:00)
[2020-06-02] MEDS: Amiodarone 200mg tab ORAL SCH (08:57)
[2020-06-02] MEDS: Eliquis 5mg tablet ORAL SCH ×2 (08:57→17:32)
--- NOTE | 2020-06-02 11:13 | Infectious Diseases Prog Note ---
Assessment/Plan Assessment/Plan antibiotics : none A 1. COVID-19 pneumonia on 4 liters O2, 97 % saturation 2. renal failure,improving 3. Dementia. P 1. continue dexamethasone day 8 2. continue isolation Subjective ROS Limited/Unobtainable: Yes Allergies: Coded Allergies: No Known Allergies (Unverified , 05/21/20) Objective Last 24 Hour Vital Signs Date Time Temp Pulse Resp B/P (MAP) Pulse Ox O2 Delivery O2 Flow Rate FiO2 06/02/20 08:57 59 141/73 06/02/20 08:55 59 06/02/20 08:00 61 06/02/20 08:00 96.4 59 21 141/73 (95) 96 06/02/20 04:00 97.7 61 20 151/96 (114) 94 06/02/20 04:00 61 06/02/20 00:00 97.0 59 20 139/76 (97) 94 06/01/20 21:03 68 141/78 06/01/20 21:00 Nasal Cannula 4.0 Nasal Cannula 2.0 06/01/20 20:00 93 Nasal Cannula 3.0 32 06/01/20 20:00 97.9 68 18 141/78 (99) 95 06/01/20 20:00 59 06/01/20 16:00 97.7 86 20 136/71 (92) 96 06/01/20 16:00 63 06/01/20 15:43 Nasal Cannula 4.0 Nasal Cannula 4.0 06/01/20 12:00 98.7 71 20 132/81 (98) 97 06/01/20 12:00 83 Height (Feet): 5 Height (Inches): 7.00 Weight (Pounds): 159 Laboratory Tests Test 06/02/20 06:01 White Blood Count 13.9 K/UL (4.8-10.8) H Red Blood Count 4.25 M/UL (4.70-6.10) L Hemoglobin 13.4 G/DL (14.2-18.0) L Hematocrit 39.7 % (42.0-52.0) L Mean Corpuscular Volume 93 FL (80-99) Mean Corpuscular Hemoglobin 31.5 PG (27.0-31.0) H Mean Corpuscular Hemoglobin Concent 33.8 G/DL (32.0-36.0) Red Cell Distribution Width 14.7 % (11.6-14.8) Platelet Count 221 K/UL (150-450) Mean Platelet Volume 9.9 FL (6.5-10.1) Neutrophils (%) (Auto) 81.9 % (45.0-75.0) H Lymphocytes (%) (Auto) 7.7 % (20.0-45.0) L Monocytes (%) (Auto) 9.6 % (1.0-10.0) Eosinophils (%) (Auto) 0.0 % (0.0-3.0) Basophils (%) (Auto) 0.7 % (0.0-2.0) Sodium Level 136 MMOL/L (136-145) Potassium Level 4.3 MMOL/L (3.5-5.1) Chloride Level 103 MMOL/L (98-107) Carbon Dioxide Level 27 MMOL/L (21-32) Anion Gap 6 mmol/L (5-15) Blood Urea Nitrogen 26 mg/dL (7-18) H Creatinine 1.0 MG/DL (0.55-1.30) Estimat Glomerular Filtration Rate > 60 mL/min (>60) Glucose Level 92 MG/DL (74-106) Calcium Level 8.3 MG/DL (8.5-10.1) L Phosphorus Level 2.7 MG/DL (2.5-4.9) Magnesium Level 1.5 MG/DL (1.8-2.4) L Total Bilirubin 1.2 MG/DL (0.2-1.0) H Direct Bilirubin 0.5 MG/DL (0.0-0.3) H Aspartate Amino Transf (AST/SGOT) 31 U/L (15-37) Alanine Aminotransferase (ALT/SGPT) 29 U/L (12-78) Alkaline Phosphatase 73 U/L (46-116) Total Protein 6.9 G/DL (6.4-8.2) Albumin 2.2 G/DL (3.4-5.0) L Globulin 4.7 g/dL Albumin/Globulin Ratio 0.5 (1.0-2.7) L Current Medications Medications (Trade) Dose Ordered Sig/Celia Route PRN Reason Start Time Stop Time Status Last Admin Dose Admin Amiodarone HCl (Cordarone) 200 mg DAILY ORAL 06/02/20 09:00 08/31/20 08:59 06/02/20 08:57 Apixaban (Eliquis) 5 mg BID ORAL 05/30/20 18:00 08/28/20 17:59 06/02/20 08:57 Dexamethasone Sodium Phosphate (Decadron 10mg/ ml Inj) 6 mg DAILY IV 05/26/20 11:00 06/04/20 09:01 06/02/20 08:56 Dextrose/Sodium Chloride 1,000 ml @ 75 mls/hr [id number] IV 05/22/20 13:30 06/21/20 13:29 06/02/20 02:16 Digoxin (Lanoxin) 0.125 mg DAILY ORAL 05/28/20 09:00 08/26/20 08:59 06/01/20 09:08 Diphenhydramine HCl (Benadryl) 25 mg Q6H PRN IVP Itching 05/26/20 14:45 06/25/20 14:44 Haloperidol Lactate (Haldol) 5 mg Q6H PRN IM Agitation 05/22/20 13:15 07/06/20 13:14 05/26/20 08:33 Metoprolol Tartrate (Lopressor) 100 mg EVERY 12 HOURS ORAL 05/27/20 21:00 08/25/20 20:59 06/02/20 08:57 Pantoprazole (Protonix) 40 mg EVERY 12 HOURS IVP 05/22/20 21:00 06/21/20 20:59 06/02/20 08:57 Quetiapine Fumarate (SEROqueL) 50 mg Q12HR ORAL 05/26/20 13:15 07/10/20 13:14 06/02/20 08:56 Kenroy Farnsworth MD Jun 02, 2020 11:13
--- NOTE | 2020-06-02 11:48 | Pulmonology Progress Note ---
Subjective ROS Limited/Unobtainable: Yes Interval Events: none major reported per nursing Constitutional: Denies: fever HEENT: Repors: no symptoms Respiratory: Reports: no symptoms Cardiovascular: Reports: no symptoms Gastrointestinal/Abdominal: Reports: no symptoms Allergies: Coded Allergies: No Known Allergies (Unverified , 05/21/20) Objective Last 24 Hour Vital Signs Date Time Temp Pulse Resp B/P (MAP) Pulse Ox O2 Delivery O2 Flow Rate FiO2 06/02/20 08:57 59 141/73 06/02/20 08:55 59 06/02/20 08:00 61 06/02/20 08:00 96.4 59 21 141/73 (95) 96 06/02/20 04:00 97.7 61 20 151/96 (114) 94 06/02/20 04:00 61 06/02/20 00:00 97.0 59 20 139/76 (97) 94 06/01/20 21:03 68 141/78 06/01/20 21:00 Nasal Cannula 4.0 Nasal Cannula 2.0 06/01/20 20:00 93 Nasal Cannula 3.0 32 06/01/20 20:00 97.9 68 18 141/78 (99) 95 06/01/20 20:00 59 06/01/20 16:00 97.7 86 20 136/71 (92) 96 06/01/20 16:00 63 06/01/20 15:43 Nasal Cannula 4.0 Nasal Cannula 4.0 06/01/20 12:00 98.7 71 20 132/81 (98) 97 06/01/20 12:00 83 Intake and Output 06/01/20 06/02/20 19:00 07:00 Intake Total 75 ml 880 ml Output Total 700 ml 700 ml Balance -625 ml 180 ml IV Total 75 ml 880 ml Output Urine Total 700 ml 700 ml Objective 06/02 no change 06/01 now on 2L NC saturating well 05/30 saturating well on 4 L NC; pt asleep 05/29 saturating well on 4 lpm NC; agitated, A&O x1-2 05/24/2020 currently on 2 lpm NC saturating well 05/23/2020 Welsh speaking pt, A&O x2, saturating well on RA General Appearance: WD/WN, no acute distress HEENT: normocephalic, atraumatic Respiratory: chest wall non-tender, lungs clear Cardiovascular: normal rate, regular rhythm Abdomen: other - obese Extremities: no edema Skin: other - 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 Musculoskeletal: other - left hip tenderness to palpation, no contusion, no crepitus noted Laboratory Tests 06/02/20 06:01: White Blood Count 13.9H, Red Blood Count 4.25L, Hemoglobin 13.4L, Hematocrit 39.7L, Mean Corpuscular Volume 93, Mean Corpuscular Hemoglobin 31.5H, Mean Corpuscular Hemoglobin Concent 33.8, Red Cell Distribution Width 14.7, Platelet Count 221, Mean Platelet Volume 9.9, Neutrophils (%) (Auto) 81.9H, Lymphocytes (%) (Auto) 7.7L, Monocytes (%) (Auto) 9.6, Eosinophils (%) (Auto) 0.0, Basophils (%) (Auto) 0.7, Sodium Level 136, Potassium Level 4.3, Chloride Level 103, Carbon Dioxide Level 27, Anion Gap 6, Blood Urea Nitrogen 26H, Creatinine 1.0, Estimat Glomerular Filtration Rate > 60, Glucose Level 92, Calcium Level 8.3L, Phosphorus Level 2.7, Magnesium Level 1.5L, Total Bilirubin 1.2H, Direct Bilirubin 0.5H, Aspartate Amino Transf (AST/SGOT) 31, Alanine Aminotransferase (ALT/SGPT) 29, Alkaline Phosphatase 73, Total Protein 6.9, Albumin 2.2L, Globulin 4.7, Albumin/Globulin Ratio 0.5L Current Medications Medications (Trade) Dose Ordered Sig/Celia Route PRN Reason Start Time Stop Time Status Last Admin Dose Admin Amiodarone HCl (Cordarone) 200 mg DAILY ORAL 06/02/20 09:00 08/31/20 08:59 06/02/20 08:57 Apixaban (Eliquis) 5 mg BID ORAL 05/30/20 18:00 08/28/20 17:59 06/02/20 08:57 Dexamethasone Sodium Phosphate (Decadron 10mg/ ml Inj) 6 mg DAILY IV 05/26/20 11:00 06/04/20 09:01 06/02/20 08:56 Dextrose/Sodium Chloride 1,000 ml @ 75 mls/hr [id number] IV 05/22/20 13:30 06/21/20 13:29 06/02/20 02:16 Digoxin (Lanoxin) 0.125 mg DAILY ORAL 05/28/20 09:00 08/26/20 08:59 06/01/20 09:08 Diphenhydramine HCl (Benadryl) 25 mg Q6H PRN IVP Itching 05/26/20 14:45 06/25/20 14:44 Haloperidol Lactate (Haldol) 5 mg Q6H PRN IM Agitation 05/22/20 13:15 07/06/20 13:14 05/26/20 08:33 Metoprolol Tartrate (Lopressor) 100 mg EVERY 12 HOURS ORAL 05/27/20 21:00 08/25/20 20:59 06/02/20 08:57 Pantoprazole (Protonix) 40 mg EVERY 12 HOURS IVP 05/22/20 21:00 06/21/20 20:59 06/02/20 08:57 Quetiapine Fumarate (SEROqueL) 50 mg Q12HR ORAL 05/26/20 13:15 07/10/20 13:14 06/02/20 08:56 Assessment/Plan Assessment/Plan 1. Pneumonia. - on Rocephin per ID 2. Anemia. - improving 3. Renal insufficiency. - Hydration 4. Elevated inflammatory markers with high CRP. 5. Hypokalemia.; resolved 6. Mild protein-calorie malnutrition. - on regular diet 7. COVID-19 - hold off on any specific therapy for COVID such as remdesivir. - On decadron given mild hypoxemia 8. Wound care instituted 9. Left hip pain s/p fall - L hip XRay - no fractures noted 10. s/p fall 11. Afib; now off Cardizem gtt Now on 2L/min O2 seen in tele Dc planning home with O2 The care for this patient was discussed with my supervising physician Time spent for this case was approximately 31 minutes Otoniel Ramirez Jun 02, 2020 11:48 Ector Howe MD Jun 03, 2020 13:40
[2020-06-02 12:00] VITALS: BP 143/83
--- NOTE | 2020-06-02 13:28 | Cardiac Electrophysiology PN ---
Assessment/Plan Assessment/Plan 1. Syncope. Etiology is not clear at this time. EF 60%. He might have been dehydrated 2. Atrial fib with RVR. Not eating and no NGT. Swallow eval is pending. On metoprolol 100 bid, Eliquis 2.5 bid and Dig 0.125 po daily Dig level 1.6. On Amiodarone 200 po daily 3. Troponin elevation. Levels are low and coming down likely due to renal failure. On Lopressor 4. Complete right bundle-branch block and lateral T-wave inversion. 5. Covid PNA on 2 liter NC 6. Dysphagia. DW RN Subjective Subjective Out of ICU in Covid isolation on Lopressor 100 bid and Dig 0.125 po daily. Dig level 1.6. On 2 liter NC. In SR. In restraints due to falls. Converted back to atrial fib at 4 AM with controlled rate. Came from home but going to [facility] now Objective Last 24 Hour Vital Signs Date Time Temp Pulse Resp B/P (MAP) Pulse Ox O2 Delivery O2 Flow Rate FiO2 06/02/20 13:10 94 Nasal Cannula 3.0 32 06/02/20 08:57 59 141/73 06/02/20 08:55 59 06/02/20 08:00 61 06/02/20 08:00 96.4 59 21 141/73 (95) 96 06/02/20 04:00 97.7 61 20 151/96 (114) 94 06/02/20 04:00 61 06/02/20 00:00 97.0 59 20 139/76 (97) 94 06/01/20 21:03 68 141/78 06/01/20 21:00 Nasal Cannula 4.0 Nasal Cannula 2.0 06/01/20 20:00 93 Nasal Cannula 3.0 32 06/01/20 20:00 97.9 68 18 141/78 (99) 95 06/01/20 20:00 59 06/01/20 16:00 97.7 86 20 136/71 (92) 96 06/01/20 16:00 63 06/01/20 15:43 Nasal Cannula 4.0 Nasal Cannula 4.0 Intake and Output 06/01/20 06/02/20 19:00 07:00 Intake Total 75 ml 880 ml Output Total 700 ml 700 ml Balance -625 ml 180 ml IV Total 75 ml 880 ml Output Urine Total 700 ml 700 ml Laboratory Tests Test 06/02/20 06:01 White Blood Count 13.9 K/UL (4.8-10.8) H Red Blood Count 4.25 M/UL (4.70-6.10) L Hemoglobin 13.4 G/DL (14.2-18.0) L Hematocrit 39.7 % (42.0-52.0) L Mean Corpuscular Volume 93 FL (80-99) Mean Corpuscular Hemoglobin 31.5 PG (27.0-31.0) H Mean Corpuscular Hemoglobin Concent 33.8 G/DL (32.0-36.0) Red Cell Distribution Width 14.7 % (11.6-14.8) Platelet Count 221 K/UL (150-450) Mean Platelet Volume 9.9 FL (6.5-10.1) Neutrophils (%) (Auto) 81.9 % (45.0-75.0) H Lymphocytes (%) (Auto) 7.7 % (20.0-45.0) L Monocytes (%) (Auto) 9.6 % (1.0-10.0) Eosinophils (%) (Auto) 0.0 % (0.0-3.0) Basophils (%) (Auto) 0.7 % (0.0-2.0) Sodium Level 136 MMOL/L (136-145) Potassium Level 4.3 MMOL/L (3.5-5.1) Chloride Level 103 MMOL/L (98-107) Carbon Dioxide Level 27 MMOL/L (21-32) Anion Gap 6 mmol/L (5-15) Blood Urea Nitrogen 26 mg/dL (7-18) H Creatinine 1.0 MG/DL (0.55-1.30) Estimat Glomerular Filtration Rate > 60 mL/min (>60) Glucose Level 92 MG/DL (74-106) Calcium Level 8.3 MG/DL (8.5-10.1) L Phosphorus Level 2.7 MG/DL (2.5-4.9) Magnesium Level 1.5 MG/DL (1.8-2.4) L Total Bilirubin 1.2 MG/DL (0.2-1.0) H Direct Bilirubin 0.5 MG/DL (0.0-0.3) H Aspartate Amino Transf (AST/SGOT) 31 U/L (15-37) Alanine Aminotransferase (ALT/SGPT) 29 U/L (12-78) Alkaline Phosphatase 73 U/L (46-116) Total Protein 6.9 G/DL (6.4-8.2) Albumin 2.2 G/DL (3.4-5.0) L Globulin 4.7 g/dL Albumin/Globulin Ratio 0.5 (1.0-2.7) L Objective HEAD AND NECK: No JVD. LUNGS: Clear. CARDIOVASCULAR: Irregular S1 and S2 with no gallop or murmur. ABDOMEN: Soft. EXTREMITIES: No pitting edema. Rick Basilio MD Jun 02, 2020 13:28
--- NOTE | 2020-06-02 13:30 | Nephrology Progress Note ---
Assessment/Plan Problem List: (1) Renal failure (ARF), acute on chronic (2) Dehydration (3) Pneumonia due to COVID-19 virus Assessment Acute renal failure Possible underlying chronic kidney disease Dehydration Electrolyte imbalance Toxic metabolic encephalopathy Pneumonia due to COVID-19 virus Mild anemia Plan June 02: Labs reviewed. Renal parameters and electrolytes stable. Continue per consultants. June 01: No labs from today. Will check lab in a.m. Medication list reviewed. Blood pressure stable. Continue per consultants. May 31. No labs drawn today. Most recent renal parameters and electrolytes stable. Will check lab tomorrow. Continue per consultants. May 30: Labs reviewed. Low magnesium replaced. Continue per consultants. Remains stable from renal standpoint of view. May 29: No labs drawn today. Heart rate within normal range. Stable from renal standpoint of view. May 28: Renal parameters improved. Heart rate within normal limits. Continue per current treatment plan and consultants. May 27: Serum creatinine down to 1.5. Heart rate normalized. Continue per consultants. Continue to monitor electrolytes and renal parameters. May 26: Borderline blood pressure. Serum creatinine higher at 1.9. Remains under the care of tool and die maker for rhythm management. Continue to monitor electrolytes and adjust abnormalities May 25: Patient now in ICU on Cardizem drip. Serum creatinine 1.7. Rest of the electrolytes within normal limit. Continue per cardiology. Continue to monitor renal parameters and electrolytes. May 24: Labs reviewed. Serum creatinine 1.6. Phosphorus low, IV K-Phos ordered. Continue to monitor renal parameters. Continue per current management. Slow hydrate Magnesium sulfate IV supplement today Antibiotics, avoid nephrotoxic's Monitor renal parameters electrolytes Keep the blood pressure blood sugar in check Patient full code Subjective ROS Limited/Unobtainable: No Constitutional: Reports: malaise Objective Objective Last 24 Hour Vital Signs Date Time Temp Pulse Resp B/P (MAP) Pulse Ox O2 Delivery O2 Flow Rate FiO2 06/02/20 13:10 94 Nasal Cannula 3.0 32 06/02/20 08:57 59 141/73 06/02/20 08:55 59 06/02/20 08:00 61 06/02/20 08:00 96.4 59 21 141/73 (95) 96 06/02/20 04:00 97.7 61 20 151/96 (114) 94 06/02/20 04:00 61 06/02/20 00:00 97.0 59 20 139/76 (97) 94 06/01/20 21:03 68 141/78 06/01/20 21:00 Nasal Cannula 4.0 Nasal Cannula 2.0 06/01/20 20:00 93 Nasal Cannula 3.0 32 06/01/20 20:00 97.9 68 18 141/78 (99) 95 06/01/20 20:00 59 06/01/20 16:00 97.7 86 20 136/71 (92) 96 06/01/20 16:00 63 06/01/20 15:43 Nasal Cannula 4.0 Nasal Cannula 4.0 Intake and Output 06/01/20 06/02/20 19:00 07:00 Intake Total 75 ml 880 ml Output Total 700 ml 700 ml Balance -625 ml 180 ml IV Total 75 ml 880 ml Output Urine Total 700 ml 700 ml Laboratory Tests 06/02/20 06:01: White Blood Count 13.9H, Red Blood Count 4.25L, Hemoglobin 13.4L, Hematocrit 39.7L, Mean Corpuscular Volume 93, Mean Corpuscular Hemoglobin 31.5H, Mean Corpuscular Hemoglobin Concent 33.8, Red Cell Distribution Width 14.7, Platelet Count 221, Mean Platelet Volume 9.9, Neutrophils (%) (Auto) 81.9H, Lymphocytes (%) (Auto) 7.7L, Monocytes (%) (Auto) 9.6, Eosinophils (%) (Auto) 0.0, Basophils (%) (Auto) 0.7, Sodium Level 136, Potassium Level 4.3, Chloride Level 103, Carbon Dioxide Level 27, Anion Gap 6, Blood Urea Nitrogen 26H, Creatinine 1.0, Estimat Glomerular Filtration Rate > 60, Glucose Level 92, Calcium Level 8.3L, Phosphorus Level 2.7, Magnesium Level 1.5L, Total Bilirubin 1.2H, Direct Bilirubin 0.5H, Aspartate Amino Transf (AST/SGOT) 31, Alanine Aminotransferase (ALT/SGPT) 29, Alkaline Phosphatase 73, Total Protein 6.9, Albumin 2.2L, Globulin 4.7, Albumin/Globulin Ratio 0.5L Height (Feet): 5 Height (Inches): 7.00 Weight (Pounds): 159 General Appearance: no apparent distress Cardiovascular: normal rate Respiratory/Chest: decreased breath sounds Abdomen: distended Objective No change Jerome Delaney MD Jun 02, 2020 13:30
[2020-06-02 16:00] VITALS: BP 124/73
--- NOTE | 2020-06-02 17:58 | Psychiatric Progress Note ---
Psychiatry Progress Note Psychiatry Progress Note Subjective the pt is more stable Medications Current Medications Medications (Trade) Dose Ordered Sig/Celia Route PRN Reason Start Time Stop Time Status Last Admin Dose Admin Amiodarone HCl (Cordarone) 200 mg DAILY ORAL 06/02/20 09:00 08/31/20 08:59 06/02/20 08:57 Apixaban (Eliquis) 5 mg BID ORAL 05/30/20 18:00 08/28/20 17:59 06/02/20 17:32 Dexamethasone Sodium Phosphate (Decadron 10mg/ ml Inj) 6 mg DAILY IV 05/26/20 11:00 06/04/20 09:01 06/02/20 08:56 Dextrose/Sodium Chloride 1,000 ml @ 75 mls/hr [id number] IV 05/22/20 13:30 06/21/20 13:29 06/02/20 02:16 Digoxin (Lanoxin) 0.125 mg DAILY ORAL 05/28/20 09:00 08/26/20 08:59 06/01/20 09:08 Diphenhydramine HCl (Benadryl) 25 mg Q6H PRN IVP Itching 05/26/20 14:45 06/25/20 14:44 Haloperidol Lactate (Haldol) 5 mg Q6H PRN IM Agitation 05/22/20 13:15 07/06/20 13:14 05/26/20 08:33 Metoprolol Tartrate (Lopressor) 100 mg EVERY 12 HOURS ORAL 05/27/20 21:00 08/25/20 20:59 06/02/20 08:57 Pantoprazole (Protonix) 40 mg EVERY 12 HOURS IVP 05/22/20 21:00 06/21/20 20:59 06/02/20 08:57 Quetiapine Fumarate (SEROqueL) 50 mg Q12HR ORAL 05/26/20 13:15 07/10/20 13:14 06/02/20 08:56 Neurological/Psychiatric: Reports: anxiety, depressed Allergies: Coded Allergies: No Known Allergies (Unverified , 05/21/20) Objective Data Height (Feet): 5 Height (Inches): 7.00 Weight (Pounds): 159 General Appearance: no apparent distress Additional Comments: waxing and waning consciousness. Mood is anxious. Affect is blunted, congruent with mood. Thought process is concrete. Thought content, no suicidal or homicidal ideation. Cognition is impaired. Insight and judgment impaired. Assessment/Plan Alvin I: ASSESSMENT: Alvin I Acute metabolic encephalopathy. Dementia. Alvin II Deferred. Alvin III Renal insufficiency and head injury. Alvin IV Low. Alvin V 20. PLAN: 1. We will start the patient on Haldol IM p.r.n. 2. Restraints. 3. Discussed with the nurse. Status: progressing, deteriorating Status Narrative ASSESSMENT: Alvin I Acute metabolic encephalopathy. Dementia. Alvin II Deferred. Alvin III Renal insufficiency and head injury. Alvin IV Low. Alvin V 20. PLAN: 1. We will start the patient on Haldol IM p.r.n. 2. Restraints. 3. Discussed with the nurse. Assessment/Plan: ASSESSMENT: Alvin I Acute metabolic encephalopathy. Dementia. Alvin II Deferred. Alvin III Renal insufficiency and head injury. Alvin IV Low. Alvin V 20. PLAN: 1. We will start the patient on Haldol IM p.r.n. 2. Restraints. 3. Discussed with the nurse. Francheska Huynh MD Jun 02, 2020 17:58
--- NOTE | 2020-06-02 19:10 | NUR ---
NURSE HAND-OFF REPORT: Important Events on Shift:N/A Patient Status: Stable Diet: Regular puree moist Pending Orders: N/A Pending Results/Labs:Morning labs Pending MD notification:N/A Latest Vital Signs: Temperature 96.8 , Pulse 56 , B/P 124 /73 , Respiratory Rate 19 , O2 SAT 97 , Nasal Cannula, O2 Flow Rate 2.0 . Vital Sign Comment: Stable EKG Rhythm: SB w/BBB Rhythm change?: N MD Notified?: Guera -Dr. Praful MONSIVAIS Response: No New Orders Received Latest Stewart Fall Score: 85 Fall Risk: High Risk Safety Measures: Call light Within Reach, Bed Alarm Zone 2, Side Rails Side Rails x3, Bed position Low and Locked. Fall Precautions: Yellow Socks Yellow Gown Door Sign Patient Fall Education Report given to Dilan/RN.
--- NOTE | 2020-06-02 19:15 | NUR ---
NURSE NOTES: Patient received from MARTHA Hernandez. Patient is A/O x 1, appears to be confused. Patient is on 2 L nasal cannula with no signs of acute respiratory distress noted. Patient has a bilateral wrist restraint, no injuries has been noted. Patient has a paulino 16 frisian, patent and well draining. Patient has a left 22 gauge on his forearm with D5 1/2 NS running at 75 ml/hr. Bed is in the lowest position, call light within reach. Will continue to monitor.
[2020-06-02 20:00] VITALS: BP 130/70
--- NOTE | 2020-06-02 20:24 | General Progress Note ---
Subjective ROS Limited/Unobtainable: Yes Allergies: Coded Allergies: No Known Allergies (Unverified , 05/21/20) Objective Last 24 Hour Vital Signs Date Time Temp Pulse Resp B/P (MAP) Pulse Ox O2 Delivery O2 Flow Rate FiO2 06/02/20 16:00 56 06/02/20 16:00 96.8 56 19 124/73 (90) 97 06/02/20 15:43 Nasal Cannula 4.0 Nasal Cannula 2.0 06/02/20 13:10 94 Nasal Cannula 3.0 32 06/02/20 12:00 56 06/02/20 12:00 97.7 67 19 143/83 (103) 97 06/02/20 08:57 59 141/73 06/02/20 08:55 59 06/02/20 08:00 61 06/02/20 08:00 96.4 59 21 141/73 (95) 96 06/02/20 04:00 97.7 61 20 151/96 (114) 94 06/02/20 04:00 61 06/02/20 00:00 97.0 59 20 139/76 (97) 94 06/01/20 21:03 68 141/78 06/01/20 21:00 Nasal Cannula 4.0 Nasal Cannula 2.0 Intake and Output 06/01/20 06/02/20 19:00 07:00 Intake Total 75 ml 880 ml Output Total 700 ml 700 ml Balance -625 ml 180 ml IV Total 75 ml 880 ml Output Urine Total 700 ml 700 ml Laboratory Tests 06/02/20 06:01: White Blood Count 13.9H, Red Blood Count 4.25L, Hemoglobin 13.4L, Hematocrit 39.7L, Mean Corpuscular Volume 93, Mean Corpuscular Hemoglobin 31.5H, Mean Corpuscular Hemoglobin Concent 33.8, Red Cell Distribution Width 14.7, Platelet Count 221, Mean Platelet Volume 9.9, Neutrophils (%) (Auto) 81.9H, Lymphocytes (%) (Auto) 7.7L, Monocytes (%) (Auto) 9.6, Eosinophils (%) (Auto) 0.0, Basophils (%) (Auto) 0.7, Sodium Level 136, Potassium Level 4.3, Chloride Level 103, Carbon Dioxide Level 27, Anion Gap 6, Blood Urea Nitrogen 26H, Creatinine 1.0, Estimat Glomerular Filtration Rate > 60, Glucose Level 92, Calcium Level 8.3L, Phosphorus Level 2.7, Magnesium Level 1.5L, Total Bilirubin 1.2H, Direct Bilirubin 0.5H, Aspartate Amino Transf (AST/SGOT) 31, Alanine Aminotransferase (ALT/SGPT) 29, Alkaline Phosphatase 73, Total Protein 6.9, Albumin 2.2L, Globulin 4.7, Albumin/Globulin Ratio 0.5L Height (Feet): 5 Height (Inches): 7.00 Weight (Pounds): 159 Assessment/Plan Problem List: (1) Renal insufficiency ICD Codes: N28.9 - Disorder of kidney and ureter, unspecified SNOMED: 639307554, 490302915 (2) Encephalopathy ICD Codes: G93.40 - Encephalopathy, unspecified SNOMED: 44969650, 527774630 (3) Head injury ICD Codes: S09.90XA - Unspecified injury of head, initial encounter SNOMED: 65878124, 900306165 Qualifiers: Qualified Codes: S09.90XA - Unspecified injury of head, initial encounter (4) Pneumonia ICD Codes: J18.9 - Pneumonia, unspecified organism SNOMED: 381058101 Qualifiers: Qualified Codes: J18.9 - Pneumonia, unspecified organism (5) Abnormal EKG ICD Codes: R94.31 - Abnormal electrocardiogram [ECG] [EKG]; J12.89 - Other viral pneumonia SNOMED: 878814418 (6) Altered level of consciousness ICD Codes: R40.4 - Transient alteration of awareness SNOMED: 9235135 (7) Dehydration ICD Codes: E86.0 - Dehydration SNOMED: 39407777 (8) Pneumonia due to COVID-19 virus ICD Codes: U07.1 - COVID-19; J12.89 - Other viral pneumonia SNOMED: 843006519053134041 (9) Renal failure (ARF), acute on chronic ICD Codes: N17.9 - Acute kidney failure, unspecified; N18.9 - Chronic kidney disease, unspecified SNOMED: 279363258 Status: progressing, deteriorating Assessment/Plan: weak malnutrition afebrile rate controlled covid positive pna s/p a fib w rvr Yvette Waldrop MD Jun 02, 2020 20:23
[2020-06-03] VITALS: BP 137/76
[2020-06-03 04:00] VITALS: BP 136/73
[2020-06-03] MEDS: D5 1/2NS 1,000 ML IV SCH ×2 (05:08→19:00)
--- NOTE | 2020-06-03 07:10 | NUR ---
NURSE HAND-OFF REPORT: Important Events on Shift:[] Patient Status: [Stable] Diet: [Regular diet pureed moist] Pending Orders: [] Pending Results/Labs:[] Pending MD notification:[] Latest Vital Signs: Temperature 97.7 , Pulse 62 , B/P 136 /73 , Respiratory Rate 18 , O2 SAT 96 , Nasal Cannula, O2 Flow Rate 3.0 . Vital Sign Comment: [] EKG Rhythm: SR w/BBB Rhythm change?: N MD Notified?: N -Dr. Praful MONSIVAIS Response: No New Orders Received Latest Stewart Fall Score: 85 Fall Risk: High Risk Safety Measures: Call light Within Reach, Bed Alarm Zone 2, Side Rails Side Rails x3, Bed position Low and Locked. Fall Precautions: Yellow Socks Yellow Gown Door Sign Patient Fall Education Report given to [MARTHA Hernandez].
--- NOTE | 2020-06-03 07:12 | NUR ---
NURSE NOTES: Received report from Dilan/RN, Observed Patient asleep, lying semi-sears's, resting comfortably. AAO x1. On 2L nasal canula, no acute distress/SOB noted at this time. Breathing even and unlabored. IV site patent and intact. D5 1/2 NS running at 75cc/hr. On soft bilateral wrist restraint for safety. Bed in lowest position and locked, side rails x3, Call light within reach. Encouraged to use call light when needed. Will continue plan of care.
[2020-06-03 08:00] VITALS: BP 130/77
--- NOTE | 2020-06-03 08:14 | NUR ---
CASE MANAGEMENT:REVIEW 06/03/20 SI: ESVIN GALVEZ. ENCEPHALOPATHY. AFIB W/RVR 97.7 62 18 136/73 96% ON 3L/NC IS: AMIODARONE 200MG PO QD ELIQUIS PO BID DIGOXIN PO QD LOPRESSOR PO Q12 IV DECADRON QQ IV PROTONIX Q12 IVF@75/HR : TELEMETRY STATUS DCP: FROM HOME PLAN: ESVIN MEZA WEAN OXYGEN Addendum: 06/03/20 at 0823 by ROMA CABELLO LVN LVN ASKED NURSE TO TITRATE OXYGEN TO OFF TO SEE IF HOME OXYGEN IS NEEDED
[2020-06-03] MEDS: Eliquis 5mg tablet ORAL SCH ×2 (08:52→17:35)
[2020-06-03] MEDS: Pantoprazole Inj IVP SCH ×2 (08:52→22:27)
[2020-06-03] MEDS: Metoprolol Tartrate 100mg tab ORAL SCH ×2 (08:52→21:00)
[2020-06-03] MEDS: Digoxin 0.125mg tab ORAL SCH (08:53)
[2020-06-03] MEDS: dexAMETHasone 10mg/ml Inj IV SCH (08:53)
[2020-06-03] MEDS: Amiodarone 200mg tab ORAL SCH (08:53)
[2020-06-03 12:00] VITALS: BP 115/70
--- NOTE | 2020-06-03 12:19 | Pulmonology Progress Note ---
Subjective ROS Limited/Unobtainable: Yes Interval Events: was on 2L NC as of yesterday, pt desaturated, now on 8L Venturimask Constitutional: Denies: fever HEENT: Repors: no symptoms Respiratory: Reports: no symptoms Cardiovascular: Reports: no symptoms Gastrointestinal/Abdominal: Reports: no symptoms Allergies: Coded Allergies: No Known Allergies (Unverified , 05/21/20) Objective Last 24 Hour Vital Signs Date Time Temp Pulse Resp B/P (MAP) Pulse Ox O2 Delivery O2 Flow Rate FiO2 06/03/20 08:53 61 06/03/20 08:52 61 130/77 06/03/20 08:00 97.2 61 20 130/77 (94) 96 06/03/20 08:00 62 06/03/20 04:00 97.7 62 18 136/73 (94) 96 06/03/20 04:00 63 06/03/20 00:00 69 06/03/20 00:00 97.6 64 18 137/76 (96) 96 06/02/20 21:00 55 130/70 06/02/20 20:39 97 Nasal Cannula 3.0 32 06/02/20 20:00 62 06/02/20 20:00 97.4 58 18 130/70 (90) 97 06/02/20 16:00 56 06/02/20 16:00 96.8 56 19 124/73 (90) 97 06/02/20 15:43 Nasal Cannula 4.0 Nasal Cannula 2.0 06/02/20 13:10 94 Nasal Cannula 3.0 32 Intake and Output 06/02/20 06/03/20 19:00 07:00 Intake Total 900 ml Output Total 1950 ml 900 ml Balance -1050 ml -900 ml IV Total 900 ml Output Urine Total 1950 ml 900 ml # Voids 3 1 Objective 06/03 now on 8L Venturi mask at 40% FiO2 06/02 no change 06/01 now on 2L NC saturating well 05/30 saturating well on 4 L NC; pt asleep 05/29 saturating well on 4 lpm NC; agitated, A&O x1-2 05/24/2020 currently on 2 lpm NC saturating well 05/23/2020 [place] speaking pt, A&O x2, saturating well on RA General Appearance: WD/WN, no acute distress HEENT: normocephalic, atraumatic Respiratory: chest wall non-tender, lungs clear Cardiovascular: normal rate, regular rhythm Abdomen: other - obese Extremities: no edema Skin: other - 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 Musculoskeletal: other - left hip tenderness to palpation, no contusion, no crepitus noted Current Medications Medications (Trade) Dose Ordered Sig/Celia Route PRN Reason Start Time Stop Time Status Last Admin Dose Admin Amiodarone HCl (Cordarone) 200 mg DAILY ORAL 06/02/20 09:00 08/31/20 08:59 06/03/20 08:53 Apixaban (Eliquis) 5 mg BID ORAL 05/30/20 18:00 08/28/20 17:59 06/03/20 08:52 Dexamethasone Sodium Phosphate (Decadron 10mg/ ml Inj) 6 mg DAILY IV 05/26/20 11:00 06/04/20 09:01 06/03/20 08:53 Dextrose/Sodium Chloride 1,000 ml @ 75 mls/hr [id number] IV 05/22/20 13:30 06/21/20 13:29 06/03/20 05:08 Digoxin (Lanoxin) 0.125 mg DAILY ORAL 05/28/20 09:00 08/26/20 08:59 06/03/20 08:53 Diphenhydramine HCl (Benadryl) 25 mg Q6H PRN IVP Itching 05/26/20 14:45 06/25/20 14:44 Haloperidol Lactate (Haldol) 5 mg Q6H PRN IM Agitation 05/22/20 13:15 07/06/20 13:14 05/26/20 08:33 Metoprolol Tartrate (Lopressor) 100 mg EVERY 12 HOURS ORAL 05/27/20 21:00 08/25/20 20:59 06/03/20 08:52 Pantoprazole (Protonix) 40 mg EVERY 12 HOURS IVP 05/22/20 21:00 06/21/20 20:59 06/03/20 08:52 Quetiapine Fumarate (SEROqueL) 50 mg Q12HR ORAL 05/26/20 13:15 07/10/20 13:14 06/03/20 08:52 Assessment/Plan Assessment/Plan 1. Pneumonia. - s/p Rocephin 2. Anemia. - improving 3. Renal insufficiency. - Hydration 4. Elevated inflammatory markers with high CRP. 5. Hypokalemia.; resolved 6. Mild protein-calorie malnutrition. - on regular diet 7. COVID-19 - hold off on any specific therapy for COVID such as remdesivir. - On decadron 8. Wound care instituted 9. Left hip pain s/p fall - L hip XRay - no fractures noted 10. s/p fall 11. Afib; now off Cardizem gtt oxygenation worse today Now on 8L Venturi mask, 40% FiO2; wean down as tolerated seen in tele The care for this patient was discussed with my supervising physician Time spent for this case was approximately 31 minutes The patient was seen and examined at bedside and all new and available data was reviewed in the patients chart. I agree with the above findings, impression, and plan. (Patient was seen earlier today. Signature timestamp does not reflect patient encounter time) Otoniel Campbell MD Jun 03, 2020 12:19 Ector Howe MD Jun 03, 2020 13:41
--- NOTE | 2020-06-03 12:27 | Cardiac Electrophysiology PN ---
Assessment/Plan Assessment/Plan 1. Syncope. Etiology is not clear at this time. EF 60%. He might have been dehydrated 2. Atrial fib with RVR. Not eating and no NGT. Swallow eval is pending. On metoprolol 100 bid, Amiodarone 200 po daily, Eliquis 2.5 bid and Dig 0.125 po daily Dig level 1.6. 3. Troponin elevation. Levels are low and coming down likely due to renal failure. On Lopressor 4. Complete right bundle-branch block and lateral T-wave inversion. 5. Covid PNA 6. Dysphagia. YASMIN RN Subjective Subjective In Covid isolation on Lopressor 100 bid and Dig 0.125 po daily. Dig level 1.6. On 40% VM . In restraints due to falls. Converted back to atrial fib with controlled rate. Came from home but going to [facility] Objective Last 24 Hour Vital Signs Date Time Temp Pulse Resp B/P (MAP) Pulse Ox O2 Delivery O2 Flow Rate FiO2 06/03/20 08:53 61 06/03/20 08:52 61 130/77 06/03/20 08:00 97.2 61 20 130/77 (94) 96 06/03/20 08:00 62 06/03/20 04:00 97.7 62 18 136/73 (94) 96 06/03/20 04:00 63 06/03/20 00:00 69 06/03/20 00:00 97.6 64 18 137/76 (96) 96 06/02/20 21:00 55 130/70 06/02/20 20:39 97 Nasal Cannula 3.0 32 06/02/20 20:00 62 06/02/20 20:00 97.4 58 18 130/70 (90) 97 06/02/20 16:00 56 06/02/20 16:00 96.8 56 19 124/73 (90) 97 06/02/20 15:43 Nasal Cannula 4.0 Nasal Cannula 2.0 06/02/20 13:10 94 Nasal Cannula 3.0 32 Intake and Output0 06/02/20 06/03/20 19:00 07:00 Intake Total 900 ml Output Total 1950 ml 900 ml Balance -1050 ml -900 ml IV Total 900 ml Output Urine Total 1950 ml 900 ml # Voids 3 1 Objective HEAD AND NECK: No JVD. LUNGS: Clear. CARDIOVASCULAR: Irregular S1 and S2 with no gallop or murmur. ABDOMEN: Soft. EXTREMITIES: No pitting edema. Rick Basilio MD Jun 03, 2020 12:27
--- NOTE | 2020-06-03 12:45 | Neurology Progress Note ---
Interim History Interim History ROS Limited/Unobtainable: Yes Objective Physical Exam Last Vital Signs Date Time Temp Pulse Resp B/P (MAP) Pulse Ox O2 Delivery O2 Flow Rate FiO2 06/03/20 08:53 61 06/03/20 08:52 130/77 06/03/20 08:00 97.2 20 96 06/02/20 20:39 Nasal Cannula 3.0 32 Neurologic Exam Objective Objective: Neuro exam unable to examine pt is not cooperating Impression/Recommendations Status: progressing, deteriorating Diagnostic Impression 1. Falls --> unknown etiology --> CT Head completed once prior to admission and second CT head done yesterday after patient fell in the room attempting to get up oob per RN --> S/p nasal fracture second: CT findings revealed Left frontal soft tissue swelling. Age-indeterminate nasal bone fractures partially visualized.Stable mild chronic small vessel ischemic changes and cerebral volume loss. --> Recommend MRI Brain once he is stable and out of covid isolation. --> family was contacted by nursing. --> Pt has had 3 falls inpatient according to nurses. None reported since then. 2. Encephalopathy --> No focal findings on limited neuro exam, i.e cva 3. Covid 19 Disease --> on isolation, went into resp failure s/p intubation and on vent --> continue supportive treatment on RA currently mask is off d/w RN 4. Atrial Fibrillation --> with RVR, cards on board 5. Resp Distress and Failure --> s/p Code Blue, s/p Intubation and vent now extubated in 206-2 on face mask Thank You for allowing us to participate in the care of the patient. The time of the note phil not necessarily reflect the time the patient was seen and evaluated Recommendations no new recommendations at this time. Sonam Redman PERFORMANCE CONSULTANT Jun 03, 2020 12:45
--- NOTE | 2020-06-03 12:47 | Nephrology Progress Note ---
Assessment/Plan Problem List: (1) Renal failure (ARF), acute on chronic (2) Dehydration (3) Pneumonia due to COVID-19 virus Assessment Acute renal failure Possible underlying chronic kidney disease Dehydration Electrolyte imbalance Toxic metabolic encephalopathy Pneumonia due to COVID-19 virus Mild anemia Plan June 03: No labs drawn today. Stable from renal standpoint of view. June 02: Labs reviewed. Renal parameters and electrolytes stable. Continue per consultants. June 01: No labs from today. Will check lab in a.m. Medication list reviewe d. Blood pressure stable. Continue per consultants. May 31. No labs drawn today. Most recent renal parameters and electro lytes stable. Will check lab tomorrow. Continue per consultants. May 30: Labs reviewed. Low magnesium replaced. Continue per consultants. Remains stable from renal standpoint of view. May 29: No labs drawn today. Heart rate within normal range. Stable from renal standpoint of view. May 28: Renal parameters improved. Heart rate within normal limits. Continue per current treatment plan and consultants. May 27: Serum creatinine down to 1.5. Heart rate normalized. Continue per consultants. Continue to monitor electrolytes and renal parameters. May 26: Borderline blood pressure. Serum creatinine higher at 1.9. Remains under the care of taker out for rhythm management. Continue to monitor electrolytes and adjust abnormalities May 25: Patient now in ICU on Cardizem drip. Serum creatinine 1.7. Rest of the electrolytes within normal limit. Continue per cardiology. Continue to monitor renal parameters and electrolytes. May 24: Labs reviewed. Serum creatinine 1.6. Phosphorus low, IV K-Phos ordered. Continue to monitor renal parameters. Continue per current management. Slow hydrate Magnesium sulfate IV supplement today Antibiotics, avoid nephrotoxic's Monitor renal parameters electrolytes Keep the blood pressure blood sugar in check Patient full code Subjective ROS Limited/Unobtainable: No Objective Objective Last 24 Hour Vital Signs Date Time Temp Pulse Resp B/P (MAP) Pulse Ox O2 Delivery O2 Flow Rate FiO2 06/03/20 08:53 61 06/03/20 08:52 61 130/77 06/03/20 08:00 97.2 61 20 130/77 (94) 96 06/03/20 08:00 62 06/03/20 04:00 97.7 62 18 136/73 (94) 96 06/03/20 04:00 63 06/03/20 00:00 69 06/03/20 00:00 97.6 64 18 137/76 (96) 96 06/02/20 21:00 55 130/70 06/02/20 20:39 97 Nasal Cannula 3.0 32 06/02/20 20:00 62 06/02/20 20:00 97.4 58 18 130/70 (90) 97 06/02/20 16:00 56 06/02/20 16:00 96.8 56 19 124/73 (90) 97 06/02/20 15:43 Nasal Cannula 4.0 Nasal Cannula 2.0 06/02/20 13:10 94 Nasal Cannula 3.0 32 Intake and Output 06/02/20 06/03/20 19:00 07:00 Intake Total 900 ml Output Total 1950 ml 900 ml Balance -1050 ml -900 ml IV Total 900 ml Output Urine Total 1950 ml 900 ml # Voids 3 1 Height (Feet): 5 Height (Inches): 7.00 Weight (Pounds): 159 General Appearance: no apparent distress, lethargic Cardiovascular: bradycardia Respiratory/Chest: decreased breath sounds Abdomen: distended Objective No change Jerome Delaney MD Jun 03, 2020 12:47
--- NOTE | 2020-06-03 13:03 | NUR ---
RD ASSESSMENT & RECOMMENDATIONS SEE CARE ACTIVITY FOR COMPLETE ASSESSMENT DAILY ESTIMATED NEEDS: Needs based on cardiac, pulmonary 63kg 25-30 kcals/kg 3488-9034 total kcals 1-1.5 g protein/kg 63-95 g total protein 25-30 mL/kg 4352-0336 total fluid mLs NUTRITION DIAGNOSIS: Swallowing difficulty r/t respiratory status anc clinical status as evidenced by s/p EDGING MACHINE SETTER eval, recs for puree texture, currently NPO, ICU status w/ Covid ++ PNA, on NC. (CURRENT DIET: now Regular puree) PO DIET RECOMMENDATIONS--->>> liberalized Regular w/ variable intake/ texture per EDGING MACHINE SETTER ENTERAL NUTRITION RECOMMENDATIONS: CONSULT RD IF NON ORAL FEEDS ARE PART OF POC ADDITIONAL RECOMMENDATIONS: 1) Maintain calibrated bed scale wts 2) Maintain D5 with poor to variable po intake 3) Monitor for ability to feed-> on puree diet, variable po intake Add ensure enlive w/ trays TID 4) Check lytes daily(mg 1.5) 5) Rec accuchecks w/ niss with diet order
--- NOTE | 2020-06-03 13:08 | General Progress Note ---
Subjective ROS Limited/Unobtainable: Yes Allergies: Coded Allergies: No Known Allergies (Unverified , 05/21/20) Objective Last 24 Hour Vital Signs Date Time Temp Pulse Resp B/P (MAP) Pulse Ox O2 Delivery O2 Flow Rate FiO2 06/03/20 12:00 97.1 54 20 115/70 (85) 93 06/03/20 08:53 61 06/03/20 08:52 61 130/77 06/03/20 08:00 97.2 61 20 130/77 (94) 96 06/03/20 08:00 62 06/03/20 04:00 97.7 62 18 136/73 (94) 96 06/03/20 04:00 63 06/03/20 00:00 69 06/03/20 00:00 97.6 64 18 137/76 (96) 96 06/02/20 21:00 55 130/70 06/02/20 20:39 97 Nasal Cannula 3.0 32 06/02/20 20:00 62 06/02/20 20:00 97.4 58 18 130/70 (90) 97 06/02/20 16:00 56 06/02/20 16:00 96.8 56 19 124/73 (90) 97 06/02/20 15:43 Nasal Cannula 4.0 Nasal Cannula 2.0 06/02/20 13:10 94 Nasal Cannula 3.0 32 Intake and Output 06/02/20 06/03/20 19:00 07:00 Intake Total 900 ml Output Total 1950 ml 900 ml Balance -1050 ml -900 ml IV Total 900 ml Output Urine Total 1950 ml 900 ml # Voids 3 1 Height (Feet): 5 Height (Inches): 7.00 Weight (Pounds): 159 Assessment/Plan Problem List: (1) Renal insufficiency ICD Codes: N28.9 - Disorder of kidney and ureter, unspecified SNOMED: 223211705, 019998705 (2) Encephalopathy ICD Codes: G93.40 - Encephalopathy, unspecified SNOMED: 61693188, 696486362 (3) Head injury ICD Codes: S09.90XA - Unspecified injury of head, initial encounter SNOMED: 67445519, 455455835 Qualifiers: Qualified Codes: S09.90XA - Unspecified injury of head, initial encounter (4) Pneumonia ICD Codes: J18.9 - Pneumonia, unspecified organism SNOMED: 681713950 Qualifiers: Qualified Codes: J18.9 - Pneumonia, unspecified organism (5) Abnormal EKG ICD Codes: R94.31 - Abnormal electrocardiogram [ECG] [EKG]; J12.89 - Other viral pneumonia SNOMED: 839774240 (6) Altered level of consciousness ICD Codes: R40.4 - Transient alteration of awareness SNOMED: 7041720 (7) Dehydration ICD Codes: E86.0 - Dehydration SNOMED: 22875818 (8) Pneumonia due to COVID-19 virus ICD Codes: U07.1 - COVID-19; J12.89 - Other viral pneumonia SNOMED: 482208433420896817 (9) Renal failure (ARF), acute on chronic ICD Codes: N17.9 - Acute kidney failure, unspecified; N18.9 - Chronic kidney disease, unspecified SNOMED: 032254505 Status: progressing, deteriorating Assessment/Plan: not hypoxic afebrile covid positive pna s/p a fib w rvr Yvette Waldrop MD Jun 03, 2020 13:08
--- NOTE | 2020-06-03 15:30 | Infectious Diseases Prog Note ---
Assessment/Plan Assessment/Plan IMPRESSION: COVID-19 pneumonia. Acute renal failure,improving Dehydration, Atrial fibrillation with rapid ventricular rate, Right bundle-branch block, History of coronary artery disease with bypass, Dementia. RECOMMENDATION: Continue Dexamethasone X 1 day Subjective ROS Limited/Unobtainable: Yes Respiratory: Reports: other - oxygen was increased from 2 to 3 lit/min Neurologic: Reports: confusion, other - on restraint Allergies: Coded Allergies: No Known Allergies (Unverified , 05/21/20) Objective Last 24 Hour Vital Signs Date Time Temp Pulse Resp B/P (MAP) Pulse Ox O2 Delivery O2 Flow Rate FiO2 06/03/20 12:00 58 06/03/20 12:00 97.1 54 20 115/70 (85) 93 06/03/20 08:53 61 06/03/20 08:52 61 130/77 06/03/20 08:00 97.2 61 20 130/77 (94) 96 06/03/20 08:00 62 06/03/20 04:00 97.7 62 18 136/73 (94) 96 06/03/20 04:00 63 06/03/20 00:00 69 06/03/20 00:00 97.6 64 18 137/76 (96) 96 06/02/20 21:00 55 130/70 06/02/20 20:39 97 Nasal Cannula 3.0 32 06/02/20 20:00 62 06/02/20 20:00 97.4 58 18 130/70 (90) 97 06/02/20 16:00 56 06/02/20 16:00 96.8 56 19 124/73 (90) 97 06/02/20 15:43 Nasal Cannula 4.0 Nasal Cannula 2.0 Height (Feet): 5 Height (Inches): 7.00 Weight (Pounds): 159 HEENT: mucous membranes moist Respiratory/Chest: other - oxygen by nasal cannula Cardiovascular: normal rate Abdomen: soft, non tender Extremities: no edema Neurologic/Psychiatric: other - sleeping Current Medications Medications (Trade) Dose Ordered Sig/Celia Route PRN Reason Start Time Stop Time Status Last Admin Dose Admin Amiodarone HCl (Cordarone) 200 mg DAILY ORAL 06/02/20 09:00 08/31/20 08:59 06/03/20 08:53 Apixaban (Eliquis) 5 mg BID ORAL 05/30/20 18:00 08/28/20 17:59 06/03/20 08:52 Dexamethasone Sodium Phosphate (Decadron 10mg/ ml Inj) 6 mg DAILY IV 05/26/20 11:00 06/04/20 09:01 06/03/20 08:53 Dextrose/Sodium Chloride 1,000 ml @ 75 mls/hr [id number] IV 05/22/20 13:30 06/21/20 13:29 06/03/20 05:08 Digoxin (Lanoxin) 0.125 mg DAILY ORAL 05/28/20 09:00 08/26/20 08:59 06/03/20 08:53 Diphenhydramine HCl (Benadryl) 25 mg Q6H PRN IVP Itching 05/26/20 14:45 06/25/20 14:44 Haloperidol Lactate (Haldol) 5 mg Q6H PRN IM Agitation 05/22/20 13:15 07/06/20 13:14 05/26/20 08:33 Metoprolol Tartrate (Lopressor) 100 mg EVERY 12 HOURS ORAL 05/27/20 21:00 08/25/20 20:59 06/03/20 08:52 Pantoprazole (Protonix) 40 mg EVERY 12 HOURS IVP 05/22/20 21:00 06/21/20 20:59 06/03/20 08:52 Quetiapine Fumarate (SEROqueL) 50 mg Q12HR ORAL 05/26/20 13:15 07/10/20 13:14 06/03/20 08:52 Mahin Leyva MD Jun 03, 2020 15:30
[2020-06-03 16:00] VITALS: BP 132/78
--- NOTE | 2020-06-03 19:17 | NUR ---
NURSE HAND-OFF REPORT: Important Events on Shift:Patient desaturated when on room air Patient Status: Confused Diet: Regular Pending Orders: N/A Pending Results/Labs:N/A Pending MD notification:N/A Latest Vital Signs: Temperature 96.8 , Pulse 58 , B/P 132 /78 , Respiratory Rate 20 , O2 SAT 95 , Nasal Cannula, O2 Flow Rate 2.0 . Vital Sign Comment: Stable EKG Rhythm: SB w/BBB Rhythm change?: N MD Notified?: N -Dr. Praful MONSIVAIS Response: No New Orders Received Latest Stewart Fall Score: 85 Fall Risk: High Risk Safety Measures: Call light Within Reach, Bed Alarm Zone 2, Side Rails Side Rails x3, Bed position Low and Locked. Fall Precautions: Yellow Socks Yellow Gown Door Sign Patient Fall Education Report given to Dilan/RN.
--- NOTE | 2020-06-03 19:20 | NUR ---
NURSE NOTES: Patient received from MARTHA Hernandez. Patient is A/O x 1. Patient appears to be confused. Patient was shouting in Korean upon introducing myself. Patient is on bilateral soft wrist restraints with no signs of any injuries. Patient has a 16 turkmen paulino catheter, patent and well draining. Patient has an on his left forearm, 22 gauge running D5 1/2 NS at 75 ml/ hr. Bed is in the lowest position and locked, call light within reach. Will continue to monitor.
[2020-06-03 20:00] VITALS: BP 146/76
--- NOTE | 2020-06-03 23:36 | Psychiatric Progress Note ---
Psychiatry Progress Note Psychiatry Progress Note Subjective the pt is more stable Medications Current Medications Medications (Trade) Dose Ordered Sig/Celia Route PRN Reason Start Time Stop Time Status Last Admin Dose Admin Amiodarone HCl (Cordarone) 200 mg DAILY ORAL 06/02/20 09:00 08/31/20 08:59 06/03/20 08:53 Apixaban (Eliquis) 5 mg BID ORAL 05/30/20 18:00 08/28/20 17:59 06/03/20 17:35 Dexamethasone Sodium Phosphate (Decadron 10mg/ ml Inj) 6 mg DAILY IV 05/26/20 11:00 06/04/20 09:01 06/03/20 08:53 Dextrose/Sodium Chloride 1,000 ml @ 75 mls/hr [id number] IV 05/22/20 13:30 06/21/20 13:29 06/03/20 19:00 Digoxin (Lanoxin) 0.125 mg DAILY ORAL 05/28/20 09:00 08/26/20 08:59 06/03/20 08:53 Diphenhydramine HCl (Benadryl) 25 mg Q6H PRN IVP Itching 05/26/20 14:45 06/25/20 14:44 Haloperidol Lactate (Haldol) 5 mg Q6H PRN IM Agitation 05/22/20 13:15 07/06/20 13:14 05/26/20 08:33 Metoprolol Tartrate (Lopressor) 100 mg EVERY 12 HOURS ORAL 05/27/20 21:00 08/25/20 20:59 06/03/20 08:52 Pantoprazole (Protonix) 40 mg EVERY 12 HOURS IVP 05/22/20 21:00 06/21/20 20:59 06/03/20 22:27 Quetiapine Fumarate (SEROqueL) 50 mg Q12HR ORAL 05/26/20 13:15 07/10/20 13:14 06/03/20 22:27 Neurological/Psychiatric: Reports: anxiety, depressed, emotional problems Allergies: Coded Allergies: No Known Allergies (Unverified , 05/21/20) Objective Data Height (Feet): 5 Height (Inches): 7.00 Weight (Pounds): 159 General Appearance: no apparent distress, lethargic Additional Comments: waxing and waning consciousness. Mood is anxious. Affect is blunted, congruent with mood. Thought process is concrete. Thought content, no suicidal or homicidal ideation. Cognition is impaired. Insight and judgment impaired. Assessment/Plan [place] I: ASSESSMENT: [place] I Acute metabolic encephalopathy. Dementia. [place] II Deferred. [place] III Renal insufficiency and head injury. [place] IV Low. [place] V 20. PLAN: 1. We will start the patient on Haldol IM p.r.n. 2. Restraints. 3. Discussed with the nurse. Status: progressing, deteriorating Status Narrative ASSESSMENT: [place] I Acute metabolic encephalopathy. Dementia. [place] II Deferred. [place] III Renal insufficiency and head injury. [place] IV Low. [place] V 20. PLAN: 1. We will start the patient on Haldol IM p.r.n. 2. Restraints. 3. Discussed with the nurse. Assessment/Plan: ASSESSMENT: [place] I Acute metabolic encephalopathy. Dementia. [place] II Deferred. [place] III Renal insufficiency and head injury. [place] IV Low. [place] V 20. PLAN: 1. We will start the patient on Haldol IM p.r.n. 2. Restraints. 3. Discussed with the nurse. Francheska Huynh MD Jun 03, 2020 23:36
[2020-06-04] VITALS: BP 136/80
[2020-06-04 04:00] VITALS: BP 125/88
--- NOTE | 2020-06-04 06:51 | Cardiac Electrophysiology PN ---
Assessment/Plan Assessment/Plan 1. Syncope. Etiology is not clear at this time. EF 60%. He might have been dehydrated vs SSS in view of PAF 2. Atrial fib with RVR. Not eating and no NGT. Swallow eval is pending. On metoprolol 100 bid, Amiodarone 200 po daily, Eliquis 2.5 bid and Dig 0.125 po daily Dig level 1.6. 3. Troponin elevation. Levels are low and coming down likely due to renal failure. On Lopressor 4. Complete right bundle-branch block and lateral T-wave inversion. 5. Covid PNA 6. Dysphagia. DW RN Subjective Subjective In Covid isolation, fib rate controlled on Lopressor 100 bid and Dig 0.125 po daily. Dig level 1.6. On 10 liter VM . In restraints due to falls. Objective Last 24 Hour Vital Signs Date Time Temp Pulse Resp B/P (MAP) Pulse Ox O2 Delivery O2 Flow Rate FiO2 06/04/20 04:00 60 06/04/20 04:00 97.7 61 19 125/88 (100) 98 06/04/20 00:00 59 06/04/20 00:00 97.9 58 20 136/80 (98) 95 06/03/20 21:00 54 06/03/20 20:00 55 06/03/20 20:00 98.1 54 18 146/76 (99) 95 06/03/20 19:14 95 Nasal Cannula 4.0 36 06/03/20 16:00 96.8 56 20 132/78 (96) 95 06/03/20 16:00 58 06/03/20 15:43 Nasal Cannula 4.0 Nasal Cannula 2.0 06/03/20 12:00 58 06/03/20 12:00 97.1 54 20 115/70 (85) 93 06/03/20 08:53 61 06/03/20 08:52 61 130/77 06/03/20 08:00 97.2 61 20 130/77 (94) 96 06/03/20 08:00 62 06/03/20 07:30 96 Nasal Cannula 4.0 36 Intake and Output 06/03/20 06/04/20 19:00 07:00 Intake Total 295 ml Output Total 900 ml 800 ml Balance -605 ml -800 ml Intake Oral 295 ml Output Urine Total 900 ml 800 ml # Voids 1 Objective HEAD AND NECK: No JVD. LUNGS: Clear. CARDIOVASCULAR: Irregular S1 and S2 with no gallop or murmur. ABDOMEN: Soft. EXTREMITIES: No pitting edema. Rick Basilio MD Jun 04, 2020 06:51
--- NOTE | 2020-06-04 07:30 | NUR ---
NURSE HAND-OFF REPORT: Important Events on Shift:[Patient still confused. Attempts to get out of restraints.] Patient Status: [Stable] Diet: [Regular diet pureed moist] Pending Orders: [] Pending Results/Labs:[] Pending MD notification:[] Latest Vital Signs: Temperature 97.7 , Pulse 60 , B/P 125 /88 , Respiratory Rate 19 , O2 SAT 98 , Nasal Cannula, O2 Flow Rate 4.0 . Vital Sign Comment: [] EKG Rhythm: SB w/BBB Rhythm change?: N MD Notified?: N -Dr. Praful MONSIVAIS Response: No New Orders Received Latest Stewart Fall Score: 85 Fall Risk: High Risk Safety Measures: Call light Within Reach, Bed Alarm Zone 2, Side Rails Side Rails x3, Bed position Low and Locked. Fall Precautions: Yellow Socks Yellow Gown Door Sign Patient Fall Education Report given to [MARTHA Gaspar].
--- NOTE | 2020-06-04 07:37 | NUR ---
NURSE NOTES: Patient received from MARTHA Kong. Patient seen in bed asleep in low fowlers position, patient receiving oxygen via venturi mask at 10L/min. Patient on bilateral soft restraints with no injury noted and normal neurovascular status. The patient has a 16 F paulino catheter that is patent and draining well. The patients bed is placed in lowest position, locked, side rails x3, bed alarm set to zone 1 and call light within reach.
[2020-06-04 08:00] VITALS: BP 114/70
[2020-06-04] MEDS: D5 1/2NS 1,000 ML IV SCH ×2 (08:17→20:48)
[2020-06-04] MEDS: dexAMETHasone 10mg/ml Inj IV SCH (08:17)
[2020-06-04] MEDS: Digoxin 0.125mg tab ORAL SCH (08:18)
[2020-06-04] MEDS: Amiodarone 200mg tab ORAL SCH (08:18)
[2020-06-04] MEDS: Eliquis 5mg tablet ORAL SCH ×2 (08:19→18:03)
[2020-06-04] MEDS: Metoprolol Tartrate 100mg tab ORAL SCH ×2 (08:19→21:22)
[2020-06-04] MEDS: Pantoprazole Inj IVP SCH ×2 (08:20→20:47)
--- NOTE | 2020-06-04 09:47 | Pulmonology Progress Note ---
Subjective ROS Limited/Unobtainable: Yes Interval Events: was on 2L NC as of yesterday, pt desaturated, now on 10L Venturimask Constitutional: Denies: fever HEENT: Repors: no symptoms Respiratory: Reports: no symptoms Cardiovascular: Reports: no symptoms Gastrointestinal/Abdominal: Reports: no symptoms Allergies: Coded Allergies: No Known Allergies (Unverified , 05/21/20) Objective Last 24 Hour Vital Signs Date Time Temp Pulse Resp B/P (MAP) Pulse Ox O2 Delivery O2 Flow Rate FiO2 06/04/20 08:19 65 127/85 06/04/20 08:18 65 06/04/20 04:00 60 06/04/20 04:00 97.7 61 19 125/88 (100) 98 06/04/20 00:00 59 06/04/20 00:00 97.9 58 20 136/80 (98) 95 06/03/20 21:00 54 06/03/20 20:00 55 06/03/20 20:00 98.1 54 18 146/76 (99) 95 06/03/20 19:14 95 Nasal Cannula 4.0 36 06/03/20 16:00 96.8 56 20 132/78 (96) 95 06/03/20 16:00 58 06/03/20 15:43 Nasal Cannula 4.0 Nasal Cannula 2.0 06/03/20 12:00 58 06/03/20 12:00 97.1 54 20 115/70 (85) 93 Intake and Output 06/03/20 06/04/20 19:00 07:00 Intake Total 295 ml Output Total 900 ml 800 ml Balance -605 ml -800 ml Intake Oral 295 ml Output Urine Total 900 ml 800 ml # Voids 1 Objective 06/04 now on 10L Venturi mask, 40% FiO2 06/03 now on 8L Venturi mask at 40% FiO2 06/02 no change 06/01 now on 2L NC saturating well 05/30 saturating well on 4 L NC; pt asleep 05/29 saturating well on 4 lpm NC; agitated, A&O x1-2 05/24/2020 currently on 2 lpm NC saturating well 05/23/2020 Setswana speaking pt, A&O x2, saturating well on RA General Appearance: WD/WN, no acute distress HEENT: normocephalic, atraumatic Respiratory: chest wall non-tender, lungs clear Cardiovascular: normal rate, regular rhythm Abdomen: other - obese Extremities: no edema Skin: other - 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 Musculoskeletal: other - left hip tenderness to palpation, no contusion, no crepitus noted Current Medications Medications (Trade) Dose Ordered Sig/Celia Route PRN Reason Start Time Stop Time Status Last Admin Dose Admin Amiodarone HCl (Cordarone) 200 mg DAILY ORAL 06/02/20 09:00 08/31/20 08:59 06/04/20 08:18 Apixaban (Eliquis) 5 mg BID ORAL 05/30/20 18:00 08/28/20 17:59 06/04/20 08:19 Dextrose/Sodium Chloride 1,000 ml @ 75 mls/hr [id number] IV 05/22/20 13:30 06/21/20 13:29 06/04/20 08:17 Digoxin (Lanoxin) 0.125 mg DAILY ORAL 05/28/20 09:00 08/26/20 08:59 06/04/20 08:18 Diphenhydramine HCl (Benadryl) 25 mg Q6H PRN IVP Itching 05/26/20 14:45 06/25/20 14:44 Haloperidol Lactate (Haldol) 5 mg Q6H PRN IM Agitation 05/22/20 13:15 07/06/20 13:14 05/26/20 08:33 Metoprolol Tartrate (Lopressor) 100 mg EVERY 12 HOURS ORAL 05/27/20 21:00 08/25/20 20:59 06/04/20 08:19 Pantoprazole (Protonix) 40 mg EVERY 12 HOURS IVP 05/22/20 21:00 06/21/20 20:59 06/04/20 08:20 Quetiapine Fumarate (SEROqueL) 50 mg Q12HR ORAL 05/26/20 13:15 07/10/20 13:14 06/04/20 08:18 Assessment/Plan Assessment/Plan 1. Pneumonia. - s/p Rocephin 2. Anemia. - improving 3. Renal insufficiency. - Hydration 4. Elevated inflammatory markers with high CRP. 5. Hypokalemia.; resolved 6. Mild protein-calorie malnutrition. - on regular diet 7. COVID-19 - hold off on any specific therapy for COVID such as remdesivir. - completed decadron 8. Wound care instituted 9. Left hip pain s/p fall - L hip XRay - no fractures noted 10. s/p fall 11. Afib with rvr; now off Cardizem gtt oxygenation worse Now on 10L Venturi mask, 40% FiO2; wean down as tolerated seen in tele The care for this patient was discussed with my supervising physician Time spent for this case was approximately 31 minutes Otoniel Ramirez Jun 04, 2020 09:47 Ector Howe MD Jun 04, 2020 11:43
[2020-06-04 12:00] VITALS: BP 107/65
--- NOTE | 2020-06-04 14:55 | Nephrology Progress Note ---
Assessment/Plan Problem List: (1) Renal failure (ARF), acute on chronic (2) Dehydration (3) Pneumonia due to COVID-19 virus Assessment Acute renal failure Possible underlying chronic kidney disease Dehydration Electrolyte imbalance Toxic metabolic encephalopathy Pneumonia due to COVID-19 virus Mild anemia Plan June 04: No labs or CHEM panel drawn today. Med list reviewed. Will check labs tomorrow. Continue per consultants. June 03: No labs drawn today. Stable from renal standpoint of view. June 02: Labs reviewed. Renal parameters and electrolytes stable. Continue per consultants. June 01: No labs from today. Will check lab in a.m. Medication list reviewed. Blood pressure stable. Continue per consultants. May 31. No labs drawn today. Most recent renal parameters and electrolytes stable. Will check lab tomorrow. Continue per consultants. May 30: Labs reviewed. Low magnesium replaced. Continue per consultants. Remains stable from renal standpoint of view. May 29: No labs drawn today. Heart rate within normal range. Stable from renal standpoint of view. May 28: Renal parameters improved. Heart rate within normal limits. Continue per current treatment plan and consultants. May 27: Serum creatinine down to 1.5. Heart rate normalized. Continue per consultants. Continue to monitor electrolytes and renal parameters. May 26: Borderline blood pressure. Serum creatinine higher at 1.9. Remains under the care of engineer and geologist for rhythm management. Continue to monitor electrolytes and adjust abnormalities May 25: Patient now in ICU on Cardizem drip. Serum creatinine 1.7. Rest of the electrolytes within normal limit. Continue per cardiology. Continue to monitor renal parameters and electrolytes. May 24: Labs reviewed. Serum creatinine 1.6. Phosphorus low, IV K-Phos ordered. Continue to monitor renal parameters. Continue per current management. Slow hydrate Magnesium sulfate IV supplement today Antibiotics, avoid nephrotoxic's Monitor renal parameters electrolytes Keep the blood pressure blood sugar in check Patient full code Subjective ROS Limited/Unobtainable: No Constitutional: Reports: malaise Objective Objective Last 24 Hour Vital Signs Date Time Temp Pulse Resp B/P (MAP) Pulse Ox O2 Delivery O2 Flow Rate FiO2 06/04/20 12:00 51 06/04/20 12:00 97.8 57 22 107/65 (79) 96 06/04/20 11:46 Venturi Mask 10.0 Venturi Mask 10.0 06/04/20 08:19 65 127/85 06/04/20 08:18 65 06/04/20 08:00 58 06/04/20 08:00 98.1 64 20 114/70 (85) 100 06/04/20 04:00 60 06/04/20 04:00 97.7 61 19 125/88 (100) 98 06/04/20 00:00 59 06/04/20 00:00 97.9 58 20 136/80 (98) 95 06/03/20 21:00 54 06/03/20 20:00 55 06/03/20 20:00 98.1 54 18 146/76 (99) 95 06/03/20 19:14 95 Nasal Cannula 4.0 36 06/03/20 16:00 96.8 56 20 132/78 (96) 95 06/03/20 16:00 58 06/03/20 15:43 Nasal Cannula 4.0 Nasal Cannula 2.0 Intake and Output 06/03/20 06/04/20 19:00 07:00 Intake Total 295 ml Output Total 900 ml 800 ml Balance -605 ml -800 ml Intake Oral 295 ml Output Urine Total 900 ml 800 ml # Voids 1 Height (Feet): 5 Height (Inches): 7.00 Weight (Pounds): 159 General Appearance: no apparent distress Objective No change Jerome Delaney MD Jun 04, 2020 14:55
--- NOTE | 2020-06-04 15:41 | Infectious Diseases Prog Note ---
Assessment/Plan Assessment/Plan IMPRESSION: COVID-19 pneumonia. Acute renal failure,improving Dehydration, Atrial fibrillation with rapid ventricular rate, Right bundle-branch block, History of coronary artery disease with bypass, Dementia. RECOMMENDATION: Finished Dexamethasone course Repeat CXR Subjective ROS Limited/Unobtainable: Yes Respiratory: Reports: other - needs more oxygen Neurologic: Reports: confusion, other - on restraint Allergies: Coded Allergies: No Known Allergies (Unverified , 05/21/20) Objective Last 24 Hour Vital Signs Date Time Temp Pulse Resp B/P (MAP) Pulse Ox O2 Delivery O2 Flow Rate FiO2 06/04/20 12:00 51 06/04/20 12:00 97.8 57 22 107/65 (79) 96 06/04/20 11:46 Venturi Mask 10.0 Venturi Mask 10.0 06/04/20 08:19 65 127/85 06/04/20 08:18 65 06/04/20 08:00 58 06/04/20 08:00 98.1 64 20 114/70 (85) 100 06/04/20 04:00 60 06/04/20 04:00 97.7 61 19 125/88 (100) 98 06/04/20 00:00 59 06/04/20 00:00 97.9 58 20 136/80 (98) 95 06/03/20 21:00 54 06/03/20 20:00 55 06/03/20 20:00 98.1 54 18 146/76 (99) 95 06/03/20 19:14 95 Nasal Cannula 4.0 36 06/03/20 16:00 96.8 56 20 132/78 (96) 95 06/03/20 16:00 58 06/03/20 15:43 Nasal Cannula 4.0 Nasal Cannula 2.0 Height (Feet): 5 Height (Inches): 7.00 Weight (Pounds): 159 HEENT: mucous membranes moist Respiratory/Chest: other - Oxygen by nasal cannula, 8 lit/min Cardiovascular: bradycardia Abdomen: soft, non tender Extremities: no edema Neurologic/Psychiatric: disoriented Current Medications Medications (Trade) Dose Ordered Sig/Celia Route PRN Reason Start Time Stop Time Status Last Admin Dose Admin Amiodarone HCl (Cordarone) 200 mg DAILY ORAL 06/02/20 09:00 08/31/20 08:59 06/04/20 08:18 Apixaban (Eliquis) 5 mg BID ORAL 05/30/20 18:00 08/28/20 17:59 06/04/20 08:19 Dextrose/Sodium Chloride 1,000 ml @ 75 mls/hr [id number] IV 05/22/20 13:30 06/21/20 13:29 06/04/20 08:17 Digoxin (Lanoxin) 0.125 mg DAILY ORAL 05/28/20 09:00 08/26/20 08:59 06/04/20 08:18 Diphenhydramine HCl (Benadryl) 25 mg Q6H PRN IVP Itching 05/26/20 14:45 06/25/20 14:44 Haloperidol Lactate (Haldol) 5 mg Q6H PRN IM Agitation 05/22/20 13:15 07/06/20 13:14 05/26/20 08:33 Metoprolol Tartrate (Lopressor) 100 mg EVERY 12 HOURS ORAL 05/27/20 21:00 08/25/20 20:59 06/04/20 08:19 Pantoprazole (Protonix) 40 mg EVERY 12 HOURS IVP 05/22/20 21:00 06/21/20 20:59 06/04/20 08:20 Quetiapine Fumarate (SEROqueL) 50 mg Q12HR ORAL 05/26/20 13:15 07/10/20 13:14 06/04/20 08:18 Mahin Leyva MD Jun 04, 2020 15:41
[2020-06-04 16:00] VITALS: BP 122/65
--- NOTE | 2020-06-04 16:52 | NUR ---
NURSE NOTES: Patient weaned down to 3L nasal cannula and sustained a oxygen saturation above 96%.
--- NOTE | 2020-06-04 17:14 | Diagnostic Imaging Report ---
EXAM: XR Chest, 1 View CLINICAL HISTORY: INFECT TECHNIQUE: Frontal view of the chest. COMPARISON: 05/28/2020 FINDINGS: Lungs: Less pronounced than on prior study right mid and upper lung and left lower lung consolidations. Low lung volumes with bronchovascular crowding. Pleural space: Unremarkable. No pneumothorax. Heart: Unremarkable. No cardiomegaly. Mediastinum: Unremarkable. Bones/joints: Sternotomy with mediastinal operative findings. Degenerative glenohumeral findings and osteopenia. IMPRESSION: 1. Less pronounced than on prior study right mid and upper lung and left lower lung consolidations. 2. Low lung volumes with bronchovascular crowding.
--- NOTE | 2020-06-04 18:56 | NUR ---
NURSE HAND-OFF REPORT: Important Events on Shift:[Weaned down to 3L nasal cannula] Patient Status: [Full code] Diet: [Regular pureed moist, crush meds] Pending Orders: [N/A] Pending Results/Labs:[N/A] Pending MD notification:[N/A] Latest Vital Signs: Temperature 97.5 , Pulse 54 , B/P 122 /65 , Respiratory Rate 22 , O2 SAT 96 , Nasal Cannula, O2 Flow Rate 3.0 . Vital Sign Comment: [] EKG Rhythm: SB W/ BBB Rhythm change?: N MD Notified?: N -Dr. Praful MONSIVAIS Response: No New Orders Received Latest Stewart Fall Score: 85 Fall Risk: High Risk Safety Measures: Call light Within Reach, Bed Alarm Zone 2, Side Rails Side Rails x3, Bed position Low and Locked. Fall Precautions: Yellow Socks Yellow Gown Door Sign Patient Fall Education Report given to [MARTHA Carrera].
--- NOTE | 2020-06-04 19:35 | NUR ---
NURSE NOTES: RECEIVED REPORT FROMTERRI RN. PT IN BED ASLEEP, AROUSABLE. NO RESP DISTRESS NOTED. ON 02 3L/MIN SATING AT 94%, NO RESP DISTRESS NOTED. CONVEYOR OPERATOR IN PLACE. IV ON LEFT FA RUNNING D5 1/2 NS AT 75CC/HR NO S/S INFILTRATION NOTED. BILATERAL SOFT WRIST RESTRAINTS IN PLACE, NO S/S SWELLING, SKIN BREAKDOWN ,PULSES PALPABLE. NO S/S PAIN NOTED. BED IN LOW POSITION & LOCKED. SIDE RAILS UP X3. CALL LIGHT WITH IN REACH. BED ALARM ON.
[2020-06-04 20:00] VITALS: BP 123/72
--- NOTE | 2020-06-04 22:37 | General Progress Note ---
Subjective ROS Limited/Unobtainable: Yes Allergies: Coded Allergies: No Known Allergies (Unverified , 05/21/20) Objective Last 24 Hour Vital Signs Date Time Temp Pulse Resp B/P (MAP) Pulse Ox O2 Delivery O2 Flow Rate FiO2 06/04/20 21:22 60 122/60 06/04/20 20:00 97.7 52 16 123/72 (89) 98 06/04/20 16:00 54 06/04/20 16:00 97.5 55 22 122/65 (84) 96 06/04/20 12:00 51 06/04/20 12:00 97.8 57 22 107/65 (79) 96 06/04/20 11:46 Nasal Cannula 3.0 Nasal Cannula 3.0 06/04/20 08:19 65 127/85 06/04/20 08:18 65 06/04/20 08:00 58 06/04/20 08:00 98.1 64 20 114/70 (85) 100 06/04/20 04:00 60 06/04/20 04:00 97.7 61 19 125/88 (100) 98 06/04/20 00:00 59 06/04/20 00:00 97.9 58 20 136/80 (98) 95 Intake and Output 06/03/20 06/04/20 19:00 07:00 Intake Total 295 ml 75 ml Output Total 900 ml 800 ml Balance -605 ml -725 ml Intake Oral 295 ml IV Total 75 ml Output Urine Total 900 ml 800 ml # Voids 1 Height (Feet): 5 Height (Inches): 7.00 Weight (Pounds): 159 Assessment/Plan Problem List: (1) Renal insufficiency ICD Codes: N28.9 - Disorder of kidney and ureter, unspecified SNOMED: 012228548, 084509974 (2) Encephalopathy ICD Codes: G93.40 - Encephalopathy, unspecified SNOMED: 28593227, 866094747 (3) Head injury ICD Codes: S09.90XA - Unspecified injury of head, initial encounter SNOMED: 90465178, 861311818 Qualifiers: Qualified Codes: S09.90XA - Unspecified injury of head, initial encounter (4) Pneumonia ICD Codes: J18.9 - Pneumonia, unspecified organism SNOMED: 456369233 Qualifiers: Qualified Codes: J18.9 - Pneumonia, unspecified organism (5) Abnormal EKG ICD Codes: R94.31 - Abnormal electrocardiogram [ECG] [EKG]; J12.89 - Other viral pneumonia SNOMED: 654459226 (6) Altered level of consciousness ICD Codes: R40.4 - Transient alteration of awareness SNOMED: 9318921 (7) Dehydration ICD Codes: E86.0 - Dehydration SNOMED: 01619165 (8) Pneumonia due to COVID-19 virus ICD Codes: U07.1 - COVID-19; J12.89 - Other viral pneumonia SNOMED: 234811947783601489 (9) Renal failure (ARF), acute on chronic ICD Codes: N17.9 - Acute kidney failure, unspecified; N18.9 - Chronic kidney disease, unspecified SNOMED: 845509359 Status: progressing, deteriorating Assessment/Plan: resp insuff dehydration afebrile covid positive pna s/p a fib w rvr Yvette Waldrop MD Jun 04, 2020 22:37
[2020-06-05] VITALS: BP 130/77
[2020-06-05 04:00] VITALS: BP 128/75
--- NOTE | 2020-06-05 07:12 | NUR ---
NURSE NOTES: Received patient from MARTHA Dupree. Patient seen in bed asleep in low fowlers position with no acute signs of distress. Patient is receiving oxygen via nasal cannula at 3L/min. The patient is receiving D51/2NS at 75cc/min through the patients IV on the left FA 22G. The patients bed is in the lowest position, locked, side rails x3 bed alarm in zone 1 and call light within reach.
--- NOTE | 2020-06-05 07:15 | NUR ---
NURSE HAND-OFF REPORT: Important Events on Shift:[n/a] Patient Status: [stable] Diet: puree moist] Pending Orders: [] Pending Results/Labs:[] Pending MD notification:[] Latest Vital Signs: Temperature 97.2 , Pulse 60 , B/P 128 /75 , Respiratory Rate 16 , O2 SAT 98 , Nasal Cannula, O2 Flow Rate 3.0 . Vital Sign Comment: [] EKG Rhythm: SB W/ BBB Rhythm change?: N MD Notified?: N -Dr. Praful MONSIVAIS Response: No New Orders Received Latest Stewart Fall Score: 85 Fall Risk: High Risk Safety Measures: Call light Within Reach, Bed Alarm Zone 2, Side Rails Side Rails x3, Bed position Low and Locked. Fall Precautions: Yellow Socks Yellow Gown Door Sign Patient Fall Education Report given to [latanya mercedes].
--- NOTE | 2020-06-05 07:26 | NUR ---
NURSE NOTES: UNABLE TO DRAW AM LABS INDORSED TO LAB, & AM NURSE
[2020-06-05 08:00] VITALS: BP 131/75
[2020-06-05] MEDS: Amiodarone 200mg tab ORAL SCH (09:00)
[2020-06-05] MEDS: Digoxin 0.125mg tab ORAL SCH (09:00)
[2020-06-05] MEDS: Metoprolol Tartrate 100mg tab ORAL SCH ×2 (09:00→21:00)
[2020-06-05 09:37] LABS: HEMATOCRIT 33.3 % (42.0-52.0); HEMOGLOBIN 11.8 G/DL (14.2-18.0); MEAN CORPUSCULAR VOLUME 90 FL (80-99); PLATELET COUNT 217 K/UL (150-450); RED CELL DISTRIBUTION WIDTH 15.2 % (11.6-14.8); WHITE BLOOD COUNT 17.8 K/UL (4.8-10.8)
[2020-06-05] MEDS: Eliquis 5mg tablet ORAL SCH ×2 (09:41→17:45)
[2020-06-05] MEDS: Pantoprazole Inj IVP SCH ×2 (09:50→21:00)
--- NOTE | 2020-06-05 09:55 | NUR ---
NURSE NOTES: Held patient medications; Amiodarone, betablocker and digoxin due to patients low HR of 54 BPM.
[2020-06-05 10:16] LABS: ALANINE AMINOTRANSFERASE 36 U/L (12-78); ALBUMIN 2.1 G/DL (3.4-5.0); ALBUMIN/GLOBULIN RATIO 0.5 (1.0-2.7); ALKALINE PHOSPHATASE 84 U/L (46-116); ANION GAP 7 mmol/L (5-15); ASPARTATE AMINO TRANSFERASE 34 U/L (15-37); BILIRUBIN,TOTAL 1.1 MG/DL (0.2-1.0); BLOOD UREA NITROGEN 23 mg/dL (7-18); CARBON DIOXIDE 25 MMOL/L (21-32); CHLORIDE 103 MMOL/L (98-107); PHOSPHORUS 2.5 MG/DL (2.5-4.9); POTASSIUM 3.6 MMOL/L (3.5-5.1); SODIUM 135 MMOL/L (136-145)
[2020-06-05 10:17] LABS: BILIRUBIN,DIRECT 0.5 MG/DL (0.0-0.3)
--- NOTE | 2020-06-05 11:13 | Infectious Diseases Prog Note ---
Assessment/Plan Assessment/Plan IMPRESSION: COVID-19 pneumonia. Acute renal failure,improving Dehydration, Atrial fibrillation with rapid ventricular rate, Right bundle-branch block, History of coronary artery disease with bypass, Dementia. RECOMMENDATION: Finished Dexamethasone course CXR : decreased infiltrates Subjective ROS Limited/Unobtainable: Yes Constitutional: Denies: fever Allergies: Coded Allergies: No Known Allergies (Unverified , 05/21/20) Objective Last 24 Hour Vital Signs Date Time Temp Pulse Resp B/P (MAP) Pulse Ox O2 Delivery O2 Flow Rate FiO2 06/05/20 09:00 54 06/05/20 09:00 54 128/75 06/05/20 08:00 99.2 54 18 131/75 (93) 98 06/05/20 08:00 58 06/05/20 04:00 61 06/05/20 04:00 97.2 60 16 128/75 (92) 98 06/05/20 00:00 58 06/05/20 00:00 98.2 60 16 130/77 (94) 98 06/04/20 21:22 60 122/60 06/04/20 20:00 58 06/04/20 20:00 97.7 52 16 123/72 (89) 98 06/04/20 16:00 54 06/04/20 16:00 97.5 55 22 122/65 (84) 96 06/04/20 12:00 51 06/04/20 12:00 97.8 57 22 107/65 (79) 96 06/04/20 11:46 Nasal Cannula 3.0 Nasal Cannula 3.0 Height (Feet): 5 Height (Inches): 7.00 Weight (Pounds): 159 General Appearance: no acute distress HEENT: mucous membranes moist Respiratory/Chest: other - oxygen by nasal cannula Cardiovascular: normal rate Abdomen: soft, non tender Extremities: no edema Neurologic/Psychiatric: other - sleeping Laboratory Tests Test 06/05/20 08:45 White Blood Count 17.8 K/UL (4.8-10.8) H Red Blood Count 3.70 M/UL (4.70-6.10) L Hemoglobin 11.8 G/DL (14.2-18.0) L Hematocrit 33.3 % (42.0-52.0) L Mean Corpuscular Volume 90 FL (80-99) Mean Corpuscular Hemoglobin 31.9 PG (27.0-31.0) H Mean Corpuscular Hemoglobin Concent 35.4 G/DL (32.0-36.0) Red Cell Distribution Width 15.2 % (11.6-14.8) H Platelet Count 217 K/UL (150-450) Mean Platelet Volume 9.2 FL (6.5-10.1) Neutrophils (%) (Auto) % (45.0-75.0) Lymphocytes (%) (Auto) % (20.0-45.0) Monocytes (%) (Auto) % (1.0-10.0) Eosinophils (%) (Auto) % (0.0-3.0) Basophils (%) (Auto) % (0.0-2.0) Neutrophils % (Manual) Pending Lymphocytes % (Manual) Pending Platelet Estimate Pending Platelet Morphology Pending Sodium Level 135 MMOL/L (136-145) L Potassium Level 3.6 MMOL/L (3.5-5.1) Chloride Level 103 MMOL/L (98-107) Carbon Dioxide Level 25 MMOL/L (21-32) Anion Gap 7 mmol/L (5-15) Blood Urea Nitrogen 23 mg/dL (7-18) H Creatinine 1.0 MG/DL (0.55-1.30) Estimat Glomerular Filtration Rate > 60 mL/min (>60) Glucose Level 125 MG/DL (74-106) H Calcium Level 8.0 MG/DL (8.5-10.1) L Phosphorus Level 2.5 MG/DL (2.5-4.9) Magnesium Level 1.5 MG/DL (1.8-2.4) L Total Bilirubin 1.1 MG/DL (0.2-1.0) H Direct Bilirubin 0.5 MG/DL (0.0-0.3) H Aspartate Amino Transf (AST/SGOT) 34 U/L (15-37) Alanine Aminotransferase (ALT/SGPT) 36 U/L (12-78) Alkaline Phosphatase 84 U/L (46-116) C-Reactive Protein, Quantitative 1.3 mg/dL (0.00-0.90) H Pro-B-Type Natriuretic Peptide 2502 pg/mL (0-125) H Total Protein 6.3 G/DL (6.4-8.2) L Albumin 2.1 G/DL (3.4-5.0) L Globulin 4.2 g/dL Albumin/Globulin Ratio 0.5 (1.0-2.7) L Current Medications Medications (Trade) Dose Ordered Sig/Celia Route PRN Reason Start Time Stop Time Status Last Admin Dose Admin Amiodarone HCl (Cordarone) 200 mg DAILY ORAL 06/02/20 09:00 08/31/20 08:59 06/04/20 08:18 Apixaban (Eliquis) 5 mg BID ORAL 05/30/20 18:00 08/28/20 17:59 06/05/20 09:41 Dextrose/Sodium Chloride 1,000 ml @ 75 mls/hr [id number] IV 05/22/20 13:30 06/21/20 13:29 06/04/20 20:48 Digoxin (Lanoxin) 0.125 mg DAILY ORAL 05/28/20 09:00 08/26/20 08:59 06/04/20 08:18 Diphenhydramine HCl (Benadryl) 25 mg Q6H PRN IVP Itching 05/26/20 14:45 06/25/20 14:44 Haloperidol Lactate (Haldol) 5 mg Q6H PRN IM Agitation 05/22/20 13:15 07/06/20 13:14 05/26/20 08:33 Metoprolol Tartrate (Lopressor) 100 mg EVERY 12 HOURS ORAL 05/27/20 21:00 08/25/20 20:59 06/04/20 21:22 Pantoprazole (Protonix) 40 mg EVERY 12 HOURS IVP 05/22/20 21:00 06/21/20 20:59 06/05/20 09:50 Quetiapine Fumarate (SEROqueL) 50 mg Q12HR ORAL 05/26/20 13:15 07/10/20 13:14 06/05/20 09:40 Mahin Leyva MD Jun 05, 2020 11:13
[2020-06-05] MEDS: D5 1/2NS 1,000 ML IV SCH (11:16)
--- NOTE | 2020-06-05 11:34 | Pulmonology Progress Note ---
Subjective ROS Limited/Unobtainable: Yes Interval Events: Back on nasal oxygen Constitutional: Denies: fever HEENT: Repors: no symptoms Respiratory: Reports: no symptoms Cardiovascular: Reports: no symptoms Gastrointestinal/Abdominal: Reports: no symptoms Allergies: Coded Allergies: No Known Allergies (Unverified , 05/21/20) Objective Last 24 Hour Vital Signs Date Time Temp Pulse Resp B/P (MAP) Pulse Ox O2 Delivery O2 Flow Rate FiO2 06/05/20 09:00 54 06/05/20 09:00 54 128/75 06/05/20 08:00 99.2 54 18 131/75 (93) 98 06/05/20 08:00 58 06/05/20 04:00 61 06/05/20 04:00 97.2 60 16 128/75 (92) 98 06/05/20 00:00 58 06/05/20 00:00 98.2 60 16 130/77 (94) 98 06/04/20 21:22 60 122/60 06/04/20 20:00 58 06/04/20 20:00 97.7 52 16 123/72 (89) 98 06/04/20 16:00 54 06/04/20 16:00 97.5 55 22 122/65 (84) 96 06/04/20 12:00 51 06/04/20 12:00 97.8 57 22 107/65 (79) 96 06/04/20 11:46 Nasal Cannula 3.0 Nasal Cannula 3.0 Intake and Output 06/04/20 06/05/20 19:00 07:00 Intake Total 935 ml 450 ml Output Total 500 ml 800 ml Balance 435 ml -350 ml Intake Oral 110 ml IV Total 825 ml 450 ml Output Urine Total 500 ml 800 ml # Voids 3 General Appearance: WD/WN, no acute distress HEENT: normocephalic, atraumatic Respiratory: chest wall non-tender, lungs clear Cardiovascular: normal rate, regular rhythm Abdomen: other - obese Extremities: no edema Skin: other - 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 Musculoskeletal: other - left hip tenderness to palpation, no contusion, no crepitus noted Laboratory Tests 06/05/20 08:45: White Blood Count 17.8H, Red Blood Count 3.70L, Hemoglobin 11.8L, Hematocrit 33.3L, Mean Corpuscular Volume 90, Mean Corpuscular Hemoglobin 31.9H, Mean Corpuscular Hemoglobin Concent 35.4, Red Cell Distribution Width 15.2H, Platelet Count 217, Mean Platelet Volume 9.2, Neutrophils (%) (Auto) , Lymphocytes (%) (Auto) , Monocytes (%) (Auto) , Eosinophils (%) (Auto) , Basophils (%) (Auto) , Neutrophils % (Manual) [Pending], Lymphocytes % (Manual) [Pending], Platelet Estimate [Pending], Platelet Morphology [Pending], Sodium Level 135L, Potassium Level 3.6, Chloride Level 103, Carbon Dioxide Level 25, Anion Gap 7, Blood Urea Nitrogen 23H, Creatinine 1.0, Estimat Glomerular Filtration Rate > 60, Glucose Level 125H, Calcium Level 8.0L, Phosphorus Level 2.5, Magnesium Level 1.5L, Total Bilirubin 1.1H, Direct Bilirubin 0.5H, Aspartate Amino Transf (AST/SGOT) 34, Alanine Aminotransferase (ALT/SGPT) 36, Alkaline Phosphatase 84, C-Reactive Protein, Quantitative 1.3H, Pro-B-Type Natriuretic Peptide 2502H, Total Protein 6.3L, Albumin 2.1L, Globulin 4.2, Albumin/Globulin Ratio 0.5L Current Medications Medications (Trade) Dose Ordered Sig/Celia Route PRN Reason Start Time Stop Time Status Last Admin Dose Admin Amiodarone HCl (Cordarone) 200 mg DAILY ORAL 06/02/20 09:00 08/31/20 08:59 06/04/20 08:18 Apixaban (Eliquis) 5 mg BID ORAL 05/30/20 18:00 08/28/20 17:59 06/05/20 09:41 Dextrose/Sodium Chloride 1,000 ml @ 75 mls/hr [id number] IV 05/22/20 13:30 06/21/20 13:29 06/05/20 11:16 Digoxin (Lanoxin) 0.125 mg DAILY ORAL 05/28/20 09:00 08/26/20 08:59 06/04/20 08:18 Diphenhydramine HCl (Benadryl) 25 mg Q6H PRN IVP Itching 05/26/20 14:45 06/25/20 14:44 Haloperidol Lactate (Haldol) 5 mg Q6H PRN IM Agitation 05/22/20 13:15 07/06/20 13:14 05/26/20 08:33 Metoprolol Tartrate (Lopressor) 100 mg EVERY 12 HOURS ORAL 05/27/20 21:00 08/25/20 20:59 06/04/20 21:22 Pantoprazole (Protonix) 40 mg EVERY 12 HOURS IVP 05/22/20 21:00 06/21/20 20:59 06/05/20 09:50 Quetiapine Fumarate (SEROqueL) 50 mg Q12HR ORAL 05/26/20 13:15 07/10/20 13:14 06/05/20 09:40 Assessment/Plan Assessment/Plan 1. Pneumonia. - s/p Rocephin 2. Anemia. - improving 3. Renal insufficiency. - Hydration 4. Elevated inflammatory markers with high CRP. 5. Hypokalemia.; resolved 6. Mild protein-calorie malnutrition. - on regular diet 7. COVID-19 - hold off on any specific therapy for COVID such as remdesivir. - completed decadron 8. Wound care instituted 9. Left hip pain s/p fall - L hip XRay - no fractures noted 10. s/p fall 11. Afib with rvr; now off Cardizem gtt oxygenation improved now Continue low-flow nasal oxygen, 3 L/minute Ector Howe MD Jun 05, 2020 11:34
[2020-06-05 12:00] VITALS: BP 125/72
--- NOTE | 2020-06-05 12:20 | NUR ---
CASE MANAGEMENT:REVIEW SI; COVID PNA. ENCEPHALOPATHY. AFIB W/RVR. 99.2 54 18 131/75 983% 3L NC WBC 17.8 NA 135 BUN+ 23 MAG+ 1.5 T-BILI 1.1 D-BILI 0.5 BNP 2502 ALB+ 2.1 IS;ELIQUIS PO BID SEROQUEL PO Q12 PROTONIX IV Q12 IVF D5NS @ 75 ML/HR TELE STATUS DCP;PATIENT IS FROM HOME
--- NOTE | 2020-06-05 12:30 | NUR ---
INSURANCE FAXED CLINCALS AND REVIEWS TO [facility] T: [phone] F: [phone] #2011 [id number] 2009
--- NOTE | 2020-06-05 13:20 | NUR ---
NURSE NOTES: Contacted MD for patients constipation, MD gave orders form pharmacological intervention.
[2020-06-05] MEDS ORDERED: Bisacodyl EC 5mg tab ORAL PRN (13:30)
--- NOTE | 2020-06-05 13:48 | Nephrology Progress Note ---
Assessment/Plan Problem List: (1) Renal failure (ARF), acute on chronic (2) Dehydration (3) Pneumonia due to COVID-19 virus Assessment Acute renal failure Possible underlying chronic kidney disease Dehydration Electrolyte imbalance Toxic metabolic encephalopathy Pneumonia due to COVID-19 virus Mild anemia Plan June 05: White blood cells up to over 17,000. Renal parameters stable. Low magnesium replaced. Continue per consultants. June 04: No labs or CHEM panel drawn today. Med list reviewed. Will check labs tomorrow. Continue per consultants. June 03: No labs drawn today. Stable from renal standpoint of view. June 02: Labs reviewed. Renal parameters and electrolytes stable. Continue per consultants. June 01: No labs from today. Will check lab in a.m. Medication list reviewed. Blood pressure stable. Continue per consultants. May 31. No labs drawn today. Most recent renal parameters and electrolytes stable. Will check lab tomorrow. Continue per consultants. May 30: Labs reviewed. Low magnesium replaced. Continue per consultants. Remains stable from renal standpoint of view. May 29: No labs drawn today. Heart rate within normal range. Stable from renal standpoint of view. May 28: Renal parameters improved. Heart rate within normal limits. Continue per current treatment plan and consultants. May 27: Serum creatinine down to 1.5. Heart rate normalized. Continue per consultants. Continue to monitor electrolytes and renal parameters. May 26: Borderline blood pressure. Serum creatinine higher at 1.9. Remains under the care of sql developer for rhythm management. Continue to monitor electrolytes and adjust abnormalities May 25: Patient now in ICU on Cardizem drip. Serum creatinine 1.7. Rest of the electrolytes within normal limit. Continue per cardiology. Continue to monitor renal parameters and electrolytes. May 24: Labs reviewed. Serum creatinine 1.6. Phosphorus low, IV K-Phos ordered. Continue to monitor renal parameters. Continue per current management. Slow hydrate Magnesium sulfate IV supplement today Antibiotics, avoid nephrotoxic's Monitor renal parameters electrolytes Keep the blood pressure blood sugar in check Patient full code Subjective ROS Limited/Unobtainable: No Constitutional: Reports: malaise Objective Objective Last 24 Hour Vital Signs Date Time Temp Pulse Resp B/P (MAP) Pulse Ox O2 Delivery O2 Flow Rate FiO2 06/05/20 12:00 55 06/05/20 12:00 98.6 53 20 125/72 (89) 98 06/05/20 09:00 54 06/05/20 09:00 54 128/75 06/05/20 08:00 99.2 54 18 131/75 (93) 98 06/05/20 08:00 58 06/05/20 04:00 61 06/05/20 04:00 97.2 60 16 128/75 (92) 98 06/05/20 00:00 58 06/05/20 00:00 98.2 60 16 130/77 (94) 98 06/04/20 21:22 60 122/60 06/04/20 20:00 58 06/04/20 20:00 97.7 52 16 123/72 (89) 98 06/04/20 16:00 54 06/04/20 16:00 97.5 55 22 122/65 (84) 96 Intake and Output 06/04/20 06/05/20 19:00 07:00 Intake Total 935 ml 450 ml Output Total 500 ml 800 ml Balance 435 ml -350 ml Intake Oral 110 ml IV Total 825 ml 450 ml Output Urine Total 500 ml 800 ml # Voids 3 Laboratory Tests 06/05/20 08:45: White Blood Count 17.8H, Red Blood Count 3.70L, Hemoglobin 11.8L, Hematocrit 33.3L, Mean Corpuscular Volume 90, Mean Corpuscular Hemoglobin 31.9H, Mean Corpuscular Hemoglobin Concent 35.4, Red Cell Distribution Width 15.2H, Platelet Count 217, Mean Platelet Volume 9.2, Neutrophils (%) (Auto) , Lymphocytes (%) (Auto) , Monocytes (%) (Auto) , Eosinophils (%) (Auto) , Basophils (%) (Auto) , Differential Total Cells Counted 100, Neutrophils % (Manual) 89H, Lymphocytes % (Manual) 5L, Monocytes % (Manual) 6, Eosinophils % (Manual) 0, Basophils % (Manual) 0, Band Neutrophils 0, Platelet Estimate Adequate, Platelet Morphology Normal, Anisocytosis 1+, Sodium Level 135L, Potassium Level 3.6, Chloride Level 103, Carbon Dioxide Level 25, Anion Gap 7, Blood Urea Nitrogen 23H, Creatinine 1.0, Estimat Glomerular Filtration Rate > 60, Glucose Level 125H, Calcium Level 8.0L, Phosphorus Level 2.5, Magnesium Level 1.5L, Total Bilirubin 1.1H, Direct Bilirubin 0.5H, Aspartate Amino Transf (AST/SGOT) 34, Alanine Aminotransferase (ALT/SGPT) 36, Alkaline Phosphatase 84, C-Reactive Protein, Quantitative 1.3H, Pro-B-Type Natriuretic Peptide 2502H, Total Protein 6.3L, Albumin 2.1L, Globulin 4.2, Albumin/Globulin Ratio 0.5L Height (Feet): 5 Height (Inches): 7.00 Weight (Pounds): 159 General Appearance: no apparent distress Cardiovascular: JVD, gallop/S4 - ce: Respiratory/Chest: decreased breath sounds Abdomen: distended Objective No change Jerome Delaney MD Jun 05, 2020 13:48
[2020-06-05 16:00] VITALS: BP 110/65
[2020-06-05] MEDS: Docusate 100mg cap ORAL SCH (17:45)
--- NOTE | 2020-06-05 19:09 | NUR ---
NURSE HAND-OFF REPORT: Important Events on Shift:[Magnesium IV] Patient Status: [Full code] Diet: [Regular pureed moist] Pending Orders: [N/A] Pending Results/Labs:[N/A] Pending MD notification:[N/A] Latest Vital Signs: Temperature 98.2 , Pulse 59 , B/P 110 /65 , Respiratory Rate 18 , O2 SAT 97 , Nasal Cannula, O2 Flow Rate 2.0 . Vital Sign Comment: [] EKG Rhythm: SB W/ BBB Rhythm change?: N MD Notified?: N -Dr. Praful MONSIVAIS Response: No New Orders Received Latest Stewart Fall Score: 85 Fall Risk: High Risk Safety Measures: Call light Within Reach, Bed Alarm Zone 2, Side Rails Side Rails x3, Bed position Low and Locked. Fall Precautions: Yellow Socks Yellow Gown Door Sign Patient Fall Education Report given to [MARTHA Sarmiento].
--- NOTE | 2020-06-05 19:11 | NUR ---
NURSE NOTES: Got patient report from Hubert THOMAS. Pt in stable condition. Pt is AO x2 confused. No s/s of pain or discomfort noted at this time. Pt is on 2L NC, sating 95% no respiratory distress noted. Pt has left FA 22g intact and asymptomatic w/ D5 1/2 NS running @75. Pt has bilateral soft wrist restraint for safety. Pt has 16 fr paulino patent and intact. Bed in lowest position and locked, side rails x3, Call light within reach. Continue to monitor.
[2020-06-05 20:00] VITALS: BP 111/66
--- NOTE | 2020-06-05 21:22 | Cardiac Electrophysiology PN ---
Assessment/Plan Assessment/Plan 1. Syncope. Etiology is not clear at this time. EF 60%. He might have been dehydrated vs SSS in view of PAF 2. Atrial fib with RVR. Not eating and no NGT. Swallow eval is pending. On metoprolol 100 bid, Amiodarone 200 po daily, Eliquis 2.5 bid and Dig 0.125 po daily Dig level 1.6. 3. Troponin elevation. Levels are low and coming down likely due to renal failure. On Lopressor 4. Complete right bundle-branch block and lateral T-wave inversion. 5. Covid PNA 6. Dysphagia. YASMIN RN Subjective Subjective In Covid isolation, fib rate controlled on Lopressor 100 bid and Dig 0.125 po daily. Dig level 1.6. On 2 liter NC . Objective Last 24 Hour Vital Signs Date Time Temp Pulse Resp B/P (MAP) Pulse Ox O2 Delivery O2 Flow Rate FiO2 06/05/20 16:00 59 06/05/20 16:00 98.2 67 18 110/65 (80) 97 06/05/20 15:43 Nasal Cannula 2.0 Nasal Cannula 2.0 06/05/20 12:00 55 06/05/20 12:00 98.6 53 20 125/72 (89) 98 06/05/20 09:00 54 06/05/20 09:00 54 128/75 06/05/20 08:00 99.2 54 18 131/75 (93) 98 06/05/20 08:00 58 06/05/20 04:00 61 06/05/20 04:00 97.2 60 16 128/75 (92) 98 06/05/20 00:00 58 06/05/20 00:00 98.2 60 16 130/77 (94) 98 Intake and Output 06/04/20 06/05/20 19:00 07:00 Intake Total 935 ml 525 ml Output Total 500 ml 800 ml Balance 435 ml -275 ml Intake Oral 110 ml IV Total 825 ml 525 ml Output Urine Total 500 ml 800 ml # Voids 3 Laboratory Tests Test 06/05/20 08:45 White Blood Count 17.8 K/UL (4.8-10.8) H Red Blood Count 3.70 M/UL (4.70-6.10) L Hemoglobin 11.8 G/DL (14.2-18.0) L Hematocrit 33.3 % (42.0-52.0) L Mean Corpuscular Volume 90 FL (80-99) Mean Corpuscular Hemoglobin 31.9 PG (27.0-31.0) H Mean Corpuscular Hemoglobin Concent 35.4 G/DL (32.0-36.0) Red Cell Distribution Width 15.2 % (11.6-14.8) H Platelet Count 217 K/UL (150-450) Mean Platelet Volume 9.2 FL (6.5-10.1) Neutrophils (%) (Auto) % (45.0-75.0) Lymphocytes (%) (Auto) % (20.0-45.0) Monocytes (%) (Auto) % (1.0-10.0) Eosinophils (%) (Auto) % (0.0-3.0) Basophils (%) (Auto) % (0.0-2.0) Differential Total Cells Counted 100 Neutrophils % (Manual) 89 % (45-75) H Lymphocytes % (Manual) 5 % (20-45) L Monocytes % (Manual) 6 % (1-10) Eosinophils % (Manual) 0 % (0-3) Basophils % (Manual) 0 % (0-2) Band Neutrophils 0 % (0-8) Platelet Estimate Adequate Platelet Morphology Normal Anisocytosis 1+ Sodium Level 135 MMOL/L (136-145) L Potassium Level 3.6 MMOL/L (3.5-5.1) Chloride Level 103 MMOL/L (98-107) Carbon Dioxide Level 25 MMOL/L (21-32) Anion Gap 7 mmol/L (5-15) Blood Urea Nitrogen 23 mg/dL (7-18) H Creatinine 1.0 MG/DL (0.55-1.30) Estimat Glomerular Filtration Rate > 60 mL/min (>60) Glucose Level 125 MG/DL (74-106) H Calcium Level 8.0 MG/DL (8.5-10.1) L Phosphorus Level 2.5 MG/DL (2.5-4.9) Magnesium Level 1.5 MG/DL (1.8-2.4) L Total Bilirubin 1.1 MG/DL (0.2-1.0) H Direct Bilirubin 0.5 MG/DL (0.0-0.3) H Aspartate Amino Transf (AST/SGOT) 34 U/L (15-37) Alanine Aminotransferase (ALT/SGPT) 36 U/L (12-78) Alkaline Phosphatase 84 U/L (46-116) C-Reactive Protein, Quantitative 1.3 mg/dL (0.00-0.90) H Pro-B-Type Natriuretic Peptide 2502 pg/mL (0-125) H Total Protein 6.3 G/DL (6.4-8.2) L Albumin 2.1 G/DL (3.4-5.0) L Globulin 4.2 g/dL Albumin/Globulin Ratio 0.5 (1.0-2.7) L Objective HEAD AND NECK: No JVD. LUNGS: Clear. CARDIOVASCULAR: Irregular S1 and S2 with no gallop or murmur. ABDOMEN: Soft. EXTREMITIES: No pitting edema. Rick Basilio MD Jun 05, 2020 21:22
--- NOTE | 2020-06-05 21:48 | General Progress Note ---
Subjective ROS Limited/Unobtainable: Yes Allergies: Coded Allergies: No Known Allergies (Unverified , 05/21/20) Objective Last 24 Hour Vital Signs Date Time Temp Pulse Resp B/P (MAP) Pulse Ox O2 Delivery O2 Flow Rate FiO2 06/05/20 16:00 59 06/05/20 16:00 98.2 67 18 110/65 (80) 97 06/05/20 15:43 Nasal Cannula 2.0 Nasal Cannula 2.0 06/05/20 12:00 55 06/05/20 12:00 98.6 53 20 125/72 (89) 98 06/05/20 09:00 54 06/05/20 09:00 54 128/75 06/05/20 08:00 99.2 54 18 131/75 (93) 98 06/05/20 08:00 58 06/05/20 04:00 61 06/05/20 04:00 97.2 60 16 128/75 (92) 98 06/05/20 00:00 58 06/05/20 00:00 98.2 60 16 130/77 (94) 98 Intake and Output 06/04/20 06/05/20 19:00 07:00 Intake Total 935 ml 525 ml Output Total 500 ml 800 ml Balance 435 ml -275 ml Intake Oral 110 ml IV Total 825 ml 525 ml Output Urine Total 500 ml 800 ml # Voids 3 Laboratory Tests 06/05/20 08:45: White Blood Count 17.8H, Red Blood Count 3.70L, Hemoglobin 11.8L, Hematocrit 33.3L, Mean Corpuscular Volume 90, Mean Corpuscular Hemoglobin 31.9H, Mean Corpuscular Hemoglobin Concent 35.4, Red Cell Distribution Width 15.2H, Platelet Count 217, Mean Platelet Volume 9.2, Neutrophils (%) (Auto) , Lymphocytes (%) (Auto) , Monocytes (%) (Auto) , Eosinophils (%) (Auto) , Basophils (%) (Auto) , Differential Total Cells Counted 100, Neutrophils % (Manual) 89H, Lymphocytes % (Manual) 5L, Monocytes % (Manual) 6, Eosinophils % (Manual) 0, Basophils % (Manual) 0, Band Neutrophils 0, Platelet Estimate Adequate, Platelet Morphology Normal, Anisocytosis 1+, Sodium Level 135L, Potassium Level 3.6, Chloride Level 103, Carbon Dioxide Level 25, Anion Gap 7, Blood Urea Nitrogen 23H, Creatinine 1.0, Estimat Glomerular Filtration Rate > 60, Glucose Level 125H, Calcium Level 8.0L, Phosphorus Level 2.5, Magnesium Level 1.5L, Total Bilirubin 1.1H, Direct Bilirubin 0.5H, Aspartate Amino Transf (AST/SGOT) 34, Alanine Aminotransferase (ALT/SGPT) 36, Alkaline Phosphatase 84, C-Reactive Protein, Quantitative 1.3H, Pro-B-Type Natriuretic Peptide 2502H, Total Protein 6.3L, Albumin 2.1L, Globulin 4.2, Albumin/Globulin Ratio 0.5L Height (Feet): 5 Height (Inches): 7.00 Weight (Pounds): 159 Assessment/Plan Problem List: (1) Renal insufficiency ICD Codes: N28.9 - Disorder of kidney and ureter, unspecified SNOMED: 118683906, 288594914 (2) Encephalopathy ICD Codes: G93.40 - Encephalopathy, unspecified SNOMED: 83879895, 889013533 (3) Head injury ICD Codes: S09.90XA - Unspecified injury of head, initial encounter SNOMED: 10887531, 593019253 Qualifiers: Qualified Codes: S09.90XA - Unspecified injury of head, initial encounter (4) Pneumonia ICD Codes: J18.9 - Pneumonia, unspecified organism SNOMED: 965333406 Qualifiers: Qualified Codes: J18.9 - Pneumonia, unspecified organism (5) Abnormal EKG ICD Codes: R94.31 - Abnormal electrocardiogram [ECG] [EKG]; J12.89 - Other viral pneumonia SNOMED: 145509996 (6) Altered level of consciousness ICD Codes: R40.4 - Transient alteration of awareness SNOMED: 9757589 (7) Dehydration ICD Codes: E86.0 - Dehydration SNOMED: 38258463 (8) Pneumonia due to COVID-19 virus ICD Codes: U07.1 - COVID-19; J12.89 - Other viral pneumonia SNOMED: 974131873758823070 (9) Renal failure (ARF), acute on chronic ICD Codes: N17.9 - Acute kidney failure, unspecified; N18.9 - Chronic kidney disease, unspecified SNOMED: 331809475 Status: progressing, deteriorating Assessment/Plan: resp insuff dehydration covid positive pna s/p a fib w rvr malnutrtion afebrile Yvette Waldrop MD Jun 05, 2020 21:48
[2020-06-06] VITALS: BP 117/70
[2020-06-06] MEDS: D5 1/2NS 1,000 ML IV SCH ×2 (00:15→12:58)
[2020-06-06 04:00] VITALS: BP 122/67
--- NOTE | 2020-06-06 07:15 | NUR ---
NURSE HAND-OFF REPORT: Important Events on Shift:[] Patient Status: [STABLE] Diet: [REGULAR PUREED] Pending Orders: [] Pending Results/Labs:[] Pending MD notification:[] Latest Vital Signs: Temperature 98.7 , Pulse 65 , B/P 122 /67 , Respiratory Rate 20 , O2 SAT 96 , Nasal Cannula, O2 Flow Rate 2.0 . Vital Sign Comment: [] EKG Rhythm: SR W/ BBB Rhythm change?: N MD Notified?: N -Dr. Praful MONSIVAIS Response: No New Orders Received Latest Stewart Fall Score: 85 Fall Risk: High Risk Safety Measures: Call light Within Reach, Bed Alarm Zone 2, Side Rails Side Rails x3, Bed position Low and Locked. Fall Precautions: Yellow Socks Yellow Gown Door Sign Patient Fall Education Report given to [MYCHAL RN].
--- NOTE | 2020-06-06 07:35 | NUR ---
NURSE NOTES: Received report from Papa/RN, patient is sleeping on semi-sears position. Pt is on restrains, will monitor Q2hrs. On 2L nasal cannula, no distress or SOB noted. IV on left FA 22G, running D5 1/2 NS @ 75 ml/hr. Pt has a Mera catheter draining to gravity. Bed in the lowest position and locked, call light within reach, encouraged to use it when needed. Side rails up X2. Will continue plan of care.
[2020-06-06 08:00] VITALS: BP 130/61
[2020-06-06] MEDS: Pantoprazole Inj IVP SCH ×2 (08:36→20:48)
[2020-06-06] MEDS: Eliquis 5mg tablet ORAL SCH ×2 (08:36→17:19)
[2020-06-06] MEDS: Amiodarone 200mg tab ORAL SCH (08:37)
[2020-06-06] MEDS: Docusate 100mg cap ORAL SCH ×2 (08:37→17:19)
[2020-06-06] MEDS: Digoxin 0.125mg tab ORAL SCH (08:37)
[2020-06-06] MEDS: Metoprolol Tartrate 100mg tab ORAL SCH ×2 (08:37→20:35)
--- NOTE | 2020-06-06 10:01 | Pulmonology Progress Note ---
Subjective ROS Limited/Unobtainable: Yes Interval Events: Back on nasal oxygen Constitutional: Denies: fever HEENT: Repors: no symptoms Respiratory: Reports: no symptoms Cardiovascular: Reports: no symptoms Gastrointestinal/Abdominal: Reports: no symptoms Allergies: Coded Allergies: No Known Allergies (Unverified , 05/21/20) Objective Last 24 Hour Vital Signs Date Time Temp Pulse Resp B/P (MAP) Pulse Ox O2 Delivery O2 Flow Rate FiO2 06/06/20 08:41 96 Nasal Cannula 3.0 32 06/06/20 08:37 81 06/06/20 08:37 81 130/61 06/06/20 08:00 74 06/06/20 08:00 96.7 81 20 130/61 (84) 98 06/06/20 04:00 65 06/06/20 04:00 98.7 70 20 122/67 (85) 96 06/06/20 00:00 98.2 67 20 117/70 (86) 95 06/06/20 00:00 66 06/05/20 21:00 67 117/70 06/05/20 20:00 61 06/05/20 20:00 98.0 65 20 111/66 (81) 96 06/05/20 16:00 59 06/05/20 16:00 98.2 67 18 110/65 (80) 97 06/05/20 15:43 Nasal Cannula 2.0 Nasal Cannula 2.0 06/05/20 12:00 55 06/05/20 12:00 98.6 53 20 125/72 (89) 98 Intake and Output 06/05/20 06/06/20 19:00 07:00 Intake Total 1185 ml Output Total 600 ml 1100 ml Balance 585 ml -1100 ml Intake Oral 360 ml IV Total 825 ml Output Urine Total 600 ml 1100 ml General Appearance: WD/WN, no acute distress HEENT: normocephalic, atraumatic Respiratory: chest wall non-tender, lungs clear Cardiovascular: normal rate, regular rhythm Abdomen: other - obese Extremities: no edema Skin: other - 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 Musculoskeletal: other - left hip tenderness to palpation, no contusion, no crepitus noted Current Medications Medications (Trade) Dose Ordered Sig/Celia Route PRN Reason Start Time Stop Time Status Last Admin Dose Admin Amiodarone HCl (Cordarone) 200 mg DAILY ORAL 06/02/20 09:00 08/31/20 08:59 06/06/20 08:37 Apixaban (Eliquis) 5 mg BID ORAL 05/30/20 18:00 08/28/20 17:59 06/06/20 08:36 Bisacodyl (Dulcolax) 10 mg DAILYPRN PRN ORAL Constipation 06/05/20 13:30 09/03/20 13:29 Dextrose/Sodium Chloride 1,000 ml @ 75 mls/hr [id number] IV 05/22/20 13:30 06/21/20 13:29 06/06/20 00:15 Digoxin (Lanoxin) 0.125 mg DAILY ORAL 05/28/20 09:00 08/26/20 08:59 06/06/20 08:37 Diphenhydramine HCl (Benadryl) 25 mg Q6H PRN IVP Itching 05/26/20 14:45 06/25/20 14:44 Docusate Sodium (Colace) 100 mg TWICE A DAY ORAL 06/05/20 18:00 07/05/20 17:59 06/06/20 08:37 Haloperidol Lactate (Haldol) 5 mg Q6H PRN IM Agitation 05/22/20 13:15 07/06/20 13:14 05/26/20 08:33 Metoprolol Tartrate (Lopressor) 100 mg EVERY 12 HOURS ORAL 05/27/20 21:00 08/25/20 20:59 06/06/20 08:37 Pantoprazole (Protonix) 40 mg EVERY 12 HOURS IVP 05/22/20 21:00 06/21/20 20:59 06/06/20 08:36 Quetiapine Fumarate (SEROqueL) 50 mg Q12HR ORAL 05/26/20 13:15 07/10/20 13:14 06/06/20 08:37 Assessment/Plan Assessment/Plan 1. Pneumonia. - s/p Rocephin 2. Anemia. - improving 3. Renal insufficiency. - Hydration 4. Elevated inflammatory markers with high CRP. 5. Hypokalemia.; resolved 6. Mild protein-calorie malnutrition. - on regular diet 7. COVID-19 - hold off on any specific therapy for COVID such as remdesivir. - completed decadron - saturating well on 2L/min O2 8. Wound care instituted 9. Left hip pain s/p fall - L hip XRay - no fractures noted 10. s/p fall 11. Afib with rvr; now off Cardizem gtt oxygenation improved now Continue low-flow nasal oxygen, 3 L/minute Ector Howe MD Jun 06, 2020 10:01
[2020-06-06 11:51] VITALS: BP 129/78
--- NOTE | 2020-06-06 14:46 | Nephrology Progress Note ---
Assessment/Plan Problem List: (1) Renal failure (ARF), acute on chronic (2) Dehydration (3) Pneumonia due to COVID-19 virus Assessment Acute renal failure Possible underlying chronic kidney disease Dehydration Electrolyte imbalance Toxic metabolic encephalopathy Pneumonia due to COVID-19 virus Mild anemia Plan June 06: No labs drawn today. Will check lab tomorrow. Continue to monitor renal parameters and electrolytes. Continue per consultants. June 05: White blood cells up to over 17,000. Renal parameters stable. Low magnesium replaced. Continue per consultants. June 04: No labs or CHEM panel drawn today. Med list reviewed. Will check labs tomorrow. Continue per consultants. June 03: No labs drawn today. Stable from renal standpoint of view. June 02: Labs reviewed. Renal parameters and electrolytes stable. Continue per consultants. June 01: No labs from today. Will check lab in a.m. Medication list reviewed. Blood pressure stable. Continue per consultants. May 31. No labs drawn today. Most recent renal parameters and electrolytes stable. Will check lab tomorrow. Continue per consultants. May 30: Labs reviewed. Low magnesium replaced. Continue per consultants. Remains stable from renal standpoint of view. May 29: No labs drawn today. Heart rate within normal range. Stable from renal standpoint of view. May 28: Renal parameters improved. Heart rate within normal limits. Continue per current treatment plan and consultants. May 27: Serum creatinine down to 1.5. Heart rate normalized. Continue per consultants. Continue to monitor electrolytes and renal parameters. May 26: Borderline blood pressure. Serum creatinine higher at 1.9. Remains under the care of air force pilot for rhythm management. Continue to monitor electrolytes and adjust abnormalities May 25: Patient now in ICU on Cardizem drip. Serum creatinine 1.7. Rest of the electrolytes within normal limit. Continue per cardiology. Continue to monitor renal parameters and electrolytes. May 24: Labs reviewed. Serum creatinine 1.6. Phosphorus low, IV K-Phos ordered. Continue to monitor renal parameters. Continue per current management. Slow hydrate Magnesium sulfate IV supplement today Antibiotics, avoid nephrotoxic's Monitor renal parameters electrolytes Keep the blood pressure blood sugar in check Patient full code Subjective ROS Limited/Unobtainable: No Constitutional: Reports: malaise Objective Objective Last 24 Hour Vital Signs Date Time Temp Pulse Resp B/P (MAP) Pulse Ox O2 Delivery O2 Flow Rate FiO2 06/06/20 12:00 53 06/06/20 11:51 98.7 71 20 129/78 (95) 96 06/06/20 08:41 96 Nasal Cannula 3.0 32 06/06/20 08:37 81 06/06/20 08:37 81 130/61 06/06/20 08:00 74 06/06/20 08:00 96.7 81 20 130/61 (84) 98 06/06/20 04:00 65 06/06/20 04:00 98.7 70 20 122/67 (85) 96 06/06/20 00:00 98.2 67 20 117/70 (86) 95 06/06/20 00:00 66 06/05/20 21:00 67 117/70 06/05/20 20:00 61 06/05/20 20:00 98.0 65 20 111/66 (81) 96 06/05/20 16:00 59 06/05/20 16:00 98.2 67 18 110/65 (80) 97 06/05/20 15:43 Nasal Cannula 2.0 Nasal Cannula 2.0 Intake and Output 06/05/20 06/06/20 19:00 07:00 Intake Total 1185 ml Output Total 600 ml 1100 ml Balance 585 ml -1100 ml Intake Oral 360 ml IV Total 825 ml Output Urine Total 600 ml 1100 ml Height (Feet): 5 Height (Inches): 7.00 Weight (Pounds): 159 General Appearance: no apparent distress EENT: other - On nasal cannula Cardiovascular: normal rate Respiratory/Chest: decreased breath sounds Objective No change Jerome Delaney MD Jun 06, 2020 14:46
[2020-06-06] MEDS ORDERED: D5 1/2NS 1000ml IV ONE (15:44)
[2020-06-06 16:00] VITALS: BP 131/87
--- NOTE | 2020-06-06 19:25 | NUR ---
NURSE HAND-OFF REPORT: Important Events on Shift:Pt still on restrains Patient Status: Stable Diet: Regular puree-moist Pending Orders: Pending Results/Labs: Pending MD notification: Latest Vital Signs: Temperature 97.6 , Pulse 58 , B/P 131 /87 , Respiratory Rate 19 , O2 SAT 98 , Nasal Cannula, O2 Flow Rate 3.0 . Vital Sign Comment: Stable EKG Rhythm: Atrial Fibrillation Rhythm change?: Y Notified?: N -Dr. Praful MONSIVAIS Response: No New Orders Received Latest Stewart Fall Score: 85 Fall Risk: High Risk Safety Measures: Call light Within Reach, Bed Alarm Zone 2, Side Rails Side Rails x3, Bed position Low and Locked. Fall Precautions: Yellow Socks Yellow Gown Door Sign Patient Fall Education Report given to Dilan/RN.
--- NOTE | 2020-06-06 19:30 | NUR ---
NURSE NOTES: Patient received from MARTHA Mahoney. Patient is A/O x 1. Patient appears to be confused. Patient is on bilateral soft wrist restraints with no signs of injuries. Patient is on 2 L nasal cannula with no signs of acute respiratory distress noted. Patient has a 16 gibralt[place] paulino. patent and well draining. Patient has a left 22 gauge on forearm with D5 1/2 Ns running at 75 ml/hr. Bed is in the lowest position and locked, call light within reach. Will continue to monitor.
[2020-06-06 20:00] VITALS: BP 108/74
--- NOTE | 2020-06-06 21:00 | NUR ---
NURSE NOTES: Patient blood pressure noted to be in the 90s. Patient heart rhythm in afib. Notified to Dr. Basilio Awaiting for call back.
--- NOTE | 2020-06-06 22:09 | General Progress Note ---
Subjective ROS Limited/Unobtainable: Yes Allergies: Coded Allergies: No Known Allergies (Unverified , 05/21/20) Objective Last 24 Hour Vital Signs Date Time Temp Pulse Resp B/P (MAP) Pulse Ox O2 Delivery O2 Flow Rate FiO2 06/06/20 20:35 57 97/58 06/06/20 16:00 97.6 80 19 131/87 (102) 98 06/06/20 16:00 58 06/06/20 12:00 53 06/06/20 11:51 98.7 71 20 129/78 (95) 96 06/06/20 08:41 96 Nasal Cannula 3.0 32 06/06/20 08:37 81 06/06/20 08:37 81 130/61 06/06/20 08:00 74 06/06/20 08:00 96.7 81 20 130/61 (84) 98 06/06/20 04:00 65 06/06/20 04:00 98.7 70 20 122/67 (85) 96 06/06/20 00:00 98.2 67 20 117/70 (86) 95 06/06/20 00:00 66 Intake and Output 06/05/20 06/06/20 19:00 07:00 Intake Total 1185 ml Output Total 600 ml 1100 ml Balance 585 ml -1100 ml Intake Oral 360 ml IV Total 825 ml Output Urine Total 600 ml 1100 ml Height (Feet): 5 Height (Inches): 7.00 Weight (Pounds): 159 Assessment/Plan Problem List: (1) Renal insufficiency ICD Codes: N28.9 - Disorder of kidney and ureter, unspecified SNOMED: 467380780, 651572957 (2) Encephalopathy ICD Codes: G93.40 - Encephalopathy, unspecified SNOMED: 91281206, 368800721 (3) Head injury ICD Codes: S09.90XA - Unspecified injury of head, initial encounter SNOMED: 13301944, 165716392 Qualifiers: Qualified Codes: S09.90XA - Unspecified injury of head, initial encounter (4) Pneumonia ICD Codes: J18.9 - Pneumonia, unspecified organism SNOMED: 006809461 Qualifiers: Qualified Codes: J18.9 - Pneumonia, unspecified organism (5) Abnormal EKG ICD Codes: R94.31 - Abnormal electrocardiogram [ECG] [EKG]; J12.89 - Other viral pneumonia SNOMED: 185481502 (6) Altered level of consciousness ICD Codes: R40.4 - Transient alteration of awareness SNOMED: 2788251 (7) Dehydration ICD Codes: E86.0 - Dehydration SNOMED: 76046553 (8) Pneumonia due to COVID-19 virus ICD Codes: U07.1 - COVID-19; J12.89 - Other viral pneumonia SNOMED: 655421909244218497 (9) Renal failure (ARF), acute on chronic ICD Codes: N17.9 - Acute kidney failure, unspecified; N18.9 - Chronic kidney disease, unspecified SNOMED: 524521884 Status: progressing, deteriorating Assessment/Plan: covid positive pna s/p a fib w rvr is improved prn supportive care Yvette Waldrop MD Jun 06, 2020 22:09
[2020-06-07] VITALS: BP_SYST 96; BP_SYST 99; BP_DIAS 54; BP_DIAS 58
--- NOTE | 2020-06-07 00:42 | Psychiatric Progress Note ---
Psychiatry Progress Note Psychiatry Progress Note Subjective the pt is more stable Medications Current Medications Medications (Trade) Dose Ordered Sig/Celia Route PRN Reason Start Time Stop Time Status Last Admin Dose Admin Amiodarone HCl (Cordarone) 200 mg DAILY ORAL 06/02/20 09:00 08/31/20 08:59 06/06/20 08:37 Apixaban (Eliquis) 5 mg BID ORAL 05/30/20 18:00 08/28/20 17:59 06/06/20 17:19 Bisacodyl (Dulcolax) 10 mg DAILYPRN PRN ORAL Constipation 06/05/20 13:30 09/03/20 13:29 Dextrose/Sodium Chloride 1,000 ml @ 75 mls/hr [id number] IV 05/22/20 13:30 06/21/20 13:29 06/06/20 12:58 Digoxin (Lanoxin) 0.125 mg DAILY ORAL 05/28/20 09:00 08/26/20 08:59 06/06/20 08:37 Diphenhydramine HCl (Benadryl) 25 mg Q6H PRN IVP Itching 05/26/20 14:45 06/25/20 14:44 Docusate Sodium (Colace) 100 mg TWICE A DAY ORAL 06/05/20 18:00 07/05/20 17:59 06/06/20 17:19 Haloperidol Lactate (Haldol) 5 mg Q6H PRN IM Agitation 05/22/20 13:15 07/06/20 13:14 05/26/20 08:33 Metoprolol Tartrate (Lopressor) 100 mg EVERY 12 HOURS ORAL 05/27/20 21:00 08/25/20 20:59 06/06/20 08:37 Pantoprazole (Protonix) 40 mg EVERY 12 HOURS IVP 05/22/20 21:00 06/21/20 20:59 06/06/20 20:48 Quetiapine Fumarate (SEROqueL) 50 mg Q12HR ORAL 06/06/20 21:00 07/10/20 13:14 06/06/20 21:09 Neurological/Psychiatric: Reports: anxiety, depressed, emotional problems Allergies: Coded Allergies: No Known Allergies (Unverified , 05/21/20) Objective Data Height (Feet): 5 Height (Inches): 7.00 Weight (Pounds): 159 General Appearance: no apparent distress Additional Comments: waxing and waning consciousness. Mood is anxious. Affect is blunted, congruent with mood. Thought process is concrete. Thought content, no suicidal or homicidal ideation. Cognition is impaired. Insight and judgment impaired. Assessment/Plan [place] I: ASSESSMENT: [place] I Acute metabolic encephalopathy. Dementia. [place] II Deferred. [place] III Renal insufficiency and head injury. [place] IV Low. [place] V 20. PLAN: 1. We will start the patient on Haldol IM p.r.n. 2. Restraints. 3. Discussed with the nurse. Status: progressing, deteriorating Status Narrative ASSESSMENT: [place] I Acute metabolic encephalopathy. Dementia. [place] II Deferred. [place] III Renal insufficiency and head injury. [place] IV Low. [place] V 20. PLAN: 1. We will start the patient on Haldol IM p.r.n. 2. Restraints. 3. Discussed with the nurse. Assessment/Plan: ASSESSMENT: [place] I Acute metabolic encephalopathy. Dementia. [place] II Deferred. [place] III Renal insufficiency and head injury. [place] IV Low. [place] V 20. PLAN: 1. We will start the patient on Haldol IM p.r.n. 2. Restraints. 3. Discussed with the nurse. Francheska Huynh MD Jun 07, 2020 00:42
[2020-06-07] MEDS: D5 1/2NS 1,000 ML IV SCH ×2 (02:26→17:01)
[2020-06-07 04:00] VITALS: BP 98/76
--- NOTE | 2020-06-07 07:24 | NUR ---
NURSE HAND-OFF REPORT: Important Events on Shift:[Patient blood pressure running in low 100s and in the 90s. Reported to Dr. Basilio, no new orders. Patient is asymptomatic.] Patient Status: [Stable] Diet: [Regular diet pureed moist] Pending Orders: [] Pending Results/Labs:[] Pending MD notification:[] Latest Vital Signs: Temperature 98.4 , Pulse 64 , B/P 98 /76 , Respiratory Rate 20 , O2 SAT 96 , Nasal Cannula, O2 Flow Rate 3.0 . Vital Sign Comment: [] EKG Rhythm: SR w/ BBB Rhythm change?: Y MD Notified?: N -Dr. Praful MONSIVAIS Response: No New Orders Received Latest Stewart Fall Score: 85 Fall Risk: High Risk Safety Measures: Call light Within Reach, Bed Alarm Zone 2, Side Rails Side Rails x3, Bed position Low and Locked. Fall Precautions: Yellow Socks Yellow Gown Door Sign Patient Fall Education Report given to [MARTHA Mancilla].
--- NOTE | 2020-06-07 07:37 | NUR ---
NURSE NOTES: Report received from Abilio Giraldo RN. Patient seen on rounds, asleep but easily rousable, on O2 at 2lpm via NC with no signs of acute distress. No complaints of pain. PIV on left forearm patent and running D5 1/2 NS at 75m/hr. Bilateral soft wrist restraints on for patient safety, good peripheral pulses and range of motion. Mera catheter secured and draining. Bed low and locked, siderails up x3, zone alarms on 1, will continue with plan of care.
[2020-06-07 07:46] LABS: BASOPHILS % (AUTO) 0.5 % (0.0-2.0); EOSINOPHILS % (AUTO) 0.1 % (0.0-3.0); HEMATOCRIT 35.9 % (42.0-52.0); LYMPHOCYTES % (AUTO) 6.2 % (20.0-45.0); MEAN CORPUSCULAR VOLUME 95 FL (80-99); MONOCYTES % (AUTO) 10.6 % (1.0-10.0); NEUTROPHILS % (AUTO) 82.7 % (45.0-75.0); PLATELET COUNT 215 K/UL (150-450); RED BLOOD COUNT 3.78 M/UL (4.70-6.10); RED CELL DISTRIBUTION WIDTH 15.4 % (11.6-14.8); WHITE BLOOD COUNT 14.2 K/UL (4.8-10.8)
[2020-06-07 08:00] VITALS: BP 100/65
[2020-06-07 08:56] LABS: ALANINE AMINOTRANSFERASE 38 U/L (12-78); ALBUMIN 2.1 G/DL (3.4-5.0); ALBUMIN/GLOBULIN RATIO 0.5 (1.0-2.7); ALKALINE PHOSPHATASE 95 U/L (46-116); ANION GAP 8 mmol/L (5-15); ASPARTATE AMINO TRANSFERASE 32 U/L (15-37); BILIRUBIN,TOTAL 1.3 MG/DL (0.2-1.0); BLOOD UREA NITROGEN 19 mg/dL (7-18); CARBON DIOXIDE 24 MMOL/L (21-32); CHLORIDE 105 MMOL/L (98-107); CREATININE 1.1 MG/DL (0.55-1.30); POTASSIUM 3.7 MMOL/L (3.5-5.1); SODIUM 137 MMOL/L (136-145)
[2020-06-07 08:58] LABS: BILIRUBIN,DIRECT 0.5 MG/DL (0.0-0.3)
--- NOTE | 2020-06-07 08:58 | NUR ---
CASE MANAGEMENT:REVIEW 06/07/20 SI: COVID PNA. ENCEPHALOPATHY. AFIB W/RVR 98.4 64 20 98/76 96% ON 2L/NC WBC+14.2 IS: IVF@75/HR IV PROTONIX Q12 SEROQUEL PO Q12 AMIODARONE PO QD ELIQUIS PO BID DIGOXIN PO QD LOPRESSOR PO Q12 : TELEMETRY STATUS DCP: FROM HOME PLAN: COVID ISOLATION MAY NEED TO GO HOME ON OXYGEN
[2020-06-07] MEDS: Metoprolol Tartrate 100mg tab ORAL SCH ×2 (09:00→20:47)
[2020-06-07] MEDS: Docusate 100mg cap ORAL SCH ×2 (09:34→17:03)
[2020-06-07] MEDS: Digoxin 0.125mg tab ORAL SCH (09:35)
[2020-06-07] MEDS: Amiodarone 200mg tab ORAL SCH (09:37)
[2020-06-07] MEDS: Eliquis 5mg tablet ORAL SCH ×2 (09:37→17:03)
[2020-06-07] MEDS: Pantoprazole Inj IVP SCH ×2 (09:37→20:47)
--- NOTE | 2020-06-07 10:47 | NUR ---
NURSE NOTES: Attempted to wean patient to room air. Saturations went down to 88%. Pt hooked back to O2 at 2lpm via NC and sats improved to 96%.
--- NOTE | 2020-06-07 11:25 | Neurology Progress Note ---
Interim History Interim History ROS Limited/Unobtainable: Yes Review of Systems Neuro Review of Systems confused unable to assess Objective Physical Exam Last Vital Signs Date Time Temp Pulse Resp B/P (MAP) Pulse Ox O2 Delivery O2 Flow Rate FiO2 06/07/20 09:35 73 06/07/20 09:00 100/65 06/07/20 08:00 98.1 19 96 06/06/20 21:00 Nasal Cannula 2.0 Nasal Cannula 2.0 06/06/20 21:00 32 Laboratory Tests Test 06/07/20 06:00 White Blood Count 14.2 K/UL (4.8-10.8) H Red Blood Count 3.78 M/UL (4.70-6.10) L Hemoglobin 12.0 G/DL (14.2-18.0) L Hematocrit 35.9 % (42.0-52.0) L Mean Corpuscular Volume 95 FL (80-99) Mean Corpuscular Hemoglobin 31.8 PG (27.0-31.0) H Mean Corpuscular Hemoglobin Concent 33.5 G/DL (32.0-36.0) Red Cell Distribution Width 15.4 % (11.6-14.8) H Platelet Count 215 K/UL (150-450) Mean Platelet Volume 8.4 FL (6.5-10.1) Neutrophils (%) (Auto) 82.7 % (45.0-75.0) H Lymphocytes (%) (Auto) 6.2 % (20.0-45.0) L Monocytes (%) (Auto) 10.6 % (1.0-10.0) H Eosinophils (%) (Auto) 0.1 % (0.0-3.0) Basophils (%) (Auto) 0.5 % (0.0-2.0) Sodium Level 137 MMOL/L (136-145) Potassium Level 3.7 MMOL/L (3.5-5.1) Chloride Level 105 MMOL/L (98-107) Carbon Dioxide Level 24 MMOL/L (21-32) Anion Gap 8 mmol/L (5-15) Blood Urea Nitrogen 19 mg/dL (7-18) H Creatinine 1.1 MG/DL (0.55-1.30) Estimat Glomerular Filtration Rate > 60 mL/min (>60) Glucose Level 95 MG/DL (74-106) Calcium Level 8.0 MG/DL (8.5-10.1) L Phosphorus Level 3.0 MG/DL (2.5-4.9) Magnesium Level 1.5 MG/DL (1.8-2.4) L Total Bilirubin 1.3 MG/DL (0.2-1.0) H Direct Bilirubin 0.5 MG/DL (0.0-0.3) H Aspartate Amino Transf (AST/SGOT) 32 U/L (15-37) Alanine Aminotransferase (ALT/SGPT) 38 U/L (12-78) Alkaline Phosphatase 95 U/L (46-116) C-Reactive Protein, Quantitative 4.2 mg/dL (0.00-0.90) H Total Protein 6.1 G/DL (6.4-8.2) L Albumin 2.1 G/DL (3.4-5.0) L Globulin 4.0 g/dL Albumin/Globulin Ratio 0.5 (1.0-2.7) L Neurologic Exam Objective Objective: Neuro exam unable to examine pt is not cooperating VITAL SIGNS: Reviewed on GENERAL: For general physical examination, please refer to other physicians' examination for details. NEUROLOGIC: Mental status - the patient is confused on wrist restraints does n ot follow commands speaking in [place] off tangent. Cranial nerves II through XII are tested. Pupils are equal and reactive bilaterally. He does have extraocular movements, which are intact. There is no obvious facial asymmetry. Motor examination, withdraws both upper and lower extremities. no focal deficits Impression/Recommendations Status: progressing, deteriorating Diagnostic Impression 1. Falls --> unknown etiology --> CT Head completed once prior to admission and second CT head done yesterday after patient fell in the room attempting to get up oob per RN --> S/p nasal fracture second: CT findings revealed Left frontal soft tissue swelling. Age-indeterminate nasal bone fractures partially visualized.Stable mild chronic small vessel ischemic changes and cerebral volume loss. --> Recommend MRI Brain once he is stable and out of covid isolation- he is still in isolation for covid --> family was contacted by nursing. --> Pt has had 3 falls inpatient according to nurses. None reported recently on wrist restraints. 2. Encephalopathy --> No focal findings on limited neuro exam, i.e cva 3. Covid 19 Disease --> on isolation, went into resp failure s/p intubation and on vent --> continue supportive treatment on 4. Atrial Fibrillation --> with RVR, cards on board 5. Resp Distress and Failure --> s/p Code Blue, s/p Intubation and vent now extubated on 2nd floor on Thank You for allowing us to participate in the care of the patient. The time of the note phil not necessarily reflect the time the patient was seen and evaluated Recommendations no new recommendations at this time. Sonam Redman NP Jun 07, 2020 11:25
--- NOTE | 2020-06-07 11:49 | Nephrology Progress Note ---
Assessment/Plan Problem List: (1) Renal failure (ARF), acute on chronic (2) Dehydration (3) Pneumonia due to COVID-19 virus Assessment Acute renal failure Possible underlying chronic kidney disease Dehydration Electrolyte imbalance Toxic metabolic encephalopathy Pneumonia due to COVID-19 virus Mild anemia Plan June 07: Labs reviewed. Low magnesium noted and addressed. Continue per consultants. June 06: No labs drawn today. Will check lab tomorrow. Continue to monitor renal parameters and electrolytes. Continue per consultants. June 05: White blood cells up to over 17,000. Renal parameters stable. Low magnesium replaced. Continue per consultants. June 04: No labs or CHEM panel drawn today. Med list reviewed. Will check labs tomorrow. Continue per consultants. June 03: No labs drawn today. Stable from renal standpoint of view. June 02: Labs reviewed. Renal parameters and electrolytes stable. Continue per consultants. June 01: No labs from today. Will check lab in a.m. Medication list reviewed. Blood pressure stable. Continue per consultants. May 31. No labs drawn today. Most recent renal parameters and electrolytes stable. Will check lab tomorrow. Continue per consultants. May 30: Labs reviewed. Low magnesium replaced. Continue per consultants. Remains stable from renal standpoint of view. May 29: No labs drawn today. Heart rate within normal range. Stable from renal standpoint of view. May 28: Renal parameters improved. Heart rate within normal limits. Continue per current treatment plan and consultants. May 27: Serum creatinine down to 1.5. Heart rate normalized. Continue per consultants. Continue to monitor electrolytes and renal parameters. May 26: Borderline blood pressure. Serum creatinine higher at 1.9. Remains under the care of bulb filler for rhythm management. Continue to monitor electrolytes and adjust abnormalities May 25: Patient now in ICU on Cardizem drip. Serum creatinine 1.7. Rest of the electrolytes within normal limit. Continue per cardiology. Continue to monitor renal parameters and electrolytes. May 24: Labs reviewed. Serum creatinine 1.6. Phosphorus low, IV K-Phos ordered. Continue to monitor renal parameters. Continue per current management. Slow hydrate Magnesium sulfate IV supplement today Antibiotics, avoid nephrotoxic's Monitor renal parameters electrolytes Keep the blood pressure blood sugar in check Patient full code Subjective ROS Limited/Unobtainable: No Objective Objective Last 24 Hour Vital Signs Date Time Temp Pulse Resp B/P (MAP) Pulse Ox O2 Delivery O2 Flow Rate FiO2 06/07/20 09:35 73 06/07/20 09:00 73 100/65 06/07/20 08:00 98.1 73 19 100/65 (77) 96 06/07/20 08:00 72 06/07/20 04:00 74 06/07/20 04:00 98.4 64 20 98/76 (83) 96 06/07/20 00:00 98.6 78 18 99/58 (72) 95 06/07/20 00:00 74 06/06/20 22:48 89 06/06/20 21:00 Nasal Cannula 2.0 Nasal Cannula 2.0 06/06/20 21:00 95 Nasal Cannula 3.0 32 06/06/20 20:35 57 97/58 06/06/20 20:00 98.9 72 18 108/74 (85) 96 06/06/20 16:00 97.6 80 19 131/87 (102) 98 06/06/20 16:00 58 06/06/20 12:00 53 06/06/20 11:51 98.7 71 20 129/78 (95) 96 Intake and Output 06/06/20 06/07/20 19:00 07:00 Intake Total 0 ml 60 ml Output Total 1200 ml Balance -1200 ml 60 ml Intake Oral 0 ml 60 ml Output Urine Total 1200 ml # Voids 3 Laboratory Tests 06/07/20 06:00: White Blood Count 14.2H, Red Blood Count 3.78L, Hemoglobin 12.0L, Hematocrit 35.9L, Mean Corpuscular Volume 95, Mean Corpuscular Hemoglobin 31.8H, Mean Corpuscular Hemoglobin Concent 33.5, Red Cell Distribution Width 15.4H, Platelet Count 215, Mean Platelet Volume 8.4, Neutrophils (%) (Auto) 82.7H, Lymphocytes (%) (Auto) 6.2L, Monocytes (%) (Auto) 10.6H, Eosinophils (%) (Auto) 0.1, Basophils (%) (Auto) 0.5, Sodium Level 137, Potassium Level 3.7, Chloride Level 105, Carbon Dioxide Level 24, Anion Gap 8, Blood Urea Nitrogen 19H, Creatinine 1.1, Estimat Glomerular Filtration Rate > 60, Glucose Level 95, Calcium Level 8.0L, Phosphorus Level 3.0, Magnesium Level 1.5L, Total Bilirubin 1.3H, Direct Bilirubin 0.5H, Aspartate Amino Transf (AST/SGOT) 32, Alanine Aminotransferase (ALT/SGPT) 38, Alkaline Phosphatase 95, C-Reactive Protein, Quantitative 4.2H, Total Protein 6.1L, Albumin 2.1L, Globulin 4.0, Albumin/Globulin Ratio 0.5L Height (Feet): 5 Height (Inches): 7.00 Weight (Pounds): 159 General Appearance: no apparent distress, lethargic EENT: other - Patient remains on nasal cannula Cardiovascular: normal rate, other Respiratory/Chest: decreased breath sounds - Occasional irregular beats Abdomen: distended Objective No change Jerome Delaney MD Jun 07, 2020 11:49
[2020-06-07 12:00] VITALS: BP 102/80
--- NOTE | 2020-06-07 12:03 | Infectious Diseases Prog Note ---
Assessment/Plan Assessment/Plan IMPRESSION: COVID-19 pneumonia. Acute renal failure,improving Dehydration, Atrial fibrillation with rapid ventricular rate, Right bundle-branch block, History of coronary artery disease with bypass, Dementia. RECOMMENDATION: Finished Dexamethasone course Can be discharged with oxygen supplement Subjective ROS Limited/Unobtainable: Yes Constitutional: Denies: fever Allergies: Coded Allergies: No Known Allergies (Unverified , 05/21/20) Objective Last 24 Hour Vital Signs Date Time Temp Pulse Resp B/P (MAP) Pulse Ox O2 Delivery O2 Flow Rate FiO2 06/07/20 09:35 73 06/07/20 09:00 73 100/65 06/07/20 08:00 98.1 73 19 100/65 (77) 96 06/07/20 08:00 72 06/07/20 04:00 74 06/07/20 04:00 98.4 64 20 98/76 (83) 96 06/07/20 00:00 98.6 78 18 99/58 (72) 95 06/07/20 00:00 74 06/06/20 22:48 89 06/06/20 21:00 Nasal Cannula 2.0 Nasal Cannula 2.0 06/06/20 21:00 95 Nasal Cannula 3.0 32 06/06/20 20:35 57 97/58 06/06/20 20:00 98.9 72 18 108/74 (85) 96 06/06/20 16:00 97.6 80 19 131/87 (102) 98 06/06/20 16:00 58 Height (Feet): 5 Height (Inches): 7.00 Weight (Pounds): 159 HEENT: mucous membranes moist Respiratory/Chest: other - oxygen by nasal cannula Cardiovascular: normal rate Abdomen: soft, non tender Extremities: no edema Neurologic/Psychiatric: other - sleeping Laboratory Tests Test 06/07/20 06:00 White Blood Count 14.2 K/UL (4.8-10.8) H Red Blood Count 3.78 M/UL (4.70-6.10) L Hemoglobin 12.0 G/DL (14.2-18.0) L Hematocrit 35.9 % (42.0-52.0) L Mean Corpuscular Volume 95 FL (80-99) Mean Corpuscular Hemoglobin 31.8 PG (27.0-31.0) H Mean Corpuscular Hemoglobin Concent 33.5 G/DL (32.0-36.0) Red Cell Distribution Width 15.4 % (11.6-14.8) H Platelet Count 215 K/UL (150-450) Mean Platelet Volume 8.4 FL (6.5-10.1) Neutrophils (%) (Auto) 82.7 % (45.0-75.0) H Lymphocytes (%) (Auto) 6.2 % (20.0-45.0) L Monocytes (%) (Auto) 10.6 % (1.0-10.0) H Eosinophils (%) (Auto) 0.1 % (0.0-3.0) Basophils (%) (Auto) 0.5 % (0.0-2.0) Sodium Level 137 MMOL/L (136-145) Potassium Level 3.7 MMOL/L (3.5-5.1) Chloride Level 105 MMOL/L (98-107) Carbon Dioxide Level 24 MMOL/L (21-32) Anion Gap 8 mmol/L (5-15) Blood Urea Nitrogen 19 mg/dL (7-18) H Creatinine 1.1 MG/DL (0.55-1.30) Estimat Glomerular Filtration Rate > 60 mL/min (>60) Glucose Level 95 MG/DL (74-106) Calcium Level 8.0 MG/DL (8.5-10.1) L Phosphorus Level 3.0 MG/DL (2.5-4.9) Magnesium Level 1.5 MG/DL (1.8-2.4) L Total Bilirubin 1.3 MG/DL (0.2-1.0) H Direct Bilirubin 0.5 MG/DL (0.0-0.3) H Aspartate Amino Transf (AST/SGOT) 32 U/L (15-37) Alanine Aminotransferase (ALT/SGPT) 38 U/L (12-78) Alkaline Phosphatase 95 U/L (46-116) C-Reactive Protein, Quantitative 4.2 mg/dL (0.00-0.90) H Total Protein 6.1 G/DL (6.4-8.2) L Albumin 2.1 G/DL (3.4-5.0) L Globulin 4.0 g/dL Albumin/Globulin Ratio 0.5 (1.0-2.7) L Current Medications Medications (Trade) Dose Ordered Sig/Celia Route PRN Reason Start Time Stop Time Status Last Admin Dose Admin Amiodarone HCl (Cordarone) 200 mg DAILY ORAL 06/02/20 09:00 08/31/20 08:59 06/07/20 09:37 Apixaban (Eliquis) 5 mg BID ORAL 05/30/20 18:00 08/28/20 17:59 06/07/20 09:37 Bisacodyl (Dulcolax) 10 mg DAILYPRN PRN ORAL Constipation 06/05/20 13:30 09/03/20 13:29 Dextrose/Sodium Chloride 1,000 ml @ 75 mls/hr [id number] IV 05/22/20 13:30 06/21/20 13:29 06/07/20 02:26 Digoxin (Lanoxin) 0.125 mg DAILY ORAL 05/28/20 09:00 08/26/20 08:59 06/07/20 09:35 Diphenhydramine HCl (Benadryl) 25 mg Q6H PRN IVP Itching 05/26/20 14:45 06/25/20 14:44 Docusate Sodium (Colace) 100 mg TWICE A DAY ORAL 06/05/20 18:00 07/05/20 17:59 06/07/20 09:34 Haloperidol Lactate (Haldol) 5 mg Q6H PRN IM Agitation 05/22/20 13:15 07/06/20 13:14 05/26/20 08:33 Magnesium Sulfate 100 ml @ 100 mls/hr Q1H IVPB 06/07/20 10:00 06/07/20 13:59 06/07/20 11:05 Metoprolol Tartrate (Lopressor) 100 mg EVERY 12 HOURS ORAL 05/27/20 21:00 08/25/20 20:59 06/06/20 08:37 Pantoprazole (Protonix) 40 mg EVERY 12 HOURS IVP 05/22/20 21:00 06/21/20 20:59 06/07/20 09:37 Quetiapine Fumarate (SEROqueL) 50 mg Q12HR ORAL 06/07/20 09:47 07/22/20 09:46 Mahin Leyva MD Jun 07, 2020 12:03
--- NOTE | 2020-06-07 12:07 | NUR ---
NURSE NOTES: Seroquel not administered for AM dose, pharmacy currently out of stock and awaiting delivery.
--- NOTE | 2020-06-07 12:08 | NUR ---
DISCHARGE PLANNING PATIENT WILL NEED OXYGEN FOR HOME USE. [facility] SAID THEY ARE CONTRACTED WITH "[employer]" AND "[employer]" CALLED [employer] T: [phone] ~ DUE TO VOLUMES OF CALLS WAS ONLY ABLE TO LEAVE A MESSAGE Addendum: 06/07/20 at 1227 by ROMA CABELLO LVN LVN FAXED ORDER AND CLINICALS TO [facility] T: [phone] F: [phone] Addendum: 06/07/20 at 1413 by ROMA CABELLO LVN LVN RECEIVED CALL FROM KARTHIKEYAN WITH [employer] THEY ARE CURRENTLY WORKING ON THE ORDER
--- NOTE | 2020-06-07 12:27 | Pulmonology Progress Note ---
Subjective ROS Limited/Unobtainable: Yes Interval Events: Back on nasal oxygen Constitutional: Denies: fever HEENT: Repors: no symptoms Respiratory: Reports: no symptoms Cardiovascular: Reports: no symptoms Gastrointestinal/Abdominal: Reports: no symptoms Allergies: Coded Allergies: No Known Allergies (Unverified , 05/21/20) Objective Last 24 Hour Vital Signs Date Time Temp Pulse Resp B/P (MAP) Pulse Ox O2 Delivery O2 Flow Rate FiO2 06/07/20 09:35 73 06/07/20 09:00 73 100/65 06/07/20 08:00 98.1 73 19 100/65 (77) 96 06/07/20 08:00 72 06/07/20 04:00 74 06/07/20 04:00 98.4 64 20 98/76 (83) 96 06/07/20 00:00 98.6 78 18 99/58 (72) 95 06/07/20 00:00 74 06/06/20 22:48 89 06/06/20 21:00 Nasal Cannula 2.0 Nasal Cannula 2.0 06/06/20 21:00 95 Nasal Cannula 3.0 32 06/06/20 20:35 57 97/58 06/06/20 20:00 98.9 72 18 108/74 (85) 96 06/06/20 16:00 97.6 80 19 131/87 (102) 98 06/06/20 16:00 58 Intake and Output 06/06/20 06/07/20 18:59 06:59 Intake Total 0 ml 60 ml Output Total 1200 ml Balance -1200 ml 60 ml Intake Oral 0 ml 60 ml Output Urine Total 1200 ml # Voids 3 Objective 06/07 back on nasal oxygen saturating well 06/04 now on 10L Venturi mask, 40% FiO2 06/03 now on 8L Venturi mask at 40% FiO2 06/02 no change 06/01 now on 2L NC saturating well 05/30 saturating well on 4 L NC; pt asleep 05/29 saturating well on 4 lpm NC; agitated, A&O x1-2 05/24/2020 currently on 2 lpm NC saturating well 05/23/2020 Beninese speaking pt, A&O x2, saturating well on RA General Appearance: WD/WN, no acute distress HEENT: normocephalic, atraumatic Respiratory: chest wall non-tender, lungs clear Cardiovascular: normal rate, regular rhythm Abdomen: other - obese Extremities: no edema Skin: other - 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 Musculoskeletal: other - left hip tenderness to palpation, no contusion, no crepitus noted Laboratory Tests 06/07/20 06:00: White Blood Count 14.2H, Red Blood Count 3.78L, Hemoglobin 12.0L, Hematocrit 35.9L, Mean Corpuscular Volume 95, Mean Corpuscular Hemoglobin 31.8H, Mean Corpuscular Hemoglobin Concent 33.5, Red Cell Distribution Width 15.4H, Platelet Count 215, Mean Platelet Volume 8.4, Neutrophils (%) (Auto) 82.7H, Lymphocytes (%) (Auto) 6.2L, Monocytes (%) (Auto) 10.6H, Eosinophils (%) (Auto) 0.1, Basophils (%) (Auto) 0.5, Sodium Level 137, Potassium Level 3.7, Chloride Level 105, Carbon Dioxide Level 24, Anion Gap 8, Blood Urea Nitrogen 19H, Creatinine 1.1, Estimat Glomerular Filtration Rate > 60, Glucose Level 95, Calcium Level 8.0L, Phosphorus Level 3.0, Magnesium Level 1.5L, Total Bilirubin 1.3H, Direct Bilirubin 0.5H, Aspartate Amino Transf (AST/SGOT) 32, Alanine Aminotransferase (ALT/SGPT) 38, Alkaline Phosphatase 95, C-Reactive Protein, Quantitative 4.2H, Total Protein 6.1L, Albumin 2.1L, Globulin 4.0, Albumin/Globulin Ratio 0.5L Current Medications Medications (Trade) Dose Ordered Sig/Celia Route PRN Reason Start Time Stop Time Status Last Admin Dose Admin Amiodarone HCl (Cordarone) 200 mg DAILY ORAL 06/02/20 09:00 08/31/20 08:59 06/07/20 09:37 Apixaban (Eliquis) 5 mg BID ORAL 05/30/20 18:00 08/28/20 17:59 06/07/20 09:37 Bisacodyl (Dulcolax) 10 mg DAILYPRN PRN ORAL Constipation 06/05/20 13:30 09/03/20 13:29 Dextrose/Sodium Chloride 1,000 ml @ 75 mls/hr [id number] IV 05/22/20 13:30 06/21/20 13:29 06/07/20 02:26 Digoxin (Lanoxin) 0.125 mg DAILY ORAL 05/28/20 09:00 08/26/20 08:59 06/07/20 09:35 Diphenhydramine HCl (Benadryl) 25 mg Q6H PRN IVP Itching 05/26/20 14:45 06/25/20 14:44 Docusate Sodium (Colace) 100 mg TWICE A DAY ORAL 06/05/20 18:00 07/05/20 17:59 06/07/20 09:34 Haloperidol Lactate (Haldol) 5 mg Q6H PRN IM Agitation 05/22/20 13:15 07/06/20 13:14 05/26/20 08:33 Magnesium Sulfate 100 ml @ 100 mls/hr Q1H IVPB 06/07/20 10:00 06/07/20 13:59 06/07/20 12:08 Metoprolol Tartrate (Lopressor) 100 mg EVERY 12 HOURS ORAL 05/27/20 21:00 08/25/20 20:59 06/06/20 08:37 Pantoprazole (Protonix) 40 mg EVERY 12 HOURS IVP 05/22/20 21:00 06/21/20 20:59 06/07/20 09:37 Quetiapine Fumarate (SEROqueL) 50 mg Q12HR ORAL 06/07/20 09:47 07/22/20 09:46 Assessment/Plan Assessment/Plan 1. Pneumonia. - s/p Rocephin 2. Anemia. - improving 3. Renal insufficiency. - Hydration 4. Elevated inflammatory markers with high CRP. 5. Hypokalemia.; resolved 6. Mild protein-calorie malnutrition. - on regular diet 7. COVID-19 - hold off on any specific therapy for COVID such as remdesivir. - completed decadron 8. Wound care instituted 9. Left hip pain s/p fall - L hip XRay - no fractures noted 10. s/p fall 11. Afib with rvr; now off Cardizem gtt oxygenation improved now Continue low-flow nasal oxygen, 3 L/minute seen in tele dc planning; home with oxygen Medically stable for discharge from pulmonology stand point of view The care for this patient was discussed with my supervising physician Time spent for this case was approximately 31 minutes Otoniel Ramirez Jun 07, 2020 12:27
--- NOTE | 2020-06-07 13:20 | Cardiac Electrophysiology PN ---
Assessment/Plan Assessment/Plan 1. Syncope. Etiology is not clear at this time. EF 60%. He might have been dehydrated vs SSS in view of PAF 2. Atrial fib with RVR. Not eating and no NGT. Swallow eval is pending. On metoprolol 100 bid, Amiodarone 200 po daily, Eliquis 2.5 bid and Dig 0.125 po daily 3. Troponin elevation. Levels are low and flat due to renal failure. On Lopressor 4. Complete right bundle-branch block and lateral T-wave inversion. 5. Covid PNA 6. Dysphagia. 7. Low MG, is being replaced DW RN Subjective Subjective In Covid isolation, fib rate controlled on Lopressor 100 bid and Dig 0.125 po daily On 2 liter NC . Objective Last 24 Hour Vital Signs Date Time Temp Pulse Resp B/P (MAP) Pulse Ox O2 Delivery O2 Flow Rate FiO2 06/07/20 12:00 69 06/07/20 12:00 96.7 89 20 102/80 (87) 96 06/07/20 09:35 73 06/07/20 09:00 73 100/65 06/07/20 08:00 98.1 73 19 100/65 (77) 96 06/07/20 08:00 72 06/07/20 04:00 74 06/07/20 04:00 98.4 64 20 98/76 (83) 96 06/07/20 00:00 98.6 78 18 99/58 (72) 95 06/07/20 00:00 74 06/06/20 22:48 89 06/06/20 21:00 Nasal Cannula 2.0 Nasal Cannula 2.0 06/06/20 21:00 95 Nasal Cannula 3.0 32 06/06/20 20:35 57 97/58 06/06/20 20:00 98.9 72 18 108/74 (85) 96 06/06/20 16:00 97.6 80 19 131/87 (102) 98 06/06/20 16:00 58 Intake and Output 06/06/20 06/07/20 19:00 07:00 Intake Total 0 ml 60 ml Output Total 1200 ml Balance -1200 ml 60 ml Intake Oral 0 ml 60 ml Output Urine Total 1200 ml # Voids 3 Laboratory Tests Test 06/07/20 06:00 White Blood Count 14.2 K/UL (4.8-10.8) H Red Blood Count 3.78 M/UL (4.70-6.10) L Hemoglobin 12.0 G/DL (14.2-18.0) L Hematocrit 35.9 % (42.0-52.0) L Mean Corpuscular Volume 95 FL (80-99) Mean Corpuscular Hemoglobin 31.8 PG (27.0-31.0) H Mean Corpuscular Hemoglobin Concent 33.5 G/DL (32.0-36.0) Red Cell Distribution Width 15.4 % (11.6-14.8) H Platelet Count 215 K/UL (150-450) Mean Platelet Volume 8.4 FL (6.5-10.1) Neutrophils (%) (Auto) 82.7 % (45.0-75.0) H Lymphocytes (%) (Auto) 6.2 % (20.0-45.0) L Monocytes (%) (Auto) 10.6 % (1.0-10.0) H Eosinophils (%) (Auto) 0.1 % (0.0-3.0) Basophils (%) (Auto) 0.5 % (0.0-2.0) Sodium Level 137 MMOL/L (136-145) Potassium Level 3.7 MMOL/L (3.5-5.1) Chloride Level 105 MMOL/L (98-107) Carbon Dioxide Level 24 MMOL/L (21-32) Anion Gap 8 mmol/L (5-15) Blood Urea Nitrogen 19 mg/dL (7-18) H Creatinine 1.1 MG/DL (0.55-1.30) Estimat Glomerular Filtration Rate > 60 mL/min (>60) Glucose Level 95 MG/DL (74-106) Calcium Level 8.0 MG/DL (8.5-10.1) L Phosphorus Level 3.0 MG/DL (2.5-4.9) Magnesium Level 1.5 MG/DL (1.8-2.4) L Total Bilirubin 1.3 MG/DL (0.2-1.0) H Direct Bilirubin 0.5 MG/DL (0.0-0.3) H Aspartate Amino Transf (AST/SGOT) 32 U/L (15-37) Alanine Aminotransferase (ALT/SGPT) 38 U/L (12-78) Alkaline Phosphatase 95 U/L (46-116) C-Reactive Protein, Quantitative 4.2 mg/dL (0.00-0.90) H Total Protein 6.1 G/DL (6.4-8.2) L Albumin 2.1 G/DL (3.4-5.0) L Globulin 4.0 g/dL Albumin/Globulin Ratio 0.5 (1.0-2.7) L Objective HEAD AND NECK: No JVD. LUNGS: Clear. CARDIOVASCULAR: Irregular S1 and S2 with no gallop or murmur. ABDOMEN: Soft. EXTREMITIES: No pitting edema. Rick Basilio MD Jun 07, 2020 13:20
[2020-06-07 16:00] VITALS: BP 103/71
--- NOTE | 2020-06-07 19:20 | NUR ---
NURSE NOTES: Pt received from MARTHA Fay. Pt is resting comfortably in bed and denies any pain. Pt is A/Ox1 Somali Speaking; Pt is on restraints due to safety of patient. Pt has paulino catheter 16fr for retention draining well due gravity. Pt is on cardiac monitoring SR and asymptomatic. Pt is on NC 2 LPM sating well and cannot lay flat. Pt has LFA 22G running D51/2NS 75ml/hr. Bed is locked and in lowest position with call lights within reach. Will continue to monitor.
--- NOTE | 2020-06-07 19:38 | NUR ---
NURSE HAND-OFF REPORT: Important Events on Shift: DCP cleared by ID, awaiting home O2 delivery Patient Status: Stable Diet: Regular pureed moist Pending Orders: N/A Pending Results/Labs: N/A Pending MD notification: N/A Latest Vital Signs: Temperature 96.6 , Pulse 76 , B/P 103 /71 , Respiratory Rate 18 , O2 SAT 98 , Nasal Cannula, O2 Flow Rate 3.0 . Vital Sign Comment: N/A EKG Rhythm: SR w/ BBB Rhythm change?: N MD Notified?: N -Dr. Praful MONSIVAIS Response: No New Orders Received Latest Stewart Fall Score: 85 Fall Risk: High Risk Safety Measures: Call light Within Reach, Bed Alarm Zone 2, Side Rails Side Rails x3, Bed position Low and Locked. Fall Precautions: Yellow Socks Yellow Gown Door Sign Patient Fall Education Report given to Eda THOMAS.
[2020-06-07 20:00] VITALS: BP 109/6
--- NOTE | 2020-06-07 21:25 | General Progress Note ---
Subjective ROS Limited/Unobtainable: Yes Allergies: Coded Allergies: No Known Allergies (Unverified , 05/21/20) Objective Last 24 Hour Vital Signs Date Time Temp Pulse Resp B/P (MAP) Pulse Ox O2 Delivery O2 Flow Rate FiO2 06/07/20 20:47 84 121/75 06/07/20 16:00 96.6 69 18 103/71 (82) 98 06/07/20 16:00 76 06/07/20 12:00 69 06/07/20 12:00 96.7 89 20 102/80 (87) 96 06/07/20 09:35 73 06/07/20 09:00 73 100/65 06/07/20 08:00 98.1 73 19 100/65 (77) 96 06/07/20 08:00 72 06/07/20 04:00 74 06/07/20 04:00 98.4 64 20 98/76 (83) 96 06/07/20 00:00 98.6 78 18 99/58 (72) 95 06/07/20 00:00 74 06/06/20 22:48 89 Intake and Output 06/06/20 06/07/20 19:00 07:00 Intake Total 0 ml 60 ml Output Total 1200 ml Balance -1200 ml 60 ml Intake Oral 0 ml 60 ml Output Urine Total 1200 ml # Voids 3 Laboratory Tests 06/07/20 06:00: White Blood Count 14.2H, Red Blood Count 3.78L, Hemoglobin 12.0L, Hematocrit 35.9L, Mean Corpuscular Volume 95, Mean Corpuscular Hemoglobin 31.8H, Mean Corpuscular Hemoglobin Concent 33.5, Red Cell Distribution Width 15.4H, Platelet Count 215, Mean Platelet Volume 8.4, Neutrophils (%) (Auto) 82.7H, Lymphocytes (%) (Auto) 6.2L, Monocytes (%) (Auto) 10.6H, Eosinophils (%) (Auto) 0.1, Basophils (%) (Auto) 0.5, Sodium Level 137, Potassium Level 3.7, Chloride Level 105, Carbon Dioxide Level 24, Anion Gap 8, Blood Urea Nitrogen 19H, Creatinine 1.1, Estimat Glomerular Filtration Rate > 60, Glucose Level 95, Calcium Level 8.0L, Phosphorus Level 3.0, Magnesium Level 1.5L, Total Bilirubin 1.3H, Direct Bilirubin 0.5H, Aspartate Amino Transf (AST/SGOT) 32, Alanine Aminotransferase (ALT/SGPT) 38, Alkaline Phosphatase 95, C-Reactive Protein, Quantitative 4.2H, Total Protein 6.1L, Albumin 2.1L, Globulin 4.0, Albumin/Globulin Ratio 0.5L Height (Feet): 5 Height (Inches): 7.00 Weight (Pounds): 159 Assessment/Plan Problem List: (1) Renal insufficiency ICD Codes: N28.9 - Disorder of kidney and ureter, unspecified SNOMED: 112630220, 444375100 (2) Encephalopathy ICD Codes: G93.40 - Encephalopathy, unspecified SNOMED: 63247758, 965523119 (3) Head injury ICD Codes: S09.90XA - Unspecified injury of head, initial encounter SNOMED: 35003888, 789073123 Qualifiers: Qualified Codes: S09.90XA - Unspecified injury of head, initial encounter (4) Pneumonia ICD Codes: J18.9 - Pneumonia, unspecified organism SNOMED: 854925801 Qualifiers: Qualified Codes: J18.9 - Pneumonia, unspecified organism (5) Abnormal EKG ICD Codes: R94.31 - Abnormal electrocardiogram [ECG] [EKG]; J12.89 - Other viral pneumonia SNOMED: 993087063 (6) Altered level of consciousness ICD Codes: R40.4 - Transient alteration of awareness SNOMED: 2935321 (7) Dehydration ICD Codes: E86.0 - Dehydration SNOMED: 16112224 (8) Pneumonia due to COVID-19 virus ICD Codes: U07.1 - COVID-19; J12.89 - Other viral pneumonia SNOMED: 004778253632633409 (9) Renal failure (ARF), acute on chronic ICD Codes: N17.9 - Acute kidney failure, unspecified; N18.9 - Chronic kidney disease, unspecified SNOMED: 427030259 Status: progressing, deteriorating Assessment/Plan: covid positive pna s/p a fib w rvr desatureated on RA needs home oxygen Yvette Waldrop MD Jun 07, 2020 21:25
--- NOTE | 2020-06-07 23:00 | Psychiatric Progress Note ---
Psychiatry Progress Note Psychiatry Progress Note Subjective the pt is more stable Medications Current Medications Medications (Trade) Dose Ordered Sig/Celia Route PRN Reason Start Time Stop Time Status Last Admin Dose Admin Amiodarone HCl (Cordarone) 200 mg DAILY ORAL 06/02/20 09:00 08/31/20 08:59 06/07/20 09:37 Apixaban (Eliquis) 5 mg BID ORAL 05/30/20 18:00 08/28/20 17:59 06/07/20 17:03 Bisacodyl (Dulcolax) 10 mg DAILYPRN PRN ORAL Constipation 06/05/20 13:30 09/03/20 13:29 06/07/20 15:25 Dextrose/Sodium Chloride 1,000 ml @ 75 mls/hr [id number] IV 05/22/20 13:30 06/21/20 13:29 06/07/20 17:01 Digoxin (Lanoxin) 0.125 mg DAILY ORAL 05/28/20 09:00 08/26/20 08:59 06/07/20 09:35 Diphenhydramine HCl (Benadryl) 25 mg Q6H PRN IVP Itching 05/26/20 14:45 06/25/20 14:44 Docusate Sodium (Colace) 100 mg TWICE A DAY ORAL 06/05/20 18:00 07/05/20 17:59 06/07/20 17:03 Haloperidol Lactate (Haldol) 5 mg Q6H PRN IM Agitation 05/22/20 13:15 07/06/20 13:14 05/26/20 08:33 Metoprolol Tartrate (Lopressor) 100 mg EVERY 12 HOURS ORAL 05/27/20 21:00 08/25/20 20:59 06/07/20 20:47 Pantoprazole (Protonix) 40 mg EVERY 12 HOURS IVP 05/22/20 21:00 06/21/20 20:59 06/07/20 20:47 Quetiapine Fumarate (SEROqueL) 50 mg Q12HR ORAL 06/07/20 09:47 07/22/20 09:46 06/07/20 20:46 Neurological/Psychiatric: Reports: anxiety, depressed, emotional problems Allergies: Coded Allergies: No Known Allergies (Unverified , 05/21/20) Objective Data Height (Feet): 5 Height (Inches): 7.00 Weight (Pounds): 159 General Appearance: no apparent distress, lethargic Additional Comments: waxing and waning consciousness. Mood is anxious. Affect is blunted, congruent with mood. Thought process is concrete. Thought content, no suicidal or homicidal ideation. Cognition is impaired. Insight and judgment impaired. Assessment/Plan [place] I: ASSESSMENT: [place] I Acute metabolic encephalopathy. Dementia. [place] II Deferred. [place] III Renal insufficiency and head injury. [place] IV Low. [place] V 20. PLAN: 1. We will start the patient on Haldol IM p.r.n. 2. Restraints. 3. Discussed with the nurse. Status: progressing, deteriorating Status Narrative ASSESSMENT: [place] I Acute metabolic encephalopathy. Dementia. [place] II Deferred. [place] III Renal insufficiency and head injury. [place] IV Low. [place] V 20. PLAN: 1. We will start the patient on Haldol IM p.r.n. 2. Restraints. 3. Discussed with the nurse. Assessment/Plan: ASSESSMENT: [place] I Acute metabolic encephalopathy. Dementia. [place] II Deferred. [place] III Renal insufficiency and head injury. [place] IV Low. [place] V 20. PLAN: 1. We will start the patient on Haldol IM p.r.n. 2. Restraints. 3. Discussed with the nurse. Farncheska Huynh MD Jun 07, 2020 23:00
[2020-06-08] VITALS: BP_SYST 100; BP_SYST 128; BP_DIAS 68; BP_DIAS 73
[2020-06-08 04:00] VITALS: BP 130/77
[2020-06-08] MEDS: D5 1/2NS 1,000 ML IV SCH ×2 (05:29→18:50)
--- NOTE | 2020-06-08 07:06 | NUR ---
NURSE HAND-OFF REPORT: Important Events on Shift:Pt continued scheduled medications. Prepped for DC Patient Status: Stable Diet: Regular, pureed moist Pending Orders: DC Planning Pending Results/Labs: Pending MD notification: Latest Vital Signs: Temperature 98.1 , Pulse 72 , B/P 128 /73 , Respiratory Rate 19 , O2 SAT 96 , Nasal Cannula, O2 Flow Rate 2.0 . Vital Sign Comment: VSS EKG Rhythm: SR w/ BBB Rhythm change?: N MD Notified?: N -Dr. Praful MONSIVAIS Response: No New Orders Received Latest Stewart Fall Score: 85 Fall Risk: High Risk Safety Measures: Call light Within Reach, Bed Alarm Zone 2, Side Rails Side Rails x3, Bed position Low and Locked. Fall Precautions: Yellow Socks Yellow Gown Door Sign Patient Fall Education Report given to MARTHA Mancilla.
--- NOTE | 2020-06-08 07:33 | NUR ---
NURSE NOTES: Report received from Kingsley Veras RN. Patient seen on rounds, asleep but easily rousable, on O2 at 2lpm via NC with no signs of acute distress. PIV on left forearm patent and running D5 1/2 NS at 75m/hr. Bilateral soft wrist restraints on for patient safety, good peripheral pulses and range of motion. Mera catheter secured and draining. Bed low and locked, siderails up x3, zone alarms on 1, will continue with plan of care.
[2020-06-08 08:00] VITALS: BP 105/52
[2020-06-08] MEDS: Docusate 100mg cap ORAL SCH ×2 (09:00→17:46)
[2020-06-08] MEDS: Eliquis 5mg tablet ORAL SCH ×2 (09:00→17:46)
[2020-06-08] MEDS: Metoprolol Tartrate 100mg tab ORAL SCH ×2 (09:00→20:20)
[2020-06-08] MEDS: Pantoprazole Inj IVP SCH ×2 (09:00→20:20)
[2020-06-08] MEDS: Amiodarone 200mg tab ORAL SCH (09:28)
[2020-06-08] MEDS: Digoxin 0.125mg tab ORAL SCH (09:29)
--- NOTE | 2020-06-08 09:55 | NUR ---
NURSE NOTES: Mera cath discontinued per Dr. Waldrop's orders.
--- NOTE | 2020-06-08 09:58 | NUR ---
RD ASSESSMENT & RECOMMENDATIONS SEE CARE ACTIVITY FOR COMPLETE ASSESSMENT DAILY ESTIMATED NEEDS: Needs based on cardiac, pulmonary 63kg 25-30 kcals/kg 7664-9322 total kcals 1-1.5 g protein/kg 63-95 g total protein 25-30 mL/kg 3219-5400 total fluid mLs NUTRITION DIAGNOSIS: Swallowing difficulty r/t respiratory status anc clinical status as evidenced by s/p MOP MAN eval, recs for puree texture, w/ Covid ++ PNA, on NC. CURRENT DIET: now Regular puree PO DIET RECOMMENDATIONS: liberalized Regular w/ variable intake/ texture per MOP MAN ENTERAL NUTRITION RECOMMENDATIONS: CONSULT RD IF NON ORAL FEEDS ARE PART OF POC to provide ADDITIONAL RECOMMENDATIONS: 1) Maintain calibrated bed scale wts 2) Maintain D5 with poor to variable po intake 3) Monitor for ability to feed-> now on puree diet, variable po intake Add ensure enlive w/ trays TID 4) Check lytes daily (mg 1.5) 5) Rec accuchecks for close BG monitoring, monitor need for NISS 6) Rec appetite stimulant
--- NOTE | 2020-06-08 10:02 | NUR ---
HOME OXYGEN STILL WAITING FOR OXYGEN TO BE DELIVERED BY [facility]
--- NOTE | 2020-06-08 10:08 | Infectious Diseases Prog Note ---
Assessment/Plan Assessment/Plan IMPRESSION: COVID-19 pneumonia. Acute renal failure,improving Dehydration, Atrial fibrillation with rapid ventricular rate, Right bundle-branch block, History of coronary artery disease with bypass, Dementia. RECOMMENDATION: Finished Dexamethasone course Can be discharged with oxygen supplement Subjective ROS Limited/Unobtainable: Yes Constitutional: Denies: fever Neurologic: Reports: confusion, other - on restraint Allergies: Coded Allergies: No Known Allergies (Unverified , 05/21/20) Objective Last 24 Hour Vital Signs Date Time Temp Pulse Resp B/P (MAP) Pulse Ox O2 Delivery O2 Flow Rate FiO2 06/08/20 09:29 77 06/08/20 09:00 Nasal Cannula 2.0 Nasal Cannula 2.0 06/08/20 09:00 77 105/52 06/08/20 08:14 96 Nasal Cannula 2.0 28 06/08/20 08:00 73 06/08/20 08:00 97.8 77 20 105/52 (69) 95 06/08/20 04:00 98.1 80 18 130/77 (94) 96 06/08/20 04:00 72 06/08/20 00:00 70 06/08/20 00:00 98.1 72 19 128/73 (91) 96 06/07/20 21:00 Nasal Cannula 2.0 Nasal Cannula 2.0 06/07/20 20:47 84 121/75 06/07/20 20:00 98.1 69 17 109/6 (40) 97 06/07/20 20:00 74 06/07/20 16:00 96.6 69 18 103/71 (82) 98 06/07/20 16:00 76 06/07/20 12:00 69 06/07/20 12:00 96.7 89 20 102/80 (87) 96 Height (Feet): 5 Height (Inches): 7.00 Weight (Pounds): 159 HEENT: mucous membranes moist Respiratory/Chest: other - oxygen by nasal cannula 2 lit Cardiovascular: normal rate Abdomen: soft, non tender Extremities: no edema Neurologic/Psychiatric: other - sleeping Current Medications Medications (Trade) Dose Ordered Sig/Celia Route PRN Reason Start Time Stop Time Status Last Admin Dose Admin Amiodarone HCl (Cordarone) 200 mg DAILY ORAL 06/02/20 09:00 08/31/20 08:59 06/08/20 09:28 Apixaban (Eliquis) 5 mg BID ORAL 05/30/20 18:00 08/28/20 17:59 06/08/20 09:00 Bisacodyl (Dulcolax) 10 mg DAILYPRN PRN ORAL Constipation 06/05/20 13:30 09/03/20 13:29 06/07/20 15:25 Dextrose/Sodium Chloride 1,000 ml @ 75 mls/hr [id number] IV 05/22/20 13:30 06/21/20 13:29 06/08/20 05:29 Digoxin (Lanoxin) 0.125 mg DAILY ORAL 05/28/20 09:00 08/26/20 08:59 06/08/20 09:29 Diphenhydramine HCl (Benadryl) 25 mg Q6H PRN IVP Itching 05/26/20 14:45 06/25/20 14:44 Docusate Sodium (Colace) 100 mg TWICE A DAY ORAL 06/05/20 18:00 07/05/20 17:59 06/08/20 09:00 Haloperidol Lactate (Haldol) 5 mg Q6H PRN IM Agitation 05/22/20 13:15 07/06/20 13:14 05/26/20 08:33 Metoprolol Tartrate (Lopressor) 100 mg EVERY 12 HOURS ORAL 05/27/20 21:00 08/25/20 20:59 06/07/20 20:47 Pantoprazole (Protonix) 40 mg EVERY 12 HOURS IVP 05/22/20 21:00 06/21/20 20:59 06/08/20 09:00 Quetiapine Fumarate (SEROqueL) 50 mg Q12HR ORAL 06/07/20 09:47 07/22/20 09:46 06/08/20 08:59 Mahin Leyva MD Jun 08, 2020 10:08
[2020-06-08] MEDS ORDERED: D5 1/2NS 1000ml IV ONE (10:22)
--- NOTE | 2020-06-08 10:24 | Nephrology Progress Note ---
Assessment/Plan Problem List: (1) Renal failure (ARF), acute on chronic (2) Dehydration (3) Pneumonia due to COVID-19 virus Assessment Acute renal failure Possible underlying chronic kidney disease Dehydration Electrolyte imbalance Toxic metabolic encephalopathy Pneumonia due to COVID-19 virus Mild anemia Plan June 08: No labs drawn today. Will check labs and chemistries tomorrow. Continue per consultants June 07: Labs reviewed. Low magnesium noted and addressed. Continue per consultants. June 06: No labs drawn today. Will check lab tomorrow. Continue to monitor renal parameters and electrolytes. Continue per consultants. June 05: White blood cells up to over 17,000. Renal parameters stable. Low magnesium replaced. Continue per consultants. June 04: No labs or CHEM panel drawn today. Med list reviewed. Will check labs tomorrow. Continue per consultants. June 03: No labs drawn today. Stable from renal standpoint of view. June 02: Labs reviewed. Renal parameters and electrolytes stable. Continue per consultants. June 01: No labs from today. Will check lab in a.m. Medication list reviewed. Blood pressure stable. Continue per consultants. May 31. No labs drawn today. Most recent renal parameters and electrolytes stable. Will check lab tomorrow. Continue per consultants. May 30: Labs reviewed. Low magnesium replaced. Continue per consultants. Remains stable from renal standpoint of view. May 29: No labs drawn today. Heart rate within normal range. Stable from renal standpoint of view. May 28: Renal parameters improved. Heart rate within normal limits. Continue per current treatment plan and consultants. May 27: Serum creatinine down to 1.5. Heart rate normalized. Continue per consultants. Continue to monitor electrolytes and renal parameters. May 26: Borderline blood pressure. Serum creatinine higher at 1.9. Remains under the care of mineral surveying technician for rhythm management. Continue to monitor electrolytes and adjust abnormalities May 25: Patient now in ICU on Cardizem drip. Serum creatinine 1.7. Rest of the electrolytes within normal limit. Continue per cardiology. Continue to monitor renal parameters and electrolytes. May 24: Labs reviewed. Serum creatinine 1.6. Phosphorus low, IV K-Phos ordered. Continue to monitor renal parameters. Continue per current management. Slow hydrate Magnesium sulfate IV supplement today Antibiotics, avoid nephrotoxic's Monitor renal parameters electrolytes Keep the blood pressure blood sugar in check Patient full code Subjective ROS Limited/Unobtainable: No Constitutional: Reports: malaise, weakness Objective Objective Last 24 Hour Vital Signs Date Time Temp Pulse Resp B/P (MAP) Pulse Ox O2 Delivery O2 Flow Rate FiO2 06/08/20 09:29 77 06/08/20 09:00 Nasal Cannula 2.0 Nasal Cannula 2.0 06/08/20 09:00 77 105/52 06/08/20 08:14 96 Nasal Cannula 2.0 28 06/08/20 08:00 73 06/08/20 08:00 97.8 77 20 105/52 (69) 95 06/08/20 04:00 98.1 80 18 130/77 (94) 96 06/08/20 04:00 72 06/08/20 00:00 70 06/08/20 00:00 98.1 72 19 128/73 (91) 96 06/07/20 21:00 Nasal Cannula 2.0 Nasal Cannula 2.0 06/07/20 20:47 84 121/75 06/07/20 20:00 98.1 69 17 109/6 (40) 97 06/07/20 20:00 74 06/07/20 16:00 96.6 69 18 103/71 (82) 98 06/07/20 16:00 76 06/07/20 12:00 69 06/07/20 12:00 96.7 89 20 102/80 (87) 96 Intake and Output 06/07/20 06/08/20 19:00 07:00 Intake Total 240 ml Output Total 500 ml 150 ml Balance -260 ml -150 ml Intake Oral 240 ml Output Urine Total 500 ml 150 ml # Voids 1 # Bowel Movements 2 Height (Feet): 5 Height (Inches): 7.00 Weight (Pounds): 159 General Appearance: no apparent distress EENT: other - On nasal cannula Cardiovascular: tachycardia Respiratory/Chest: decreased breath sounds Abdomen: distended Objective No change Jerome Delaney MD Jun 08, 2020 10:24
--- NOTE | 2020-06-08 11:32 | Pulmonology Progress Note ---
Subjective ROS Limited/Unobtainable: Yes Interval Events: on nasal oxygen Constitutional: Denies: fever HEENT: Repors: no symptoms Respiratory: Reports: no symptoms Cardiovascular: Reports: no symptoms Gastrointestinal/Abdominal: Reports: no symptoms Allergies: Coded Allergies: No Known Allergies (Unverified , 05/21/20) Objective Last 24 Hour Vital Signs Date Time Temp Pulse Resp B/P (MAP) Pulse Ox O2 Delivery O2 Flow Rate FiO2 06/08/20 09:29 77 06/08/20 09:00 Nasal Cannula 2.0 Nasal Cannula 2.0 06/08/20 09:00 77 105/52 06/08/20 08:14 96 Nasal Cannula 2.0 28 06/08/20 08:00 73 06/08/20 08:00 97.8 77 20 105/52 (69) 95 06/08/20 04:00 98.1 80 18 130/77 (94) 96 06/08/20 04:00 72 06/08/20 00:00 70 06/08/20 00:00 98.1 72 19 128/73 (91) 96 06/07/20 21:00 Nasal Cannula 2.0 Nasal Cannula 2.0 06/07/20 20:47 84 121/75 06/07/20 20:00 98.1 69 17 109/6 (40) 97 06/07/20 20:00 74 06/07/20 16:00 96.6 69 18 103/71 (82) 98 06/07/20 16:00 76 06/07/20 12:00 69 06/07/20 12:00 96.7 89 20 102/80 (87) 96 Intake and Output 06/07/20 06/08/20 19:00 07:00 Intake Total 240 ml Output Total 500 ml 150 ml Balance -260 ml -150 ml Intake Oral 240 ml Output Urine Total 500 ml 150 ml # Voids 1 # Bowel Movements 2 Objective 06/08 saturating >92% on 2L NC, desaturates on RA down to 87% 06/07 back on nasal oxygen saturating well 06/04 now on 10L Venturi mask, 40% FiO2 06/03 now on 8L Venturi mask at 40% FiO2 06/02 no change 06/01 now on 2L NC saturating well 05/30 saturating well on 4 L NC; pt asleep 05/29 saturating well on 4 lpm NC; agitated, A&O x1-2 05/24/2020 currently on 2 lpm NC saturating well 05/23/2020 English speaking pt, A&O x2, saturating well on RA General Appearance: WD/WN, no acute distress HEENT: normocephalic, atraumatic Respiratory: chest wall non-tender, lungs clear Cardiovascular: normal rate, regular rhythm Abdomen: other - obese Extremities: no edema Skin: other - 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 Musculoskeletal: other - left hip tenderness to palpation, no contusion, no crepitus noted Current Medications Medications (Trade) Dose Ordered Sig/Celia Route PRN Reason Start Time Stop Time Status Last Admin Dose Admin Amiodarone HCl (Cordarone) 200 mg DAILY ORAL 06/02/20 09:00 08/31/20 08:59 06/08/20 09:28 Apixaban (Eliquis) 5 mg BID ORAL 05/30/20 18:00 08/28/20 17:59 06/08/20 09:00 Bisacodyl (Dulcolax) 10 mg DAILYPRN PRN ORAL Constipation 06/05/20 13:30 09/03/20 13:29 06/07/20 15:25 Dextrose/Sodium Chloride 1,000 ml @ 75 mls/hr [id number] IV 05/22/20 13:30 06/21/20 13:29 06/08/20 05:29 Digoxin (Lanoxin) 0.125 mg DAILY ORAL 05/28/20 09:00 08/26/20 08:59 06/08/20 09:29 Diphenhydramine HCl (Benadryl) 25 mg Q6H PRN IVP Itching 05/26/20 14:45 06/25/20 14:44 Docusate Sodium (Colace) 100 mg TWICE A DAY ORAL 06/05/20 18:00 07/05/20 17:59 06/08/20 09:00 Haloperidol Lactate (Haldol) 5 mg Q6H PRN IM Agitation 05/22/20 13:15 07/06/20 13:14 05/26/20 08:33 Metoprolol Tartrate (Lopressor) 100 mg EVERY 12 HOURS ORAL 05/27/20 21:00 08/25/20 20:59 06/07/20 20:47 Pantoprazole (Protonix) 40 mg EVERY 12 HOURS IVP 05/22/20 21:00 06/21/20 20:59 06/08/20 09:00 Quetiapine Fumarate (SEROqueL) 50 mg Q12HR ORAL 06/07/20 09:47 07/22/20 09:46 06/08/20 08:59 Assessment/Plan Assessment/Plan 1. Pneumonia. - s/p Rocephin 2. Anemia. - improving 3. Renal insufficiency. - Hydration 4. Elevated inflammatory markers with high CRP. 5. Hypokalemia.; resolved 6. Mild protein-calorie malnutrition. - on regular diet 7. COVID-19 - hold off on any specific therapy for COVID such as remdesivir. - completed decadron 8. Wound care instituted 9. Left hip pain s/p fall - L hip XRay - no fractures noted 10. s/p fall 11. Afib with rvr; now off Cardizem gtt oxygenation improved now Continue low-flow nasal oxygen, 3 L/minute seen in tele dc planning; home with oxygen; awaiting home oxygen delivery Medically stable for discharge with home oxygen from pulmonology stand point of view The care for this patient was discussed with my supervising physician Time spent for this case was approximately 31 minutes Otoniel Ramirez Jun 08, 2020 11:32
[2020-06-08 12:00] VITALS: BP 101/66
--- NOTE | 2020-06-08 12:09 | Cardiac Electrophysiology PN ---
Assessment/Plan Assessment/Plan 1. Syncope. Etiology is not clear at this time. EF 60%. He might have been dehydrated vs SSS in view of PAF 2. Atrial fib with RVR. Not eating and no NGT. Swallow eval is pending. On metoprolol 100 bid, Amiodarone 200 po daily, Eliquis 2.5 bid and Dig 0.125 po daily 3. Troponin elevation. Levels are low and flat due to renal failure. On Lopressor 4. Complete right bundle-branch block and lateral T-wave inversion. 5. Covid PNA 6. Dysphagia. 7. Low MG, replaced DW RN Subjective Subjective In Covid isolation, fib rate controlled on Lopressor 100 bid and Dig 0.125 po daily On 2 liter NC . Awaiting DC home after getting home Oxygen Objective Last 24 Hour Vital Signs Date Time Temp Pulse Resp B/P (MAP) Pulse Ox O2 Delivery O2 Flow Rate FiO2 06/08/20 09:29 77 06/08/20 09:00 Nasal Cannula 2.0 Nasal Cannula 2.0 06/08/20 09:00 77 105/52 06/08/20 08:14 96 Nasal Cannula 2.0 28 06/08/20 08:00 73 06/08/20 08:00 97.8 77 20 105/52 (69) 95 06/08/20 04:00 98.1 80 18 130/77 (94) 96 06/08/20 04:00 72 06/08/20 00:00 70 06/08/20 00:00 98.1 72 19 128/73 (91) 96 06/07/20 21:00 Nasal Cannula 2.0 Nasal Cannula 2.0 06/07/20 20:47 84 121/75 06/07/20 20:00 98.1 69 17 109/6 (40) 97 06/07/20 20:00 74 06/07/20 16:00 96.6 69 18 103/71 (82) 98 06/07/20 16:00 76 Intake and Output 06/07/20 06/08/20 19:00 07:00 Intake Total 240 ml Output Total 500 ml 150 ml Balance -260 ml -150 ml Intake Oral 240 ml Output Urine Total 500 ml 150 ml # Voids 1 # Bowel Movements 2 Objective HEAD AND NECK: No JVD. LUNGS: Clear. CARDIOVASCULAR: Irregular S1 and S2 with no gallop or murmur. ABDOMEN: Soft. EXTREMITIES: No pitting edema. Rick Basilio MD Jun 08, 2020 12:09
--- NOTE | 2020-06-08 13:22 | Neurology Progress Note ---
Interim History Interim History ROS Limited/Unobtainable: Yes Objective Physical Exam Last Vital Signs Date Time Temp Pulse Resp B/P (MAP) Pulse Ox O2 Delivery O2 Flow Rate FiO2 06/08/20 12:00 104 06/08/20 12:00 97.5 22 101/66 (78) 95 06/08/20 09:00 Nasal Cannula 2.0 Nasal Cannula 2.0 06/08/20 08:14 28 Neurologic Exam Objective Objective: Neuro exam unable to examine pt is not cooperating VITAL SIGNS: Reviewed on GENERAL: For general physical examination, please refer to other physicians' examination for details. NEUROLOGIC: Mental status - the patient is confused on wrist restraints does not follow commands speaking in Wallisian off tangent. Cranial nerves II through XII are tested. Pupils are equal and reactive bilaterally. He does have extraocular movements, which are intact. There is no obvious facial asymmetry. Motor examination, withdraws both upper and lower extremities. no focal deficits Impression/Recommendations Status: progressing, deteriorating Diagnostic Impression 1. Falls --> unknown etiology --> CT Head completed once prior to admission and second CT head done yesterday after patient fell in the room attempting to get up oob per RN --> S/p nasal fracture second: CT findings revealed Left frontal soft tissue swelling. Age-indeterminate nasal bone fractures partially visualized.Stable mild chronic small vessel ischemic changes and cerebral volume loss. --> Recommend MRI Brain once he is stable and out of covid isolation- he is still in isolation for covid outpatient follow up for outpatient work up if not done inpatient. --> family was contacted by nursing. --> Pt has had 3 falls inpatient according to nurses. None reported recently on wrist restraints. 2. Encephalopathy --> No focal findings on limited neuro exam, i.e cva 3. Covid 19 Disease --> on isolation, went into resp failure s/p intubation and on vent --> continue supportive treatment on completed steroid treatment dc planning 4. Atrial Fibrillation --> with RVR, cards on board 5. Resp Distress and Failure --> s/p Code Blue, s/p Intubation and vent now extubated on 2nd floor on Thank You for allowing us to participate in the care of the patient. The time of the note phil not necessarily reflect the time the patient was seen and evaluated Recommendations no new recommendations at this time. Sonam Redman [employer] Jun 08, 2020 13:22
--- NOTE | 2020-06-08 13:26 | NUR ---
NEWSPAPER REPORTER NOTES SPOKE WITH DOLORES FROM [facility], REQUEST IS PENDING INSURANCE APPROVAL. WILL FOLLOW UP IN 2 HOURS.
[2020-06-08 16:00] VITALS: BP 112/65
--- NOTE | 2020-06-08 18:46 | NUR ---
NURSE NOTES: Spoke with LACY Erwin to followup status of home oxygen delivery. As per Yaima, delivery of home O2 is still pending. Dr. Barraza updated of delay in discharge. Will attempt to wean patient to room air tonight if able to tolerate. Also, noted PIV infiltrated. Removed PIV. Updated Dr. Waldrop if ok with no IV access as pt is eating/drinking with good urine output and pending discharge tomorrow. Awaiting response.
--- NOTE | 2020-06-08 19:12 | NUR ---
NURSE NOTES: Pt received from MARTHA Fay. Pt is resting comfortably in bed and denies any pain. Pt is A/Ox1 Belarusian Speaking; Pt is on restraints due to safety of patient. Pt has paulino catheter 16fr for retention draining well due gravity. Pt is on cardiac monitoring SR and asymptomatic. Pt is on NC 2 LPM sating well and cannot lay flat. Pt has LFA 22G running D51/2NS 75ml/hr. Bed is locked and in lowest position with call lights within reach. Will continue to monitor. Addendum: 06/08/20 at 1913 by Kingsley Veras RN Pt received from MARTHA Mancilla.
[2020-06-08 20:00] VITALS: BP 105/67
--- NOTE | 2020-06-08 21:10 | General Progress Note ---
Subjective ROS Limited/Unobtainable: Yes Allergies: Coded Allergies: No Known Allergies (Unverified , 05/21/20) Objective Last 24 Hour Vital Signs Date Time Temp Pulse Resp B/P (MAP) Pulse Ox O2 Delivery O2 Flow Rate FiO2 06/08/20 20:20 72 118/85 06/08/20 19:50 95 Nasal Cannula 2.0 28 06/08/20 16:00 98.0 84 22 112/65 (81) 95 06/08/20 16:00 92 06/08/20 12:00 104 06/08/20 12:00 97.5 92 22 101/66 (78) 95 06/08/20 09:29 77 06/08/20 09:00 Nasal Cannula 2.0 Nasal Cannula 2.0 06/08/20 09:00 77 105/52 06/08/20 08:14 96 Nasal Cannula 2.0 28 06/08/20 08:00 73 06/08/20 08:00 97.8 77 20 105/52 (69) 95 06/08/20 04:00 98.1 80 18 130/77 (94) 96 06/08/20 04:00 72 06/08/20 00:00 70 06/08/20 00:00 98.1 72 19 128/73 (91) 96 Intake and Output 06/07/20 06/08/20 19:00 07:00 Intake Total 240 ml Output Total 500 ml 150 ml Balance -260 ml -150 ml Intake Oral 240 ml Output Urine Total 500 ml 150 ml # Voids 1 # Bowel Movements 2 Height (Feet): 5 Height (Inches): 7.00 Weight (Pounds): 159 Assessment/Plan Problem List: (1) Renal insufficiency ICD Codes: N28.9 - Disorder of kidney and ureter, unspecified SNOMED: 542393390, 568351374 (2) Encephalopathy ICD Codes: G93.40 - Encephalopathy, unspecified SNOMED: 73051648, 709762588 (3) Head injury ICD Codes: S09.90XA - Unspecified injury of head, initial encounter SNOMED: 62136098, 714152576 Qualifiers: Qualified Codes: S09.90XA - Unspecified injury of head, initial encounter (4) Pneumonia ICD Codes: J18.9 - Pneumonia, unspecified organism SNOMED: 684444496 Qualifiers: Qualified Codes: J18.9 - Pneumonia, unspecified organism (5) Abnormal EKG ICD Codes: R94.31 - Abnormal electrocardiogram [ECG] [EKG]; J12.89 - Other viral pneumonia SNOMED: 196211170 (6) Altered level of consciousness ICD Codes: R40.4 - Transient alteration of awareness SNOMED: 5324570 (7) Dehydration ICD Codes: E86.0 - Dehydration SNOMED: 88802090 (8) Pneumonia due to COVID-19 virus ICD Codes: U07.1 - COVID-19; J12.89 - Other viral pneumonia SNOMED: 673313406993587941 (9) Renal failure (ARF), acute on chronic ICD Codes: N17.9 - Acute kidney failure, unspecified; N18.9 - Chronic kidney disease, unspecified SNOMED: 729666215 Status: progressing, deteriorating Assessment/Plan: a fib check oxygen on ra afebrile covid positive pna desatureated on RA needs home oxygen Yvette Waldrop MD Jun 08, 2020 21:10
[2020-06-08] MEDS: Haloperidol 5mg/ml Inj IM PRN (21:49)
[2020-06-09] VITALS: BP 105/67
[2020-06-09 04:00] VITALS: BP 106/53
--- NOTE | 2020-06-09 07:19 | NUR ---
NURSE HAND-OFF REPORT: Important Events on Shift:Pt prepped for DC Patient Status: Stable Diet: Regular pureed moist Pending Orders: Pending Results/Labs: Pending MD notification: Latest Vital Signs: Temperature 97.9 , Pulse 58 , B/P 106 /53 , Respiratory Rate 18 , O2 SAT 99 , Nasal Cannula, O2 Flow Rate 2.0 . Vital Sign Comment: VSS EKG Rhythm: Afib w/ BBB Rhythm change?: N MD Notified?: N -Dr. Praful MONSIVAIS Response: No New Orders Received Latest Stewart Fall Score: 85 Fall Risk: High Risk Safety Measures: Call light Within Reach, Bed Alarm Zone 2, Side Rails Side Rails x3, Bed position Low and Locked. Fall Precautions: Yellow Socks Yellow Gown Door Sign Patient Fall Education Report given to MARTHA Triana.
--- NOTE | 2020-06-09 07:21 | NUR ---
NURSE NOTES: Pt recieved from Lopez THOMAS. Pt in bed sleeping saturation at 100% on RA. Bed low and locked, call light within annalise. Bilateral soft wrist restraints in place with no swelling or redness noted and pulses present and palpable.
[2020-06-09 07:37] LABS: BASOPHILS % (AUTO) 0.8 % (0.0-2.0); EOSINOPHILS % (AUTO) 0.2 % (0.0-3.0); LYMPHOCYTES % (AUTO) 9.5 % (20.0-45.0); MEAN CORPUSCULAR VOLUME 96 FL (80-99); MONOCYTES % (AUTO) 16.3 % (1.0-10.0); NEUTROPHILS % (AUTO) 73.3 % (45.0-75.0); PLATELET COUNT 180 K/UL (150-450); RED BLOOD COUNT 3.45 M/UL (4.70-6.10); RED CELL DISTRIBUTION WIDTH 15.3 % (11.6-14.8); WHITE BLOOD COUNT 10.5 K/UL (4.8-10.8)
[2020-06-09 08:00] VITALS: BP 128/49
[2020-06-09] MEDS: D5 1/2NS 1,000 ML IV SCH ×2 (08:10→21:30)
[2020-06-09] MEDS: Docusate 100mg cap ORAL SCH (08:21)
[2020-06-09] MEDS: Eliquis 5mg tablet ORAL SCH ×2 (08:21→17:48)
[2020-06-09] MEDS: Pantoprazole Inj IVP SCH ×3 (08:21→22:01)
[2020-06-09] MEDS: Metoprolol Tartrate 100mg tab ORAL SCH ×3 (08:22→22:01)
[2020-06-09] MEDS: Digoxin 0.125mg tab ORAL SCH (08:24)
[2020-06-09] MEDS: Amiodarone 200mg tab ORAL SCH (08:25)
--- NOTE | 2020-06-09 08:25 | NUR ---
NURSE NOTES: Please note, digoxin and metoprolol held because HR 54
[2020-06-09 08:35] LABS: ALBUMIN 2.2 G/DL (3.4-5.0); ALBUMIN/GLOBULIN RATIO 0.5 (1.0-2.7); BILIRUBIN,TOTAL 1.4 MG/DL (0.2-1.0); CALCIUM 7.9 MG/DL (8.5-10.1); CREATININE 1.2 MG/DL (0.55-1.30); PHOSPHORUS 3.6 MG/DL (2.5-4.9); POTASSIUM 3.7 MMOL/L (3.5-5.1)
[2020-06-09 08:38] LABS: BILIRUBIN,DIRECT 0.7 MG/DL (0.0-0.3)
--- NOTE | 2020-06-09 08:50 | NUR ---
NURSE NOTES: Please note pantaprozole not given because pt has no iv site and will be D/Yifan later today. will inform MD. Please note not returned to pyxis because mistakenly reconstituted.
--- NOTE | 2020-06-09 11:16 | Infectious Diseases Prog Note ---
Assessment/Plan Assessment/Plan antibiotics : none A 1. COVID-19 pneumonia on 2 liters O2, 95 % saturation 2. renal failure,improving 3. Dementia. P 1. continue off antibiotics 2. continue isolation Subjective ROS Limited/Unobtainable: Yes Allergies: Coded Allergies: No Known Allergies (Unverified , 05/21/20) Objective Last 24 Hour Vital Signs Date Time Temp Pulse Resp B/P (MAP) Pulse Ox O2 Delivery O2 Flow Rate FiO2 06/09/20 09:00 Room Air Room Air 06/09/20 08:00 65 06/09/20 08:00 96.7 81 20 128/49 (75) 98 06/09/20 04:00 58 06/09/20 04:00 97.9 45 18 106/53 (70) 99 06/09/20 00:00 66 06/09/20 00:00 98.2 91 18 105/67 (80) 95 06/08/20 22:22 76 06/08/20 21:00 Room Air Room Air 06/08/20 20:20 72 118/85 06/08/20 20:00 98.2 91 18 105/67 (80) 95 06/08/20 19:50 95 Nasal Cannula 2.0 28 06/08/20 16:00 98.0 84 22 112/65 (81) 95 06/08/20 16:00 92 06/08/20 12:00 104 06/08/20 12:00 97.5 92 22 101/66 (78) 95 Height (Feet): 5 Height (Inches): 7.00 Weight (Pounds): 159 Laboratory Tests Test 06/09/20 06:19 White Blood Count 10.5 K/UL (4.8-10.8) Red Blood Count 3.45 M/UL (4.70-6.10) L Hemoglobin 11.0 G/DL (14.2-18.0) L Hematocrit 33.0 % (42.0-52.0) L Mean Corpuscular Volume 96 FL (80-99) Mean Corpuscular Hemoglobin 31.9 PG (27.0-31.0) H Mean Corpuscular Hemoglobin Concent 33.4 G/DL (32.0-36.0) Red Cell Distribution Width 15.3 % (11.6-14.8) H Platelet Count 180 K/UL (150-450) Mean Platelet Volume 8.7 FL (6.5-10.1) Neutrophils (%) (Auto) 73.3 % (45.0-75.0) Lymphocytes (%) (Auto) 9.5 % (20.0-45.0) L Monocytes (%) (Auto) 16.3 % (1.0-10.0) H Eosinophils (%) (Auto) 0.2 % (0.0-3.0) Basophils (%) (Auto) 0.8 % (0.0-2.0) Sodium Level 137 MMOL/L (136-145) Potassium Level 3.7 MMOL/L (3.5-5.1) Chloride Level 104 MMOL/L (98-107) Carbon Dioxide Level 28 MMOL/L (21-32) Anion Gap 5 mmol/L (5-15) Blood Urea Nitrogen 18 mg/dL (7-18) Creatinine 1.2 MG/DL (0.55-1.30) Estimat Glomerular Filtration Rate 58.0 mL/min (>60) Glucose Level 79 MG/DL (74-106) Calcium Level 7.9 MG/DL (8.5-10.1) L Phosphorus Level 3.6 MG/DL (2.5-4.9) Magnesium Level 1.7 MG/DL (1.8-2.4) L Total Bilirubin 1.4 MG/DL (0.2-1.0) H Direct Bilirubin 0.7 MG/DL (0.0-0.3) H Aspartate Amino Transf (AST/SGOT) 36 U/L (15-37) Alanine Aminotransferase (ALT/SGPT) 30 U/L (12-78) Alkaline Phosphatase 97 U/L (46-116) Total Protein 6.3 G/DL (6.4-8.2) L Albumin 2.2 G/DL (3.4-5.0) L Globulin 4.1 g/dL Albumin/Globulin Ratio 0.5 (1.0-2.7) L Current Medications Medications (Trade) Dose Ordered Sig/Celia Route PRN Reason Start Time Stop Time Status Last Admin Dose Admin Amiodarone HCl (Cordarone) 200 mg DAILY ORAL 06/02/20 09:00 08/31/20 08:59 06/09/20 08:25 Apixaban (Eliquis) 5 mg BID ORAL 05/30/20 18:00 08/28/20 17:59 06/09/20 08:21 Bisacodyl (Dulcolax) 10 mg DAILYPRN PRN ORAL Constipation 06/05/20 13:30 09/03/20 13:29 06/07/20 15:25 Dextrose/Sodium Chloride 1,000 ml @ 75 mls/hr [id number] IV 05/22/20 13:30 06/21/20 13:29 06/08/20 05:29 Digoxin (Lanoxin) 0.125 mg DAILY ORAL 05/28/20 09:00 08/26/20 08:59 06/08/20 09:29 Diphenhydramine HCl (Benadryl) 25 mg Q6H PRN IVP Itching 05/26/20 14:45 06/25/20 14:44 Docusate Sodium (Colace) 100 mg TWICE A DAY ORAL 06/05/20 18:00 07/05/20 17:59 06/09/20 08:21 Haloperidol Lactate (Haldol) 5 mg Q6H PRN IM Agitation 05/22/20 13:15 07/06/20 13:14 06/08/20 21:49 Metoprolol Tartrate (Lopressor) 100 mg EVERY 12 HOURS ORAL 05/27/20 21:00 08/25/20 20:59 06/08/20 20:20 Pantoprazole (Protonix) 40 mg EVERY 12 HOURS IVP 05/22/20 21:00 06/21/20 20:59 06/08/20 09:00 Quetiapine Fumarate (SEROqueL) 50 mg Q12HR ORAL 06/07/20 09:47 07/22/20 09:46 06/09/20 08:21 Kenroy Farnsworth MD Jun 09, 2020 11:16
[2020-06-09 12:00] VITALS: BP 107/76
--- NOTE | 2020-06-09 12:36 | Pulmonology Progress Note ---
Subjective ROS Limited/Unobtainable: Yes Interval Events: none new reported per nursing Constitutional: Denies: fever HEENT: Repors: no symptoms Respiratory: Reports: no symptoms Cardiovascular: Reports: no symptoms Gastrointestinal/Abdominal: Reports: no symptoms Allergies: Coded Allergies: No Known Allergies (Unverified , 05/21/20) Objective Last 24 Hour Vital Signs Date Time Temp Pulse Resp B/P (MAP) Pulse Ox O2 Delivery O2 Flow Rate FiO2 06/09/20 09:00 Room Air Room Air 06/09/20 08:00 65 06/09/20 08:00 96.7 81 20 128/49 (75) 98 06/09/20 04:00 58 06/09/20 04:00 97.9 45 18 106/53 (70) 99 06/09/20 00:00 66 06/09/20 00:00 98.2 91 18 105/67 (80) 95 06/08/20 22:22 76 06/08/20 21:00 Room Air Room Air 06/08/20 20:20 72 118/85 06/08/20 20:00 98.2 91 18 105/67 (80) 95 06/08/20 19:50 95 Nasal Cannula 2.0 28 06/08/20 16:00 98.0 84 22 112/65 (81) 95 06/08/20 16:00 92 Intake and Output 06/08/20 06/09/20 19:00 07:00 Intake Total 300 ml 300 ml Balance 300 ml 300 ml Intake Oral 300 ml 300 ml # Voids 1 1 Objective 06/09 now on room air 06/08 saturating >92% on 2L NC, desaturates on RA down to 87% 06/07 back on nasal oxygen saturating well 06/04 now on 10L Venturi mask, 40% FiO2 06/03 now on 8L Venturi mask at 40% FiO2 06/02 no change 06/01 now on 2L NC saturating well 05/30 saturating well on 4 L NC; pt asleep 05/29 saturating well on 4 lpm NC; agitated, A&O x1-2 05/24/2020 currently on 2 lpm NC saturating well 05/23/2020 Barb[place] speaking pt, A&O x2, saturating well on RA General Appearance: WD/WN, no acute distress HEENT: normocephalic, atraumatic Respiratory: chest wall non-tender, lungs clear Cardiovascular: normal rate, regular rhythm Abdomen: other - obese Extremities: no edema Skin: other - 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 Musculoskeletal: other - left hip tenderness to palpation, no contusion, no crepitus noted Laboratory Tests 06/09/20 06:19: White Blood Count 10.5, Red Blood Count 3.45L, Hemoglobin 11.0L, Hematocrit 33.0L, Mean Corpuscular Volume 96, Mean Corpuscular Hemoglobin 31.9H, Mean Corpuscular Hemoglobin Concent 33.4, Red Cell Distribution Width 15.3H, Platelet Count 180, Mean Platelet Volume 8.7, Neutrophils (%) (Auto) 73.3, Lymphocytes (%) (Auto) 9.5L, Monocytes (%) (Auto) 16.3H, Eosinophils (%) (Auto) 0.2, Basophils (%) (Auto) 0.8, Sodium Level 137, Potassium Level 3.7, Chloride Level 104, Carbon Dioxide Level 28, Anion Gap 5, Blood Urea Nitrogen 18, Creatinine 1.2, Estimat Glomerular Filtration Rate 58.0, Glucose Level 79, Calcium Level 7.9L, Phosphorus Level 3.6, Magnesium Level 1.7L, Total Bilirubin 1.4H, Direct Bilirubin 0.7H, Aspartate Amino Transf (AST/SGOT) 36, Alanine Aminotransferase (ALT/SGPT) 30, Alkaline Phosphatase 97, Total Protein 6.3L, Albumin 2.2L, Globulin 4.1, Albumin/Globulin Ratio 0.5L Current Medications Medications (Trade) Dose Ordered Sig/Celia Route PRN Reason Start Time Stop Time Status Last Admin Dose Admin Amiodarone HCl (Cordarone) 200 mg DAILY ORAL 06/02/20 09:00 08/31/20 08:59 06/09/20 08:25 Apixaban (Eliquis) 5 mg BID ORAL 05/30/20 18:00 08/28/20 17:59 06/09/20 08:21 Bisacodyl (Dulcolax) 10 mg DAILYPRN PRN ORAL Constipation 06/05/20 13:30 09/03/20 13:29 06/07/20 15:25 Dextrose/Sodium Chloride 1,000 ml @ 75 mls/hr [id number] IV 05/22/20 13:30 06/21/20 13:29 06/08/20 05:29 Digoxin (Lanoxin) 0.125 mg DAILY ORAL 05/28/20 09:00 08/26/20 08:59 06/08/20 09:29 Diphenhydramine HCl (Benadryl) 25 mg Q6H PRN IVP Itching 05/26/20 14:45 06/25/20 14:44 Docusate Sodium (Colace) 100 mg TWICE A DAY ORAL 06/05/20 18:00 07/05/20 17:59 06/09/20 08:21 Haloperidol Lactate (Haldol) 5 mg Q6H PRN IM Agitation 05/22/20 13:15 07/06/20 13:14 06/08/20 21:49 Metoprolol Tartrate (Lopressor) 100 mg EVERY 12 HOURS ORAL 05/27/20 21:00 08/25/20 20:59 06/08/20 20:20 Pantoprazole (Protonix) 40 mg EVERY 12 HOURS IVP 05/22/20 21:00 06/21/20 20:59 06/08/20 09:00 Quetiapine Fumarate (SEROqueL) 50 mg Q12HR ORAL 06/07/20 09:47 07/22/20 09:46 06/09/20 08:21 Assessment/Plan Assessment/Plan 1. Pneumonia. - s/p Rocephin 2. Anemia. - stable; monitor 3. Renal insufficiency. - Hydration 4. Elevated inflammatory markers with high CRP. 5. Hypokalemia.; resolved 6. Mild protein-calorie malnutrition. - on regular diet 7. COVID-19 - hold off on any specific therapy for COVID such as remdesivir. - completed decadron 8. Wound care instituted 9. Left hip pain s/p fall - L hip XRay - no fractures noted 10. s/p fall 11. Afib with rvr; now off Cardizem gtt oxygenation improved; now on room air seen in tele dc planning; per home health care case manager Medically stable for discharge from pulmonology stand point of view The care for this patient was discussed with my supervising physician Time spent for this case was approximately 31 minutes Otoniel Ramirez Jun 09, 2020 12:36
--- NOTE | 2020-06-09 13:44 | Neurology Progress Note ---
Interim History Interim History ROS Limited/Unobtainable: Yes Objective Physical Exam Last Vital Signs Date Time Temp Pulse Resp B/P (MAP) Pulse Ox O2 Delivery O2 Flow Rate FiO2 06/09/20 12:00 96.7 94 20 107/76 (86) 96 06/09/20 09:00 Room Air Room Air 06/08/20 19:50 2.0 28 Laboratory Tests Test 06/09/20 06:19 White Blood Count 10.5 K/UL (4.8-10.8) Red Blood Count 3.45 M/UL (4.70-6.10) L Hemoglobin 11.0 G/DL (14.2-18.0) L Hematocrit 33.0 % (42.0-52.0) L Mean Corpuscular Volume 96 FL (80-99) Mean Corpuscular Hemoglobin 31.9 PG (27.0-31.0) H Mean Corpuscular Hemoglobin Concent 33.4 G/DL (32.0-36.0) Red Cell Distribution Width 15.3 % (11.6-14.8) H Platelet Count 180 K/UL (150-450) Mean Platelet Volume 8.7 FL (6.5-10.1) Neutrophils (%) (Auto) 73.3 % (45.0-75.0) Lymphocytes (%) (Auto) 9.5 % (20.0-45.0) L Monocytes (%) (Auto) 16.3 % (1.0-10.0) H Eosinophils (%) (Auto) 0.2 % (0.0-3.0) Basophils (%) (Auto) 0.8 % (0.0-2.0) Sodium Level 137 MMOL/L (136-145) Potassium Level 3.7 MMOL/L (3.5-5.1) Chloride Level 104 MMOL/L (98-107) Carbon Dioxide Level 28 MMOL/L (21-32) Anion Gap 5 mmol/L (5-15) Blood Urea Nitrogen 18 mg/dL (7-18) Creatinine 1.2 MG/DL (0.55-1.30) Estimat Glomerular Filtration Rate 58.0 mL/min (>60) Glucose Level 79 MG/DL (74-106) Calcium Level 7.9 MG/DL (8.5-10.1) L Phosphorus Level 3.6 MG/DL (2.5-4.9) Magnesium Level 1.7 MG/DL (1.8-2.4) L Total Bilirubin 1.4 MG/DL (0.2-1.0) H Direct Bilirubin 0.7 MG/DL (0.0-0.3) H Aspartate Amino Transf (AST/SGOT) 36 U/L (15-37) Alanine Aminotransferase (ALT/SGPT) 30 U/L (12-78) Alkaline Phosphatase 97 U/L (46-116) Total Protein 6.3 G/DL (6.4-8.2) L Albumin 2.2 G/DL (3.4-5.0) L Globulin 4.1 g/dL Albumin/Globulin Ratio 0.5 (1.0-2.7) L Neurologic Exam Objective Objective: Neuro exam unable to examine pt is not cooperating VITAL SIGNS: Reviewed on GENERAL: For general physical examination, please refer to other physicians' examination for details. NEUROLOGIC: Mental status - the patient is confused on wrist restraints does not follow commands speaking in Slovenian off tangent. Cranial nerves II through XII are tested. Pupils are equal and reactive bilaterally. He does have extraocular movements, which are intact. There is no obvious facial asymmetry. Motor examination, withdraws both upper and lower extremities. no focal deficits Impression/Recommendations Status: progressing, deteriorating Diagnostic Impression 1. Falls --> unknown etiology --> CT Head completed once prior to admission and second CT head done yesterday after patient fell in the room attempting to get up oob per RN --> S/p nasal fracture second: CT findings revealed Left frontal soft tissue swelling. Age-indeterminate nasal bone fractures partially visualized.Stable mild chronic small vessel ischemic changes and cerebral volume loss. --> Recommend MRI Brain once he is stable and out of covid isolation- he is still in isolation for covid outpatient follow up for outpatient work up if not done inpatient. --> family was contacted by nursing. --> Pt has had 3 falls inpatient according to nurses. None reported recently on wrist restraints. 2. Encephalopathy --> No focal findings on limited neuro exam, i.e cva 3. Covid 19 Disease --> on isolation, went into resp failure s/p intubation and on vent --> continue supportive treatment on completed steroid treatment and is off abxdc planning 4. Atrial Fibrillation --> with RVR, cards on board 5. Resp Distress and Failure --> s/p Code Blue, s/p Intubation and vent now extubated on 2nd floor on Thank You for allowing us to participate in the care of the patient. The time of the note phil not necessarily reflect the time the patient was seen and evaluated Recommendations no new recommendations at this time. Sonam Redman NP Jun 09, 2020 13:44
[2020-06-09] MEDS ORDERED: ISOSORBIDE MONO60 M1 PO (13:50)
[2020-06-09] MEDS ORDERED: GABAPENTIN100 MG ORAL (13:50)
[2020-06-09] MEDS ORDERED: FUROSEMIDE40 MG ORAL (13:50)
[2020-06-09] MEDS ORDERED: ASPIRIN81 MG ORAL (13:50)
[2020-06-09] MEDS ORDERED: ELIQUIS5 MG ORAL (13:50)
[2020-06-09] MEDS ORDERED: BANOPHEN50 MG PO (13:50)
[2020-06-09] MEDS ORDERED: ATENOLOL100 MG ORAL (13:50)
[2020-06-09] MEDS ORDERED: METHOTREXATE2.5 MG PO (13:50)
[2020-06-09] MEDS ORDERED: POTASSIUM CHLOR8 ME2 PO (13:52)
--- NOTE | 2020-06-09 14:30 | NUR ---
NURSE NOTES: Spoke to Dr. Waldrop in person. Expressed concern about pt living alone and being d/blake without home health. Per Dr. Waldrop, do not D/C wihtout at minimum home health. Also stated that pt should be evaluated by PT. If pt gives consent to D/C home then pt is ok to go forward with D/C. However if PT eval is that pt needs SNF then Dr. Waldrop needs to be notified so pt can be find placement.
--- NOTE | 2020-06-09 15:10 | Cardiac Electrophysiology PN ---
Assessment/Plan Assessment/Plan 1. Syncope. Etiology is not clear at this time. EF 60%. He might have been dehydrated vs SSS in view of PAF 2. Atrial fib with RVR. Not eating and no NGT. Swallow eval is pending. On metoprolol 100 bid, Amiodarone 200 po daily, Eliquis 2.5 bid and Dig 0.125 po daily 3. Troponin elevation. Levels are low and flat due to renal failure. On Lopressor 4. RBBB and lateral T-wave inversion. 5. Covid PNA 6. Dysphagia. 7. Low MG, replaced DW RN Gave cardiac prescriptions Subjective Subjective In Covid isolation, fib rate controlled on Lopressor 100 bid and Dig 0.125 po daily and Amiodarone 200 daily Off Oxygen . Awaiting DC home today Objective Last 24 Hour Vital Signs Date Time Temp Pulse Resp B/P (MAP) Pulse Ox O2 Delivery O2 Flow Rate FiO2 06/09/20 12:00 96.7 94 20 107/76 (86) 96 06/09/20 09:00 Room Air Room Air 06/09/20 08:00 65 06/09/20 08:00 96.7 81 20 128/49 (75) 98 06/09/20 07:00 98 Nasal Cannula 2.0 28 06/09/20 04:00 58 06/09/20 04:00 97.9 45 18 106/53 (70) 99 06/09/20 00:00 66 06/09/20 00:00 98.2 91 18 105/67 (80) 95 06/08/20 22:22 76 06/08/20 21:00 Room Air Room Air 06/08/20 20:20 72 118/85 06/08/20 20:00 98.2 91 18 105/67 (80) 95 06/08/20 19:50 95 Nasal Cannula 2.0 28 06/08/20 16:00 98.0 84 22 112/65 (81) 95 06/08/20 16:00 92 Intake and Output 06/08/20 06/09/20 19:00 07:00 Intake Total 300 ml 300 ml Balance 300 ml 300 ml Intake Oral 300 ml 300 ml # Voids 1 1 Laboratory Tests Test 06/09/20 06:19 White Blood Count 10.5 K/UL (4.8-10.8) Red Blood Count 3.45 M/UL (4.70-6.10) L Hemoglobin 11.0 G/DL (14.2-18.0) L Hematocrit 33.0 % (42.0-52.0) L Mean Corpuscular Volume 96 FL (80-99) Mean Corpuscular Hemoglobin 31.9 PG (27.0-31.0) H Mean Corpuscular Hemoglobin Concent 33.4 G/DL (32.0-36.0) Red Cell Distribution Width 15.3 % (11.6-14.8) H Platelet Count 180 K/UL (150-450) Mean Platelet Volume 8.7 FL (6.5-10.1) Neutrophils (%) (Auto) 73.3 % (45.0-75.0) Lymphocytes (%) (Auto) 9.5 % (20.0-45.0) L Monocytes (%) (Auto) 16.3 % (1.0-10.0) H Eosinophils (%) (Auto) 0.2 % (0.0-3.0) Basophils (%) (Auto) 0.8 % (0.0-2.0) Sodium Level 137 MMOL/L (136-145) Potassium Level 3.7 MMOL/L (3.5-5.1) Chloride Level 104 MMOL/L (98-107) Carbon Dioxide Level 28 MMOL/L (21-32) Anion Gap 5 mmol/L (5-15) Blood Urea Nitrogen 18 mg/dL (7-18) Creatinine 1.2 MG/DL (0.55-1.30) Estimat Glomerular Filtration Rate 58.0 mL/min (>60) Glucose Level 79 MG/DL (74-106) Calcium Level 7.9 MG/DL (8.5-10.1) L Phosphorus Level 3.6 MG/DL (2.5-4.9) Magnesium Level 1.7 MG/DL (1.8-2.4) L Total Bilirubin 1.4 MG/DL (0.2-1.0) H Direct Bilirubin 0.7 MG/DL (0.0-0.3) H Aspartate Amino Transf (AST/SGOT) 36 U/L (15-37) Alanine Aminotransferase (ALT/SGPT) 30 U/L (12-78) Alkaline Phosphatase 97 U/L (46-116) Total Protein 6.3 G/DL (6.4-8.2) L Albumin 2.2 G/DL (3.4-5.0) L Globulin 4.1 g/dL Albumin/Globulin Ratio 0.5 (1.0-2.7) L Objective HEAD AND NECK: No JVD. LUNGS: Clear. CARDIOVASCULAR: Irregular S1 and S2 with no gallop or murmur. ABDOMEN: Soft. EXTREMITIES: No pitting edema. Rick Basilio MD Jun 09, 2020 15:10
[2020-06-09] MEDS ORDERED: AMIODARONE HCL400 M1 ORAL (15:19)
--- NOTE | 2020-06-09 15:19 | Nephrology Progress Note ---
Assessment/Plan Problem List: (1) Renal failure (ARF), acute on chronic (2) Dehydration (3) Pneumonia due to COVID-19 virus Assessment Acute renal failure Possible underlying chronic kidney disease Dehydration Electrolyte imbalance Toxic metabolic encephalopathy Pneumonia due to COVID-19 virus Mild anemia Plan June 09: Labs reviewed. Magnesium slightly low. Magnesium supplement given. Renal parameters stable. Continue per consultants. June 08: No labs drawn today. Will check labs and chemistries tomorrow. Continue per consultants June 07: Labs reviewed. Low magnesium noted and addressed. Continue per consultants. June 06: No labs drawn today. Will check lab tomorrow. Continue to monitor renal parameters and electrolytes. Continue per consultants. June 05: White blood cells up to over 17,000. Renal parameters stable. Low magnesium replaced. Continue per consultants. June 04: No labs or CHEM panel drawn today. Med list reviewed. Will check labs tomorrow. Continue per consultants. June 03: No labs drawn today. Stable from renal standpoint of view. June 02: Labs reviewed. Renal parameters and electrolytes stable. Continue per consultants. June 01: No labs from today. Will check lab in a.m. Medication list reviewed. Blood pressure stable. Continue per consultants. May 31. No labs drawn today. Most recent renal parameters and electrolytes stable. Will check lab tomorrow. Continue per consultants. May 30: Labs reviewed. Low magnesium replaced. Continue per consultants. Remains stable from renal standpoint of view. May 29: No labs drawn today. Heart rate within normal range. Stable from renal standpoint of view. May 28: Renal parameters improved. Heart rate within normal limits. Continue per current treatment plan and consultants. May 27: Serum creatinine down to 1.5. Heart rate normalized. Continue per consultants. Continue to monitor electrolytes and renal parameters. May 26: Borderline blood pressure. Serum creatinine higher at 1.9. Remains under the care of [facility] for rhythm management. Continue to monitor electrolytes and adjust abnormalities May 25: Patient now in ICU on Cardizem drip. Serum creatinine 1.7. Rest of the electrolytes within normal limit. Continue per cardiology. Continue to monitor renal parameters and electrolytes. May 24: Labs reviewed. Serum creatinine 1.6. Phosphorus low, IV K-Phos ordered. Continue to monitor renal parameters. Continue per current management. Slow hydrate Magnesium sulfate IV supplement today Antibiotics, avoid nephrotoxic's Monitor renal parameters electrolytes Keep the blood pressure blood sugar in check Patient full code Subjective ROS Limited/Unobtainable: No Constitutional: Reports: malaise, weakness Objective Objective Last 24 Hour Vital Signs Date Time Temp Pulse Resp B/P (MAP) Pulse Ox O2 Delivery O2 Flow Rate FiO2 06/09/20 12:00 96.7 94 20 107/76 (86) 96 06/09/20 09:00 Room Air Room Air 06/09/20 08:00 65 06/09/20 08:00 96.7 81 20 128/49 (75) 98 06/09/20 07:00 98 Nasal Cannula 2.0 28 06/09/20 04:00 58 06/09/20 04:00 97.9 45 18 106/53 (70) 99 06/09/20 00:00 66 06/09/20 00:00 98.2 91 18 105/67 (80) 95 06/08/20 22:22 76 06/08/20 21:00 Room Air Room Air 06/08/20 20:20 72 118/85 06/08/20 20:00 98.2 91 18 105/67 (80) 95 06/08/20 19:50 95 Nasal Cannula 2.0 28 06/08/20 16:00 98.0 84 22 112/65 (81) 95 06/08/20 16:00 92 Intake and Output 06/08/20 06/09/20 19:00 07:00 Intake Total 300 ml 300 ml Balance 300 ml 300 ml Intake Oral 300 ml 300 ml # Voids 1 1 Laboratory Tests 06/09/20 06:19: White Blood Count 10.5, Red Blood Count 3.45L, Hemoglobin 11.0L, Hematocrit 33.0L, Mean Corpuscular Volume 96, Mean Corpuscular Hemoglobin 31.9H, Mean Corpuscular Hemoglobin Concent 33.4, Red Cell Distribution Width 15.3H, Platelet Count 180, Mean Platelet Volume 8.7, Neutrophils (%) (Auto) 73.3, Lymphocytes (%) (Auto) 9.5L, Monocytes (%) (Auto) 16.3H, Eosinophils (%) (Auto) 0.2, Basophils (%) (Auto) 0.8, Sodium Level 137, Potassium Level 3.7, Chloride Level 104, Carbon Dioxide Level 28, Anion Gap 5, Blood Urea Nitrogen 18, Creatinine 1.2, Estimat Glomerular Filtration Rate 58.0, Glucose Level 79, Calcium Level 7.9L, Phosphorus Level 3.6, Magnesium Level 1.7L, Total Bilirubin 1.4H, Direct Bilirubin 0.7H, Aspartate Amino Transf (AST/SGOT) 36, Alanine Aminotransferase (ALT/SGPT) 30, Alkaline Phosphatase 97, Total Protein 6.3L, Albumin 2.2L, Globulin 4.1, Albumin/Globulin Ratio 0.5L Height (Feet): 5 Height (Inches): 7.00 Weight (Pounds): 159 General Appearance: no apparent distress, lethargic Cardiovascular: tachycardia Respiratory/Chest: decreased breath sounds Abdomen: distended Objective No change Jerome Delaney MD Jun 09, 2020 15:19
[2020-06-09 16:00] VITALS: BP 112/61
[2020-06-09] MEDS: Docusate 100mg/10ml Liq ORAL SCH (18:00)
--- NOTE | 2020-06-09 18:43 | NUR ---
NURSE HAND-OFF REPORT: Important Events on Shift:[DC postponed due to CM arranging home health. pt lived alone and needs assistance. Please ensure amioderone RX goes home with pt] Patient Status: [full code; stable] Diet: [Reg pure moist ] Pending Orders: [] Pending Results/Labs:[] Pending MD notification:[] Latest Vital Signs: Temperature 98.1 , Pulse 81 , B/P 112 /61 , Respiratory Rate 19 , O2 SAT 96 , Nasal Cannula, O2 Flow Rate 2.0 . Vital Sign Comment: [] EKG Rhythm: SR w/ BBB Rhythm change?: N MD Notified?: N -Dr. Praful MONSIVAIS Response: No New Orders Received Latest Stewart Fall Score: 85 Fall Risk: High Risk Safety Measures: Call light Within Reach, Bed Alarm Zone 2, Side Rails Side Rails x3, Bed position Low and Locked. Fall Precautions: Yellow Socks Yellow Gown Door Sign Patient Fall Education Report given to [Pending RN assignment]. Addendum: 06/09/20 at 1943 by Kamilah Mckeon RN Report given to Mehnaz THOMAS
--- NOTE | 2020-06-09 19:20 | NUR ---
NURSE NOTES: Report received from Ani RN. Patient awake alert and oriented x0 to 1. Patient with bilateral wrist restraints. No SOB at this time, on room air. Call light and bed side table with in reach. Will continue with plan of care.
[2020-06-09 20:00] VITALS: BP 122/60
--- NOTE | 2020-06-09 21:59 | General Progress Note ---
Subjective ROS Limited/Unobtainable: Yes Allergies: Coded Allergies: No Known Allergies (Unverified , 05/21/20) Objective Last 24 Hour Vital Signs Date Time Temp Pulse Resp B/P (MAP) Pulse Ox O2 Delivery O2 Flow Rate FiO2 06/09/20 19:18 97 Nasal Cannula 2.0 28 06/09/20 16:00 98.1 81 19 112/61 (78) 96 06/09/20 12:00 96.7 94 20 107/76 (86) 96 06/09/20 09:00 Room Air Room Air 06/09/20 08:00 65 06/09/20 08:00 96.7 81 20 128/49 (75) 98 06/09/20 07:00 98 Nasal Cannula 2.0 28 06/09/20 04:00 58 06/09/20 04:00 97.9 45 18 106/53 (70) 99 06/09/20 00:00 66 06/09/20 00:00 98.2 91 18 105/67 (80) 95 06/08/20 22:22 76 Intake and Output 06/08/20 06/09/20 19:00 07:00 Intake Total 300 ml 300 ml Balance 300 ml 300 ml Intake Oral 300 ml 300 ml # Voids 1 1 Laboratory Tests 06/09/20 06:19: White Blood Count 10.5, Red Blood Count 3.45L, Hemoglobin 11.0L, Hematocrit 33.0L, Mean Corpuscular Volume 96, Mean Corpuscular Hemoglobin 31.9H, Mean Corpuscular Hemoglobin Concent 33.4, Red Cell Distribution Width 15.3H, Platelet Count 180, Mean Platelet Volume 8.7, Neutrophils (%) (Auto) 73.3, Lymphocytes (%) (Auto) 9.5L, Monocytes (%) (Auto) 16.3H, Eosinophils (%) (Auto) 0.2, Basophils (%) (Auto) 0.8, Sodium Level 137, Potassium Level 3.7, Chloride Level 104, Carbon Dioxide Level 28, Anion Gap 5, Blood Urea Nitrogen 18, Creatinine 1.2, Estimat Glomerular Filtration Rate 58.0, Glucose Level 79, Calcium Level 7.9L, Phosphorus Level 3.6, Magnesium Level 1.7L, Total Bilirubin 1.4H, Direct Bilirubin 0.7H, Aspartate Amino Transf (AST/SGOT) 36, Alanine Aminotransferase (ALT/SGPT) 30, Alkaline Phosphatase 97, Total Protein 6.3L, Albumin 2.2L, Globulin 4.1, Albumin/Globulin Ratio 0.5L Height (Feet): 5 Height (Inches): 7.00 Weight (Pounds): 159 Assessment/Plan Problem List: (1) Renal insufficiency ICD Codes: N28.9 - Disorder of kidney and ureter, unspecified SNOMED: 108819795, 045781693 (2) Encephalopathy ICD Codes: G93.40 - Encephalopathy, unspecified SNOMED: 80050967, 447943378 (3) Head injury ICD Codes: S09.90XA - Unspecified injury of head, initial encounter SNOMED: 68097758, 184812509 Qualifiers: Qualified Codes: S09.90XA - Unspecified injury of head, initial encounter (4) Pneumonia ICD Codes: J18.9 - Pneumonia, unspecified organism SNOMED: 793608416 Qualifiers: Qualified Codes: J18.9 - Pneumonia, unspecified organism (5) Abnormal EKG ICD Codes: R94.31 - Abnormal electrocardiogram [ECG] [EKG]; J12.89 - Other viral pneumonia SNOMED: 332172976 (6) Altered level of consciousness ICD Codes: R40.4 - Transient alteration of awareness SNOMED: 6293878 (7) Dehydration ICD Codes: E86.0 - Dehydration SNOMED: 61826714 (8) Pneumonia due to COVID-19 virus ICD Codes: U07.1 - COVID-19; J12.89 - Other viral pneumonia SNOMED: 239389308970142733 (9) Renal failure (ARF), acute on chronic ICD Codes: N17.9 - Acute kidney failure, unspecified; N18.9 - Chronic kidney disease, unspecified SNOMED: 350793894 Status: progressing, deteriorating Assessment/Plan: covid positive pna weak and needs help w adl so cancel dc saturating fine on RA Yvette Waldrop MD Jun 09, 2020 21:59
[2020-06-10] VITALS: BP 116/63
[2020-06-10 04:00] VITALS: BP 124/71
--- NOTE | 2020-06-10 06:57 | NUR ---
NURSE HAND-OFF REPORT: Important Events on Shift: Patient Status: stable alert oriented x0 to 1 Diet: Reg puree moist Pending Orders: Pending Results/Labs:[] Pending MD notification:[] Latest Vital Signs: Temperature 98.2 , Pulse 65 , B/P 124 /71 , Respiratory Rate 19 , O2 SAT 94 , Nasal Cannula, O2 Flow Rate 2.0 . Vital Sign Comment: [] EKG Rhythm: SR w/ BBB Rhythm change?: N MD Notified?: N -Dr. Praful MONSIVAIS Response: No New Orders Received Latest Stewart Fall Score: 85 Fall Risk: High Risk Safety Measures: Call light Within Reach, Bed Alarm Zone 2, Side Rails Side Rails x3, Bed position Low and Locked. Fall Precautions: Yellow Socks Yellow Gown Door Sign Patient Fall Education Report given to Kamilah THOMAS.
--- NOTE | 2020-06-10 07:03 | NUR ---
NURSE NOTES: Pt received from Mehnaz THOMAS. Pt in bed sleeping saturation at 100% on RA. Bed low and locked, call light within annalise. Bilateral soft wrist restraints in place with no swelling or redness noted and pulses present and palpable.
[2020-06-10 08:00] VITALS: BP 100/51
[2020-06-10] MEDS: Metoprolol Tartrate 100mg tab ORAL SCH (08:14)
[2020-06-10] MEDS: Pantoprazole Inj IVP SCH (09:50)
[2020-06-10] MEDS: Eliquis 5mg tablet ORAL SCH (09:50)
[2020-06-10] MEDS: Amiodarone 200mg tab ORAL SCH (09:51)
[2020-06-10] MEDS: Docusate 100mg/10ml Liq ORAL SCH (09:51)
[2020-06-10] MEDS: Digoxin 0.125mg tab ORAL SCH (09:52)
[2020-06-10] MEDS: D5 1/2NS 1,000 ML IV SCH (10:08)
--- NOTE | 2020-06-10 10:55 | NUR ---
PT EVALUATION NOTE Patient seen for PT evaluation and treatment initiated. Patient presents with generalized weakness and decreased balance which limits his ability to perform mobility tasks safely and increases his fall risk. Patient requires mod/max assist for bed mobility and min/mod assist for transfers with FWW. Patient able to ambulate 15 ft with min assist to manage FWW and for gait stability due to impaired balance. Patient impulsive at times. Ambulation endurance limited by weakness. Patient will benefit from skilled inpatient PT intervention to increase strength and postural stability for improved level of functional mobility and safety as patient lives alone and is a fall risk. Recommend discharge to SNF for further rehab vs home with 24 hour care and home PT. Patient has FWW and SPC at home for ambulation. Addendum: 06/10/20 at 1233 by NOHEMY RINCON PT Amended: Links added.
--- NOTE | 2020-06-10 11:01 | Nephrology Progress Note ---
Assessment/Plan Problem List: (1) Renal failure (ARF), acute on chronic (2) Dehydration (3) Pneumonia due to COVID-19 virus Assessment Acute renal failure Possible underlying chronic kidney disease Dehydration Electrolyte imbalance Toxic metabolic encephalopathy Pneumonia due to COVID-19 virus Mild anemia Plan June 10: No labs drawn today. Will check lab tomorrow. Stable from renal standpoint of view. Continue per consultants. June 09: Labs reviewed. Magnesium slightly low. Magnesium supplement given. Renal parameters stable. Continue per consultants. June 08: No labs drawn today. Will check labs and chemistries tomorrow. Continue per consultants June 07: Labs reviewed. Low magnesium noted and addressed. Continue per consultants. June 06: No labs drawn today. Will check lab tomorrow. Continue to monitor renal parameters and electrolytes. Continue per consultants. June 05: White blood cells up to over 17,000. Renal parameters stable. Low magnesium replaced. Continue per consultants. June 04: No labs or CHEM panel drawn today. Med list reviewed. Will check labs tomorrow. Continue per consultants. June 03: No labs drawn today. Stable from renal standpoint of view. June 02: Labs reviewed. Renal parameters and electrolytes stable. Continue per consultants. June 01: No labs from today. Will check lab in a.m. Medication list reviewed. Blood pressure stable. Continue per consultants. May 31. No labs drawn today. Most recent renal parameters and electrolytes stable. Will check lab tomorrow. Continue per consultants. May 30: Labs reviewed. Low magnesium replaced. Continue per consultants. Remains stable from renal standpoint of view. May 29: No labs drawn today. Heart rate within normal range. Stable from renal standpoint of view. May 28: Renal parameters improved. Heart rate within normal limits. Continue per current treatment plan and consultants. May 27: Serum creatinine down to 1.5. Heart rate normalized. Continue per consultants. Continue to monitor electrolytes and renal parameters. May 26: Borderline blood pressure. Serum creatinine higher at 1.9. Remains under the care of booking manager for rhythm management. Continue to monitor electrolytes and adjust abnormalities May 25: Patient now in ICU on Cardizem drip. Serum creatinine 1.7. Rest of the electrolytes within normal limit. Continue per cardiology. Continue to monitor renal parameters and electrolytes. May 24: Labs reviewed. Serum creatinine 1.6. Phosphorus low, IV K-Phos ordered. Continue to monitor renal parameters. Continue per current management. Slow hydrate Magnesium sulfate IV supplement today Antibiotics, avoid nephrotoxic's Monitor renal parameters electrolytes Keep the blood pressure blood sugar in check Patient full code Subjective ROS Limited/Unobtainable: No Constitutional: Reports: malaise, weakness Objective Objective Last 24 Hour Vital Signs Date Time Temp Pulse Resp B/P (MAP) Pulse Ox O2 Delivery O2 Flow Rate FiO2 06/10/20 09:52 68 06/10/20 09:00 Room Air Room Air 06/10/20 08:00 99.0 60 19 100/51 (67) 98 06/10/20 04:00 98.2 65 19 124/71 (88) 94 06/10/20 00:00 98.1 55 20 116/63 (80) 97 06/09/20 22:01 80 122/60 06/09/20 21:00 Room Air Room Air 06/09/20 20:00 99.7 56 17 122/60 (80) 100 06/09/20 19:18 97 Nasal Cannula 2.0 28 06/09/20 16:00 98.1 81 19 112/61 (78) 96 06/09/20 12:00 96.7 94 20 107/76 (86) 96 Intake and Output 06/09/20 06/10/20 19:00 07:00 Intake Total 300 ml 200 ml Output Total 400 ml 300 ml Balance -100 ml -100 ml Intake Oral 300 ml 200 ml Output Urine Total 400 ml 300 ml # Voids 1 Height (Feet): 5 Height (Inches): 7.00 Weight (Pounds): 159 General Appearance: no apparent distress Cardiovascular: normal rate Respiratory/Chest: decreased breath sounds Abdomen: soft Objective No change Jerome Delaney MD Jun 10, 2020 11:01
[2020-06-10 12:00] VITALS: BP 98/61
--- NOTE | 2020-06-10 12:34 | NUR ---
CASE MANAGEMENT:REVIEW 06/10/20 SI: COVID PNA. ENCEPHALOPATHY. AFIB W/RVR 97.5 80 19 98/61 96% ON RA IS: IVF@75/HR IV PROTONIX Q12 SEROQUEL PO Q12 AMIODARONE PO QD ELIQUIS PO BID DIGOXIN PO QD LOPRESSOR PO Q12 : TELEMETRY STATUS DCP: FROM HOME DISCHARGE WAS DELAYED DUE TO THE FOLLOWING PATIENT NEEDED OXYGEN FOR HOME USE. WAS INSTRUCTED TO USE CONTRACTED VENDOR CONTACTED [facility] ON 06/07/20 @ [id number]......[facility] RESPONDED TWO HOURS LATER AND SAID THEY WERE CREATING A FILE AND THEY WOULD CALL BACK 06/08/20 CALLED [facility] AND WAS ONLY ABLE TO LEAVE A [facility] REQUESTING A CALL BACK REGARDING DELIVERY TIME NO RESPONSE UNTIL LATER IN THE DAY. [facility] SAID THEY WERE WAITING FOR AUTHORIZATION FORM HEALTH PLAN 06/09/20 NO OXYGEN HAD BEEN DELIVERED AND PATIENT HAS NOW BEEN WEANED TO ROOM AIR DR GARVEY HELD DISCHARGE BECAUSE HE FELT PATIENT NEEDED A PT EVAL PROVIDED HEALTH PLANS [employer] CAPITAL ANALYST WITH DR GARVEY PHONE NUMBER FOR TO CONVERSATION
--- NOTE | 2020-06-10 13:21 | NUR ---
RANGE MECHANIC NOTE S/W PATIENTS DAUGHTER KAROLINA, WHO IS KOREAN SPEAKING ONLY, IN RE TO DC PLAN. 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 PATIENTS DTR ALSO STATED THAT SHE IS ABLE TO STRU[employer] IRONWORKER PATIENT AND TRANSPORT HOME WHEN NOTIFIED OF DC.
--- NOTE | 2020-06-10 15:08 | Pulmonology Progress Note ---
Subjective ROS Limited/Unobtainable: No Interval Events: none new reported per nursing Constitutional: Denies: fever HEENT: Repors: no symptoms Respiratory: Reports: no symptoms Cardiovascular: Reports: no symptoms Gastrointestinal/Abdominal: Reports: no symptoms Allergies: Coded Allergies: No Known Allergies (Unverified , 05/21/20) Objective Last 24 Hour Vital Signs Date Time Temp Pulse Resp B/P (MAP) Pulse Ox O2 Delivery O2 Flow Rate FiO2 06/10/20 12:00 97.5 80 19 98/61 (73) 96 06/10/20 09:52 68 06/10/20 09:00 Room Air Room Air 06/10/20 08:00 99.0 60 19 100/51 (67) 98 06/10/20 04:00 98.2 65 19 124/71 (88) 94 06/10/20 00:00 98.1 55 20 116/63 (80) 97 06/09/20 22:01 80 122/60 06/09/20 21:00 Room Air Room Air 06/09/20 20:00 99.7 56 17 122/60 (80) 100 06/09/20 19:18 97 Nasal Cannula 2.0 28 06/09/20 16:00 98.1 81 19 112/61 (78) 96 Intake and Output 06/09/20 06/10/20 19:00 07:00 Intake Total 300 ml 200 ml Output Total 400 ml 300 ml Balance -100 ml -100 ml Intake Oral 300 ml 200 ml Output Urine Total 400 ml 300 ml # Voids 1 General Appearance: WD/WN, no acute distress HEENT: normocephalic, atraumatic Respiratory: chest wall non-tender, lungs clear Cardiovascular: normal rate, regular rhythm Abdomen: other - obese Extremities: no edema Skin: other - 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 Musculoskeletal: other - left hip tenderness to palpation, no contusion, no crepitus noted Current Medications Medications (Trade) Dose Ordered Sig/Celia Route PRN Reason Start Time Stop Time Status Last Admin Dose Admin Amiodarone HCl (Cordarone) 200 mg DAILY ORAL 06/02/20 09:00 08/31/20 08:59 06/10/20 09:51 Apixaban (Eliquis) 5 mg BID ORAL 05/30/20 18:00 08/28/20 17:59 06/10/20 09:50 Bisacodyl (Dulcolax) 10 mg DAILYPRN PRN ORAL Constipation 06/05/20 13:30 09/03/20 13:29 06/07/20 15:25 Dextrose/Sodium Chloride 1,000 ml @ 75 mls/hr [id number] IV 05/22/20 13:30 06/21/20 13:29 06/10/20 10:08 Digoxin (Lanoxin) 0.125 mg DAILY ORAL 05/28/20 09:00 08/26/20 08:59 06/10/20 09:52 Diphenhydramine HCl (Benadryl) 25 mg Q6H PRN IVP Itching 05/26/20 14:45 06/25/20 14:44 Docusate Sodium (Colace) 100 mg TWICE A DAY ORAL 06/09/20 18:00 07/09/20 17:59 06/10/20 09:51 Haloperidol Lactate (Haldol) 5 mg Q6H PRN IM Agitation 05/22/20 13:15 07/06/20 13:14 06/08/20 21:49 Metoprolol Tartrate (Lopressor) 100 mg EVERY 12 HOURS ORAL 05/27/20 21:00 08/25/20 20:59 06/09/20 22:01 Pantoprazole (Protonix) 40 mg EVERY 12 HOURS IVP 05/22/20 21:00 06/21/20 20:59 06/10/20 09:50 Quetiapine Fumarate (SEROqueL) 50 mg Q12HR ORAL 06/07/20 09:47 07/22/20 09:46 06/10/20 09:50 Assessment/Plan Assessment/Plan 1. Pneumonia. - s/p Rocephin 2. Anemia. - improving 3. Renal insufficiency. - Hydration 4. Elevated inflammatory markers with high CRP. 5. Hypokalemia.; resolved 6. Mild protein-calorie malnutrition. - on regular diet 7. COVID-19 - hold off on any specific therapy for COVID such as remdesivir. - completed decadron - saturating well on 2L/min O2 8. Wound care instituted 9. Left hip pain s/p fall - L hip XRay - no fractures noted 10. s/p fall 11. Afib with rvr; now off Cardizem gtt oxygenation improved now Continue low-flow nasal oxygen, 3 L/minute Ector Howe MD Jun 10, 2020 15:08
[2020-06-10] MEDS ORDERED: Tubing IV Secondary IV ONE (15:14)
[2020-06-10] MEDS ORDERED: NS 275ml ONE (15:14)
[2020-06-10] MEDS ORDERED: D5 1/2NS 1000ml IV ONE (15:14)
--- NOTE | 2020-06-10 15:15 | NUR ---
NURSE NOTES: Pt discharged home with home health. Picked up by neighbor Lisa Cleveland. IV removed, telebox removed, ID band cut. Amioderone RX given to Lisa. Lisa signed for pt cellphone and $7. Explained to her that he will need a lot of assistance and that she needs to speak up if she feels she cannot take care of him. She expresses understanding. Stated that she needs to make a doctors appointment for pt [facility] and that the primary MD must go through pt meds and determine what he needs and does not need. She expresses understanding. The two were picked up by a taxi. Per Lisa, address on facesheet is not correct, it is [address] Lisa phone number is: [phone]
--- NOTE | 2020-06-10 20:18 | Cardiac Electrophysiology PN ---
Assessment/Plan Assessment/Plan 1. Syncope. Etiology is not clear at this time. EF 60%. He might have been dehydrated vs SSS in view of PAF 2. Atrial fib with RVR. Not eating and no NGT. Swallow eval is pending. On metoprolol 100 bid, Amiodarone 200 po daily, Eliquis 2.5 bid and Dig 0.125 po daily 3. Troponin elevation. Levels are low and flat due to renal failure. On Lopressor 4. RBBB and lateral T-wave inversion. 5. Covid PNA 6. Dysphagia. 7. Low MG, replaced DW RN Gave cardiac prescriptions Subjective Subjective In Covid isolation, fib rate controlled on Lopressor 100 bid and Dig 0.125 po daily and Amiodarone 200 daily Off Oxygen . Awaiting DC home today Objective Last 24 Hour Vital Signs Date Time Temp Pulse Resp B/P (MAP) Pulse Ox O2 Delivery O2 Flow Rate FiO2 06/10/20 12:00 97.5 80 19 98/61 (73) 96 06/10/20 09:52 68 06/10/20 09:00 Room Air Room Air 06/10/20 08:00 99.0 60 19 100/51 (67) 98 06/10/20 04:00 98.2 65 19 124/71 (88) 94 06/10/20 00:00 98.1 55 20 116/63 (80) 97 06/09/20 22:01 80 122/60 06/09/20 21:00 Room Air Room Air Intake and Output 06/09/20 06/10/20 19:00 07:00 Intake Total 300 ml 200 ml Output Total 400 ml 300 ml Balance -100 ml -100 ml Intake Oral 300 ml 200 ml Output Urine Total 400 ml 300 ml # Voids 1 Objective HEAD AND NECK: No JVD. LUNGS: Clear. CARDIOVASCULAR: Irregular S1 and S2 with no gallop or murmur. ABDOMEN: Soft. EXTREMITIES: No pitting edema. Rick Basilio MD Jun 10, 2020 20:18
--- NOTE | 2020-06-10 22:19 | Psychiatric Progress Note ---
Psychiatry Progress Note Psychiatry Progress Note Subjective the pt is more stable Neurological/Psychiatric: Reports: anxiety, depressed, emotional problems Allergies: Coded Allergies: No Known Allergies (Unverified , 05/21/20) Objective Data Height (Feet): 5 Height (Inches): 7.00 Weight (Pounds): 159 General Appearance: no apparent distress Additional Comments: waxing and waning consciousness. Mood is anxious. Affect is blunted, congruent with mood. Thought process is concrete. Thought content, no suicidal or homicidal ideation. Cognition is impaired. Insight and judgment impaired. Assessment/Plan Bozman I: ASSESSMENT: Bozman I Acute metabolic encephalopathy. Dementia. Bozman II Deferred. Bozman III Renal insufficiency and head injury. Bozman IV Low. Bozman V 20. PLAN: 1. We will start the patient on Haldol IM p.r.n. 2. Restraints. 3. Discussed with the nurse. Status: progressing, deteriorating Status Narrative ASSESSMENT: Bozman I Acute metabolic encephalopathy. Dementia. Bozman II Deferred. Bozman III Renal insufficiency and head injury. Bozman IV Low. Bozman V 20. PLAN: 1. We will start the patient on Haldol IM p.r.n. 2. Restraints. 3. Discussed with the nurse. Assessment/Plan: ASSESSMENT: Bozman I Acute metabolic encephalopathy. Dementia. Bozman II Deferred. Bozman III Renal insufficiency and head injury. Bozman IV Low. Bozman V 20. PLAN: 1. We will start the patient on Haldol IM p.r.n. 2. Restraints. 3. Discussed with the nurse. Francheska Huynh MD Jun 10, 2020 22:19
== END 2020-06-10 15:15 | disposition home health service (06) | DRG 177 ==
LOC: EDBD 21:19 → EMR 21:36 → 2E 22:21 → EDBEDREQSVC 23:13 → EDBEDREQ 23:13 → 2E 05-22 03:23 → ICU 05-24 22:44 → 2E 05-28 14:50
DX: U07.1 COVID-19 (principal); J12.89 Other viral pneumonia; G93.41 Metabolic encephalopathy; N17.9 Acute kidney failure, unspecified; E44.1 Mild protein-calorie malnutrition; N18.9 Chronic kidney disease, unspecified; E86.0 Dehydration; D64.9 Anemia, unspecified; S00.83XA Contusion of other part of head, initial encounter; W19.XXXA Unspecified fall, initial encounter; Y92.009 Unspecified place in unspecified non-institutional (private) residence as the place of occurrence of the external cause; R21 Rash and other nonspecific skin eruption; R13.10 Dysphagia, unspecified; R55 Syncope and collapse; F03.90 Unspecified dementia, unspecified severity, without behavioral disturbance, psychotic disturbance, mood disturbance, and anxiety; I25.10 Atherosclerotic heart disease of native coronary artery without angina pectoris; Z95.1 Presence of aortocoronary bypass graft; Z68.22 Body mass index [BMI] 22.0-22.9, adult; E87.6 Hypokalemia; I48.91 Unspecified atrial fibrillation; I45.10 Unspecified right bundle-branch block; S79.912A Unspecified injury of left hip, initial encounter
CPT/HCPCS: 36415; 70450; 71045; 73502; 76770; 80053; 80061; 80162; 80307; 81001; 82248; 82550; 82607; 82728; 82746; 82977; 83036; 83540; 83550; 83735; 83880; 84100; 84300; 84443; 84484; 84550; 85007; 85025; 85379; 85610; 85651; 85730; 86140; 93005; 93306; 96361; 96365; 96367; 99285; C9399; J7030; U0002